=== PATIENT | male | born 1985 | race Caucasian/White ===

== ENCOUNTER → 2018-01-01 16:18 | Outpatient (CLI) | payer MEDICAID, SELFPAY ==
--- NOTE | 2018-01-01 16:24 | MRI_ITS ---
MR Spine Lumbar W/O Contrast INDICATION: LBPpain low back and rt hip x 19 years, no prev lumbar surgery COMPARISON: None TECHNIQUE: Multiplanar multisequence MRI examination of the lumbar spine without contrast FINDINGS: Image quality is suboptimal due to patient's body habitus. There are 5 lumbar-type azr-pou-dusupiw vertebral bodies. The lumbar spine is mildly straightened. Height of the vertebral bodies is preserved. There is mild edema in the anterior aspect of the superior endplate of L5, likely degenerative. Bridging osteophytes are noted at the L4-5 level. Bone marrow signal is otherwise unremarkable. The conus is located at the T12-L1 level and is morphologically unremarkable. There is normal distribution of the nerve roots of the cauda equina. At the T11-12 level, the disc space is decreased with anterior osteophyte formation, no significant posterior disc bulging, spinal canal or neuroforaminal stenosis. Hypertrophy of the ligamentum flavum is noted bilaterally. At the T12-L1 level, there is degenerative disc disease with broad-based posterior and right paracentral to foraminal disc protrusion and disc osteophyte formation resulting in narrowing of the right lateral aspect of the spinal canal and mild right neuroforaminal narrowing. Mass effect onto the conus is minimal. Residual AP diameter of the spinal canal at this level measures 1.3 cm. L1-2 level and L2-3 level unremarkable. L3-4 level demonstrates loss of T2 signal and intervertebral disc compatible with degeneration. There is no significant disc bulging, spinal canal or neuroforaminal stenosis. L4-5 level demonstrates mild diffuse disc bulging and bilateral foraminal disc osteophyte formation with mild left and moderate right neuroforaminal stenosis. Spinal canal is mildly narrowed with residual AP diameter of the dural sac of 9 mm. L5-S1 level is unremarkable. MRI/Spine Lumbar (Routine) IMPRESSION: Degenerative disc disease at the lower thoracic spine and L4-5 with mild narrowing of the right lateral aspect of the spinal canal and the right neuroforamen at T12-L1, level of the conus. Mass effect onto the conus is minimal. At L4-5, there is mild left and moderate right neuroforaminal stenosis. at [id number] Reported and signed by: Emily Felix MD Electronically Signed: Emily Felix MD at 21:41 EST Tel , Service support ,
== END ==
PROVIDERS: Visit Provider Anesthesiology Pain Medicine
DX: M51.35 Other intervertebral disc degeneration, thoracolumbar region (principal); M48.05 Spinal stenosis, thoracolumbar region; M51.37 Other intervertebral disc degeneration, lumbosacral region; M54.17 Radiculopathy, lumbosacral region
CPT/HCPCS: 72148

== ENCOUNTER 2019-04-15 21:13 | Emergency (ER) | payer MEDICAID, SELFPAY ==
[2019-04-15 21:14] VITALS: BP 155/82; PULSE 96; RESP 15; TEMP 36.7; O2SAT 98; BMI 45.6
--- NOTE | 2019-04-15 22:22 | ED.VISSUMM ---
- ER Visit Summary Date of Service: 04/15/19 Chief Complaint: Abscess History of Present Illness: The patient is a 34 M who presents with an abscess. Is been on his chest wall for about a week. He states it is red. He has tried to drain it himself by poking it with needles. He did get some mild drainage at home. Denies fevers. He has never had any of these before. No other symptoms. Physical Examination: Vital signs reviewed. HEENT exam unremarkable. Heart is regular rate and rhythm without murmurs. Lungs are clear to auscultation. Abdomen is soft and nontender. Extremities reveal no edema. Skin exam shows a 3 x 3 cm abscess on the anterior right chest wall with surrounding erythema. Mild fluctuance.. Neurologic exam normal. Test Results: None performed Emergency Department Course and Treatment: The patient had incision and drainage by myself. 3 cc lidocaine was used to anesthetize the area. A cruciate incision was made over the dome of the abscess. There is very mild drainage that returned. Due to the amount of cellulitis I will place him on Bactrim and Keflex. He will follow-up with his PCP in a week for a wound check Treatment Plan: [] Disposition: Discharge Impression: Right chest wall abscess This note was generated with [employer] dictation software. It may contain incorrect words, spelling, and punctuation that were not noted in review of the chart prior to signing ED Disposition - Plan for ED Patient: Referrals: Debi Amaya [Primary Care Provider] -
--- NOTE | 2019-04-15 22:26 | DCINST.ED_ITS ---
ED Disposition - Plan for ED Patient: Disposition: Home or Assisted Living Instructions: ED Abscess IandD Prescriptions: Cephalexin [Keflex] 500 mg PO Q6 #40 cap Smz/Tmp Ds [Bactrim Ds] 1 tab PO BID #20 tab Referrals: [facility] He,Debi Kelley [Primary Care Provider] -
[2019-04-15] MEDS: Cephalexin 250 MG Capsule 500 MG PO (22:33)
[2019-04-15] MEDS: Smz/Tmp Ds Tablet 1 TABLET PO (22:33)
[2019-04-15 22:36] VITALS: PULSE 98; RESP 20; O2SAT 98
== END 2019-04-15 22:44 | disposition home or self-care (01) ==
LOC: ED 22:45
PROVIDERS: Emergency Provider Emergency Medicine; Family Provider Nurse Practitioner Family; PCP Nurse Practitioner Family
DX: L02.213 Cutaneous abscess of chest wall (principal); K21.9 Gastro-esophageal reflux disease without esophagitis; Z72.0 Tobacco use
CPT/HCPCS: 10060; 99285

== ENCOUNTER 2019-06-04 18:20 | Emergency (ER) | payer MEDICAID, SELFPAY ==
[2019-06-04 18:20] VITALS: BP 155/89; PULSE 81; RESP 16; TEMP 37.2; O2SAT 99; BMI 48.0
[2019-06-04 20:17] VITALS: BP 148/80; PULSE 80; RESP 14; O2SAT 98
--- NOTE | 2019-06-04 20:30 | CT_ITS ---
STUDY: CT ABDOMEN AND PELVIS WITHOUT CONTRAST REASON FOR EXAM: Male, 34 years old. Left flank pain RADIATION DOSAGE (If Supplied By Facility): CTDIvol = ( 24.11 ) mGy, DLP = ( 1307.12 ) mGycm TECHNIQUE: Transaxial images were obtained from the dome of the diaphragm to the symphysis pubis without oral contrast, and without intravenous contrast. Sagittal and coronal images were reconstructed. Individualized dose optimization techniques were used for this CT. COMPARISON: None. FINDINGS: Evaluation of the abdominal viscera is limited in the absence of intravenous contrast. The visualized lung bases are clear. The visualized portions of the heart and pericardium are within normal limits. There are no calcified gallstones present. The liver is low in density, consistent with fatty infiltration. The spleen is normal in size. The pancreas demonstrates an unremarkable unenhanced appearance. The adrenal glands are within normal limits. There are no renal or ureteral stones. There is no hydronephrosis. Normal visualized stomach. There is no bowel obstruction or inflammation. The appendix is visualized and appears normal. The aorta is normal in caliber. There is no abdominal or pelvic free air, free fluid, fluid collection or lymphadenopathy. There are no destructive osseous lesions. CT/Abdomen/Pelvis without Cont IMPRESSION: No acute abdominal or pelvic pathology demonstrated on this noncontrast CT. Fatty liver. Electronically Signed: Juni Duncan, at 21:13 EDT Tel , Service support ,
--- NOTE | 2019-06-04 20:32 | ED.VISSUMM ---
- ER Visit Summary Date of Service: 06/04/19 Chief Complaint: [Left flank pain History of Present Illness: The patient is a 34 M [patient has had left flank pain for 3 days. Pain is been continuous. He rates it a 7 out of 10. He denies any injury to his back. Patient denies any fevers. He has no nausea or vomiting. Patient was seen in urgent care and had a urine dip that showed blood and referred to the emergency department. No history of kidney stones. Patient denies similar symptoms. He has history of some chronic back pain issues but feels like this is different. He denies dysuria, urgency, or frequency.] Physical Examination: [HEENT-PERRLA, EOMI. Cranial nerves II through XII grossly intact. TMs clear. Mucous membranes moist. No adenopathy. Cardiovascular-regular rate and rhythm without murmur or ectopy Lungs-clear to auscultation, chest wall stable without crepitus or subcu emphysema Abdomen-normoactive bowel sounds, soft. Patient has tenderness palpation over left lower quadrant and some mild CVA tenderness on the left. Extremities-intact ?4, normal range of motion, normal pulses, atraumatic] Test Results: [CBC with differential was normal. Urinalysis was normal. CT flank was negative.] Emergency Department Course and Treatment: [Patient denied anything for pain] Treatment Plan: [Patient is no anything for pain for home and states that he will take an extra muscle relaxer at home and ibuprofen.] Disposition: [Discharged home stable condition.] Impression: [Left flank pain-etiology uncertain] This note was generated with [employer] dictation software. It may contain incorrect words, spelling, and punctuation that were not noted in review of the chart prior to signing ED Disposition - Plan for ED Patient: Referrals: Neha Lagunas NP-C [Primary Care Provider] -
[2019-06-04] MEDS: 0.9% Normal Saline 1,000 ML 125 ML IV (20:51)
[2019-06-04 21:24] LABS: Bacteria 0 SEEN /hpf (None Seen); Mucous, Urine 0 SEEN /hpf (<or=2+); Red Blood Cells-Urine 0 SEEN /hpf (0-5); Squamous Epithelial Cells - UA 0 SEEN /hpf (0-5); White Blood Cells 0 SEEN /hpf (0-5)
[2019-06-04 21:30] LABS: Color, Urine Yellow (Yellow); Glucose, Dipstick Normal (Normal); Ketone-Dipstick Negative (Negative); Leukocyte Esterase-Dipstick Negative /ul (Negative); Nitrite-Dipstick Negative (Negative); Occult Blood-Urine Negative /ul (Negative); Protein-Dipstick Negative (Negative); Specific Gravity, Urine 1.015 (1.002-1.030); Urine Bilirubin Dipstick Negative (Negative); Urine Clarity Clear (Clear); Urine Urobilinogen Normal (Normal)
[2019-06-04 21:37] LABS: Absolute Lymphocyte Count 3.57 X10^3/uL (0.83-4.51); Absolute Neutrophil Count 7.4 X10^3/uL (2.0-7.7); Basophil# 0.18 X10^3/uL; Basophil% 1.4 % (0-1); Eosinophil# 0.58 X10^3/uL; Eosinophils% 4.5 % (0-5); Hematocrit 47.6 % (40-54); Hemoglobin 15.2 g/dL (13.0-16.5); Lymphocyte # 3.57 X10^3/ul (4.0); Lymphocyte % 27.8 % (19-41); Mean Corp Hgb Conc 31.9 g/dL (32-36); Mean Corpuscular Hgb 28.5 pg (27.0-32.0); Mean Corpuscular Volume 89.1 fL (80-94); Mean Platelet Vol. 11.3 fl (6.2-12.0); Monocyte# 1.09 X10^3/uL; Monocyte% 8.5 % (0-10); NRBC Flagged by Analyzer 0 % (0-5); Neutrophil # 7.35 X10^3/uL (2.7-7.7); Neutrophil % 57.3 % (47-70); Platelet Count 239 K/mm3 (150-450); RBC Distribution Width CV 13.8 % (11.6-14.6); RBC Distribution Width SD 44.7 fl (35.1-43.9); Red Blood Count 5.34 M/mm3 (4.6-6.2); White Blood Count 12.8 K/mm3 (4.4-11.0)
--- NOTE | 2019-06-04 21:58 | DCINST.ED_ITS ---
ED Disposition - Plan for ED Patient: Instructions: FLANK PAIN, Uncertain Cause Referrals: Neha Lagunas, SENIOR TELLER-C [Primary Care Provider] - 3-5 Days
--- NOTE | 2019-06-04 21:58 | ED.DEP ---
ED Disposition - Plan for ED Patient: Instructions: FLANK PAIN, Uncertain Cause Referrals: Neha Lagunas, STRANNER-C [Primary Care Provider] - 3-5 Days
[2019-06-04 22:09] VITALS: BP 139/97; PULSE 70; RESP 17; O2SAT 99
== END 2019-06-04 22:09 | disposition home or self-care (01) ==
LOC: ED 20:45
PROVIDERS: Emergency Provider Emergency Medicine; Family Provider Nurse Practitioner Family; PCP Nurse Practitioner Family
DX: R10.32 Left lower quadrant pain (principal); Z72.0 Tobacco use
CPT/HCPCS: 74176; 81001; 85025; 96360; 99284; J7030; A4216

== ENCOUNTER → 2020-12-31 10:24 | Outpatient (CLI) | payer MEDICAID, SELFPAY ==
[2020-12-31 11:30] LABS: Absolute Lymphocyte Count 3.67 X10^3/uL (0.83-4.51); Basophil% 1.6 % (0-1); Eosinophil# 0.54 X10^3/uL; Eosinophils% 4.3 % (0-5); Hematocrit 52.8 % (40-54); Hemoglobin 16.3 g/dL (13.0-16.5); Lymphocyte # 3.67 X10^3/ul (4.0); Lymphocyte % 29.2 % (19-41); Mean Corp Hgb Conc 30.9 g/dL (32-36); Mean Corpuscular Hgb 27.6 pg (27.0-32.0); Mean Corpuscular Volume 89.3 fL (80-94); Mean Platelet Vol. 11.8 fl (6.2-12.0); Monocyte# 1.11 X10^3/uL; Monocyte% 8.8 % (0-10); NRBC Flagged by Analyzer 0 % (0-5); Neutrophil % 55.6 % (47-70); Platelet Count 237 K/mm3 (150-450); RBC Distribution Width CV 13.8 % (11.6-14.6); RBC Distribution Width SD 45.4 fl (35.1-43.9); Red Blood Count 5.91 M/mm3 (4.6-6.2); White Blood Count 12.6 K/mm3 (4.4-11.0)
[2020-12-31 11:53] LABS: Hemoglobin A1c 5.6 % (3.8-5.6)
[2020-12-31 11:57] LABS: ALB/GLOB Ratio 0.9 RATIO (0.9-2.4); AST(SGOT) 56 U/L (15-37); Alanine Aminotransfer ALT/SGPT 94 U/L (16-61); Albumin, Serum 3.7 g/dL (3.2-5.0); Alkaline Phosphatase 75 U/L (45-117); Anion Gap 4 (5-15); BUN 13 mg/dL (7-18); BUN/Creat Ratio 13.3 RATIO (10-20); Chloride 107 mmol/L (98-107); Cholesterol 172 mg/dL (200); Creatinine, Serum 0.97 mg/dL (0.70-1.30); EST Glomerular Filtration Rate 93 mL/min (>60); Est Glom Filt Rate - Afr Amer 112 mL/min (>60); Globulin 4.3 g/dL (2.2-4.2); Glucose 93 mg/dL (74-106); High Density Lipoprotein 42 mg/dL; Potassium 3.9 mmol/L (3.5-5.1); Sodium Level 139 mmol/L (136-145); Triglycerides 79 mg/dL; Very Low Density Lipoprotein 16 mg/dL (5-40)
== END ==
PROVIDERS: Referring Provider Nurse Practitioner Adult Health; Visit Provider Nurse Practitioner Adult Health
DX: K21.9 Gastro-esophageal reflux disease without esophagitis (principal)
CPT/HCPCS: 36415; 80053; 80061; 83036; 84443; 85025

== ENCOUNTER → 2021-01-14 10:22 | Outpatient (CLI) | payer MEDICAID, SELFPAY ==
[2021-01-15 13:09] LABS: Thyroid Peroxidase AB < 9 IU/mL (0-34)
== END ==
PROVIDERS: Referring Provider Nurse Practitioner Adult Health; Visit Provider Nurse Practitioner Adult Health
DX: E07.89 Other specified disorders of thyroid (principal)
CPT/HCPCS: 36415; 84439; 86376

== ENCOUNTER 2021-05-04 19:16 | Emergency (ER) | payer OTHER, MEDICAID, SELFPAY ==
[2021-05-04 19:17] VITALS: BP 163/83; PULSE 73; RESP 16; TEMP 36.8; O2SAT 97; BMI 44.8
--- NOTE | 2021-05-04 19:31 | EDS_ITS ---
HPI History of Present Illness Chief Complaint: Rash Detail of Chief Complaint: Rash that started this morning Informant: patient Narrative Narrative: Patient is here with a rash on his left wrist and behind his right ear this morning. Patient states the rash has now spread across his face. He denies lip or tongue swelling. He denies difficulty breathing. He denies any new soaps or detergents. Patient states that he was exposed to poison oak over a week ago and 4 days ago he got into a wood pile underneath the deck but other than that did not have any other exposures that he is aware of. He denies any new medications. Prior similar symptoms: No PFSH [facility] Medical History (Updated 05/04/21 @ 19:[address] Isidoro Toney, DO) Dysphagia Elevated blood pressure reading in office without diagnosis of hypertension GERD (gastroesophageal reflux disease) History of back problems Morbid obesity Numbness and tingling Sleep apnea Home Medications omeprazole 40 mg PO DAILY 04/15/19 [History Last Taken Unknown] chlorhexidine gluconate [Hibiclens] 1 applic TOPICAL DAILY 05/04/21 [History Last Taken Unknown] lisinopril 5 mg PO DAILY 05/04/21 [History Last Taken Unknown] prednisone 20 mg PO BID #14 tab 05/04/21 [Rx Last Taken Unknown] Allergy/AdvReac Type Severity Reaction Status Date / Time No Known Allergies Allergy Verified 05/04/21 19:18 Family History (Updated 02/22/21 @ 09:16 by Lien Barahona) Father Alcohol abuse Surgical History History of placement of ear tubes History of selective injection of anesthetic agent around lumbar nerve root Social History (Updated 02/22/21 @ 09:[address] Juan Fuller MD) Smoking Status: Light Smoker (<10/day) quit status: has quit before alcohol intake: current alcohol intake frequency: holidays/special occasions only substance use type: does not use caffeine: Yes what type of physical activity do you participate in: none frequency: does not exercise ROS ROS ED Constitutional Constitutional ED: Reports systems reviewed and no addt'l complaints, except as documented; Denies body ache(s), change in weight or chills Eyes Eyes: Denies acute decrease in peripheral vision, change in vision, double vision or loss of vision ENT ENT ED: Reports none; Denies ear pain, lip swelling, loss taste/smell, neck pain, otalgia or sore throat Cardiovascular Cardiovascular: Reports none; Denies abdominal pain, chest pain with activity, leg edema, lightheadedness, palpitations, rapid heart rate or syncope Respiratory/Chest Respiratory/Chest: Reports none; Denies change in mental status, dry cough, dyspnea, hemoptysis, shortness of breath at rest or shortness of breath with exertion Gastrointestinal Gastrointestinal: Reports none; Denies abdominal pain, change in stool character, diarrhea, hematemesis, hematochezia, melena, rectal bleeding or vomiting Genitourinary Genitourinary ED: Reports none; Denies abdominal discomfort, anuria, dysuria, genital pain or polyuria Musculoskeletal Musculoskeletal: Reports none; Denies arthralgias, back pain, difficulty walking, extremity pain, muscle weakness or myalgias Integumentary Reports none and rash; Denies abscess Neurologic Neurologic: Reports none; Denies abnormal gait, confusion, focal weakness, frequent falls, headache(s), loss of vision, numbness, paresthesias, radicular pain, vertigo or weakness Psychiatric Psychiatric: Reports systems reviewed and no addt'l complaints, except as documented and none; Denies behavioral changes, confusion, difficulty concentrating, hallucinations, suicidal ideation, tactile hallucinations or visual hallucinations Endocrine Endocrinology: Denies none, cold intolerance, excessive sweating, fatigue or heat intolerance Hematologic/Lymphatic Hematologic/Lymphatic: Reports none; Denies anemia, easy bleeding or easy bruising Allergic/Immunologic Allergic/Immunologic ED: Denies as per HPI, none, lip swelling, mouth swelling, throat swelling, tongue swelling or hives EXAM Physical Exam Const Vital Signs: 05/04/21 19:17 Temperature 98.2 F Temperature Source Temporal Pulse Rate 73 Respiratory Rate 16 Blood Pressure 163/83 H Blood Pressure Mean 109 Pulse Ox 97 Oxygen Delivery Method Room Air Positive well nourished and well developed General Appearance ED: well developed and NAD HEENT Reports TM's clear and moist mucous membranes normocephalic and atraumatic; Negative for trauma or tenderness Tympanic Membrane ED: Yes TM's clear Eyes PERRL and EOMs intact bilaterally General Eye ED: Negative for pale conjunctiva or scleral icterus Neck no lymphadenopathy, supple and no JVD General: Negative for tenderness Chest Wall inspection of chest normal and palpation of chest normal Chest: Negative for tenderness Resp normal respiratory effort and clear to auscultation bilaterally Effort and Inspection: Negative for respiratory distress or pain with movement Auscultation: Negative for rhonchi, wheezes or diminished lung sounds Cardio regular rate, regular rhythm, S1 normal heart sound, S2 normal heart sound and no murmurs Peripheral Pulses: pulses 2+ throughout GI normal to inspection, nondistended, normoactive bowel sounds, soft to palpation, non-tender, non-distended and no masses Back/Spine no CVA tenderness and no thoracic nor lumbar tenderness Extremity normal to inspection General Extremety ED: Negative for edema General Extremity: Negative for edema Neuro oriented x3, CN's II-XII intact bilaterally, no sensory deficits noted and gait normal Sensorium / Orientation: awake, alert, oriented to person, oriented to place and oriented to time Motor Exam: strength 5/5 throughout and strength abnormal Psych mental status grossly normal Skin no wounds Skin Narrative: Patient has a fine erythematous rash involving the volar aspect of the left wrist. Patient also has similar type rash involving the neck and face slightly raised. Rash is pruritic. MDM MDM MDM Narrative Medical decision making narrative: I suspect patient has a contact dermatitis. Patient was started on prednisone. He is advised to follow-up with primary care physician in 4 to 5 days. Discharge Plan Triage Chief Complaint: Rash ED Provider: Isidoro Toney Dx/Rx/DC Orders Clinical Impression: Contact dermatitis Instructions: ED Contact Dermatitis Prescriptions: New prednisone 20 mg tablet 20 mg PO BID Qty: 14 RF: 0 No Action omeprazole 40 MG capsule,delayed release(DR/EC) 40 mg PO DAILY RF: 0 lisinopril 5 mg Tablet 5 mg PO DAILY RF: 0 chlorhexidine gluconate [Hibiclens] 4 % Liquid 1 applic TOPICAL DAILY RF: 0 Primary Care Provider: [facility] Debi Styles [facility] - [facility]-5 Days Disposition Disposition: Home, Self Care
[2021-05-04] MEDS: predniSONE 20 MG Tablet 40 MG PO (19:50)
== END 2021-05-04 19:52 | disposition home or self-care (01) ==
LOC: ED 19:50
PROVIDERS: Emergency Provider Emergency Medicine
DX: L25.9 Unspecified contact dermatitis, unspecified cause (principal); F17.200 Nicotine dependence, unspecified, uncomplicated; K21.9 Gastro-esophageal reflux disease without esophagitis; Z79.899 Other long term (current) drug therapy; Z87.19 Personal history of other diseases of the digestive system
CPT/HCPCS: 99283

== ENCOUNTER → 2021-06-30 10:37 | Outpatient (CLI) | payer OTHER, MEDICAID, SELFPAY ==
[2021-06-30 11:24] LABS: Absolute Lymphocyte Count 2.96 X10^3/uL (0.83-4.51); Basophil# 0.16 X10^3/uL; Basophil% 1.4 % (0-1); Eosinophil# 0.44 X10^3/uL; Eosinophils% 3.8 % (0-5); Hematocrit 44.7 % (40-54); Hemoglobin 14.6 g/dL (13.0-16.5); Lymphocyte # 2.96 X10^3/ul (0.83-4.51); Lymphocyte % 25.7 % (19-41); Mean Corp Hgb Conc 32.7 g/dL (32-36); Mean Corpuscular Hgb 28.7 pg (27.0-32.0); Mean Corpuscular Volume 87.8 fL (80-94); Mean Platelet Vol. 11.2 fl (6.2-12.0); Monocyte# 0.95 X10^3/uL; Monocyte% 8.2 % (0-10); NRBC Flagged by Analyzer 0 % (0-5); Neutrophil # 6.95 X10^3/uL (2.7-7.7); Neutrophil % 60.4 % (47-70); Platelet Count 217 K/mm3 (150-450); RBC Distribution Width CV 13.8 % (11.6-14.6); RBC Distribution Width SD 44.4 fl (35.1-43.9); Red Blood Count 5.09 M/mm3 (4.6-6.2); White Blood Count 11.5 K/mm3 (4.4-11.0)
[2021-06-30 11:54] LABS: ALB/GLOB Ratio 0.9 RATIO (0.9-2.4); AST(SGOT) 37 U/L (15-37); Alanine Aminotransfer ALT/SGPT 57 U/L (16-61); Albumin, Serum 3.3 g/dL (3.2-5.0); Alkaline Phosphatase 62 U/L (45-117); Anion Gap 3 (5-15); BUN 9 mg/dL (7-18); BUN/Creat Ratio 10.8 RATIO (10-20); Calcium,Total 8.7 mg/dL (8.5-10.1); Chloride 105 mmol/L (98-107); Cholesterol 157 mg/dL (200); Creatinine, Serum 0.83 mg/dL (0.70-1.30); EST Glomerular Filtration Rate 111 mL/min (>60); Est Glom Filt Rate - Afr Amer 135 mL/min (>60); Globulin 3.8 g/dL (2.2-4.2); Glucose 102 mg/dL (74-106); High Density Lipoprotein 39 mg/dL; Potassium 3.7 mmol/L (3.5-5.1); Protein, Total 7.1 g/dL (6.4-8.2); Sodium Level 137 mmol/L (136-145); Triglycerides 62 mg/dL; Very Low Density Lipoprotein 12 mg/dL (5-40)
== END ==
PROVIDERS: PCP Nurse Practitioner Adult Health; Referring Provider Nurse Practitioner Adult Health
DX: E78.5 Hyperlipidemia, unspecified (principal)
CPT/HCPCS: 36415; 80053; 80061; 85025

== ENCOUNTER → 2021-07-01 09:01 | Outpatient (CLI) | payer OTHER, MEDICAID, SELFPAY ==
--- NOTE | 2021-07-01 09:03 | EKG12_ITS ---
Test Reason : CP Blood Pressure : / mmHG Vent. Rate : 058 BPM Atrial Rate : 058 BPM P-R Int : 160 ms QRS Dur : 106 ms QT Int : 390 ms P-R-T Axes : 024 003 031 degrees QTc Int : 382 ms Sinus bradycardia with sinus arrhythmia Otherwise normal ECG Confirmed by TERE ZIMMERMAN, HERMINIO ([id number]), development editor ARGENIS COLEMAN ([id number]) on 07/06/2021 8:10:31 AM Referred By: Wen Stanley Confirmed By:KEYON CARRANZA MD
== END ==
PROVIDERS: PCP Nurse Practitioner Adult Health; Referring Provider Nurse Practitioner Adult Health; Visit Provider Nurse Practitioner Adult Health
DX: I10 Essential (primary) hypertension (principal)
CPT/HCPCS: 93005

== ENCOUNTER → 2021-08-06 10:34 | Outpatient (CLI) | payer OTHER, MEDICAID, SELFPAY ==
--- NOTE | 2021-08-06 10:36 | RAD_ITS ---
STUDY: X-RAY - CERVICAL SPINE REASON FOR EXAM: Male, 36 years old. Neck pain and headache TECHNIQUE: 5 view(s) of the cervical spine were obtained. COMPARISON: None FINDINGS: Normal anterior atlantoaxial articulation. Normal odontoid process. Normal cervical lordosis. Normal vertebral bodies and endplates. There is multi-level degenerative disc disease with multilevel disc space narrowing from C5-6 through C7-T1. The soft tissue structures are unremarkable. There is no demonstrated fracture of the cervical spine. RAD/Cerv Spine 2 or 3 Views IMPRESSION: Degenerative changes in the lower C-spine, no demonstrated fracture or suspicious osseous lesion Electronically Signed: Eric Boudreaux MD at 12:04 EDT , Service support ,
--- NOTE | 2021-08-06 10:36 | RAD_ITS ---
STUDY: X-RAY CHEST REASON FOR EXAM: Male, 36 years old. Chest pain/pressure TECHNIQUE: PA and lateral views of the chest. COMPARISON: 2012 FINDINGS: The lungs are clear and expanded. There is no demonstrated pleural abnormality. Normal size heart. Normal mediastinum and wili. Normal visualized pulmonary arteries. Normal visualized aortic arch and descending thoracic aorta. Normal visualized thoracic spine. Normal visualized ribs, clavicles, and shoulders. There is no demonstrated abnormality of the visualized soft tissue structures of the upper abdomen. RAD/Chest PA and Lateral IMPRESSION: Normal x-ray examination of the chest. Electronically Signed: Eric Boudreaux MD at 12:51 EDT , Service support ,
== END ==
PROVIDERS: PCP Nurse Practitioner Adult Health; Referring Provider Nurse Practitioner Adult Health; Visit Provider Nurse Practitioner Adult Health
DX: R06.02 Shortness of breath (principal); M54.2 Cervicalgia
CPT/HCPCS: 71046; 72040

== ENCOUNTER → 2021-08-20 08:11 | Outpatient (CLI) | payer OTHER, MEDICAID, SELFPAY ==
--- NOTE | 2021-08-20 12:08 | PFT ---
INTRODUCTION: The patient is a 36-year-old male that presents for pulmonary function studies secondary to a diagnosis of dyspnea. Respiratory therapy reported good patient effort. Bronchodilators were used during testing. INTERPRETATION: Forced expiration spirometry demonstrates the presence of a moderate large airways obstructive ventilatory defect. There was a significant response to aerosolized bronchodilators noted. Spirograms are of good quality and plateau gradually indicating slow emptying of the lungs. Body plethysmography was performed and revealed an elevated RV to 168% of predicted, indicative of underlying air trapping. Diffusing capacity by single breath CO is preserved. IMPRESSION: Partially reversible moderate large airways obstructive ventilatory defect with associated air trapping.
== END ==
PROVIDERS: PCP Nurse Practitioner Adult Health; Referring Provider Nurse Practitioner Adult Health; Visit Provider Nurse Practitioner Adult Health
DX: R06.02 Shortness of breath (principal)
CPT/HCPCS: 94060; 94726; 94729

== ENCOUNTER → 2021-10-06 12:53 | Outpatient (CLI) | payer OTHER, MEDICAID, SELFPAY ==
--- NOTE | 2021-10-06 12:58 | STEWCON_ITS ---
Reason For Study: CHEST PAIN Stress Results Protocol: [facility] Protocol WITH DEFINITY Maximum Predicted HR: 184 bpm Target HR: 156 bpm % Maximum Predicted HR: 85 % DurationHeart Rate Stage (mm:ss) (bpm) BP Comment BASELINE 66 150/92 STAGE 1 3:00 126 154/92 STAGE 2 3:00 148 190/92 STAGE 3 0:30 157 / NO CHEST PAIN, SOB NOTED RECOVERY 88 148/944 CC TOTAL FOR DEFINITY Stress Duration: 6:30 mm:ss Maximum Stress HR: 157 bpm Baseline Echocardiogram Findings Stress Echo Wall motion Data Resting WM Intermediate WM Stress WM ECHO/Stress Test Echo W/Contrast Interpretation Summary Stress echocardiogram. 36-year-old man with a history of chest pain. Stress protocol: Resting EKG demonstrates normal sinus rhythm with rate of 63 bpm resting blood pressure 150/92 mmHg. The patient exercised according to the regular [place]aco protocol for total duratio n of 6 minutes and 40 seconds. The maximum heart rate attained was 184 bpm which was 100% of max impa ct at heart rate the maximum workload was 9 metabolic equivalents. At rest there were no ST or T wav e changes noted to suggest ischemia and at peak exercise nonspecific ST changes were noted with di d not meet the criteria for ischemia. The peak blood pressure was 190/92 mmHg which was a norm al blood pressure response to exercise. The test was terminated due to shortness of breath. Stress echocardiogram. Next line resting and stress echocardiographic images we re obtained with Definity enhancement. The resting ejection fraction was estimated to be 55% no obvious wall motion abnormalities were noted. The stress echocardiogram demonstrated thickening of all mcgraw with reduction in left ventricular cavity size estimated to be 60%. No wall motion a bnormalities were noted with his Definity enhanced image. Image quality may preclude subtle abnor malities noted. Conclusion: Normal exercise stress echo with no obvious EKG or echocardiographic evidence o f ischemia. Ordering Physician: Naren Jovel Referring Physician: Naren Jovel Performed By: Cameron Wright RCS
== END ==
PROVIDERS: PCP Nurse Practitioner Adult Health; Referring Provider Internal Medicine Cardiovascular Disease; Visit Provider Internal Medicine Cardiovascular Disease
DX: R07.89 Other chest pain (principal)
CPT/HCPCS: 93017; 93350; Q9957; A4216; C8928

== ENCOUNTER 2022-01-18 16:26 | Outpatient (CLI) | payer OTHER, MEDICAID, SELFPAY ==
[2022-01-18 17:13] LABS: Thyroid Stim Hormone (TSH) 4.78 uIU/mL (0.358-3.74)
== END 2022-01-18 23:59 | disposition home or self-care (01) ==
LOC: LAB 16:27
PROVIDERS: PCP Nurse Practitioner Adult Health; Referring Provider Nurse Practitioner Adult Health; Visit Provider Nurse Practitioner Adult Health
DX: R63.4 Abnormal weight loss (principal)
CPT/HCPCS: 36415; 84443

== ENCOUNTER → 2023-07-04 | Outpatient (CLI) | payer SELFPAY ==
[2023-07-04 16:57] LABS: Absolute Lymphocyte Count 3.34 X10^3/uL (0.83-4.51); Absolute Neutrophil Count 8.6 X10^3/uL (2.0-7.7); Basophil# 0.17 X10^3/uL; Basophil% 1.3 % (0-1); Eosinophil# 0.42 X10^3/uL; Eosinophils% 3.1 % (0-5); Hematocrit 47.1 % (40-54); Hemoglobin 15.1 g/dL (13.0-16.5); Lymphocyte # 3.34 X10^3/ul (0.83-4.51); Lymphocyte % 24.7 % (19-41); Mean Corp Hgb Conc 32.1 g/dL (32-36); Mean Corpuscular Hgb 28.2 pg (27.0-32.0); Mean Platelet Vol. 10.8 fl (6.2-12.0); Monocyte# 0.88 X10^3/uL; Monocyte% 6.5 % (0-10); NRBC Flagged by Analyzer 0 % (0-5); Neutrophil # 8.63 X10^3/uL (2.7-7.7); Platelet Count 283 K/mm3 (150-450); RBC Distribution Width CV 13.4 % (11.6-14.6); RBC Distribution Width SD 43.5 fl (35.1-43.9); Red Blood Count 5.35 M/mm3 (4.6-6.2); White Blood Count 13.5 K/mm3 (4.4-11.0)
[2023-07-04 17:26] LABS: AST(SGOT) 27 U/L (15-37); Alanine Aminotransfer ALT/SGPT 40 U/L (16-61); Alkaline Phosphatase 56 U/L (45-117); Anion Gap 5 (5-15); BUN 14 mg/dL (7-18); Calcium,Total 9.2 mg/dL (8.5-10.1); Chloride 109 mmol/L (98-107); EST Glomerular Filtration Rate 89 mL/min (>60); Est Glom Filt Rate - Afr Amer 107 mL/min (>60); Globulin 4.2 g/dL (2.2-4.2); Glucose 75 mg/dL (74-106); Protein, Total 8.2 g/dL (6.4-8.2); Sodium Level 141 mmol/L (136-145); Thyroid Stim Hormone (TSH) 8.29 uIU/mL (0.358-3.74)
== END | disposition home or self-care (01) ==
LOC: BIMLAB 15:45
PROVIDERS: PCP Nurse Practitioner Adult Health; Visit Provider Internal Medicine
DX: I10 Essential (primary) hypertension (principal)
CPT/HCPCS: 36415; 80053; 84443; 85025

== ENCOUNTER → 2023-11-20 | Outpatient (CLI) | payer OTHER, SELFPAY ==
--- OUTSIDE RECORDS SUMMARY | 2023-11-20 16:39 | XMS RPT_ITS | CCD ---
Author Name Unknown Address [address] [place] [address] Organization [facility] Care Team Providers Care Pilot Teacher Name Role Phone Marcin Belcher MD Unavailable [phone] Problems Active Problems Problem Classification Problem Date Documented Date Episodic/Chronic Esophageal disorders (1 source) Gastroesophageal reflux disease; Translations: [Gastro-esophageal reflux disease without esophagitis] Onset: 08-21-2017 08-21-2017 Chronic Osteoarthritis (1 source) Arthritis; Translations: [Unspecified osteoarthritis, unspecified site] Onset: 08-21-2017 08-21-2017 Chronic Residual codes; unclassified (1 source) Sleep apnea; Translations: [Sleep apnea, unspecified] Onset: 08-21-2017 08-21-2017 Chronic Past or Other Problems Problem Classification Problem Date Documented Da te Episodic/Chronic Other bone disease and musculoskeletal deformities (1 source) Costal chondritis; Translations: [Chondrocostal junction syndrome [Tietze]] Onset: 08-21-2017 08-22-2017 Episodic Other lower respiratory disease (1 source) Dyspnea; Translations: [Shortness of breath] Onset: 08-21-2017 08-21-2017 Episodic Results Test Name Value Interpretation Reference Range Facil ity Vital Signs Date Time Vital Sign Value Performing Clinician Facility 08-21-2017 14:42-0400 BMI (Body Mass Index) 40.59 kg/m2 Marcin Belcher MD [facility] Work Phone: 08-21-2017 14:42-0400 Body Temperature 98.2 [degF] Marcin Belcher MD [facility] Work Phone: 08-21-2017 14:42-0400 BP Diastolic 81 mm[Hg] Marcin Belcher MD [facility] Work Phone: 08-21-2017 14:42-0400 BP Systolic 123 mm[Hg] Marcin Belcher MD [facility] Work Phone: 08-21-2017 14:42-0400 Height 172.72 cm Marcin Belcher MD [facility] Work Phone: 08-21-2017 14:42-0400 Pulse (Heart Rate) 73 /min Marcin Belcher MD [facility] Work Phone: 08-21-2017 14:42-0400 Respiratory Rate 18 /min Marcin Belcher MD [facility] Work Phone: 08-21-2017 14:42-0400 Weight 121.11 kg Marcin Belcher MD [facility] Work Phone: Plan of Treatment Date Care Activity Detail Author [facility] Work Phone: Summary Purpose Family History No Family History Records FoundNo Family History Records FoundNo Family History Records FoundNo Family History Records Found Advance Directives No Advanced Directives Records FoundNo Advanced Directives Records FoundNo Advanced Directives Records FoundNo Advanced Directives Records Found Additional Source Comments (unrecognized sect ion and content) No Status Records FoundNo Status Records FoundNo Status Records FoundNo Status Records Found INFORMATION SOURCE (unrecogn ized section and content) DATE CREATED AUTHOR AUTHOR'S ORGANIZ ATION 01/03/2021 [facility] ([place]) DATE CREATED AUTHOR AUTHOR'S ORGANIZ ATION 03/07/2021 [facility] DATE CREATED AUTHOR AUTHOR'S ORGANIZ ATION 12/15/2021 [facility] FOR RECORDS PERTAINING TO PATIENTS WHO ARE OR HAVE BEEN ENROLLED IN A CHEMICAL DEPENDENCY/SUBSTANCEABUSE PROGRAM, SOME INFORMATION MAY BE OMITTED. This clinical summary was aggregated from multiple sources. Caution should be exercised in using it in the provision of clinical care. This summary normalizes information from multiple sources, and as a consequence, information in this document may materially change the coding, format and clinical context of patient data. In addition, data may be omitted in some cases. CLINICAL DECISIONS SHOULD BE BASED ON THE PRIMARY CLINICAL RECORDS. [facility]. provides no warranty or guarantee of the accuracy or completeness of information in this document.
[2023-11-20 17:56] LABS: Thyroid Stim Hormone (TSH) 0.01 uIU/mL (0.358-3.74)
== END | disposition home or self-care (01) ==
LOC: BIMLAB 16:17
PROVIDERS: PCP Internal Medicine; Visit Provider Internal Medicine
DX: E03.9 Hypothyroidism, unspecified (principal)
CPT/HCPCS: 36415; 84443

== ENCOUNTER → 2024-01-15 | Outpatient (CLI) | payer OTHER, SELFPAY ==
[2024-01-15 12:04] LABS: Absolute Lymphocyte Count 2.84 X10^3/uL (0.83-4.51); Absolute Neutrophil Count 12.1 X10^3/uL (2.0-7.7); Basophil# 0.14 X10^3/uL; Basophil% 0.8 % (0-1); Eosinophil# 0.35 X10^3/uL; Eosinophils% 2.1 % (0-5); Hemoglobin 15.8 g/dL (13.0-16.5); Lymphocyte # 2.84 X10^3/ul (0.83-4.51); Mean Corp Hgb Conc 32.2 g/dL (32-36); Mean Corpuscular Hgb 28.4 pg (27.0-32.0); Mean Platelet Vol. 10.8 fl (6.2-12.0); Monocyte# 1.17 X10^3/uL; NRBC Flagged by Analyzer 0 % (0-5); Neutrophil % 72.6 % (47-70); Platelet Count 233 K/mm3 (150-450); RBC Distribution Width CV 13.1 % (11.6-14.6); RBC Distribution Width SD 42.3 fl (35.1-43.9); Red Blood Count 5.57 M/mm3 (4.6-6.2); White Blood Count 16.7 K/mm3 (4.4-11.0)
[2024-01-15 13:26] LABS: ALB/GLOB Ratio 0.9 RATIO (0.9-2.4); AST(SGOT) 21 U/L (15-37); Alanine Aminotransfer ALT/SGPT 34 U/L (16-61); Albumin, Serum 3.8 g/dL (3.2-5.0); Alkaline Phosphatase 71 U/L (45-117); Anion Gap 5 (5-15); BUN 10 mg/dL (7-18); BUN/Creat Ratio 10.9 RATIO (10-20); Calcium,Total 9.1 mg/dL (8.5-10.1); Chloride 106 mmol/L (98-107); Creatinine, Serum 0.92 mg/dL (0.70-1.30); EST Glomerular Filtration Rate 98 mL/min (>60); Est Glom Filt Rate - Afr Amer 118 mL/min (>60); Globulin 4.1 g/dL (2.2-4.2); Glucose 106 mg/dL (74-106); Potassium 4.1 mmol/L (3.5-5.1); Protein, Total 7.9 g/dL (6.4-8.2); Sodium Level 138 mmol/L (136-145); Thyroid Stim Hormone (TSH) 0.02 uIU/mL (0.358-3.74)
== END | disposition home or self-care (01) ==
LOC: BIMLAB 10:09
PROVIDERS: PCP Internal Medicine; Referring Provider Internal Medicine; Visit Provider Internal Medicine
DX: R10.32 Left lower quadrant pain (principal)
CPT/HCPCS: 36415; 80053; 84443; 85025

== ENCOUNTER 2024-01-16 11:21 | Emergency (ER) | payer OTHER, SELFPAY ==
[2024-01-16 11:22] VITALS: BP 179/93; PULSE 103; PULSE 89; RESP 16; TEMP 36.2; O2SAT 97; O2SAT 98; BMI 42.5
--- NOTE | 2024-01-16 11:36 | CT_ITS ---
STUDY: CT ABDOMEN AND PELVIS WITH CONTRAST REASON FOR EXAM: Male, 38 years old. Lower abdominal pain RADIATION DOSAGE (If Supplied By Facility): CTDIvol = ( 15.11 ) mGy, DLP = ( 1246.02 ) mGycm TECHNIQUE: Transaxial images were obtained from the dome of the diaphragm to the symphysis pubis without oral contrast. IV 100mL Isovue-300 was administered. Sagittal and coronal images were reconstructed. Individualized dose optimization techniques were used for this CT. COMPARISON: Comparison is made with prior study dated June 04, 2019. FINDINGS: The visualized lung bases are unremarkable. The visualized portions of the heart are within normal limits. There is decreased attenuation of the liver consistent with steatosis. Normal gallbladder and extrahepatic biliary system. Normal spleen. Normal pancreas. Normal bilateral adrenal glands. Normal right kidney. Normal left kidney. Normal visualized stomach. Normal small intestine. There is diverticulosis, with thickening of the colon wall, and pericolonic inflammation changes consistent with acute diverticulitis. The appendix is visualized and appears normal. Normal abdominal aorta. Normal inferior vena cava. Normal retroperitoneum. Normal urinary bladder. Normal abdominal wall. Normal osseous structures. CT/Abdomen/Pelvis W IV Cont ONLY IMPRESSION: Sigmoid diverticulosis with evidence of a mild degree of sigmoid diverticulitis with increased markings in the surrounding sigmoid peritoneal fat. No focal abscess is seen. Fatty infiltration of the liver. Electronically Signed: Tadeo Sim MD at 14:31 EDT ,
[2024-01-16 11:37] VITALS: BP 179/83; PULSE 87; RESP 16; TEMP 36.2; O2SAT 97
--- NOTE | 2024-01-16 11:38 | EDS_ITS ---
HPI HPI - GI History of Present Illness Chief Complaint: Abd Pain Detail of Chief Complaint: Abdominal pain Informant: patient Narrative Narrative: Patient presents with abdominal pain that started 2 weeks ago. Patient states worse pain since yesterday. She saw her primary care physician and was told to be evaluated in the emergency department. Patient denies recent nausea and vomiting although she he had an episode about a week ago x 1 that resolved. He denies fevers or chills or sweats. He had some intermittent diarrhea. Denies blood in stool or black tarry stool. He is never had pain like this before. He denies any lumps or masses in the lower abdomen. Pain worse with movement. No history of kidney stones or diverticulitis. [facility] Medical History Acute maxillary sinusitis, unspecified Allergies Back problem Contact dermatitis COPD (chronic obstructive pulmonary disease) Dysphagia Essential hypertension GERD (gastroesophageal reflux disease) History of back problems Impacted cerumen, left ear Morbid obesity Numbness and tingling Sleep apnea Tobacco dependence Home Medications levothyroxine 75 mcg tablet 75 mcg PO DAILY #30 tabs 01/15/24 [Rx Last Taken Unknown] omeprazole 40 mg capsule,delayed release 40 mg PO DAILY #30 caps 01/15/24 [Rx Last Taken Unknown] ciprofloxacin HCl 500 mg tablet 500 mg PO BID #14 TABLETS 01/16/24 [Rx Last Taken Unknown] hydrocodone-acetaminophen 5-325mg 5mg-325mg 1 tab PO Q4H PRN PRN Pain 2 days #10 TABLETS 01/16/24 [Rx Last Taken Unknown] metronidazole 500 mg tablet 500 mg PO Q8H 7 days #21 tabs 01/16/24 [Rx Last Taken Unknown] Allergy/AdvReac Type Severity Reaction Status Date / Time No Known Allergies Allergy Verified 01/16/24 11:25 Family History Father Alcohol abuse Heart disease Grandmother Diabetes Grandmother Heart disease Diabetes Bowel disease doesn't know what kind Hypertension Other Arthritis Cervical cancer Gastrointestinal problem Surgical History History of placement of ear tubes History of selective injection of anesthetic agent around lumbar nerve root Social History household members: spouse and children current occupational status: employed 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 Smoking Status: Former smoker quit date: 05/30/22 pack-years: 56 Electronic Cigarette Use: with nicotine quit status: has quit before alcohol intake: current alcohol intake frequency: holidays/special occasions only substance use type: does not use caffeine: Yes what type of physical activity do you participate in: walking frequency: does not exercise do you feel safe at home: Yes ROS ROS ED Review of Systems ROS Unobtainable: other Constitutional Constitutional ED: Reports lethargy; Denies chills, fever(s), sweats or weight loss Eyes Eyes: Denies blurry vision, change in vision or diplopia ENT ENT ED: Denies rhinorrhea or sore throat Cardiovascular Cardiovascular: Denies chest pain, orthopnea or racing heartbeat Respiratory/Chest Respiratory/Chest: Denies cough, dyspnea, dyspnea on exertion, orthopnea or sputum Gastrointestinal Gastrointestinal: Reports abdominal pain; Denies diarrhea, nausea or vomiting Genitourinary Genitourinary ED: Denies dysuria, hematuria or urinary frequency Musculoskeletal Musculoskeletal: Denies arthralgias, back pain, myalgias or neck pain Integumentary Denies abscess, Abrasions or rash Neurologic Neurologic: Denies headache(s) or weakness Psychiatric Psychiatric: Denies anxiety, depression or suicidal thoughts Endocrine Endocrinology: Denies polydipsia, polyphagia or polyuria Hematologic/Lymphatic Hematologic/Lymphatic: Denies easy bleeding, easy bruising or lymphadenopathy Allergic/Immunologic Allergic/Immunologic ED: Denies mouth swelling, tongue swelling or urticaria EXAM Physical Exam Const Vital Signs: 01/16/24 11:22 01/16/24 11:22 01/16/24 11:37 Temperature 97.2 F L 97.2 F L 97.2 F L Temperature Source Temporal Temporal Temporal Pulse Rate 103 H 89 87 Respiratory Rate 16 16 16 Blood Pressure 179/93 H 179/93 H 179/83 H Blood Pressure Mean 121 121 115 Pulse Ox 98 97 97 Oxygen Delivery Method Room Air Room Air Room Air Positive well nourished and well developed General Appearance ED: well developed and NAD HEENT Reports TM's clear and moist mucous membranes normocephalic and atraumatic; Negative for trauma or tenderness Tympanic Membrane ED: Yes TM's clear Eyes PERRL and EOMs intact bilaterally General Eye ED: Negative for pale conjunctiva or scleral icterus Neck no lymphadenopathy, supple and no JVD General: Negative for tenderness Chest Wall inspection of chest normal and palpation of chest normal Chest: Negative for tenderness Resp normal respiratory effort and clear to auscultation bilaterally Effort and Inspection: Negative for respiratory distress or pain with movement Auscultation: Negative for rhonchi, wheezes or diminished lung sounds Cardio regular rate, regular rhythm, S1 normal heart sound, S2 normal heart sound and no murmurs Peripheral Pulses: pulses 2+ throughout GI normal to inspection, nondistended, normoactive bowel sounds, soft to palpation, non-distended and no masses GI Narrative: Tenderness palpation over left lower quadrant as well as the suprapubic region with guarding. There is no rebound, rigidity, or peritoneal signs. No masses palpated. Back/Spine no CVA tenderness and no thoracic nor lumbar tenderness Extremity normal to inspection General Extremety ED: Negative for edema General Extremity: Negative for edema Neuro oriented x3, CN's II-XII intact bilaterally, no sensory deficits noted and gait normal Sensorium / Orientation: awake, alert, oriented to person, oriented to place and oriented to time Motor Exam: strength 5/5 throughout and strength abnormal Psych mental status grossly normal Skin no rashes or lesions noted and no wounds MDM MDM MDM Narrative Medical decision making narrative: Patient presents with lower abdominal pain off and on for 2 weeks but worse since yesterday. Now pain with movement. IV line established. CBC with differential obtained for white count of 18.3 with hemoglobin 15 and platelet count of 222. Chemistries unremarkable. BUN [address] scan of the abdomen pelvis with IV contrast showed acute uncomplicated diverticulitis of the sigmoid colon. Lactate was normal at 1.8. This point discussed results with patient. Will start on Cipro and Flagyl p.o. Will write a prescription for a few [place] for pain. Advised to follow-up with his primary care physician within next 3 to 5 days. Vies to return if worsening pain, fever, bloody stools, or condition should worsen anyway. Patient advised that he will likely require colonoscopy after his symptoms have resolved. Lab Data Attestation: I reviewed the patient's lab results. Labs: Laboratory Results - last 24 hr 01/16/24 11:40 WBC 18.3 H RBC 5.49 Hgb 15.2 Hct 47.3 MCV 86.2 MCH 27.7 MCHC 32.1 RDW Std Deviation 40.2 RDW Coeff of Addy 12.9 Plt Count 222 MPV 11.1 Immature Gran % (Auto) 2.100 H Neut % (Auto) 72.8 H Lymph % (Auto) 15.3 L [place] % (Auto) 7.6 Eos % (Auto) 1.3 Baso % (Auto) 0.9 Absolute Neuts (auto) 13.3 H Absolute Lymphs (auto) 2.79 Nucleated RBC % 0 Sodium 138 Potassium 3.6 Chloride 103 Carbon Dioxide 27.0 Anion Gap 8 BUN 13 Creatinine 1.05 Estim Creat Clear Calc 123.74 Est GFR (MDRD) Af Amer 101 Est GFR (MDRD) Non-Af 84 BUN/Creatinine Ratio 12.4 Glucose 130 H Lactic Acid 1.8 Calcium 9.2 Discharge Plan Triage Chief Complaint: Abd Pain ED Provider: Isidoro Toney Dx/Rx/DC Orders Clinical Impression: Acute diverticulitis Instructions: ED Diverticulitis Prescriptions: New hydrocodone-acetaminophen [hydrocodone-acetaminophen] 5-325 mg tablet 1 tab PO Q4H PRN PRN (Reason: Pain) 2 Days Qty: 10 0RF ciprofloxacin HCl [ciprofloxacin HCl] 500 mg tablet 500 mg PO BID Qty: 14 0RF metronidazole 500 mg tablet 500 mg PO Q8H 7 Days Qty: 21 0RF No Action omeprazole 40 mg capsule,delayed release(DR/EC) 40 mg PO DAILY Qty: 30 0RF levothyroxine 75 mcg tablet 75 mcg PO DAILY Qty: 30 5RF Primary Care Provider: Kati Arshad Referrals: Kati Arshad MD [Primary Care Provider] - 3-5 Days Disposition Disposition: Home, Self Care
[2024-01-16] MEDS: 0.9% Normal Saline (1000mL) 1,000 ML 125 ML IV (11:41)
[2024-01-16 12:07] LABS: Absolute Lymphocyte Count 2.79 X10^3/uL (0.83-4.51); Absolute Neutrophil Count 13.3 X10^3/uL (2.0-7.7); Basophil# 0.17 X10^3/uL; Basophil% 0.9 % (0-1); Eosinophil# 0.24 X10^3/uL; Eosinophils% 1.3 % (0-5); Hematocrit 47.3 % (40-54); Hemoglobin 15.2 g/dL (13.0-16.5); Lymphocyte # 2.79 X10^3/ul (0.83-4.51); Lymphocyte % 15.3 % (19-41); Mean Corp Hgb Conc 32.1 g/dL (32-36); Mean Corpuscular Hgb 27.7 pg (27.0-32.0); Mean Corpuscular Volume 86.2 fL (80-94); Mean Platelet Vol. 11.1 fl (6.2-12.0); Monocyte# 1.38 X10^3/uL; Monocyte% 7.6 % (0-10); NRBC Flagged by Analyzer 0 % (0-5); Neutrophil # 13.28 X10^3/uL (2.7-7.7); Neutrophil % 72.8 % (47-70); Platelet Count 222 K/mm3 (150-450); RBC Distribution Width CV 12.9 % (11.6-14.6); RBC Distribution Width SD 40.2 fl (35.1-43.9); Red Blood Count 5.49 M/mm3 (4.6-6.2); White Blood Count 18.3 K/mm3 (4.4-11.0)
[2024-01-16 12:14] LABS: Anion Gap 8 (5-15); BUN 13 mg/dL (7-18); BUN/Creat Ratio 12.4 RATIO (10-20); Calcium,Total 9.2 mg/dL (8.5-10.1); Chloride 103 mmol/L (98-107); Creatinine, Serum 1.05 mg/dL (0.70-1.30); EST Glomerular Filtration Rate 84 mL/min (>60); Est Glom Filt Rate - Afr Amer 101 mL/min (>60); Estimated Creatinine Clearance 123.74 ml/min; Glucose 130 mg/dL (74-106); Potassium 3.6 mmol/L (3.5-5.1); Sodium Level 138 mmol/L (136-145)
[2024-01-16 12:29] LABS: Lactic Acid 1.8 mmol/L (0.4-1.9)
[2024-01-16] MEDS: Ciprofloxacin 500 MG Tablet PO (13:09)
[2024-01-16] MEDS: metroNIDAZOLE 500 MG Tablet PO (13:09)
[2024-01-16 13:14] VITALS: BP 130/72; PULSE 60; RESP 18; TEMP 36.4; O2SAT 98
== END 2024-01-16 13:15 | disposition home or self-care (01) ==
PROVIDERS: Emergency Provider Emergency Medicine; PCP Internal Medicine; Visit Provider Emergency Medicine
DX: K57.32 Diverticulitis of large intestine without perforation or abscess without bleeding (principal); J44.9 Chronic obstructive pulmonary disease, unspecified; G47.30 Sleep apnea, unspecified; Z87.891 Personal history of nicotine dependence; Z79.899 Other long term (current) drug therapy
CPT/HCPCS: 74177; 80048; 83605; 85025; 99282; J7030; Q9967; A4216

== ENCOUNTER → 2024-02-24 | Outpatient (CLI) | payer OTHER, SELFPAY ==
--- NOTE | 2024-02-24 07:44 | MRI_ITS ---
STUDY: MRI LUMBAR SPINE WITHOUT CONTRAST REASON FOR EXAM: Male, 39 years old. pain TECHNIQUE: Standardized fat and water weighted pulse sequences were obtained in the sagittal and axial planes. COMPARISON: X-ray 02/15/2024 FINDINGS: T12-L1: Mild bilobed disc protrusion produces mild spinal stenosis and mild right neural foraminal stenosis. Normal lumbar lordosis. There is no substantial scoliosis. Normal conus medullaris that terminates at the T12/L1. L1-2: Normal endplates. Normal disc height, hydration and morphology. Normal bilateral facet joints. Normal central canal and bilateral lateral recesses. Normal bilateral intervertebral neural foramina. L2-3: Disc desiccation but no disc protrusion, spinal stenosis, or neural foraminal stenosis. L3-4: Disc desiccation but no disc protrusion, spinal stenosis, or neural foraminal stenosis. L4-5: Mild bilobed disc protrusion produces mild spinal stenosis, mild left neural foraminal stenosis and moderate right neural foraminal stenosis with abutment of the right L4 nerve roots bilaterally. L5-S1: Normal endplates. Normal disc height, hydration and morphology. Normal bilateral facet joints. Normal central canal and bilateral lateral recesses. Normal bilateral intervertebral neural foramina. Normal visualized sacral ala. Normal visualized paraspinous soft tissue structures. MRI/Spine Lumbar (Routine) IMPRESSION: Multilevel degenerative changes, as described above. Electronically Signed: Tobi Virgen MD at 0:05 EDT ,
== END | disposition home or self-care (01) ==
LOC: MRI 07:42
PROVIDERS: PCP Internal Medicine; Referring Provider Orthopaedic Surgery; Visit Provider Orthopaedic Surgery
DX: M51.26 Other intervertebral disc displacement, lumbar region (principal)
CPT/HCPCS: 72148

== ENCOUNTER 2024-03-29 06:18 | Day surgery (SDC) | payer OTHER, SELFPAY ==
--- NOTE | 2024-03-29 | COLBX_PTH ---
PATIENT: RONY RIDDLE LOC: EN U#:[id number] AGE/SX: 39/M ROOM: RE03/29/[address]: Dr. Juan Fuller MD : 1985 BED: DIS: 03/29/2024 SPEC #: [id number] RECD: 03/29/24 13:26 STATUS: BETSEY WANTwan #: [id number] HELEN: 03/29/24 00:[address]: Juan Fuller DEPT: SURGICAL PATHOLOGY RECD BY: Charlie Garza ENTERED: 03/29/24 13:26 SP TYPE: COLON BX OTHR DR: Dr. Kati Arshad MD Tissues: COLON BIOPSY Procedures: Surgery Specimen Level IV HEADER OPERATION: Colonoscopy with polypectomy PRE-OP DIAGNOSIS: Diverticulitis, rectal bleeding TISSUE SUBMITTED: Sigmoid colon polyp MICROSCOPIC DIAGNOSIS Sigmoid colon polyp, polypectomy: Tubular adenoma with cautery artifacts. KEATON/mr 04/01/24 MICROSCOPIC DESCRIPTION Slides are reviewed. GROSS DESCRIPTION Received in fixative is one container labeled with the patient's name and designated Sigmoid colon polyp. The specimen consists of one irregular fragment of light clarke soft tissue that measures 0.3 x 0.2 x 0.1 cm. The specimen is totally submitted in one cassette. AM/mr 03/29/2024 TC:1 CPT:62759
--- NOTE | 2024-03-29 06:36 | PCM.HP.BLA ---
History and Physical Date of Admission: 03/29/24 Intake Vital Signs 02/12/2414:51 02/28/2415:08 Height 5 ft 8 in 5 ft 8 in Weight: 278 lb 6 oz 274 lb BMI 42.3 41.6 BP 140/78 H 128/84 H Blood Pressure Location Lt brachial Rt brachial Position Sitting Sitting Respiration 16 18 Pulse 86 73 Pulse Source Monitor Monitor Temp 97.4 F L 97.3 F L Temp Source Temporal Temporal Pulse Oximetry (%) 98 99 Oxygen Delivery Method room air room air Intake Visit Reasons: BLEDDING FROM RECTAL AREA Chief Complaint: bleeding from rectal area Is patient in pain?: No Allergies No Known Allergies Allergy (Verified 02/29/24 15:10) Medications levothyroxine 75 mcg tablet 75 mcg PO DAILY #30 tabs 01/15/24 [Rx Confirmed 02/29/24] psyllium husk 3.4 gram/5.4 gram oral powder (Metamucil) 1 tbsp PO DAILY #660 grams 02/13/24 [Rx Confirmed 02/29/24] omeprazole 40 mg capsule,delayed release 40 mg PO DAILY PRN 02/15/24 [History Confirmed 02/29/24] [facility] Medical History (Updated 02/29/24 @ 15:[address] Juan Fuller MD) Acute maxillary sinusitis, unspecified Allergies Back problem Contact dermatitis COPD (chronic obstructive pulmonary disease) Diverticulitis Dysphagia Essential hypertension GERD (gastroesophageal reflux disease) History of back problems Impacted cerumen, left ear Morbid obesity Numbness and tingling Sleep apnea Tobacco dependence Surgical History History of placement of ear tubes History of selective injection of anesthetic agent around lumbar nerve root Family History Father Alcohol abuse Heart diseaseGrandmother DiabetesGrandmother Heart disease Diabetes Bowel disease doesn't know what kind HypertensionOther Arthritis Cervical cancer Gastrointestinal problem Social History household members: spouse and children current occupational status: employed current occupation: [employer] at [employer]ant facility Smoking Status: Former smoker quit date: 05/30/22 pack-years: 56 Electronic Cigarette Use: with nicotine quit status: has quit before alcohol intake: current alcohol intake frequency: holidays/special occasions only substance use type: does not use caffeine: Yes what type of physical activity do you participate in: walking frequency: does not exercise do you feel safe at home: Yes HPI HPI HPI: Patient is a 39-year-old male here following up after diverticulitis and for rectal bleeding. The patient had rectal bleeding 2 weeks ago. He has intermittent rectal bleeding for the last few years but is bright red. He reports no pain with defecation. He has not been having any abdominal pain at this time. ROS General General: No weight change, appetite, fatigue, colon cancer, breast cancer or weakness HEENT HEENT: No difficulty swallowing, eye injury, eye surgery, swollen glands or hoarseness Endo Endocrine: Yes thyroid disease; No diabetes mellitus, thyroid cancer, Hair loss, heat intolerance or cold intolerance Skin Skin: No rash or changing moles Musc Musculoskeletal: Yes back problems; No arthritis, rheumatoid arthritis, gout or joint pain Cardio Cardiovascular: No murmur, pacemaker, heart disease, atrial fibrillation, high blood pressure, heart attack, heart stent, palpitations, shortness of breat with exertion or chest pain Psych Psychiatric: No depression, anxiety or hearing voices Resp Respiratory: No shortness of breath, Yes sleep apnea, No cough, Yes COPD, No asthma, No emphysema and No wheezing Gastro Gastrointestinal: No abdominal pain, Yes nausea or vomiting, No diarrhea, No constipation, No blood in stool, Yes acid reflux, Yes hemorrhoids, No ulcers, No gallbladder problem and No black,tarry stools [place] Hematologic: No blood thinners, No blood disorders, No bleeding, No anemia and No blood clots Neuro Neurologic: No numbness, No tingling and No weakness Exam Const General: cooperative Orientation: alert and oriented x3 HENMT Head: normal to inspection Neck Neck: normal visual inspection and full ROM Chest Chest palpation & inspection: normal inspection of the chest Resp Effort & Inspection: normal respiratory effort Auscultation: clear to auscultation bilaterally Cardio Rate: regular rate Rhythm: regular rhythm GI Inspection: non-distended Palpation: soft and nontender Skin General: no rashes or lesions noted Neuro General: patient alert and patient oriented x3 Extrem General: full ROM Psych Appearance: grossly normal Mental Status: mental status grossly normal Assessment and Plan Assessment and Plan (1) Diverticulitis: Status: Acute (2) Rectal bleeding: Status: Acute Orders: Orders Colonoscopy Today Plan The patient had diverticulitis about a month ago and 2 weeks ago he had some rectal bleeding. He has never had a colonoscopy and sent here for evaluation. I discussed colonoscopy with him and he was agreeable. I explained endoscopy in detail to the patient. I explained the risks including but not limited to stroke or heart attack with anesthesia, perforation of the GI tract, bleeding, infection. I explained that any of these could necessitate further emergency surgery. The patient understands and all questions were answered sufficiently. The patient wishes to proceed with procedure. Juan Fuller MD Pager: [facility] [address] [place] [address], [address] [place] [address] Office: I have examined the patient and the H&P has been reviewed. There are no clinical changes since date of exam.
[2024-03-29 06:39] VITALS: BP 120/74; PULSE 63; RESP 16; TEMP 36.4; O2SAT 97; BMI 41.2
[2024-03-29] MEDS: Lactated Ringers 1,000 ML 15 ML IV (06:48)
[2024-03-29 07:55] VITALS: BP 120/74; BP 97/43; PULSE 63; RESP 16; TEMP 36.2; O2SAT 97
--- NOTE | 2024-03-29 07:58 | OP.CCLET_ITS ---
03/29/2024 Kati Arshad Md Re : Colonoscopy procedure for Ronny He Dear Jeancarlos This procedure was performed on Friday, March 29, 2024. My impressions and recommendations are as follows: Impressions : - One small polyp in the sigmoid colon, removed with a hot snare. Resected and retrieved. - Anal fissure. Recommendations : - Discharge patient to home. - Resume previous diet. - Continue present medications. - Await pathology results. - Repeat colonoscopy in 5 years for surveillance based on pathology results. My findings are described in the full procedure note, which is enclosed. If I can be of further assistance, please feel free to contact me at Doctor phone number(s): , Work: . Sincerely, Juan Fuller MD 03/29/2024 7:57:38 AM This report has been signed electronically.
--- NOTE | 2024-03-29 07:58 | OP.COLON_ITS ---
Patient Name: Ronny He Procedure Date: 03/29/2024 7:23 AM Date of : 1985 Age: 39 Procedure: Colonoscopy Indications: Rectal bleeding, Follow-up of diverticulitis Providers: Juan Fuller MD Referring MD: Kati Arshad Md Medicines: Propofol per Anesthesia Patient Profile: This is a 39 year old male. Refer to note in patient chart for documentation of history and physical. Last Colonoscopy: none. The patient's first colonoscopy is today. Complications: No immediate complications. Estimated blood loss: Minimal. Procedure: Pre-Anesthesia Assessment: - Prior to the procedure, a History and Physical was performed, and patient medications and allergies were reviewed. The patient's tolerance of previous anesthesia was also reviewed. The risks and benefits of the procedure and the sedation options and risks were discussed with the patient. All questions were answered, and informed consent was obtained. Prior Anticoagulants: The patient has taken no anticoagulant or antiplatelet agents. After reviewing the risks and benefits, the patient was deemed in satisfactory condition to undergo the procedure. After I obtained informed consent, the scope was passed under direct vision. Throughout the procedure, the patient's blood pressure, pulse, and oxygen saturations were monitored continuously. The Colonoscope was introduced through the anus and advanced to the cecum, identified by appendiceal orifice and ileocecal valve. The colonoscopy was performed without difficulty. The patient tolerated the procedure well. The quality of the bowel preparation was good. The ileocecal valve, appendiceal orifice, and rectum were photographed. Scope In: 7:34:56 AM Scope Withdrawal Time 0 hours 9 minutes 22 seconds Scope Out: 7:48:10 AM Total Procedure Duration Time 0 hours 13 minutes 14 seconds Findings: A small polyp was found in the sigmoid colon. The polyp was removed with a hot snare. Resection and retrieval were complete. A small anal fissure was found in the anal canal. Impression: - One small polyp in the sigmoid colon, removed with a hot snare. Resected and retrieved. - Anal fissure. Recommendation: - Discharge patient to home. - Resume previous diet. - Continue present medications. - Await pathology results. - Repeat colonoscopy in 5 years for surveillance based on pathology results. Procedure Code(s): --- Professional --- 69092, Colonoscopy, flexible; with removal of tumor(s), polyp(s), or other lesion(s) by snare technique Diagnosis Code(s): --- Professional --- D12.5, Benign neoplasm of sigmoid colon K60.2, Anal fissure, unspecified K62.5, Hemorrhage of anus and rectum K57.32, Diverticulitis of large intestine without perforation or abscess without bleeding CPT copyright 2021 [employer]. All rights reserved. The codes documented in this report are preliminary and upon surgical coder review may be revised to meet current compliance requirements. Juan Fuller MD 03/29/2024 7:57:38 AM This report has been signed electronically. Number of Addenda: 0 Note Initiated On: 03/29/2024 7:23 AM
[2024-03-29 08:00] VITALS: BP 120/74; BP 92/53; PULSE 55; RESP 16; O2SAT 97
[2024-03-29 08:05] VITALS: BP 104/83; BP 120/74; PULSE 62; RESP 16; TEMP 36.1; O2SAT 97
[2024-03-29 08:19] VITALS: BP 120/74
== END 2024-03-29 08:55 | disposition home or self-care (01) ==
LOC: EN 06:19 → AC 06:20
PROVIDERS: PCP Internal Medicine; Referring Provider Internal Medicine; Visit Provider Surgery
PROC: 0DJD8ZZ Inspection of Lower Intestinal Tract, Via Natural or Artificial Opening Endoscopic (ICD-10-PCS; CPT 45378; principal; 2024-03-29 07:25)
DX: K62.5 Hemorrhage of anus and rectum (principal); J44.9 Chronic obstructive pulmonary disease, unspecified; Z87.891 Personal history of nicotine dependence; K57.92 Diverticulitis of intestine, part unspecified, without perforation or abscess without bleeding; K60.2 Anal fissure, unspecified; K63.5 Polyp of colon; I10 Essential (primary) hypertension; K21.9 Gastro-esophageal reflux disease without esophagitis; Z79.899 Other long term (current) drug therapy
CPT/HCPCS: 45385; 88305; J7120; J2405

== ENCOUNTER → 2024-05-20 | Outpatient (CLI) | payer OTHER, SELFPAY ==
[2024-05-20 16:45] LABS: Absolute Lymphocyte Count 3.28 X10^3/uL (0.83-4.51); Absolute Neutrophil Count 8.9 X10^3/uL (2.0-7.7); Basophil# 0.15 X10^3/uL; Basophil% 1.1 % (0-1); Eosinophil# 0.41 X10^3/uL; Hematocrit 45.2 % (40-54); Hemoglobin 14.3 g/dL (13.0-16.5); Lymphocyte # 3.28 X10^3/ul (0.83-4.51); Lymphocyte % 23.9 % (19-41); Mean Corp Hgb Conc 31.6 g/dL (32-36); Mean Corpuscular Hgb 27.7 pg (27.0-32.0); Mean Corpuscular Volume 87.6 fL (80-94); Mean Platelet Vol. 10.6 fl (6.2-12.0); Monocyte# 0.88 X10^3/uL; Monocyte% 6.4 % (0-10); NRBC Flagged by Analyzer 0 % (0-5); Neutrophil # 8.92 X10^3/uL (2.7-7.7); Neutrophil % 65.2 % (47-70); Platelet Count 241 K/mm3 (150-450); RBC Distribution Width CV 13.8 % (11.6-14.6); RBC Distribution Width SD 44.3 fl (35.1-43.9); Red Blood Count 5.16 M/mm3 (4.6-6.2); White Blood Count 13.7 K/mm3 (4.4-11.0)
[2024-05-20 17:12] LABS: ALB/GLOB Ratio 0.9 RATIO (0.9-2.4); AST(SGOT) 19 U/L (15-37); Alanine Aminotransfer ALT/SGPT 31 U/L (16-61); Albumin, Serum 3.6 g/dL (3.2-5.0); Alkaline Phosphatase 58 U/L (45-117); Anion Gap 5 (5-15); BUN 15 mg/dL (7-18); Calcium,Total 8.9 mg/dL (8.5-10.1); Chloride 107 mmol/L (98-107); Cholesterol 160 mg/dL (200); EST Glomerular Filtration Rate 88 mL/min (>60); Est Glom Filt Rate - Afr Amer 107 mL/min (>60); Globulin 3.9 g/dL (2.2-4.2); Glucose 96 mg/dL (74-106); High Density Lipoprotein 55 mg/dL; Protein, Total 7.5 g/dL (6.4-8.2); Sodium Level 139 mmol/L (136-145); T4 Free Direct 0.92 ng/dL (0.76-1.46); Thyroid Stim Hormone (TSH) 2.05 uIU/mL (0.358-3.74); Triglycerides 116 mg/dL; Very Low Density Lipoprotein 23 mg/dL (5-40)
== END | disposition home or self-care (01) ==
LOC: BIMLAB 16:02
PROVIDERS: PCP Internal Medicine; Referring Provider Nurse Practitioner; Visit Provider Nurse Practitioner
DX: I10 Essential (primary) hypertension (principal); E66.9 Obesity, unspecified; D72.829 Elevated white blood cell count, unspecified; E07.9 Disorder of thyroid, unspecified
CPT/HCPCS: 36415; 80053; 80061; 84439; 84443; 85025

== ENCOUNTER → 2024-06-06 | Outpatient (CLI) | payer OTHER, SELFPAY ==
--- NOTE | 2024-06-06 16:56 | US_ITS ---
INDICATION: nodule vs lymph node EXAMINATION: Ultrasound US Thyroid (eg thyroid, parathyroid, parotid) TECHNIQUE: Weaver scale and color doppler imaging was performed of the thyroid gland. COMPARISON: No relevant prior comparison study available FINDINGS: RIGHT THYROID LOBE: 3.9 x 1.2 x 1.7 cm, volume 4.1 mL. Parenchyma: The gland echotexture is homogenous. Thyroid vascularity is normal. LEFT THYROID LOBE: 3.7 x 1 x 1.5 cm, volume 2.9 mL. Parenchyma: The gland echotexture is homogenous. Thyroid vascularity is normal. ISTHMUS: 0.3 cm in maximum AP dimension. Estimated total number of nodules greater than equal to 1 cm: 0. Accelerator Technician nodules are described as follows: LYMPH NODES: Dominant lymph node in the left neck lateral to the thyroid measuring 1.9 x 1.1 x 0.5 cm. Normal morphology. US/Thyroid IMPRESSION: Normal thyroid ultrasound. Mildly prominent left cervical lymph node. Normal morphology. Electronically Signed: Demond Betancourt MD at 13:43 EDT ,
== END | disposition home or self-care (01) ==
PROVIDERS: PCP Internal Medicine; Referring Provider Nurse Practitioner; Visit Provider Nurse Practitioner
DX: E07.9 Disorder of thyroid, unspecified (principal)
CPT/HCPCS: 76536

== ENCOUNTER 2024-09-04 20:50 | Inpatient (IN) | payer OTHER, SELFPAY ==
[2024-09-04 20:51] VITALS: BP 124/78; PULSE 74; RESP 16; TEMP 36.8; O2SAT 98; BMI 42.4
--- NOTE | 2024-09-04 22:06 | CT_ITS ---
We are attempting to reach an attending provider to discuss findings. An addendum with communication details will be sent when the communication is complete. EXAM: CT ABDOMEN AND PELVIS WITH INTRAVENOUS CONTRAST CLINICAL INDICATION: RLQ pain TECHNIQUE: Helically acquired images were obtained of the abdomen and pelvis with intravenous contrast. This CT exam was performed using one or more of the following dose reduction techniques: automated exposure control, adjustment of the mA and/or kV according to patient size, and/or use of iterative reconstruction technique. CONTRAST: IV 100mL Isovue-370 COMPARISON: CT abdomen and pelvis, 01/16/2024 FINDINGS: LOWER THORAX: No significant abnormality. Lung bases are clear. No cardiomegaly. No significant pericardial effusion. ABDOMEN: LIVER: No significant abnormality. Homogeneous. No focal mass. GALLBLADDER AND BILE DUCTS: No significant abnormality. No calcified gallstones. No gallbladder distention or wall edema. No intra- or extrahepatic biliary ductal dilation. PANCREAS: No significant abnormality. No focal cystic or solid mass. SPLEEN: No significant abnormality. Normal size without focal cystic or solid mass. ADRENALS: No significant abnormality. No nodules. KIDNEYS AND URETERS: No significant abnormality. Normal renal size and position. No hydronephrosis. STOMACH AND BOWEL: There is marked wall thickening of the sigmoid colon with adjacent inflammatory changes and a small pericolonic abscess measuring approximately 2 cm. Minimal colonic diverticulosis. No stomach or bowel distention. PELVIS: APPENDIX: No evidence of acute appendicitis. BLADDER: No significant abnormality. REPRODUCTIVE: Normal as visualized. No mass. ABDOMEN and PELVIS: INTRAPERITONEAL SPACE: There is small volume pneumoperitoneum. Strandy opacities in the right lower quadrant mesentery. No ascites or other fluid collection. BONES/JOINTS: No significant abnormality. No suspicious lytic or blastic abnormality. SOFT TISSUES: No significant abnormality. No discrete abdominal or pelvic wall hernia. VASCULATURE: No significant abnormality. Abdominal aorta is non-dilated. LYMPH NODES: No significant abnormality. No enlarged lymph nodes. CT/Abdomen/Pelvis W IV Cont ONLY IMPRESSION: There is small volume pneumoperitoneum. This is secondary to perforated likely acute diverticulitis (rather than malignancy) further complicated by a small pericolonic abscess measuring approximately 2 cm. If definitive management is not performed, recommend direct visualization after resolution of acute symptoms. Electronically Signed: Lawrence Constantino DO at 23:52 EST ,
--- NOTE | 2024-09-04 22:08 | EDS_ITS ---
HPI History of Present Illness Chief Complaint: Abd Pain Informant: patient and spouse/S.O. Narrative Narrative: Patient is a 39-year-old male with past medical history of hypertension GERD and diverticulosis. He states around 4 PM today he noticed some pain left lower abdomen. He states that it felt more intense than his previous bouts of diverticulitis. As the day progressed he noticed the pain then traveled across the lower abdomen and localized more to the right lower quadrant. He states that he had nausea without vomiting. He reports that the pain seems to have persisted and worsened and as it feels different than his past bouts of diverticulitis he presents for evaluation. [facility] Medical History Loss of hearing Wears glasses Marijuana use Alcohol use Thyroid disease Restless legs DDD (degenerative disc disease), lumbar Former smoker CPAP (continuous positive airway pressure) dependence Shortness of breath on exertion History of pain when walking Cardiology follow-up encounter History of stress test Pain Diverticulitis Back problem Allergies Impacted cerumen, left ear Acute maxillary sinusitis, unspecified COPD (chronic obstructive pulmonary disease) Tobacco dependence Essential hypertension Contact dermatitis Morbid obesity Sleep apnea GERD (gastroesophageal reflux disease) Dysphagia Numbness and tingling History of back problems Home Medications ?Medication ?Instructions ?Recorded ?Last Taken ?Type Diltiazem 2% / Lidocaine 5% #1 ea 03/29/24 Unknown Rx ointment (compound) levothyroxine 75 mcg tablet 75 mcg PO DAILY #30 tabs 05/20/24 Unknown Rx omeprazole 40 mg capsule,delayed 40 mg PO DAILY PRN PRN GERD #90 05/20/24 Unknown Rx release caps Allergy/AdvReac Type Severity Reaction Status Date / Time No Known Allergies Allergy Verified 09/04/24 20:51 Family History Father Alcohol abuse Heart disease Grandmother Diabetes Grandmother Heart disease Diabetes Bowel disease doesn't know what kind Hypertension Other Arthritis Cervical cancer Gastrointestinal problem Surgical History History of selective injection of anesthetic agent around lumbar nerve root History of placement of ear tubes Social History household members: spouse and children current occupational status: employed 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 Smoking Status: Former smoker quit date: 05/30/22 pack-years: 56 Electronic Cigarette Use: with nicotine quit status: has quit before alcohol intake: current alcohol intake frequency: holidays/special occasions only substance use type: does not use caffeine: Yes what type of physical activity do you participate in: walking frequency: does not exercise do you feel safe at home: Yes ROS ROS ED Constitutional Constitutional ED: Denies chills or fever(s) Eyes Eyes: Denies change in vision ENT ENT ED: Denies sore throat Cardiovascular Cardiovascular: Denies chest pain Respiratory/Chest Respiratory/Chest: Denies cough or dyspnea Gastrointestinal Gastrointestinal: Reports abdominal pain and nausea; Denies diarrhea or vomiting Genitourinary Genitourinary ED: Denies dysuria Musculoskeletal Musculoskeletal: Denies back pain or myalgias Integumentary Denies rash Neurologic Neurologic: Denies headache(s) Hematologic/Lymphatic Hematologic/Lymphatic: Denies easy bleeding or easy bruising EXAM Physical Exam Const Vital Signs: 09/04/24 20:51 09/04/24 20:51 09/04/24 23:15 Temperature 98.3 F 98.3 F 98.7 F Temperature Source Oral Oral Oral Pulse Rate 74 74 78 Respiratory Rate 16 16 18 Blood Pressure 124/78 H 124/78 H Blood Pressure Mean 93 93 Pulse Ox 98 98 96 Oxygen Delivery Method Room Air Room Air Room Air 09/05/24 00:59 Temperature 99.3 F H Temperature Source Pulse Rate 77 Respiratory Rate 20 H Blood Pressure 130/72 H Blood Pressure Mean 91 Pulse Ox 100 Oxygen Delivery Method Positive well nourished, well developed and obese General Appearance ED: well developed; Negative for pallor Nutritional Appearance: obese HEENT HEENT Narrative: Normocephalic atraumatic Eyes PERRL and EOMs intact bilaterally General Eye ED: Negative for scleral icterus Neck supple Resp normal respiratory effort and clear to auscultation bilaterally Cardio regular rate and regular rhythm Rate: other Other Details: Heart is regular rate and rhythm without murmurs rubs or gallops Radial and carotid pulses are equal and symmetric GI non-distended and no masses GI Narrative: Abdomen is soft and nondistended with normal active bowel sounds. Patient has pain with palpation across the lower abdomen diffusely however it is greatest in the right lower quadrant. There is mild voluntary guarding. No rebound or rigidity. No pulsatile mass or fluid wave. Negative heel strike and psoas sign but positive obturator sign. Auscultation: normoactive bowel sounds Palpation: soft Back/Spine no CVA tenderness Extremity normal to inspection Neuro oriented x3, CN's II-XII intact bilaterally and no sensory deficits noted Sensorium / Orientation: alert Motor Exam: strength 5/5 throughout Psych mental status grossly normal Skin no rashes or lesions noted and no wounds General Skin Exam: Negative for jaundice or pallor MDM MDM MDM Narrative Medical decision making narrative: Patient presented to the ER with stable vitals. He reported initial left lower quadrant abdominal pain that then moved towards the right. He states that this was similar to his past bouts of diverticulitis just more intense. Differential diagnosis is for diverticulitis versus perforation versus abscess versus appendicitis. Secondary to his basic labs were obtained as well as a CT scan. Patient's white count is elevated at 21.4 and there is left shift with neutrophil count increasing to 19.3 most consistent with infection. Secondary to this he was started on Zosyn. The CT scan revealed diverticulitis with perforation and abscess which does correlate with his symptoms and exam. Secondary to this general surgery was contacted. They evaluated the patient in ER and feel that he will most likely require surgical fixation for this I recommend that the procedure be held off until the infection can cooldown and the surgical team is present. Therefore the patient will be admitted to the surgical service for continued IV antibiotics. This plan of care was discussed with the patient and his and they are agreeable to it History & Record Review Discussion w/independent historian: Patient and Significant other Lab Data Attestation: I reviewed the patient's lab results. Labs: Laboratory Results - last 24 hr 09/04/24 09/04/24 22:17 23:18 WBC 21.4 H RBC 5.35 Hgb 14.8 Hct 47.1 MCV 88.0 MCH 27.7 MCHC 31.4 L RDW Std Deviation 42.0 RDW Coeff of Addy 13.1 Plt Count 225 MPV 10.4 Immature Gran % (Auto) 0.500 Neut % (Auto) 90.0 H Lymph % (Auto) 5.1 L [place] % (Auto) 3.6 Eos % (Auto) 0.3 Baso % (Auto) 0.5 Absolute Neuts (auto) 19.3 H Absolute Lymphs (auto) 1.09 Nucleated RBC % 0 Sodium 137 Potassium 4.1 Chloride 108 H Carbon Dioxide 24.0 Anion Gap 5 BUN 19 H Creatinine 0.93 Estim Creat Clear Calc 138.23 Est GFR (MDRD) Af Amer 116 Est GFR (MDRD) Non-Af 96 BUN/Creatinine Ratio 20.4 H Glucose 125 H Lactic Acid 1.1 Calcium 8.8 Total Bilirubin 1.60 H AST 17 ALT 28 Alkaline Phosphatase 59 Total Protein 7.3 Albumin 3.8 Globulin 3.5 Albumin/Globulin Ratio 1.1 Lipase 39 Urine Color Yellow Urine Clarity Clear Urine pH 6.0 Ur Specific [place] 1.020 Urine Protein Negative Urine Glucose (UA) Normal Urine Ketones Negative Urine Occult Blood Negative Urine Nitrite Negative Urine Bilirubin Negative Urine Urobilinogen Normal Ur Leukocyte Esterase Negative Urine RBC 0-5 SEEN Urine WBC 0-5 SEEN Ur Squamous Epith Cells 0-5 SEEN Urine Bacteria RARE Urine Mucus 0 SEEN Radiography Diagnostic Testing: Clinical Impression(s) from Imaging Studies Abdomen/Pelvis CT 09/04/24 22:06 IMPRESSION: There is small volume pneumoperitoneum. This is secondary to perforated likely acute diverticulitis (rather than malignancy) further complicated by a small pericolonic abscess measuring approximately 2 cm. If definitive management is not performed, recommend direct visualization after resolution of acute symptoms. Electronically Signed: Lawrence Constantino DO at 23:52 EST , ADDENDUM: 09/05/24 0004 IMPRESSION: There is small volume pneumoperitoneum. This is secondary to perforated likely acute diverticulitis (rather than malignancy) further complicated by a small pericolonic abscess measuring approximately 2 cm. If definitive management is not performed, recommend direct visualization after resolution of acute symptoms. N.B. : The above Results were Read Back by Lawrence Constantino DO to Brian Vaughan DO, and understanding confirmed on 09/04/2024 23:57:34 (ET). 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
[2024-09-04] MEDS: Ondansetron 4 MG/2 ML Vial IV (22:16)
[2024-09-04] MEDS: Morphine 4 MG/ML Syringe IV (22:16)
[2024-09-04] MEDS: 0.9% Normal Saline (1000mL) 1,000 ML 999 ML IV (22:17)
[2024-09-04 22:33] LABS: Absolute Lymphocyte Count 1.09 X10^3/uL (0.83-4.51); Absolute Neutrophil Count 19.3 X10^3/uL (2.0-7.7); Basophil% 0.5 % (0-1); Eosinophil# 0.07 X10^3/uL; Eosinophils% 0.3 % (0-5); Hematocrit 47.1 % (40-54); Hemoglobin 14.8 g/dL (13.0-16.5); Lymphocyte # 1.09 X10^3/ul (0.83-4.51); Lymphocyte % 5.1 % (19-41); Mean Corp Hgb Conc 31.4 g/dL (32-36); Mean Corpuscular Hgb 27.7 pg (27.0-32.0); Mean Platelet Vol. 10.4 fl (6.2-12.0); Monocyte# 0.77 X10^3/uL; Monocyte% 3.6 % (0-10); NRBC Flagged by Analyzer 0 % (0-5); Neutrophil # 19.28 X10^3/uL (2.7-7.7); Platelet Count 225 K/mm3 (150-450); RBC Distribution Width CV 13.1 % (11.6-14.6); Red Blood Count 5.35 M/mm3 (4.6-6.2); White Blood Count 21.4 K/mm3 (4.4-11.0)
[2024-09-04 22:53] LABS: ALB/GLOB Ratio 1.1 RATIO (0.9-2.4); AST(SGOT) 17 U/L (15-37); Alanine Aminotransfer ALT/SGPT 28 U/L (16-61); Albumin, Serum 3.8 g/dL (3.2-5.0); Alkaline Phosphatase 59 U/L (45-117); Anion Gap 5 (5-15); BUN 19 mg/dL (7-18); BUN/Creat Ratio 20.4 RATIO (10-20); Calcium,Total 8.8 mg/dL (8.5-10.1); Chloride 108 mmol/L (98-107); Creatinine, Serum 0.93 mg/dL (0.70-1.30); EST Glomerular Filtration Rate 96 mL/min (>60); Est Glom Filt Rate - Afr Amer 116 mL/min (>60); Estimated Creatinine Clearance 138.23 ml/min; Globulin 3.5 g/dL (2.2-4.2); Glucose 125 mg/dL (74-106); Lipase 39 U/L (13-75); Potassium 4.1 mmol/L (3.5-5.1); Protein, Total 7.3 g/dL (6.4-8.2); Sodium Level 137 mmol/L (136-145)
[2024-09-04 22:56] LABS: Lactic Acid 1.1 mmol/L (0.4-1.9)
[2024-09-04 23:15] VITALS: PULSE 78; RESP 18; TEMP 37.1; O2SAT 96
[2024-09-04 23:22] LABS: Mucous, Urine 0 SEEN /hpf (<or=2+)
[2024-09-04 23:23] LABS: Color, Urine Yellow (Yellow); Glucose, Dipstick Normal (Normal); Ketone-Dipstick Negative (Negative); Leukocyte Esterase-Dipstick Negative /ul (Negative); Nitrite-Dipstick Negative (Negative); Occult Blood-Urine Negative /ul (Negative); Protein-Dipstick Negative (Negative); Urine Bilirubin Dipstick Negative (Negative); Urine Clarity Clear (Clear); Urine Urobilinogen Normal (Normal)
[2024-09-04] MEDS: Piperacil/Tazobactam 3.375 GM in 0.9% Normal Saline (50mL MB+) 50 ML IV (23:26)
[2024-09-04 23:54] LABS: Bacteria RARE /hpf (None Seen); Red Blood Cells-Urine 0-5 SEEN /hpf (0-5); Squamous Epithelial Cells - UA 0-5 SEEN /hpf (0-5); White Blood Cells 0-5 SEEN /hpf (0-5)
[2024-09-05] MEDS: Morphine 4 MG/ML Syringe IV (00:30)
--- NOTE | 2024-09-05 00:58 | PCM.HP.STD ---
HPI - General HPI Narrative RONY RIDDLE, is a 39 M who presents with abdominal pain. Patient reports he has had several bouts of diverticulitis over the last year. He had a colonoscopy by myself in February of this year which was normal besides a polyp in the sigmoid colon and anal fissure. Patient reports since that colonoscopy he has had 3 episodes of diverticulitis. None of them required hospitalization. He says this pain has been going on for several days. He denies nausea or vomiting. [facility] Medical History Loss of hearing Wears glasses Marijuana use Alcohol use Thyroid disease Restless legs DDD (degenerative disc disease), lumbar Former smoker CPAP (continuous positive airway pressure) dependence Shortness of breath on exertion History of pain when walking Cardiology follow-up encounter History of stress test Pain Diverticulitis Back problem Allergies Impacted cerumen, left ear Acute maxillary sinusitis, unspecified COPD (chronic obstructive pulmonary disease) Tobacco dependence Essential hypertension Contact dermatitis Morbid obesity Sleep apnea GERD (gastroesophageal reflux disease) Dysphagia Numbness and tingling History of back problems Home Medications ?Medication ?Instructions ?Recorded ?Last Taken ?Type Diltiazem 2% / Lidocaine 5% #1 ea 03/29/24 Unknown Rx ointment (compound) levothyroxine 75 mcg tablet 75 mcg PO DAILY #30 tabs 05/20/24 Unknown Rx omeprazole 40 mg capsule,delayed 40 mg PO DAILY PRN PRN GERD #90 05/20/24 Unknown Rx release caps Allergy/AdvReac Type Severity Reaction Status Date / Time No Known Allergies Allergy Verified 09/04/24 20:51 Family History Father Alcohol abuse Heart disease Grandmother Diabetes Grandmother Heart disease Diabetes Bowel disease doesn't know what kind Hypertension Other Arthritis Cervical cancer Gastrointestinal problem Surgical History History of selective injection of anesthetic agent around lumbar nerve root History of placement of ear tubes Social History household members: spouse and children current occupational status: employed current occupation: [employer] at [employer] Smoking Status: Former smoker quit date: 05/30/22 pack-years: 56 Electronic Cigarette Use: with nicotine quit status: has quit before alcohol intake: current alcohol intake frequency: holidays/special occasions only substance use type: does not use caffeine: Yes what type of physical activity do you participate in: walking frequency: does not exercise do you feel safe at home: Yes ROS Constitutional Constitutional: Denies anorexia, chills, fatigue or fever(s) Eyes Eyes: Denies blurry vision ENT HEENT: Denies abnormal hearing Cardiovascular Cardiovascular: Denies chest pain Respiratory/Chest Respiratory/Chest: Denies cough or dyspnea Gastrointestinal Gastrointestinal: Reports abdominal pain and rectal bleeding; Denies melena, nausea or vomiting Genitourinary Genitourinary: Denies change in urinary stream Musculoskeletal Musculoskeletal: Denies abnormal gait Integumentary Integumentary: Denies jaundice or new lesions Neurologic Neurologic: Denies abnormal gait Psychiatric Psychiatric: Denies anxiety Endocrine Endocrinology: Denies flushing Hematologic/Lymphatic Hematologic/Lymphatic: Denies easy bleeding or easy bruising Vital Signs Vital Signs Vital Signs: 09/04/24 20:51 09/04/24 20:51 09/04/24 23:15 Temperature 98.3 F 98.3 F 98.7 F Temperature Source Oral Oral Oral Pulse Rate 74 74 78 Respiratory Rate 16 16 18 Blood Pressure 124/78 H 124/78 H Blood Pressure Mean 93 93 Pulse Ox 98 98 96 Oxygen Delivery Method Room Air Room Air Room Air Weight Weight: 278 lb 14.4 oz Body Mass Index (BMI) 42.4 Physical Exam Const oriented x3 and no apparent distress Resp normal respiratory effort Cardio regular rate and regular rhythm GI soft to palpation Palpation: tender LLQ and RLQ Extremity normal to inspection Results Lab / Micro Data 09/04/24 22:17 09/04/24 22:17 Labs: Laboratory Results - last 24 hr 09/04/24 22:17: WBC 21.4 H, RBC 5.35, Hgb 14.8, Hct 47.1, MCV 88.0, MCH 27.7, MCHC 31.4 L, RDW Std Deviation 42.0, RDW Coeff of Addy 13.1, Plt Count 225, MPV 10.4, Immature Gran % (Auto) 0.500, Neut % (Auto) 90.0 H, Lymph % (Auto) 5.1 L, [place] % (Auto) 3.6, Eos % (Auto) 0.3, Baso % (Auto) 0.5, Absolute Neuts (auto) 19.3 H, Absolute Lymphs (auto) 1.09, Nucleated RBC % 0, Sodium 137, Potassium 4.1, Chloride 108 H, Carbon Dioxide 24.0, Anion Gap 5, BUN 19 H, Creatinine 0.93, Estim Creat Clear Calc 138.23, Est GFR (MDRD) Af Amer 116, Est GFR (MDRD) Non-Af 96, BUN/Creatinine Ratio 20.4 H, Glucose 125 H, Lactic Acid 1.1, Calcium 8.8, Total Bilirubin 1.60 H, AST 17, ALT 28, Alkaline Phosphatase 59, Total Protein 7.3, Albumin 3.8, Globulin 3.5, Albumin/Globulin Ratio 1.1, Lipase 39 09/04/24 23:18: Urine Color Yellow, Urine Clarity Clear, Urine pH 6.0, Ur Specific [place] 1.020, Urine Protein Negative, Urine Glucose (UA) Normal, Urine Ketones Negative, Urine Occult Blood Negative, Urine Nitrite Negative, Urine Bilirubin Negative, Urine Urobilinogen Normal, Ur Leukocyte Esterase Negative, Urine RBC 0-5 SEEN, Urine WBC 0-5 SEEN, Ur Squamous Epith Cells 0-5 SEEN, Urine Bacteria RARE, Urine Mucus 0 SEEN Imaging Radiology Impression Abdomen/Pelvis CT 09/04/24 22:06 IMPRESSION: There is small volume pneumoperitoneum. This is secondary to perforated likely acute diverticulitis (rather than malignancy) further complicated by a small pericolonic abscess measuring approximately 2 cm. If definitive management is not performed, recommend direct visualization after resolution of acute symptoms. Electronically Signed: Lawrence Constantino DO at 23:52 EST , ADDENDUM: 09/05/24 0004 IMPRESSION: There is small volume pneumoperitoneum. This is secondary to perforated likely acute diverticulitis (rather than malignancy) further complicated by a small pericolonic abscess measuring approximately 2 cm. If definitive management is not performed, recommend direct visualization after resolution of acute symptoms. N.B. : The above Results were Read Back by Lawrence Constantino DO to Brian StewartDO can, and understanding confirmed on 09/04/2024 23:57:34 (ET). Electronically Signed: Lawrence FongsajanDO at 23:52 EST , Assessment & Plan Assessment/Plan (1) Diverticulitis: PLAN: The patient has diverticulitis of the sigmoid colon. I reviewed his CT scan which did show small amount of pneumoperitoneum. There appeared to be a few bubbles of air in the anterior abdomen. There was also a small abscess or fluid collection in the sigmoid colon. I discussed this with him and reviewed his CT scan findings. I informed him that I recommend sigmoid colectomy at some point. I told him there is a good chance this may need to be done while he is hospitalized this admission. I discussed performing surgery today if his symptoms worsen or if he develops guarding or fever. I will currently admit him to the floor and antibiotics and keep him n.p.o. and bowel rest. If any of his vital signs or physical exam worsen I will take him to surgery during daytime today as there is a lot of inflammation in the pelvis. If he is able to seal this I would highly recommend elective colon resection in the near future, although I do believe colon resection may be necessary today. Juan Fuller MD Pager: [facility] [address] [place] [address], [address] [place] [address] Office:
[2024-09-05 00:59] VITALS: BP 130/72; PULSE 77; RESP 20; TEMP 37.4; O2SAT 100
[2024-09-05] MEDS: HYDROmorphone 1 MG/ML Syringe IV ×8 (01:14→21:54)
[2024-09-05 02:19] VITALS: BMI 42.4
[2024-09-05 02:24] VITALS: BP 132/78; PULSE 87; RESP 16; TEMP 36.2; O2SAT 97
[2024-09-05] MEDS: 0.9% Normal Saline (1000mL) 1,000 ML 125 ML IV ×2 (02:28→10:30)
[2024-09-05] MEDS: Ketorolac 15 MG/ML Vial IV ×2 (02:30→17:23)
--- NOTE | 2024-09-05 03:52 | EKG12_ITS ---
Test Reason : PRE OP Blood Pressure : */* mmHG Vent. Rate : 71 BPM Atrial Rate : 71 BPM P-R Int : 164 ms QRS Dur : 108 ms QT Int : 370 ms P-R-T Axes : 43 -9 26 degrees QTcB Int : 402 ms Normal sinus rhythm Incomplete right bundle branch block Borderline ECG When compared with ECG of 01-Jul-2021 09:08, No significant change was found Confirmed by Jarad Mendez ([id number]), publication editor ARGENIS COLEMAN ([id number]) on 09/05/2024 10:03:11 AM Referred By: Confirmed By: Jarad Mendez
[2024-09-05 05:56] VITALS: BP 123/78; PULSE 77; RESP 18; TEMP 36.8; O2SAT 98
[2024-09-05] MEDS: Piperacil/Tazobactam 3.375 GM in 0.9% Normal Saline (50mL MB+) 50 ML IV ×3 (06:05→21:49)
[2024-09-05 06:33] LABS: Absolute Lymphocyte Count 2.08 X10^3/uL (0.83-4.51); Absolute Neutrophil Count 19.2 X10^3/uL (2.0-7.7); Basophil# 0.12 X10^3/uL; Basophil% 0.5 % (0-1); Eosinophil# 0.06 X10^3/uL; Eosinophils% 0.3 % (0-5); Hematocrit 42.8 % (40-54); Hemoglobin 13.8 g/dL (13.0-16.5); Lymphocyte # 2.08 X10^3/ul (0.83-4.51); Lymphocyte % 9.1 % (19-41); Mean Corp Hgb Conc 32.2 g/dL (32-36); Mean Corpuscular Hgb 28.5 pg (27.0-32.0); Mean Corpuscular Volume 88.4 fL (80-94); Monocyte# 1.06 X10^3/uL; Monocyte% 4.7 % (0-10); NRBC Flagged by Analyzer 0 % (0-5); Neutrophil # 19.18 X10^3/uL (2.7-7.7); Neutrophil % 84.3 % (47-70); Platelet Count 218 K/mm3 (150-450); RBC Distribution Width CV 13.3 % (11.6-14.6); RBC Distribution Width SD 42.9 fl (35.1-43.9); Red Blood Count 4.84 M/mm3 (4.6-6.2); White Blood Count 22.7 K/mm3 (4.4-11.0)
[2024-09-05 06:53] LABS: Anion Gap 3 (5-15); BUN 15 mg/dL (7-18); BUN/Creat Ratio 16.9 RATIO (10-20); Calcium,Total 8.1 mg/dL (8.5-10.1); Chloride 108 mmol/L (98-107); Creatinine, Serum 0.89 mg/dL (0.70-1.30); EST Glomerular Filtration Rate 101 mL/min (>60); Est Glom Filt Rate - Afr Amer 122 mL/min (>60); Glucose 110 mg/dL (74-106); Sodium Level 138 mmol/L (136-145)
[2024-09-05 07:41] VITALS: BP 122/69; PULSE 76; RESP 16; TEMP 36.5; O2SAT 100; BMI 42.4
--- NOTE | 2024-09-05 07:52 | PN.SURG_ITS ---
Subjective Subjective Patient reports on Dilaudid he is much more comfortable and his pain is a 2 out of 10. Objective Data Objective Data Vital Signs: Vital Signs Temp Pulse Resp BP Pulse Ox O2 Del Method 98.2 F 77 18 123/78 H 98 Room Air 09/05/24 05:56 09/05/24 05:56 09/05/24 05:56 09/05/24 05:56 09/05/24 05:56 09/05/24 05:56 Oxygen Delivery Method Room Air Weight: 279 lb 1.683 oz Body Mass Index (BMI) 42.4 Intake & Output: Intake and Output for Last 24 Hours 09/03/24 09/04/24 09/05/24 23:59 23:59 23:59 Intake Total 1000 / 1000 50 / 50 Balance 1000 / 1000 50 / 50 Lab / Micro Data 09/05/24 05:36 09/05/24 05:36 Labs: Laboratory Results - last 24 hr 09/04/24 22:17: WBC 21.4 H, RBC 5.35, Hgb 14.8, Hct 47.1, MCV 88.0, MCH 27.7, M CHC 31.4 L, RDW Std Deviation 42.0, RDW Coeff of Addy 13.1, Plt Count 225, MPV 10.4, Immature Gran % (Auto) 0.500, Neut % (Auto) 90.0 H, Lymph % (Auto) 5.1 L, [place] % (Auto) 3.6, Eos % (Auto) 0.3, Baso % (Auto) 0.5, Absolute Neuts (auto) 19.3 H, Absolute Lymphs (auto) 1.09, Nucleated RBC % 0, Sodium 137, Potassium 4.1, Chloride 108 H, Carbon Dioxide 24.0, Anion Gap 5, BUN 19 H, Creatinine 0.93, Estim Creat Clear Calc 138.23, Est GFR (MDRD) Af Amer 116, Est GFR (MDRD) Non-Af 96, BUN/Creatinine Ratio 20.4 H, Glucose 125 H, Lactic Acid 1.1, Calcium 8.8, Total Bilirubin 1.60 H, AST 17, ALT 28, Alkaline Phosphatase 59, Total Protein 7.3, Albumin 3.8, Globulin 3.5, Albumin/Globulin Ratio 1.1, Lipase 39 09/04/24 23:18: Urine Color Yellow, Urine Clarity Clear, Urine pH 6.0, Ur Specific [place] 1.020, Urine Protein Negative, Urine Glucose (UA) Normal, Urine Ketones Negative, Urine Occult Blood Negative, Urine Nitrite Negative, Urine Bilirubin Negative, Urine Urobilinogen Normal, Ur Leukocyte Esterase Negative, Urine RBC 0-5 SEEN, Urine WBC 0-5 SEEN, Ur Squamous Epith Cells 0-5 SEEN, Urine Bacteria RARE, Urine Mucus 0 SEEN 09/05/24 05:36: WBC 22.7 H, RBC 4.84, Hgb 13.8, Hct 42.8, MCV 88.4, MCH 28.5, MCHC 32.2, RDW Std Deviation 42.9, RDW Coeff of Addy 13.3, Plt Count 218, MPV 11.0, Immature Gran % (Auto) 1.100 H, Neut % (Auto) 84.3 H, Lymph % (Auto) 9.1 L , [place] % (Auto) 4.7, Eos % (Auto) 0.3, Baso % (Auto) 0.5, Absolute Neuts (auto) 19.2 H, Absolute Lymphs (auto) 2.08, Nucleated RBC % 0, Sodium 138, Potassium 4.0, Chloride 108 H, Carbon Dioxide 27.0, Anion Gap 3 L, BUN 15, Creatinine 0.89, Estim Creat Clear Calc 144.50, Est GFR (MDRD) Af Amer 122, Est GFR (MDRD) Non-Af 101, BUN/Creatinine Ratio 16.9, Glucose 110 H, Calcium 8.1 L Radiography Diagnostic Testing: Radiology Impression Abdomen/Pelvis CT 09/04/24 22:06 IMPRESSION: There is small volume pneumoperitoneum. This is secondary to perforated likely acute diverticulitis (rather than malignancy) further complicated by a small pericolonic abscess measuring approximately 2 cm. If definitive management is not performed, recommend direct visualization after resolution of acute symptoms. Electronically Signed: Lawrence Constantino DO at 23:52 EST , ADDENDUM: 09/05/24 0004 IMPRESSION: There is small volume pneumoperitoneum. This is secondary to perforated likely acute diverticulitis (rather than malignancy) further complicated by a small pericolonic abscess measuring approximately 2 cm. If definitive management is not performed, recommend direct visualization after resolution of acute symptoms. N.B. : The above Results were Read Back by Lawrence Constantino DO to Brian Vaughan DO, and understanding confirmed on 09/04/2024 23:57:34 (ET). Electronically Signed: Lawrence Constantino DO at 23:52 EST , Physical Exam Const oriented x3 Resp normal respiratory effort GI soft to palpation Palpation: tender LLQ and RLQ Extremity normal to inspection Assessment & Plan Assessment/Plan (1) Diverticulitis of colon with perforation: PLAN: The patient has diverticulitis with pneumoperitoneum. There are only a few small bubbles of air in the abdomen so I believe his perforation did sealed off. His white count is still 22 but he only received 1 dose of antibiotics so far. His pain is well-controlled on the Dilaudid. His vitals are all stable. At this time I would continue observation today and see how he does. If he can get this to seal I will do an elective colectomy for his recurrent diverticulitis. If there is any worsening his vital signs or physical exam I will take him more urgently for sigmoid colectomy. Continue antibiotics and IV fluids at this time. Juan Fuller MD Pager: [facility] [address] [place] [address], [address] [place] [address] Office:
[2024-09-05] MEDS: 0.9% Saline Lock 10 ML Syringe IV ×6 (08:05→21:55)
--- NOTE | 2024-09-05 11:01 | CASEMGMT ---
CHRIS TOVAR Assessment Face to Face with patient for initial transition planning/care coordination assessment. CHRIS TOVAR introduced self and role at [facility], pt voices understanding. Pt is A&Ox4 and is resting comfortably in bed and is calm. Care providers, pharmacy, and demographics verified. Admitting dx: Diverticulitis with perforation LACE Strata: 1 PCP: Kati Arshad Specialists: Denies Preferred Pharmacy: [facility] Insurance: [employer] Prescription Benefit: yes LNOK: Marya He (W) Living Arrangements: Pt lives with his in a single story home with 2 steps to enter ADLs/IADLs: Ind Transportation: Self, DME: BP Monitor. Denies further needs HHC/SNF: Denies history or needs Pt?s goal: home Plan: Home no needs. 6-click is 24. Pt states that he feels safe discharging home with his once he is medically ready and denies further home going needs at this time. Report given to [facility] CM. Yola Guerra RN, CM
[2024-09-05] MEDS: Ondansetron 4 MG/2 ML Vial IV ×2 (12:24→21:54)
[2024-09-05 13:27] VITALS: BP 125/64; PULSE 70; RESP 16; TEMP 37; O2SAT 97
[2024-09-05 21:50] VITALS: BP 178/96; PULSE 93; RESP 18; TEMP 35.9; O2SAT 98
[2024-09-06] VITALS (7 sets, daily range): BP systolic 134–169; BP diastolic 73–109; PULSE 81–97; RESP 18; TEMP 36.4–37.8; O2SAT 97–99
[2024-09-06] MEDS: Ketorolac 15 MG/ML Vial IV ×2 (02:48→14:13)
[2024-09-06] MEDS: HYDROmorphone 1 MG/ML Syringe IV ×4 (04:15→22:03)
[2024-09-06] MEDS: Ondansetron 4 MG/2 ML Vial IV ×2 (04:15→21:49)
[2024-09-06] MEDS: 0.9% Saline Lock 10 ML Syringe IV ×3 (04:16→21:49)
[2024-09-06] MEDS: Piperacil/Tazobactam 3.375 GM in 0.9% Normal Saline (50mL MB+) 50 ML IV ×3 (04:55→21:57)
[2024-09-06] MEDS: Levothyroxine 75 MCG Tablet PO (04:58)
[2024-09-06 06:42] LABS: Absolute Lymphocyte Count 1.07 X10^3/uL (0.83-4.51); Absolute Neutrophil Count 15.4 X10^3/uL (2.0-7.7); Basophil# 0.09 X10^3/uL; Basophil% 0.5 % (0-1); Eosinophil# 0.04 X10^3/uL; Eosinophils% 0.2 % (0-5); Hematocrit 43.7 % (40-54); Hemoglobin 13.7 g/dL (13.0-16.5); Lymphocyte # 1.07 X10^3/ul (0.83-4.51); Mean Corp Hgb Conc 31.4 g/dL (32-36); Mean Corpuscular Hgb 27.6 pg (27.0-32.0); Mean Corpuscular Volume 88.1 fL (80-94); Mean Platelet Vol. 10.5 fl (6.2-12.0); Monocyte# 1.01 X10^3/uL; Monocyte% 5.7 % (0-10); NRBC Flagged by Analyzer 0 % (0-5); Neutrophil # 15.37 X10^3/uL (2.7-7.7); Neutrophil % 86.9 % (47-70); Platelet Count 191 K/mm3 (150-450); RBC Distribution Width SD 41.7 fl (35.1-43.9); Red Blood Count 4.96 M/mm3 (4.6-6.2); White Blood Count 17.7 K/mm3 (4.4-11.0)
--- NOTE | 2024-09-06 07:28 | PCM.PN.SRG ---
Subjective Subjective Patient says he is feeling better than yesterday and much better and then he fell 2 days ago. He denies any nausea or vomiting overnight. He does say that he passed some flatus. He also had a bowel movement this morning which she said was actually alleviating his pain and not contributing to it. Objective Data Objective Data Vital Signs: Vital Signs Temp Pulse Resp BP Pulse Ox O2 Del Method 97.5 F L 97 18 153/89 H 97 Room Air 09/06/24 03:03 09/06/24 03:03 09/06/24 03:03 09/06/24 05:14 09/06/24 03:03 09/06/24 03:03 Oxygen Delivery Method Room Air Weight: 279 lb 1.683 oz Body Mass Index (BMI) 42.4 Intake & Output: Intake and Output for Last 24 Hours 09/04/24 09/05/24 09/06/24 23:59 23:59 23:59 Intake Total 1000 / 1000 2620 / 2720 700 / 700 Balance 1000 / 1000 2620 / 2720 700 / 700 Lab / Micro Data 09/06/24 06:20 09/05/24 05:36 Labs: Laboratory Results - last 24 hr 09/06/24 06:20: WBC 17.7 H, RBC 4.96, Hgb 13.7, Hct 43.7, MCV 88.1, MCH 27.6, MCHC 31.4 L, RDW Std Deviation 41.7, RDW Coeff of Addy 13.0, Plt Count 191, MPV 10.5, Immature Gran % (Auto) 0.700, Neut % (Auto) 86.9 H, Lymph % (Auto) 6.0 L, [place] % (Auto) 5.7, Eos % (Auto) 0.2, Baso % (Auto) 0.5, Absolute Neuts (auto) 15.4 H, Absolute Lymphs (auto) 1.07, Nucleated RBC % 0 Physical Exam Const oriented x3 and no apparent distress Resp normal respiratory effort GI soft to palpation Palpation: tender LLQ and RLQ Assessment & Plan Assessment/Plan (1) Diverticulitis of colon with perforation: PLAN: The patient reports that his pain is much improved. His white count has come down slightly. He denies fevers or chills or nausea or vomiting and his vitals were all stable overnight. He says that he is not having any right upper quadrant pain anymore and it is all in his lower abdomen where the diverticulitis is located. Patient reports that he is passing gas and had a bowel movement. I will start him on some clears to try to hydrate him but I will not start a regular diet until his pain is gone. Juan Fuller MD Pager: [facility] [address] [place] [address], [address] [place] [address] Office:
[2024-09-06 09:07] LABS: Anion Gap 8 (5-15); BUN 11 mg/dL (7-18); BUN/Creat Ratio 14.5 RATIO (10-20); Calcium,Total 8.4 mg/dL (8.5-10.1); Chloride 107 mmol/L (98-107); Creatinine, Serum 0.76 mg/dL (0.70-1.30); EST Glomerular Filtration Rate 121 mL/min (>60); Est Glom Filt Rate - Afr Amer 146 mL/min (>60); Estimated Creatinine Clearance 169.22 ml/min; Glucose 97 mg/dL (74-106); Potassium 3.7 mmol/L (3.5-5.1); Sodium Level 135 mmol/L (136-145)
[2024-09-07] MEDS: 0.9% Saline Lock 10 ML Syringe IV ×2 (02:36→04:06)
[2024-09-07] MEDS: Ketorolac 15 MG/ML Vial IV ×2 (02:36→10:19)
[2024-09-07] MEDS: HYDROmorphone 1 MG/ML Syringe IV ×2 (04:05→18:17)
[2024-09-07] MEDS: Ondansetron 4 MG/2 ML Vial IV ×2 (04:05→18:17)
[2024-09-07 04:45] VITALS: BP 156/79; PULSE 76; RESP 18; TEMP 36.8; O2SAT 97
[2024-09-07] MEDS: Piperacil/Tazobactam 3.375 GM in 0.9% Normal Saline (50mL MB+) 50 ML IV ×3 (05:55→21:16)
[2024-09-07] MEDS: Levothyroxine 75 MCG Tablet PO (06:25)
[2024-09-07 07:00] LABS: Basophil# 0.09 X10^3/uL; Basophil% 0.6 % (0-1); Eosinophil# 0.13 X10^3/uL; Eosinophils% 0.9 % (0-5); Hemoglobin 13.5 g/dL (13.0-16.5); Lymphocyte % 8.2 % (19-41); Mean Corp Hgb Conc 31.4 g/dL (32-36); Mean Corpuscular Hgb 27.8 pg (27.0-32.0); Mean Corpuscular Volume 88.5 fL (80-94); Mean Platelet Vol. 11.3 fl (6.2-12.0); Monocyte# 1.12 X10^3/uL; Monocyte% 7.7 % (0-10); NRBC Flagged by Analyzer 0 % (0-5); Neutrophil # 11.98 X10^3/uL (2.7-7.7); Neutrophil % 82.1 % (47-70); Platelet Count 192 K/mm3 (150-450); RBC Distribution Width CV 12.9 % (11.6-14.6); Red Blood Count 4.86 M/mm3 (4.6-6.2); White Blood Count 14.6 K/mm3 (4.4-11.0)
[2024-09-07 07:28] LABS: Anion Gap 4 (5-15); BUN 9 mg/dL (7-18); BUN/Creat Ratio 10.6 RATIO (10-20); Calcium,Total 8.6 mg/dL (8.5-10.1); Chloride 105 mmol/L (98-107); Creatinine, Serum 0.85 mg/dL (0.70-1.30); EST Glomerular Filtration Rate 106 mL/min (>60); Est Glom Filt Rate - Afr Amer 128 mL/min (>60); Glucose 98 mg/dL (74-106); Potassium 4.1 mmol/L (3.5-5.1); Sodium Level 136 mmol/L (136-145)
[2024-09-07 10:12] VITALS: BP 148/97; PULSE 72; RESP 18; TEMP 36.2; O2SAT 99
--- NOTE | 2024-09-07 11:48 | PCM.PN.SRG ---
Subjective Subjective Patient states he is doing much better today. He states that his pain is significantly decreased. He has tolerated clear liquid diet thus far without worsening pain. White count has decreased to 14.6 today. No fevers or chills. Objective Data Objective Data Vital Signs: Vital Signs Temp Pulse Resp BP Pulse Ox O2 Del Method 97.1 F L 72 18 148/97 H 99 Room Air 09/07/24 10:12 09/07/24 10:12 09/07/24 10:12 09/07/24 10:12 09/07/24 10:12 09/07/24 10:12 Oxygen Delivery Method Room Air Weight: 279 lb 1.683 oz Body Mass Index (BMI) 42.4 Intake & Output: Intake and Output for Last 24 Hours 09/05/24 09/06/24 09/07/24 23:59 23:59 23:59 Intake Total 2620 / 2720 800 / 1150 850 / 850 Balance 2620 / 2720 800 / 1150 850 / 850 Lab / Micro Data 09/07/24 05:34 09/07/24 05:34 Labs: Laboratory Results - last 24 hr 09/07/24 05:34: WBC 14.6 H, RBC 4.86, Hgb 13.5, Hct 43.0, MCV 88.5, MCH 27.8, MCHC 31.4 L, RDW Std Deviation 42.0, RDW Coeff of Addy 12.9, Plt Count 192, MPV 11.3, Immature Gran % (Auto) 0.500, Neut % (Auto) 82.1 H, Lymph % (Auto) 8.2 L, [place] % (Auto) 7.7, Eos % (Auto) 0.9, Baso % (Auto) 0.6, Absolute Neuts (auto) 12.0 H, Absolute Lymphs (auto) 1.20, Nucleated RBC % 0, Sodium 136, Potassium 4.1, Chloride 105, Carbon Dioxide 26.0, Anion Gap 4 L, BUN 9, Creatinine 0.85, Estim Creat Clear Calc 151.30, Est GFR (MDRD) Af Amer 128, Est GFR (MDRD) Non-Af 106, BUN/Creatinine Ratio 10.6, Glucose 98, Calcium 8.6 Assessment & Plan Assessment/Plan (1) Abscess of intestine: (2) Diverticulitis of colon with perforation: PLAN: The patient is a 39-year-old male with acute sigmoid diverticulitis with microperforation. He clinically is improving with antibiotics. White count has decreased to 14.6 today. Patient tolerated clear liquid diet. He is not interested in diet advancement but we could certainly reconsider diet advancement tomorrow Charges/Coding Visit Charges Inpatient E&M: 60829 Subs Hosp L2
[2024-09-07] MEDS: Acetaminophen 325 MG Tablet 650 MG PO (13:01)
[2024-09-07 15:35] VITALS: BP 123/80; PULSE 50; RESP 16; TEMP 35.8; O2SAT 100
[2024-09-07 21:21] VITALS: BP 136/83; PULSE 59; RESP 18; TEMP 36.9; O2SAT 99
[2024-09-08] MEDS: 0.9% Saline Lock 10 ML Syringe IV ×3 (00:06→08:02)
[2024-09-08] MEDS: Ketorolac 15 MG/ML Vial IV (00:06)
[2024-09-08] MEDS: HYDROmorphone 1 MG/ML Syringe IV ×2 (02:37→08:02)
[2024-09-08 02:57] VITALS: BP 163/94; PULSE 64; RESP 18; TEMP 36.8; O2SAT 99
[2024-09-08] MEDS: Levothyroxine 75 MCG Tablet PO (06:30)
[2024-09-08] MEDS: Piperacil/Tazobactam 3.375 GM in 0.9% Normal Saline (50mL MB+) 50 ML IV (06:30)
[2024-09-08 08:01] VITALS: BP 135/85; PULSE 73; RESP 16; O2SAT 98
[2024-09-08] MEDS: Ondansetron 4 MG/2 ML Vial IV (08:02)
[2024-09-08 08:31] VITALS: BP 141/77; PULSE 62; RESP 16; TEMP 36.8; O2SAT 99
[2024-09-08 10:00] VITALS: RESP 17
[2024-09-08 10:12] LABS: Absolute Lymphocyte Count 1.62 X10^3/uL (0.83-4.51); Absolute Neutrophil Count 7.8 X10^3/uL (2.0-7.7); Basophil# 0.08 X10^3/uL; Basophil% 0.8 % (0-1); Eosinophil# 0.19 X10^3/uL; Eosinophils% 1.8 % (0-5); Hematocrit 45.2 % (40-54); Hemoglobin 14.6 g/dL (13.0-16.5); Lymphocyte # 1.62 X10^3/ul (0.83-4.51); Lymphocyte % 15.6 % (19-41); Mean Corp Hgb Conc 32.3 g/dL (32-36); Mean Corpuscular Hgb 28.2 pg (27.0-32.0); Mean Corpuscular Volume 87.4 fL (80-94); Mean Platelet Vol. 10.9 fl (6.2-12.0); Monocyte# 0.57 X10^3/uL; Monocyte% 5.5 % (0-10); NRBC Flagged by Analyzer 0 % (0-5); Neutrophil # 7.84 X10^3/uL (2.7-7.7); Neutrophil % 75.7 % (47-70); Platelet Count 222 K/mm3 (150-450); RBC Distribution Width CV 12.8 % (11.6-14.6); RBC Distribution Width SD 40.9 fl (35.1-43.9); Red Blood Count 5.17 M/mm3 (4.6-6.2); White Blood Count 10.4 K/mm3 (4.4-11.0)
--- NOTE | 2024-09-08 10:58 | DS.PCM_ITS ---
Providers Date of Admission: 09/05/24 Date of Discharge: 09/08/24 Primary Care Physician: Dr. Kati Arshad MD Reason For Visit: DIVERTICULITIS WITH PERFORATION Diagnosis Discharge Diagnosis (1) Abscess of intestine: Status: Acute Code(s): K63.0 - Abscess of intestine (2) Diverticulitis of colon with perforation: Status: Acute Code(s): K57.20 - Diverticulitis of large intestine with perforation and abscess without bleeding Plan: The patient is a 39-year-old male with acute sigmoid diverticulitis with microperforation. He clinically is improving with antibiotics. White count has decreased to 14.6 today. Patient tolerated clear liquid diet. He is not interested in diet advancement but we could certainly reconsider diet advancement tomorrow Medications at Discharge Home Medications Diltiazem 2% / Lidocaine 5% ointment (compound) #1 ea 03/29/24 levothyroxine 75 mcg tablet 75 mcg PO DAILY #30 tabs 05/20/24 omeprazole 40 mg capsule,delayed release 40 mg PO DAILY PRN PRN GERD #90 caps 05/20/24 ciprofloxacin HCl 500 mg tablet (Cipro) 500 mg PO Q12H 7 days #14 tabs 09/08/24 metronidazole 375 mg capsule (Flagyl) 375 mg PO Q12H 7 days #14 caps 09/08/24 oxycodone-acetaminophen 5 mg-325 mg tablet (Percocet) 1 tab PO Q8H PRN pain 3 days #5 tabs 09/08/24 Hospital Course Operations None Summary of Care Provided Minutes Spent on Discharge: 15 Hospital Course: The patient is a 39-year-old male with a history of recurring episodes of sigmoid diverticulitis. He was admitted for he had another episode of diverticulitis. He initially was placed n.p.o. and was administered IV antibiotics. His white count has steadily decreased and clinically he is improved as well. Today states that he really has no significant pain. He has tolerated diet advancement. He is hopeful that he can be discharged later today. Plan is for him to follow-up with Dr Fuller in the office in the near future to discuss sigmoid colectomy Physical Exam Narrative He is alert and oriented x 3. He is in no acute distress. Abdomen is obese, soft nontender nondistended. Weight / BMI Weight Weight: 279 lb 1.683 oz Body Mass Index (BMI) 42.4 ABG / Lab / Microbiology Data 09/08/24 09:43 09/07/24 05:34 Laboratory: Laboratory Results - last 24 hr 09/08/24 09:43: WBC 10.4, RBC 5.17, Hgb 14.6, Hct 45.2, MCV 87.4, MCH 28.2, MCHC 32.3, RDW Std Deviation 40.9, RDW Coeff of Addy 12.8, Plt Count 222, MPV 10.9, Immature Gran % (Auto) 0.600, Neut % (Auto) 75.7 H, Lymph % (Auto) 15.6 L, [place] % (Auto) 5.5, Eos % (Auto) 1.8, Baso % (Auto) 0.8, Absolute Neuts (auto) 7.8 H, Absolute Lymphs (auto) 1.62, Nucleated RBC % 0 D/C Instructions Discharge Diet: Light diet - advance as tolerated and - (Low fiber diet) Discharge Activity: Return to Normal Activity Call your doctor if you observe: Fever of 101 or Higher and - (Any significant increase in abdominal pain) Additional Instructions: Follow-up with Dr. Fuller in 1 to 2 weeks. Continue oral antibiotics that are prescribed Please Follow Up With: Juan Fuller MD When: 1 to 2 weeks Meaningful Use Info Meaningful Use Meaningful Use Diagnoses (Choose all that apply): None applicable Ischemic Stroke Statin Dosing Therapy Reference: STATIN DOSE THERAPY REFERENCE: * Patients > 75 years receive moderate or high dose statin therapy. * Patients 75 years or YOUNGER should receive HIGH intensity statin dose unless contraindicated. You will be required to document reason for non-treatment if statin daily dose does not meet guidelines. HIGH DOSE STATIN THERAPY DAILY Atorvastatin > than or = to 40 mg Rosuvastatin > than or = to 20 mg Amlodipine + Atorvastatin > than or = to 2.5/40 mg Ezetimibe + Simvastatin 10/80 mg Simvastatin 80mg Discharge Plan Admission Admit Date/Time: 09/05/24 01:04 Primary Reason for Your Visit: Diverticulitis Attending Provider: Juan Fuller Primary Care Provider: Kati Arshad Discharge Orders/Prescriptions Prescriptions: New metronidazole [Flagyl] 375 mg capsule 375 mg PO Q12H 7 Days Qty: 14 0RF ciprofloxacin HCl [Cipro] 500 mg tablet 500 mg PO Q12H 7 Days Qty: 14 0RF oxycodone-acetaminophen [Percocet] 5-325 mg tablet 1 tab PO Q8H PRN (Reason: pain) 3 Days Qty: 5 0RF Continued omeprazole 40 mg capsule,delayed release(DR/EC) 40 mg PO DAILY PRN PRN (Reason: GERD) Qty: 90 0RF levothyroxine 75 mcg tablet 75 mcg PO DAILY Qty: 30 5RF (DME) Diltiazem 2% / Lidocaine 5% ointment (compound) Ointment See Rx Instructions .Route Qty: 1 0RF Rx Instructions: Apply to rectum twice daily Referrals / Follow Up: Kati Arshad MD [Primary Care Provider] - Disposition Disposition (needs filled in before D/C Order can be placed): Home, Self Care
[2024-09-08 11:10] VITALS: BP 130/88; PULSE 68; RESP 16; TEMP 36.6; O2SAT 99
== END 2024-09-08 12:22 | disposition home or self-care (01) | DRG 392 ==
LOC: ED 22:11 → PCU 09-05 01:17
PROVIDERS: Surgery; Admitting Provider Surgery; Emergency Provider Emergency Medicine; PCP Internal Medicine; Visit Provider Surgery
DX: K57.20 Diverticulitis of large intestine with perforation and abscess without bleeding (principal); Z68.41 Body mass index [BMI] 40.0-44.9, adult; K66.8 Other specified disorders of peritoneum; J44.9 Chronic obstructive pulmonary disease, unspecified; I10 Essential (primary) hypertension; E66.01 Morbid (severe) obesity due to excess calories; F10.90 Alcohol use, unspecified, uncomplicated; G47.30 Sleep apnea, unspecified; J01.00 Acute maxillary sinusitis, unspecified; L25.9 Unspecified contact dermatitis, unspecified cause; R13.10 Dysphagia, unspecified; Z86.0100 Personal history of colon polyps, unspecified; Z87.891 Personal history of nicotine dependence; H91.90 Unspecified hearing loss, unspecified ear; M51.360 Other intervertebral disc degeneration, lumbar region with discogenic back pain only; Z99.89 Dependence on other enabling machines and devices; R20.0 Anesthesia of skin; Z79.890 Hormone replacement therapy; Z79.899 Other long term (current) drug therapy
CPT/HCPCS: 36415; 74177; 80048; 80053; 81001; 83605; 83690; 85025; 93005; 99283; Q9967; A4216; J2405

== ENCOUNTER 2024-10-17 09:52 | Inpatient (IN) | payer OTHER, SELFPAY ==
[2024-10-04 17:36] LABS: Magnesium 2.1 mg/dL (1.6-2.6)
[2024-10-17] VITALS (17 sets, daily range): BP systolic 105–145; BP diastolic 57–82; PULSE 56–93; RESP 15–18; TEMP 36.1–36.9; O2SAT 95–100; BMI 41.4
[2024-10-17] MEDS: 0.9% Normal Saline (1000mL) 1,000 ML 40 ML IV ×2 (06:00→10:55)
[2024-10-17] MEDS: Magnesium 1 GM over 15 mins IV (06:05)
--- NOTE | 2024-10-17 06:20 | PCM.PRE.AN2 ---
ASA Classification* ASA Classification ASA Classification: 3 Assessment & Plan Anesthesia* Anesthesia Assessment Anesthesia Assessment: Discussed sedation and/or anesthesia options, risks, benefits, and alternatives with patient/parents/legal guardian/POA. Questions invited. The patient/parents/legal guardian/POA seems to understand and agrees to proceed with anesthesia plan. Reviewed the physical assessment, medical history, allergy history and patient home medications list prior to surgery/procedure/anesthetic and documented any changes. Performed airway and anesthesia risk assessments. Anesthesia Type Anesthesia Type: General History Source History Obtained from:: Patient and Chart Anesthesia Focused Assessment* Temperature: 98.4 F Pulse Rate: 56 Blood Pressure: 126/73 Respiratory Rate: 18 Pulse Ox: 99 Oxygen Delivery Method: Room Air Airway Assessment Mouth opens: >3 cm Mallampati Score: I Teeth Condition: Intact Neck Range of motion (ROM): Full ROM Focused Labs Anesthesia Preop lab: CBC WBC 10.4 K/mm3 (4.4-11.0) 09/08/24 09:43 RBC 5.17 M/mm3 (4.6-6.2) 09/08/24 09:43 Hgb 14.6 g/dL (13.0-16.5) 09/08/24 09:43 Hct 45.2 % (40-54) 09/08/24 09:43 Plt Count 222 K/mm3 (150-450) 09/08/24 09:43 CHEMISTRY Potassium 4.1 mmol/L (3.5-5.1) 09/07/24 05:34 Sodium 136 mmol/L (136-145) 09/07/24 05:34 Magnesium 2.1 mg/dL (1.6-2.6) 10/04/24 16:29 BUN 9 mg/dL (7-18) 09/07/24 05:34 Creatinine 0.85 mg/dL (0.70-1.30) 09/07/24 05:34 Glucose 98 mg/dL (74-106) 09/07/24 05:34 TSH 1.410 uIU/mL (0.358-3.740) 10/04/24 16:29 COAG Pre-Assessment Diagnosis/Proposed Procedure Planned Operative Procedure(s): ERAS, Laparoscopic, Sigmoid Colectomy Anesthesia History 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 When Was Last Pacemaker Check QUESTION #4 FULL TEXT: You/Your Family Experience fever (hyperthermia) with Anesthesia Last Oral Intake Last Oral intake: Last Oral Intake NPO since Meds taken in AM with sips of water? Meds patient instructed to take am of surgery Any additional information?: Yes NPO since: 03:30 (Patient took Ensure at 3:30 AM.) PONV PONV - student recruiter: PONV - student recruiter Female No 10/04/24 11:12 HX of Motion Sickness No 10/04/24 11:12 HX of N/V After Surgery No 10/04/24 11:12 Non-Smoker Yes 10/04/24 11:12 Duration of Surgery greater Yes 10/04/24 11:12 than 60 minutes Number of Risk Factors 2 10/04/24 11:12 PONV Score Moderate Risk 10/04/24 11:12 Height & Weight Height & Weight: Anesthesia: Height & Weight Height 5 ft 8 in 09/11/24 14:57 Respiratory Assessment Respiratory Assessment - student recruiter: Respiratory Tract Infection Hx - student recruiter Hx Respiratory Tract Infection No 10/04/24 11:12 STOP Sleep Apnea STOP Sleep Apnea - student recruiter: STOP Sleep Apnea - student recruiter Hx Hypertension Yes 10/04/24 11:12 Hx Sleep Apnea Yes 10/04/24 11:12 CPAP Yes: NON COMPLIANT 10/04/24 11:12 BIPAP No 10/04/24 11:12 Do you snore loudly (louder than talking or can be heard Do you often feel tired/ fatigued/ sleepy during daytime? Has anyone observed you stop breathing during sleep? STOP Results Positive 10/04/24 11:12 QUESTION #5 FULL TEXT : Do you snore loudly (louder than talking or can be heard through closed doors)? Tobacco Use History Tobacco Use History - student recruiter: Tobacco Use History - student recruiter Tobacco Use Smoking Status Former smoker 10/04/24 11:12 Hx Tobacco Use Yes 10/04/24 11:12 Years Smoking Packs Smoked per Day Smoking Cessation Date was Yes - quit smoking within 15 10/04/24 11:12 within the last 15 years years Hx Smoking Cessation Date 10/30/23 10/04/24 11:12 Hx Smoking Cessation Counseling Hematologic Medial History Hematologic Hx - student recruiter: Hematologic Medical Hx - key attendant Hx of Blood Transfusion No 10/04/24 11:12 Hx of Transfusion in last 3 No 10/04/24 11:12 Months Date of Last Transfusion (if within last 3 months) Ever experience any problems No 10/04/24 11:12 with transfusion(s)? Specify any problems Hx of Preganancy in last 3 N/A 10/04/24 11:12 Months Nurse Filling Out Transfusion NBUCHER 10/04/24 11:12 & Questions: Date: 10/04/24 10/04/24 11:12 Time: 11:15 10/04/24 11:12 Patient unable to answer at this time (ie. confused, unrespo /Reproduction History /Reproductive History - student recruiter: /Reproductive Hx- student recruiter Hx Now Gestational Age (in weeks): EDC: Hx Hx Para Hx Section SAB No 10/04/24 11:12 Active Medications Active Medications: Current Medications Generic Name Dose Route Start Last Admin Trade Name Freq PRN Reason Stop Dose Admin Acetaminophen 1,000 mg 10/17/24 07:30 Acetaminophen 500 Mg Tablet PO 10/17/24 07:31 PREOP ONE Gabapentin 600 mg 10/17/24 07:30 Gabapentin 600 Mg Tablet PO 10/17/24 07:31 PREOP ONE Cefotetan Disodium 2 gm/ 100 mls @ 200 mls/hr 10/17/24 07:30 Sodium Chloride IV 10/17/24 07:59 PREOP ONE Magnesium Sulfate 1 gm/ 102 mls @ 408 mls/hr 10/17/24 07:30 Dextrose IV 10/17/24 07:44 X1 ONE Sodium Chloride 1,000 mls @ 40 mls/hr 10/17/24 05:50 IV 10/19/24 07:49 .Q25H CARIE Protocol Insulin Human Lispro 0 unit 10/17/24 07:30 Insulin Lispro 100 Unit/Ml Insuln.Pen SC 10/17/24 18:00 Q4H PRN PRN BG >/= 180, SEE PROTOCOL Protocol PFSH Medical History Pre-op testing History of diverticulitis Diverticulitis of colon with perforation Loss of hearing Wears glasses Marijuana use Alcohol use Thyroid disease Restless legs DDD (degenerative disc disease), lumbar Former smoker CPAP (continuous positive airway pressure) dependence Shortness of breath on exertion History of pain when walking Cardiology follow-up encounter History of stress test Pain Diverticulitis Back problem Allergies Impacted cerumen, left ear Acute maxillary sinusitis, unspecified COPD (chronic obstructive pulmonary disease) Tobacco dependence Essential hypertension Contact dermatitis Morbid obesity Sleep apnea GERD (gastroesophageal reflux disease) Dysphagia Numbness and tingling History of back problems Home Medications ?Medication ?Instructions ?Recorded ?Last Taken ?Type Diltiazem 2% / Lidocaine 5% #1 ea 03/29/24 Unknown Rx ointment (compound) levothyroxine 75 mcg tablet 75 mcg PO DAILY THYROID #30 tabs 05/20/24 Unknown Rx omeprazole 40 mg capsule,delayed 40 mg PO DAILY PRN PRN GERD #90 05/20/24 Unknown Rx release caps neomycin 500 mg tablet 500 mg PO .COMPLEX pre-op 09/12/24 Unknown Rx antibiotics #6 tabs Allergy/AdvReac Type Severity Reaction Status Date / Time No Known Allergies Allergy Verified 10/17/24 06:24 Family History Father Alcohol abuse Heart disease Grandmother Diabetes Grandmother Heart disease Diabetes Bowel disease doesn't know what kind Hypertension Mother Arthritis Diabetes Other Cervical cancer Gastrointestinal problem Surgical History History of selective injection of anesthetic agent around lumbar nerve root History of placement of ear tubes Social History household members: spouse and children current occupational status: employed 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
[2024-10-17] MEDS: Acetaminophen 500 MG Tablet 1000 MG PO (06:31)
[2024-10-17] MEDS: Gabapentin 600 MG Tablet PO (06:31)
--- NOTE | 2024-10-17 06:42 | HP.PCM_ITS ---
History and Physical Date of Admission: 10/17/24 Intake Vital Signs 09/07/2415:25 09/11/2414:57 Height 5 ft 8 in 5 ft 8 in Weight: 278 lb BMI 42.3 BP 128/84 H Blood Pressure Location Rt brachial Position Sitting Respiration 17 Pulse 77 Pulse Source Monitor Pulse Oximetry (%) 98 Oxygen Delivery Method room air Intake Visit Reasons: DIVERTICULITIS, H FU Chief Complaint: diverticulitis Is patient in pain?: No Allergies No Known Allergies Allergy (Verified 09/11/24 14:58) Medications ?Medication ?Instructions ?Recorded ?Confirmed ?Type Diltiazem 2% / Lidocaine 5% #1 ea 03/29/24 09/11/24 Rx ointment (compound) levothyroxine 75 mcg tablet 75 mcg PO DAILY #30 tabs 05/20/24 09/11/24 Rx omeprazole 40 mg capsule,delayed 40 mg PO DAILY PRN PRN GERD #90 05/20/24 09/11/24 Rx release caps ciprofloxacin HCl 500 mg tablet 500 mg PO Q12H 7 days #14 tabs 09/08/24 09/11/24 Rx (Cipro) metronidazole 375 mg capsule 375 mg PO Q12H 7 days #14 caps 09/08/24 09/11/24 Rx (Flagyl) oxycodone-acetaminophen 5 mg-325 1 tab PO Q8H PRN pain 3 days #5 09/08/24 09/11/24 Rx mg tablet (Percocet) tabs metronidazole 500 mg tablet 500 mg PO .COMPLEX #6 tabs 09/12/24 09/12/24 Rx neomycin 500 mg tablet 500 mg PO .COMPLEX pre-op 09/12/24 09/12/24 Rx antibiotics #6 tabs PFSH Medical History Loss of hearing Wears glasses Marijuana use Alcohol use Thyroid disease Restless legs DDD (degenerative disc disease), lumbar Former smoker CPAP (continuous positive airway pressure) dependence Shortness of breath on exertion History of pain when walking Cardiology follow-up encounter History of stress test Pain Diverticulitis Back problem Allergies Impacted cerumen, left ear Acute maxillary sinusitis, unspecified COPD (chronic obstructive pulmonary disease) Tobacco dependence Essential hypertension Contact dermatitis Morbid obesity Sleep apnea GERD (gastroesophageal reflux disease) Dysphagia Numbness and tingling History of back problems Surgical History History of selective injection of anesthetic agent around lumbar nerve root History of placement of ear tubes Family History (Updated 09/11/24 @ 14:55 by Kori Goldsmith) Father Alcohol abuse Heart diseaseGrandmother DiabetesGrandmother Heart disease Diabetes Bowel disease doesn't know what kind HypertensionMother Arthritis DiabetesOther Cervical cancer Gastrointestinal problem Social History household members: spouse and children current occupational status: employed current occupation: [employer] at [employer] Smoking Status: Former smoker quit date: 05/30/22 pack-years: 56 Electronic Cigarette Use: with nicotine quit status: has quit before alcohol intake: current alcohol intake frequency: holidays/special occasions only substance use type: does not use caffeine: Yes what type of physical activity do you participate in: walking frequency: does not exercise do you feel safe at home: Yes HPI HPI HPI: Patient is a 39-year-old male here to follow-up for diverticulitis. The patient recently had a colonoscopy a few months ago. The patient has sigmoid diverticulitis that keeps recurring. He was recently hospitalized with microperforation. He currently is feeling better. ROS General General: No weight change, appetite, fatigue, colon cancer, breast cancer or weakness HEENT HEENT: No difficulty swallowing, eye injury, eye surgery, swollen glands or hoarseness Endo Endocrine: Yes thyroid disease; No diabetes mellitus, thyroid cancer, Hair loss, heat intolerance or cold intolerance Skin Skin: No rash or changing moles Musc Musculoskeletal: Yes back problems; No arthritis, rheumatoid arthritis, gout or joint pain Cardio Cardiovascular: No murmur, pacemaker, heart disease, atrial fibrillation, high blood pressure, heart attack, heart stent, palpitations, shortness of breat with exertion or chest pain Psych Psychiatric: No depression, anxiety or hearing voices Resp Respiratory: No shortness of breath, Yes sleep apnea, No cough, Yes COPD, No asthma, No emphysema and No wheezing Gastro Gastrointestinal: No abdominal pain, Yes nausea or vomiting, No diarrhea, No constipation, No blood in stool, Yes acid reflux, Yes hemorrhoids, No ulcers, No gallbladder problem and No black,tarry stools [place] Hematologic: No blood thinners, No blood disorders, No bleeding, No anemia and No blood clots Neuro Neurologic: No numbness, No tingling and No weakness Exam Const General: cooperative Orientation: alert and oriented x3 HENMT Head: normal to inspection Neck Neck: normal visual inspection and full ROM Chest Chest palpation & inspection: normal inspection of the chest Resp Effort & Inspection: normal respiratory effort Auscultation: clear to auscultation bilaterally Cardio Rate: regular rate Rhythm: regular rhythm GI Inspection: non-distended Palpation: soft and nontender Skin General: no rashes or lesions noted Neuro General: patient alert and patient oriented x3 Extrem General: full ROM Psych Appearance: grossly normal Mental Status: mental status grossly normal Assessment and Plan Assessment and Plan (1) Acute diverticulitis: Status: Inactive Plan: Patient had diverticulitis with microperforation. I discussed performing a laparoscopic sigmoid colectomy to remove the affected segment. The patient has had multiple episodes of recurrence this year. I did perform a colonoscopy earlier this year. I discussed the procedure as well as the risks including but not limited to bleeding, infection, injury other organs like the ureter, bladder, bowel. Patient understands the risks and is willing to proceed. He was given bowel prep instructions. He will have a ERAS protocol. Juan Fuller MD Pager: [facility] [address] [place] [address], [address] [place] [address] Office: I have examined the patient and the H&P has been reviewed. There are no clinical changes since date of exam.
--- NOTE | 2024-10-17 07:30 | COL_PTH ---
PATIENT: RONY RIDDLE LOC: MS3 U#:[id number] AGE/SX: 39/M ROOM: VT313 RE10/17/[address]: Dr. Juan Fuller MD : 1985 BED: 1 DIS: 10/21/2024 SPEC #: [id number] RECD: 10/17/24 09:18 STATUS: BETSEY GRUBBS #: [id number] HELEN: 10/17/24 07:[address]: Juan Fuller DEPT: SURGICAL PATHOLOGY RECD BY: Myke Stephens ENTERED: 10/17/24 10:48 SP TYPE: COLON OTHR DR: Dr. Kati Arshad MD Tissues: A - Colon, NOS B - Colon Donuts C - Colon Donuts Procedures: Surgery Specimen Level III Surgery Specimen Level V HEADER OPERATION: Laparoscopic converted to open sigmoid colectomy PRE-OP DIAGNOSIS: Acute diverticulitis TISSUE SUBMITTED: A- Sigmoid segment, B- Proximal sigmoid donuts, C- Distal sigmoid donuts MICROSCOPIC DIAGNOSIS A- Sigmoid segment, colectomy: Diverticulosis and diverticulitis. Two benign pericolonic lymph nodes. B- Proximal sigmoid donut: Colonic donut, no pathologic diagnosis. C- Distal sigmoid donut: Colonic donut, no pathologic diagnosis. 10/21/2024 MICROSCOPIC DESCRIPTION Slides are reviewed. GROSS DESCRIPTION A. Received in fixative is one container labeled with the patient's name and designated Sigmoid segment. The specimen consists of a segment of colon with attached pericolonic adipose tissue measuring 12.0cm in length. Both resection margins are stapled. Mucosal lesion is identified. Sections reveal multiple diverticula. More dictation will follow after additional fixation. . 10/17/2024 A few ruptured diverticula are identified. Section of pericolonic adipose tissue reveal no obviously enlarged lymph nodes. Diamond Mounter sections are submitted in six cassettes as follows: 1- resection margins, 2-5- diverticula (cassettes 4&5 contain the possible ruptured diverticula), 6- pericolonic adipose tissue. . 10/18/2024 B. Received in fixative is one container labeled with the patient's name and designated Proximal sigmoid donuts. The specimen consists of a donut shaped piece of colonic tissue measuring 2.0 x 1.5 x 1.5cm. Multiple sutures area noted. Diamond Mounter sections are submitted in one cassette. . 10/18/2024 C. Received in fixative is one container labeled with the patient's name and designated Distal sigmoid donuts. The specimen consists of a piece of donut shaped of colonic tissue measuring 2.5 x 2.0 x 1.0cm. Multiple susu are noted. Diamond Mounter sections are submitted in one cassette. 10/18/2024 TC:5 CPT:[id number]
[2024-10-17] MEDS: Cefotetan 2 GM in 0.9% Normal Saline (100mL MB+) 100 ML IV (07:45)
[2024-10-17] MEDS: Bupivacaine 0.25% 30 ML Vial (08:45)
[2024-10-17] MEDS: BUPIVACAINE LIPOSOME/PF 20 ML VIAL OPERA.SITE (08:45)
--- NOTE | 2024-10-17 10:19 | OP.PCM_ITS ---
Operative Report (Standard) Operative Information Date of Procedure: 10/17/24 Pre-Operative Diagnosis: Recurrent sigmoid diverticulitis Post-Operative Diagnosis: Same Surgery/Procedure Performed: Laparoscopic converted to open sigmoid colectomy with anastomosis after school counselor: Yes Scrap Kettle Tender: Mari Tabor Tasks completed by licensed loan officer assistant: Opening, Closing and Retracting Type of Anesthesia: General/Regional RN Documented Start/Stop Times: Operation Date: 10/17/24 07:30 Case Time Into Pre-Op 10/17/24 05:37 Out of Pre-Op 10/17/24 07:27 Anesthesia Start 10/17/24 07:30 Into Room 10/17/24 07:30 Procedure Start 10/17/24 08:13 Procedure End 10/17/24 10:00 Anesthesia End 10/17/24 10:11 Out of Room 10/17/24 10:11 Procedure Start Time: 08:13 Procedure Stop Time: 10:00 Select all DRAINS/GRAFTS/IMPLANTS that apply: None Estimated Blood Loss: 20 Specimen collected: Yes Description of specimen(s) removed: Sigmoid colon Description of surgery: The patient was brought back to the operating room and general anesthesia was induced. Reid catheter was placed. The rectum was lavaged with a saline and Betadine mixture. Next the abdomen was prepped and draped in usual sterile fashion. A midline incision was made superior to the umbilicus and using Visiport technique the abdomen was entered. The abdomen was insufflated to 15 mmHg. Camera was placed into the abdomen it was very difficult to see the colon with the patient's body habitus. Patient was placed in Trendelenburg position. Under direct visualization two 5 mm ports were placed in the right lower quadrant. I attempted to mobilize the sigmoid colon but it was densely adherent to the inferior portion of the pelvis. I tried to convert and make a midline incision inferior to the umbilicus next. This scalpel was used to make a long midline incision inferior to the umbilicus. The fascia was encountered and incised using electrocautery. A wound protector was then placed into the wound. Next the GelPort was placed on top of this and I attempted hand assist but even hand assist I was able to mobilize the dense adhesions but I still was unable to see the due to the patient's body habitus. The decision was made to convert to an open procedure. The midline incision was lengthened superiorly to meet with the port site. Wound protector was placed. The abdomen was packed and the sigmoid was freed from its adhesions bluntly. After the adhesions were finger fractured and the colon was mobile the distal colon was dissected at the rectum. A curved stapler was used to staple across the sigmoid rectum junction. This divided the sigmoid colon from the rectum. Next proximately an area of colon was identified that appeared normal and it was divided using a TRACY stapler. Next Enseal was used to take down the mesentery of the sigmoid colon hugging the colon itself. The ureter was identified and spared. Next the distal colon was opened at the staple line and sizers were used to select the 33 EEA stapler. Next the anvil was placed into the distal colon and a pursestring suture was performed using 0 Prolene. Next my retail administrative assistant went down and the well-lubricated sizers were placed into the rectum and to the staple line. Next the EEA stapler was placed into the rectum and advanced to the staple line. The point was brought through the staple line and then the anvil was attached to the point and it was closed and fired. The donuts appeared intact. Next a well-lubricated rigid proctoscope was placed into the rectum and insufflated of air. The colon was pinched proximal to the anastomosis and there was no air leak. The abdomen was suctioned dry. Packs were removed. The omentum was draped over the bowel. Next all staff changed gown and gloves. The fascia was then closed in a running fashion with 0 PDS suture from the top and bottom meeting in the middle. The subcutaneous tissue was irrigated and suctioned dry and hemostasis was obtained using electrocautery. The skin was stapled closed. The port sites were closed with interrupted 4-0 Monocryl sutures. Steri-Strips and bandages were applied. Patient was awoken and taken to PACU in stable condition. Surgical Findings: Very inflamed sigmoid Complications Complications: No Admit VTE Documentation VTE Mechan Device Prophylaxis: SCD's
--- NOTE | 2024-10-17 10:43 | PCM.POST.ANE ---
Anesthesia: Postop Eval I Current Vital Signs Temperature: 97 F Pulse Rate: 93 Blood Pressure: 110/75 Respiratory Rate: 16 Pulse Ox: 98 Oxygen Delivery Method: Room Air Assessment Airway patent: Yes Spontaneous unlabored respirations: Yes Mental status: Awake and Calm nausea: No Vomiting: No Anesthesia Complication: No Fluid Hydration Crystalloid volume administer (ml): 2,000 Total IV fluid infused: 2,000 Progress Note Anesthesia document: Postop Eval 1 completed: Yes
[2024-10-17] MEDS: Ketorolac 15 MG/ML Vial IV ×2 (12:00→20:09)
[2024-10-17 13:04] LABS: Bedside Glucose 133 mg/dL (74-106)
[2024-10-17] MEDS: Lactated Ringers 1,000 ML 80 ML IV (13:52)
[2024-10-17] MEDS: Morphine 2 MG/ML Syringe IV ×2 (15:59→20:07)
[2024-10-17] MEDS: Docusate Sodium 100 MG Capsule PO (20:09)
[2024-10-18] MEDS: Morphine 2 MG/ML Syringe IV ×5 (00:16→20:23)
[2024-10-18] MEDS: Acetaminophen 500 MG Tablet 1000 MG PO ×4 (00:16→17:30)
[2024-10-18 00:36] VITALS: BP 146/91; PULSE 85; RESP 16; TEMP 37; O2SAT 98
[2024-10-18] MEDS: Lactated Ringers 1,000 ML 80 ML IV (02:28)
[2024-10-18 04:36] VITALS: BP 137/76; PULSE 63; RESP 16; TEMP 36.6; O2SAT 98
[2024-10-18] MEDS: Levothyroxine 75 MCG Tablet PO (05:20)
[2024-10-18 05:56] LABS: Hematocrit 42.5 % (40-54); Hemoglobin 13.7 g/dL (13.0-16.5); Mean Corp Hgb Conc 32.2 g/dL (32-36); Mean Corpuscular Hgb 28.1 pg (27.0-32.0); Mean Corpuscular Volume 87.3 fL (80-94); Mean Platelet Vol. 10.4 fl (6.2-12.0); Platelet Count 228 K/mm3 (150-450); RBC Distribution Width CV 13.8 % (11.6-14.6); RBC Distribution Width SD 43.9 fl (35.1-43.9); Red Blood Count 4.87 M/mm3 (4.6-6.2); White Blood Count 20.9 K/mm3 (4.4-11.0)
[2024-10-18 07:09] LABS: Anion Gap 5 (5-15); BUN 10 mg/dL (7-18); BUN/Creat Ratio 11.5 RATIO (10-20); Calcium,Total 8.6 mg/dL (8.5-10.1); Chloride 109 mmol/L (98-107); Creatinine, Serum 0.87 mg/dL (0.70-1.30); EST Glomerular Filtration Rate 103 mL/min (>60); Est Glom Filt Rate - Afr Amer 125 mL/min (>60); Estimated Creatinine Clearance 145.95 ml/min; Glucose 111 mg/dL (74-106); Potassium 4.1 mmol/L (3.5-5.1); Sodium Level 137 mmol/L (136-145)
--- NOTE | 2024-10-18 07:33 | POSTOPAN2_ITS ---
Anesthesia Postop Eval I Sum Postop Eval Completion status Anesthesia document: Postop Eval 1 completed: Yes Anesthesia Postop Eval I Summary Anesthesia Postop Eval I Summary: Anesthesia Postop Eval I: Assessment Summary Airway patent Yes 10/17/24 10:43 [email or web address] Spontaneous unlabored Yes 10/17/24 10:43 [email or web address] respirations Mental status Awake,Calm 10/17/24 10:43 [email or web address] nausea No 10/17/24 10:43 [email or web address] Vomiting No 10/17/24 10:43 [email or web address] Anesthesia Postop Eval I: Fluid Summary Crystalloid volume administer 2,000 10/17/24 10:43 [email or web address] (ml) Colloids volume administered ( ml) Blood Product volume administered (ml) Total IV fluid infused 2,000 10/17/24 10:43 [email or web address] Anesthesia Postop Eval I: Summary Notes Anesthesia Complication No 10/17/24 10:43 [email or web address] Anesthesia Complication Comment: Post-operative progress note Anesthesia: Postop Eval II Evaluation Mental status: Awake Pain Level: 3 nausea: No Vomiting: No
--- NOTE | 2024-10-18 07:33 | PCM.POSTANE2 ---
Anesthesia Postop Eval I Sum Postop Eval Completion status Anesthesia document: Postop Eval 1 completed: Yes Anesthesia Postop Eval I Summary Anesthesia Postop Eval I Summary: Anesthesia Postop Eval I: Assessment Summary Airway patent Yes 10/17/24 10:43 [email or web address] [email or web address] Spontaneous unlabored Yes 10/17/24 10:43 RAILROAD MAINTENANCE [email or web address] respirations Mental status Awake,Calm 10/17/24 10:43 RAILROAD [email or web address] nausea No 10/17/24 10:43 RAILROAD [email or web address] Vomiting No 10/17/24 10:43 RAILROAD [email or web address] Anesthesia Postop Eval I: Fluid Summary Crystalloid volume administer 2,000 10/17/24 10:43 [email or web address] [email or web address] (ml) Colloids volume administered ( ml) Blood Product volume administered (ml) Total IV fluid infused 2,000 10/17/24 10:43 RAILROAD MAINTENANCE [email or web address] Anesthesia Postop Eval I: Summary Notes Anesthesia Complication No 10/17/24 10:43 RAILROAD MAINTENANCE [email or web address] Anesthesia Complication Comment: Post-operative progress note Anesthesia: Postop Eval II Evaluation Mental status: Awake Pain Level: 3 nausea: No Vomiting: No
[2024-10-18 07:50] VITALS: O2SAT 96
[2024-10-18 09:33] VITALS: BP 145/78; PULSE 64; RESP 18; TEMP 36.8; O2SAT 100
[2024-10-18] MEDS: Docusate Sodium 100 MG Capsule PO ×2 (09:37→20:23)
--- NOTE | 2024-10-18 09:42 | PCM.PN.SRG ---
Subjective Subjective Patient is up walking the halls and reports his pain is well-controlled. Objective Data Objective Data Vital Signs: Vital Signs Temp Pulse Resp BP Pulse Ox O2 Del Method O2 Flow Rate 98.2 F 64 18 145/78 H 100 Room Air 4 10/18/24 09:33 10/18/24 09:33 10/18/24 09:33 10/18/24 09:33 10/18/24 09:33 10/18/24 09:33 10/17/24 12:00 Oxygen Flow Rate (L/min) 4 Oxygen Delivery Method Room Air Weight: 272 lb 11.389 oz Body Mass Index (BMI) 41.4 Intake & Output: Intake and Output for Last 24 Hours 10/16/24 10/17/24 10/18/24 23:59 23:59 23:59 Intake Total 2328 / 2328 1000 / 1000 Output Total 1295 / 1745 775 / 775 Balance 1033 / 583 225 / 225 Lab / Micro Data 10/18/24 05:37 10/18/24 05:37 Labs: Laboratory Results - last 24 hr 10/17/24 12:44: POC Glucose 133 H 10/18/24 05:37: WBC 20.9 H, RBC 4.87, Hgb 13.7, Hct 42.5, MCV 87.3, MCH 28.1, MCHC 32.2, RDW Std Deviation 43.9, RDW Coeff of Addy 13.8, Plt Count 228, MPV 10.4, Sodium 137, Potassium 4.1, Chloride 109 H, Carbon Dioxide 23.0, Anion Gap 5, BUN 10, Creatinine 0.87, Estim Creat Clear Calc 145.95, Est GFR (MDRD) Af Amer 125, Est GFR (MDRD) Non-Af 103, BUN/Creatinine Ratio 11.5, Glucose 111 H, Calcium 8.6 Physical Exam Const oriented x3 and no apparent distress Resp normal respiratory effort GI soft to palpation Palpation: tender Assessment & Plan Assessment/Plan (1) Acute diverticulitis: PLAN: Patient had laparotomy and sigmoid colectomy yesterday. He tolerated the procedure well. His white count is markedly elevated but this is likely reactive. Continue IV fluids and bowel rest until he starts passing flatus. Juan Fuller MD Pager: [facility] [address] [place] [address], [address] [place] [address] Office:
--- NOTE | 2024-10-18 10:25 | CASEMGMT ---
CHRIS TOVAR Assessment: Face to Face with pt for initial transition planning/care coordination assessment. CHRIS TOVAR introduced self and role at [facility] [place], pt voices understanding and consents to assessment. Pt is A&O x4 and answers all questions appropriately at this time. Pt lying in bed in no distress. Care providers, pharmacy, and demographics verified/updated. Admitting Dx:lap sigmoid colectomy Strata:1 PCP:Jeancarlos Specialists:Jonny, CASSANDRA Preferred Pharmacy:[facility] Insurance:[employer]ign[employer] Prescription Benefit: yes LNOK:Marya He, Living Arrangements: Pt lives in a single story home with 2 steps to enter. Pt reports he is I in ADLs and denies concerns at home. Transportation: Pt drives self and denies concerns with transportation. DME:Denies HHC/SNF:Denies hx of Pt states no concerns with going home at time of dc. Pt states no further concerns/needs. CM to follow. Advised pt to ask CM if any further question/concerns/needs arise, voices understanding. Pt Goal:Home Plan:Home Handoff given to MS3 CHRIS TOVAR.
[2024-10-18] MEDS: Ketorolac 15 MG/ML Vial IV (13:06)
[2024-10-18 15:09] VITALS: BP 131/74; PULSE 72; RESP 16; TEMP 36.8; O2SAT 97
[2024-10-18] MEDS: 0.9% Saline Lock 10 ML Syringe IV ×2 (17:30→20:23)
[2024-10-18 20:15] VITALS: BP 145/76; PULSE 60; RESP 16; TEMP 36.6; O2SAT 98
[2024-10-18] MEDS: Ondansetron ODT 4 MG Tablet PO (22:58)
[2024-10-18] MEDS: Pantoprazole Sodium 40 MG Tablet PO (23:00)
[2024-10-19] MEDS: 0.9% Saline Lock 10 ML Syringe IV ×5 (02:29→21:27)
[2024-10-19] MEDS: Morphine 2 MG/ML Syringe IV ×4 (02:29→21:28)
[2024-10-19 03:00] VITALS: BP 132/82; PULSE 85; RESP 16; TEMP 37; O2SAT 98
[2024-10-19] MEDS: Acetaminophen 500 MG Tablet 1000 MG PO ×3 (05:37→17:27)
[2024-10-19] MEDS: Levothyroxine 75 MCG Tablet PO (05:37)
[2024-10-19 08:28] VITALS: BP 159/90; PULSE 64; RESP 15; TEMP 37; O2SAT 100
[2024-10-19] MEDS: Ketorolac 15 MG/ML Vial IV (08:36)
[2024-10-19] MEDS: Docusate Sodium 100 MG Capsule PO ×2 (08:36→21:27)
--- NOTE | 2024-10-19 10:24 | PN.SURG_ITS ---
Subjective Subjective Patient is doing well from his open sigmoid colectomy yesterday. He states that he is actually passing flatus and some stool already. He has been up and ambulating several times. Pain is well-controlled. No fevers or chills. Objective Data Objective Data Vital Signs: Vital Signs Temp Pulse Resp BP Pulse Ox O2 Del Method O2 Flow Rate 98.6 F 64 15 159/90 H 100 Room Air 4 10/19/24 08:28 10/19/24 08:28 10/19/24 08:28 10/19/24 08:28 10/19/24 08:28 10/19/24 08:28 10/17/24 12:00 Oxygen Flow Rate (L/min) 4 Oxygen Delivery Method Room Air Weight: 272 lb 11.389 oz Body Mass Index (BMI) 41.4 Intake & Output: Intake and Output for Last 24 Hours 10/17/24 10/18/24 10/19/24 23:59 23:59 23:59 Intake Total 2328 / 2328 1999 / 1999 Output Total 1295 / 1745 775 / 775 Balance 1033 / 583 1225 / 1225 Lab / Micro Data 10/18/24 05:37 10/18/24 05:37 Physical Exam Narrative He is alert and oriented x 3. He is in no acute distress. Abdomen is soft and minimally distended. Incision dressing is clean dry and intact. Appropriate tenderness to palpation given surgery yesterday Assessment & Plan Assessment/Plan (1) Leukocytosis: QUALIFIERS: Leukocytosis type: unspecified Qualified Code(s): D 72.829 - Elevated white blood cell count, unspecified PLAN: Plan The patient is postoperative day #1 from a open sigmoid colectomy. He is doing well postoperatively. He is exhibiting return of bowel function. I have recommended a clear liquid diet but suggested he go slowly with this diet. I encouraged him to continue to ambulate and use his incentive spirometer. I would anticipate advancing his diet tomorrow if he continues to tolerate well
[2024-10-19 15:00] VITALS: BP 149/86; PULSE 61; RESP 14; TEMP 36.8; O2SAT 98
[2024-10-19] MEDS: Ondansetron ODT 4 MG Tablet PO (17:35)
[2024-10-19 21:24] VITALS: BP 139/60; PULSE 70; RESP 16; TEMP 37.2; O2SAT 99
[2024-10-19] MEDS: Ensure Clear 120 ML Liquid PO (21:27)
[2024-10-20] MEDS: Acetaminophen 500 MG Tablet 1000 MG PO ×4 (01:15→17:56)
[2024-10-20 04:34] VITALS: BP 145/80; PULSE 61; RESP 16; TEMP 36.5; O2SAT 98
[2024-10-20] MEDS: 0.9% Saline Lock 10 ML Syringe IV ×4 (04:46→16:17)
[2024-10-20] MEDS: Morphine 2 MG/ML Syringe IV ×5 (04:46→19:47)
[2024-10-20] MEDS: Levothyroxine 75 MCG Tablet PO (04:47)
[2024-10-20] MEDS: Ensure Clear 120 ML Liquid PO ×2 (07:51→19:48)
[2024-10-20] MEDS: Docusate Sodium 100 MG Capsule PO ×2 (07:51→19:47)
[2024-10-20 07:56] VITALS: BP 139/78; PULSE 61; RESP 15; TEMP 36.7; O2SAT 100
--- NOTE | 2024-10-20 11:57 | PN.SURG_ITS ---
Subjective Subjective Patient continues to do well. Patient states that he tolerated clear liquid diet yesterday and seems to tolerated even better this morning. He states that he is still passing quite a bit of flatus as well as some small smears of bowel movement. No increase in abdominal pain or distention. He continues to be very vigilant about ambulating the halls. He has no new issues or complaints Objective Data Objective Data Vital Signs: Vital Signs Temp Pulse Resp BP Pulse Ox O2 Del Method O2 Flow Rate 98.0 F 61 15 139/78 H 100 Room Air 4 10/20/24 07:56 10/20/24 07:56 10/20/24 07:56 10/20/24 07:56 10/20/24 07:56 10/20/24 09:00 10/17/24 12:00 Oxygen Flow Rate (L/min) 4 Oxygen Delivery Method Room Air Weight: 272 lb 11.389 oz Body Mass Index (BMI) 41.4 Intake & Output: Intake and Output for Last 24 Hours 10/18/24 10/19/24 10/20/24 23:59 23:59 23:59 Intake Total 1999 / 1999 Output Total 775 / 775 Balance 1225 / 1225 Lab / Micro Data 10/18/24 05:37 10/18/24 05:37 Physical Exam Narrative He is alert and oriented x 3. He is in no acute distress. Abdomen is soft and appropriately tender. Dressing is clean dry and intact. Assessment & Plan Assessment/Plan (1) Leukocytosis: QUALIFIERS: Leukocytosis type: unspecified Qualified Code(s): D 72.829 - Elevated white blood cell count, unspecified PLAN: Plan The patient is a 39-year-old male status post a recent open sigmoid resection. He is postoperative day #3. He continues to do well. Will advance diet. Would anticipate discharge to home in the next day or 2
[2024-10-20 14:00] VITALS: BP 124/77; PULSE 55; RESP 14; TEMP 36.8; O2SAT 100
[2024-10-20 15:37] VITALS: O2SAT 98
[2024-10-20 20:00] VITALS: BP 150/84; PULSE 78; RESP 17; TEMP 36.7; O2SAT 99
[2024-10-21] MEDS: Acetaminophen 500 MG Tablet 1000 MG PO ×3 (01:18→12:12)
[2024-10-21] MEDS: Morphine 2 MG/ML Syringe IV (01:24)
[2024-10-21 02:12] VITALS: BP 120/78; PULSE 76; RESP 16; TEMP 37.1; O2SAT 97
[2024-10-21] MEDS: Levothyroxine 75 MCG Tablet PO (06:04)
[2024-10-21 07:32] VITALS: BP 140/85; PULSE 98; RESP 18; TEMP 36.5; O2SAT 93
[2024-10-21 07:49] LABS: Absolute Lymphocyte Count 2.36 X10^3/uL (0.83-4.51); Absolute Neutrophil Count 8.3 X10^3/uL (2.0-7.7); Basophil# 0.16 X10^3/uL; Basophil% 1.3 % (0-1); Eosinophil# 0.36 X10^3/uL; Hematocrit 45.1 % (40-54); Hemoglobin 14.6 g/dL (13.0-16.5); Lymphocyte # 2.36 X10^3/ul (0.83-4.51); Lymphocyte % 19.5 % (19-41); Mean Corp Hgb Conc 32.4 g/dL (32-36); Mean Corpuscular Hgb 27.9 pg (27.0-32.0); Mean Corpuscular Volume 86.1 fL (80-94); Mean Platelet Vol. 10.8 fl (6.2-12.0); Monocyte# 0.79 X10^3/uL; Monocyte% 6.5 % (0-10); NRBC Flagged by Analyzer 0 % (0-5); Neutrophil # 8.34 X10^3/uL (2.7-7.7); Neutrophil % 69.1 % (47-70); Platelet Count 247 K/mm3 (150-450); RBC Distribution Width CV 13.3 % (11.6-14.6); Red Blood Count 5.24 M/mm3 (4.6-6.2); White Blood Count 12.1 K/mm3 (4.4-11.0)
[2024-10-21 07:53] VITALS: O2SAT 98
[2024-10-21 08:14] LABS: Anion Gap 6 (5-15); BUN 10 mg/dL (7-18); BUN/Creat Ratio 12.2 RATIO (10-20); Calcium,Total 9.1 mg/dL (8.5-10.1); Chloride 106 mmol/L (98-107); Creatinine, Serum 0.82 mg/dL (0.70-1.30); EST Glomerular Filtration Rate 111 mL/min (>60); Est Glom Filt Rate - Afr Amer 135 mL/min (>60); Estimated Creatinine Clearance 154.85 ml/min; Glucose 101 mg/dL (74-106); Potassium 3.6 mmol/L (3.5-5.1); Sodium Level 137 mmol/L (136-145)
[2024-10-21 08:18] VITALS: BP 140/82; PULSE 56; PULSE 80; RESP 20; TEMP 37; O2SAT 99
--- NOTE | 2024-10-21 08:25 | DS.PCM_ITS ---
Providers Date of Admission: 10/17/24 Primary Care Physician: Dr. Kati Arshad MD Reason For Visit: ERAS, Laparoscopic, Sigmoid Colectomy Diagnosis Discharge Diagnosis (1) Leukocytosis: Status: Acute Code(s): D72.829 - Elevated white blood cell count, unspecified Qualifiers: Leukocytosis type: unspecified Qualified Code(s): D72.829 - Elevated white blood cell count, unspecified (2) Acute diverticulitis: Status: Inactive Code(s): K57.92 - Diverticulitis of intestine, part unspecified, without perforation or abscess without bleeding Medications at Discharge Home Medications Diltiazem 2% / Lidocaine 5% ointment (compound) #1 ea 03/29/24 levothyroxine 75 mcg tablet 75 mcg PO DAILY THYROID #30 tabs 05/20/24 omeprazole 40 mg capsule,delayed release 40 mg PO DAILY PRN PRN GERD #90 caps 05/20/24 acetaminophen 500 mg tablet 1,000 mg (2 x 500 mg) PO Q6 #0 tabs 10/21/24 oxycodone 5 mg tablet 5 mg PO Q6H PRN pain 3 days #10 tabs 10/21/24 Hospital Course Operations - (Laparoscopic converted to open sigmoid colectomy with anastomosis) Summary of Care Provided Minutes Spent on Discharge: 30 Hospital Course: Patient presented for an elective colectomy for diverticulitis. Dr. Fuller performed a Laparoscopic converted to open sigmoid colectomy with anastomosis on 10/17/[address] Fuller. Patient had an uneventful hospitalization. Upon discharge, patient denies nausea, vomiting, fever. He is passing flatus and having small bowel movements. His pain is well controlled. Weight / BMI Weight Weight: 272 lb 11.389 oz Body Mass Index (BMI) 41.4 ABG / Lab / Microbiology Data 10/21/24 07:29 10/21/24 07:29 Laboratory: Laboratory Results - last 24 hr 10/21/24 07:29: WBC 12.1 H, RBC 5.24, Hgb 14.6, Hct 45.1, MCV 86.1, MCH 27.9, MCHC 32.4, RDW Std Deviation 42.0, RDW Coeff of Addy 13.3, Plt Count 247, MPV 10.8, Immature Gran % (Auto) 0.600, Neut % (Auto) 69.1, Lymph % (Auto) 19.5, [place] % (Auto) 6.5, Eos % (Auto) 3.0, Baso % (Auto) 1.3 H, Absolute Neuts (auto) 8.3 H, Absolute Lymphs (auto) 2.36, Nucleated RBC % 0, Sodium 137, Potassium 3.6, Chloride 106, Carbon Dioxide 26.0, Anion Gap 6, BUN 10, Creatinine 0.82, Estim Creat Clear Calc 154.85, Est GFR (MDRD) Af Amer 135, Est GFR (MDRD) Non-Af 111, BUN/Creatinine Ratio 12.2, Glucose 101, Calcium 9.1 D/C Instructions Discharge Diet: - (Transitional diet) Discharge Activity: May Not Drive (3-5 days or while taking narcotic pain medication) and May Shower Lifting Restrictions: No lifting greater than 15 pounds for 6 weeks Call your doctor if your incision/area has: Continuous Slow Oozing, Sudden Increased Bleeding, Increased Pain/ Swelling, Increased Redness, Foul Smelling Discharge and Swelling at the incision site Call your doctor if you observe: Fever of 101 or Higher Suture Line Care: Avoid Pulling/Pushing and Avoid Pinching/Bending Cleanse incision/area with: Soap & Water DC O2, CPAP, BIPAP Needs Home O2 Discharge instructions: No DC home with Oxygen: No Please Follow Up With: Juan Fuller MD When: Follow-up with Dr. Fuller on 10/24 0900 or contact our office at [phone] to reschedule Meaningful Use Info Meaningful Use Meaningful Use Diagnoses (Choose all that apply): None applicable Ischemic Stroke Statin Dosing Therapy Reference: STATIN DOSE THERAPY REFERENCE: * Patients > 75 years receive moderate or high dose statin therapy. * Patients 75 years or YOUNGER should receive HIGH intensity statin dose unless contraindicated. You will be required to document reason for non-treatment if statin daily dose does not meet guidelines. HIGH DOSE STATIN THERAPY DAILY Atorvastatin > than or = to 40 mg Rosuvastatin > than or = to 20 mg Amlodipine + Atorvastatin > than or = to 2.5/40 mg Ezetimibe + Simvastatin 10/80 mg Simvastatin 80mg Discharge Plan Admission Admit Date/Time: 10/17/24 05:20 Primary Reason for Your Visit: s/p sigmoid colectomy Attending Provider: Juan Fuller Primary Care Provider: Kati Arshad Instructions Additional Instructions / Restrictions: Colectomy Diet ? Start light with soups and soft bland foods. Refer to your transitional diet instruction sheet Activity ? You may drive in 5-7 days but not while taking narcotic pain medication. ? I encourage walking. You may go up steps, one at a time. ? Do not swim or use hot tubs for 2 weeks. Lifting ? You may lift up to 10 pounds for the first 2 weeks. You may advance to 20 pounds for the next 3 weeks. Dressings/Incision ? You may shower OVER your plastic dressings ? Do NOT tub bathe for 1 week ? Leave plastic dressings on for 3 days. ? When plastic dressings are removed, you will find steri strips. It is okay to continue showering with them in place, pat them dry. ? You may remove steri-strips after 1 week. We recommend getting them soaking wet for easier removal. Medications ? Anesthesia used during surgery and pain medications may cause constipation. I recommend initiating on the day of surgery a fiber supplement like, Metamucil, Citrucel, FiberCon, Benefiber, or a generic form of these medications. 1 heaping tablespoon in water daily. You may continue to utilize any bowel regimen or oral laxatives that you routinely take. ? As long as you are not intolerant to Tylenol, acetaminophen, ibuprofen, Motrin, Advil, Aleve, or similar medications, I would recommend transitioning to these [id number] medicines as soon as possible instead of continued use of narcotic pain medication. Follow up ? You should call [facility] soon after surgery, at [phone] option 1 to make a follow up appointment for 7-10 days after your surgery. Transitional Diet Beverages: ? Soda (cola, diet cola, lemon-[place], diet lemon-[place], jennifer corrie, diet jennifer corrie) ? Tea (hot or iced) ? Milk (low-fat, 2%, lactose free) ? Coffee ? Juice (without pulp) ? Oral Nutrition supplement Breakfast: ? Hot cereal (oatmeal or cream of wheat) ? Scrambled eggs ? Blueberry muffin ? Cold cereal (no whole grain cereals) ? [place] (white) Lunch or Dinner: Deli Items: Hot Items: [place] sandwich Roast [place] Tuna salad (sandwich or alone) Macaroni & Cheese Egg salad (sandwich or alone) Mashed potatoes & gravy Chicken salad (sandwich or alone) Carrots Green beans Cold Sides: Soups: Cottage cheese Vegetable soup Yogurt Chicken noodle Hardboiled egg Dessert: ? Gelatin, pudding Discharge Orders/Prescriptions Prescriptions: New acetaminophen 500 mg Tablet 1,000 mg PO Q6 Qty: 0 0RF oxycodone 5 mg tablet 5 mg PO Q6H PRN (Reason: pain) 3 Days Qty: 10 0RF Continued omeprazole 40 mg capsule,delayed release(DR/EC) 40 mg PO DAILY PRN PRN (Reason: GERD) Qty: 90 0RF levothyroxine 75 mcg tablet 75 mcg PO DAILY Qty: 30 5RF (DME) Diltiazem 2% / Lidocaine 5% ointment (compound) Ointment See Rx Instructions .Route Qty: 1 0RF Rx Instructions: Apply to rectum twice daily Discontinued neomycin 500 mg tablet 500 mg PO .COMPLEX Qty: 6 0RF Rx Instructions: Take two (2) 500 mg tablets PO at 1300, 1500, 2300 Referrals / Follow Up: Juan Fuller MD [Med Staff - Active Staff] - 10/24/24 9:00 am Kati Arshad MD [Primary Care Provider] - Disposition Disposition (needs filled in before D/C Order can be placed): Home, Self Care Charges/Coding Visit Charges Inpatient E&M: 79795 Disch Hosp (No charge; post-op)
--- NOTE | 2024-10-21 08:25 | PN.SURG_ITS ---
Subjective Subjective Patient evaluated resting comfortably in the chair. He notes very little incisional discomfort. He denies nausea, vomiting, fever. He is tolerating his current diet. He notes positive flatus, small bowel movements. He is urinating well. Objective Data Objective Data Vital Signs: Vital Signs Temp Pulse Resp BP Pulse Ox O2 Del Method O2 Flow Rate 97.7 F L 98 18 140/85 H 98 Room Air 4 10/21/24 07:32 10/21/24 07:32 10/21/24 07:32 10/21/24 07:32 10/21/24 07:53 10/21/24 07:53 10/17/24 12:00 Oxygen Flow Rate (L/min) 4 Oxygen Delivery Method Room Air Weight: 272 lb 11.389 oz Body Mass Index (BMI) 41.4 Intake & Output: Intake and Output for Last 24 Hours 10/19/24 10/20/24 10/21/24 23:59 23:59 23:59 Intake Total 400 / 400 300 / 300 Balance 400 / 400 300 / 300 Lab / Micro Data 10/21/24 07:29 10/21/24 07:29 Labs: Laboratory Results - last 24 hr 10/21/24 07:29: WBC 12.1 H, RBC 5.24, Hgb 14.6, Hct 45.1, MCV 86.1, MCH 27.9, MCHC 32.4, RDW Std Deviation 42.0, RDW Coeff of Addy 13.3, Plt Count 247, MPV 10.8, Immature Gran % (Auto) 0.600, Neut % (Auto) 69.1, Lymph % (Auto) 19.5, [place] % (Auto) 6.5, Eos % (Auto) 3.0, Baso % (Auto) 1.3 H, Absolute Neuts (auto) 8.3 H, Absolute Lymphs (auto) 2.36, Nucleated RBC % 0, Sodium 137, Potassium 3.6, Chloride 106, Carbon Dioxide 26.0, Anion Gap 6, BUN 10, Creatinine 0.82, Estim Creat Clear Calc 154.85, Est GFR (MDRD) Af Amer 135, Est GFR (MDRD) Non-Af 111, BUN/Creatinine Ratio 12.2, Glucose 101, Calcium 9.1 Physical Exam GI GI Narrative: Abdomen- soft, obese. Incisions c/d/i. Midline incision covered with gauze dressing and secured with tape. Hypoactive bowel sounds. Assessment & Plan Assessment/Plan (1) Acute diverticulitis: PLAN: I am following this patient in conjunction with Dr. Fuller. He has independently evaluated this patient. Labs reviewed. WBC trending down Patient improving very well Discharge later today Charges/Coding Visit Charges Inpatient E&M: 00698 Subs Hosp L1 (post-op; no charge)
[2024-10-21] MEDS: Docusate Sodium 100 MG Capsule PO (08:27)
[2024-10-21] MEDS: Ensure Clear 120 ML Liquid PO (08:28)
[2024-10-21 13:28] VITALS: BP 133/75; PULSE 68; RESP 20; TEMP 37.2; O2SAT 98
[2024-10-21 13:31] VITALS: PULSE 70
== END 2024-10-21 16:19 | disposition home or self-care (01) | DRG 330 ==
PROVIDERS: Anesthesiology; Physician Assistant; Admitting Provider Surgery; PCP Internal Medicine; Referring Provider Surgery; Visit Provider Surgery
PROC: 0DTN0ZZ Resection of Sigmoid Colon, Open Approach (ICD-10-PCS; CPT 44204; principal; 2024-10-17 07:05)
DX: K57.32 Diverticulitis of large intestine without perforation or abscess without bleeding (principal); Z68.41 Body mass index [BMI] 40.0-44.9, adult; E07.9 Disorder of thyroid, unspecified; E66.01 Morbid (severe) obesity due to excess calories; Z53.31 Laparoscopic surgical procedure converted to open procedure; Z79.890 Hormone replacement therapy; Z87.891 Personal history of nicotine dependence
CPT/HCPCS: 36415; 80048; 82962; 83735; 84443; 85025; 85027; 88304; 88307; 94668; J7030; J7120; A4216; J2405; J3475

== ENCOUNTER → 2025-06-21 | Outpatient (CLI) | payer OTHER, SELFPAY ==
--- OUTSIDE RECORDS SUMMARY | 2025-06-21 08:08 | XMS RPT_ITS | CCD ---
Author Organization [facility] Care Team Providers Care Safety Tech Name Role Phone Marcin Belcher MD Unavailable Stanley, METHODS STUDY ANALYST-C Wen Primary Care Provider Dr. Naren Jovel Attending Provider Stanley, METHODS STUDY ANALYST-C Wen Referring Provider DIANA Davis Attending Provider Dr. Eugenio Schmidt Attending Provider [phone] Dr. Eugenio Schmidt Referring Provider Stanley VSC, METHODS STUDY ANALYST-C Wen Primary Care Provider Stanley VSC, METHODS STUDY ANALYST-C Wen Referring Provider Dr. Kati Arshad Attending Provider Stanley VSC, METHODS STUDY ANALYST-C Wen Primary Care Provider Stanley VSC, METHODS STUDY ANALYST-C Wen Referring Provider Dr. Kati Arshad Attending Provider [phone] Stanley VSC, METHODS STUDY ANALYST-C Wen Primary Care Provider [phone] Stanley VSC, METHODS STUDY ANALYST-C Wen Referring Provider Dr. Kati Arshad Attending Provider [phone] Dr. Kati Arshad Primary Care Provider Dr. Kati Arshad Referring Provider Dr. Eugenio Schmidt Attending Provider [phone] Naren Jovel Attending Provider Belden, Kati Primary Care Unavailable Jeancarlos, Kati Referring Unavailable Calabretta, Juan Attending Unavailable Calabretta, Juan Consulting Unavailable Jeancarlos, Kati Primary Care Unavailable Calabretta, Juan Attending Unavailable Juni Carey Attending Unavailable Belden, Kati Primary Care Unavailable Calabretta, Juan Admitting Unavailable Calabretta, Juan Consulting Unavailable Jeancarlos, Kati Primary Care Unavailable Calabretta, Juan Admitting Unavailable Calabretta, Juan Attending Unavailable Calabretta, Juan Consulting Unavailable Calabretta, Juan Referring Unavailable Belden, Kati Primary Care Unavailable Calabretta, Juan Referring Unavailable Calabretta, Juan Admitting Unavailable Calabretta, Juan Attending Unavailable Jeancarlos, Kati Referring Unavailable Belden, Kati Primary Care Unavailable Calabretta, Juan Attending Unavailable Belden, Kati Referring Unavailable Jeancarlos, Kati Primary Care Unavailable Calabretta, Juan Attending Unavailable Eugenio Schmidt Attending Unavailable Belden, Kati Primary Care Unavailable Jeancarlos, Kati Referring Unavailable Jeancarlos, Kati Primary Care Unavailable Belden, Kati Referring Unavailable Eugenio Schmidt Attending Unavailable Belden, Kati Primary Care Unavailable Belden, Kati Referring Unavailable Calabretta, Juan Attending Unavailable Calabretta, Juan Attending Unavailable Audra Victoria Attending Unavailable Juni Carey Attending Unavailable Belden, Kati Primary Care Unavailable Belden, Kati Attending Unavailable Belden, Kati Referring Unavailable Jeancarlos, Kati Referring Unavailable Jeancarlos, Kati Primary Care Unavailable Calabretta, Juan Attending Unavailable Belden, Kati Primary Care Unavailable Jeancarlos, Kati Attending Unavailable Belden, Kati Referring Unavailable Eugenio Schmidt Referring Unavailable Eugenio Schmidt Attending Unavailable Belden, Kati Primary Care Unavailable Courtney Gleason Attending Unavailable Ferullo, Courtney Referring Unavailable Jeancarlos, Kati Primary Care Unavailable Ferullo, Courtney Referring Unavailable Belden, Kati Primary Care Unavailable Courtney Gleason Attending Unavailable Jeancarlos, Kati Primary Care Unavailable Naren Jovel Attending Unavailable Belden, Kati Primary Care Unavailable Jeancarlos, Kati Attending Unavailable Jeancarlos, Kati Referring Unavailable Jeancarlos, Kati Primary Care Unavailable JeancarlosHarrisonKati Attending Unavailable Jeancarlos, Kati Referring Unavailable Courtney Gleason Attending Unavailable Belden, Kati Primary Care Unavailable Belden, Kati Referring Unavailable Jarad Mendez Referring Unavailable Jeancarlos, Kati Primary Care Unavailable Jarad Mendez Attending Unavailable Belden, Kati Primary Care Unavailable Isidoro Toney Attending Unavailable Belden, Kati Primary Care Unavailable Juan Fuller Admitting Unavailable Juan Fuller Attending Unavailable Jeancarlos, Kati Primary Care Unavailable Jeancarlos, Kati Referring Unavailable Juan Fuller Attending Unavailable Medications Current Medications Medication Drug Class(es) Dates Sig (Normalized) Sig (Original) acetaminophen 325 mg / HYDROcodone bitartrate 5 mg oral tablet (3 sources) Opioid Agonist Start: 01-16-2024 take 1 tablet by mouth every four hours as needed Hydrocodone-Aceta minophen Active 1 TABLET PO EVERY 4 HOURS NEEDED 10 2 January 16, 2024 Albuterol Sulfate (6 sources) beta2-Adrenergic Agonist Start: 09-22-2021 Albuterol Sulfate Active 2 INH INHALATION EVERY 6 HOURS September 22, 2021 2:09pm Start: 09-22-2021 End: 07-04-2023 Albuterol Sulfate Discontinu ed 2 INH INHALATION EVERY 6 HOURS September 22, 2021 1:00am July 04, 2023 3:00pm Hydrocortisone Acetate (Anusol-Hc) 25 mg suppository (1 source) Start: 02-13-2024 Hydrocortisone Acetate (Anusol-Hc) 25 mg suppository Active 25 MG RC DAILY February 13, 2024 12:00am levothyroxine sodium 0.075 mg oral tablet (16 sources) l-Thyroxi ne Start: 01-15-2024 take 75 ug by mouth once daily Levothyroxine Active 75 MCG PO DAILY January 15, 2024 1:33pm Start: 11-20-2023 End: 01-15-2024 take 88 ug by mouth once daily Levothyroxine Discontin ued 88 MCG PO DAILY November 20, 2023 8:03pm January 15, 2024 1:33pm Start: 07-06-2023 End: 11-20-2023 take 1 tablet by mouth once daily Levothyroxine (Synthroid) 100 mcg tablet Discontinued 100 MCG PO DAILY August 24, 2023 9:46am November 20, 2023 8:03pm omeprazole 40 mg delayed release oral capsule (10 sources) Proton Pump Inhibitor Start: 01-15-2024 End: 02-15-2024 take 40 mg by mouth once daily Omeprazole Active 40 MG PO DAILY February 15, 2024 3:16pm Start: 04-15-2019 End: 07-04-2023 take 40 mg by mouth once daily Omeprazole Discontinued 40 MG PO DAILY April 15, 2019 12:00am July 04, 2023 3:00pm psyllium 3400 mg powder for oral suspension (1 source) Start: 02-13-2024 Psyllium Husk (Metamucil) 3.4 gram/5.4 gram powder Active 1 tbsp PO DAILY February 13, 2024 12:00am mix into at least 8 oz of water or juice before administering Completed/Discontinued Medications Medication Drug Class(es) Dates Sig (Normalized) Sig (Original) amoxicillin 500 mg oral capsule (5 sources) Penicillin-class Antibacterial Start: 12-12-2022 End: 12-22-2022 take 500 mg by mouth three times daily Amoxicillin Discontinued 500 MG PO THREE TIMES A DAY 28 08December 12, 2022 1:00am December 22, 2022 1:04am 120 actuat budesonide 0.16 mg/actuat / formoterol fumarate 0.0045 mg/actuat metered dose inhaler (6 sources) Corticosteroid, beta2-Adrenergic Agonist Start: 09-22-2021 End: 07-04-2023 take 1 puff(s) by inhalation twice daily Budesonide-Formotero l Discontinued 2 PUFF INHALATION TWICE A DAY September 22, 2021 1:00am July 04, 2023 3:00pm chlorhexidine gluconate 40 mg/ml medicated liquid soap (6 sources) Start: 05-04-2021 End: 12-22-2021 Chlorhexidine Gluconate (Hibiclens) 4 % Liquid Discontinued 1 APPLIC TOPICAL DAILY May 04, 2021 12:00am December 22, 2021 3:49pm ciprofloxacin 500 mg oral tablet (3 sources) Quinolone Antimicrobial Start: 01-16-2024 End: 02-13-2024 take 500 mg by mouth twice daily Ciprofloxacin Hcl Discontinued 500 MG PO TWICE A DAY January 16, 2024 12:00am February 13, 2024 2:50pm cyclobenzaprine hydrochloride 10 mg oral tablet (17 sources) Muscle Relaxant Start: 05-23-2022 End: 05-28-2022 take 10 mg by mouth three times daily Cyclobenzaprine Discontinued 10 MG PO THREE TIMES A DAY 18 03May 23, 2022 12:00am May 28, 2022 12:05am Start: 01-05-2022 End: 07-04-2023 take 5 mg by mouth three times daily Cyclobenzaprine Discontinued 5 MG PO THREE TIMES A DAY 42 January 05, 2022 1:00am July 04, 2023 3:01pm Start: 04-15-2019 End: 02-22-2021 take 10 mg by mouth twice daily Cyclobenzaprine Discontinued 10 MG PO TWICE A DAY April 15, 2019 12:00am February 22, 2021 10:14am gabapentin 600 mg oral tablet (6 sources) Anti-epileptic Agent Start: 04-15-2019 End: 02-22-2021 take 600 mg by mouth twice daily Gabapentin Discontinued 600 MG PO TWICE A DAY April 15, 2019 12:00am February 22, 2021 10:14am lisinopril 20 mg oral tablet (12 sources) Angiotensin Converting Enzyme Inhibitor Start: 09-22-2021 End: 07-04-2023 take 20 mg by mouth once daily Lisinopril Discontinued 20 MG PO DAILY September 22, 2021 1:00am July 04, 2023 3:00pm Start: 05-04-2021 End: 09-22-2021 take 5 mg by mouth once daily Lisinopril Discontinued 5 MG PO DAILY May 04, 2021 12:00am September 22, 2021 2:08pm methylPREDNISolone 4 mg oral tablet (10 sources) Corticosteroid Start: 12-05-2022 End: 07-04-2023 take 1 tablet by mouth once Methylprednisolone (Medrol (Kenneth)) 4 mg tablets,dose pack Discontinued 0 PO per package directions December 05, 2022 1:00am July 04, 2023 3:00pm PO PER PKG DIR Start: 05-23-2022 End: 05-29-2022 take 1 tablet by mouth once Methylprednisolone (Medrol (Kenneth)) 4 mg tablets,dose pack Discontinued 4 MG PO per package directions 19 04May 23, 2022 12:00am May 29, 2022 12:04am metroNIDAZOLE 500 mg oral tablet (3 sources) Nitroimidazole Antimicrobial Start: 01-16-2024 End: 02-13-2024 take 500 mg by mouth every eight hours Metronidazole Discontinued 500 MG PO Q8H 19 05January 16, 2024 12:00am February 13, 2024 2:51pm predniSONE 20 mg oral tablet (6 sources) Start: 05-04-2021 End: 09-22-2021 take 20 mg by mouth twice daily Prednisone Discontinued 20 MG PO TWICE A DAY May 04, 2021 12:00am September 22, 2021 2:09pm Varenicline (6 sources) Partial Cholinergic Nicotinic Agonist Start: 04-15-2019 End: 02-22-2021 take 40 mg by mouth once daily Varenicline Discontinued 40 MG PO DAILY April 15, 2019 9:45pm February 22, 2021 10:15am Start: 04-15-2019 End: 02-22-2021 take 40 mg by mouth once daily Varenicline Discontinue d 40 MG PO DAILY April 14, 2019 11:00pm February 22, 2021 9:15am Start: 04-15-2019 End: 02-22-2021 take 40 mg by mouth once daily Varenicline Discontinue d 40 MG PO DAILY April 15, 2019 12:00am February 22, 2021 10:15am Varenicline (Chantix Starting Box) 0.5 mg (11)- 1 mg (42) tablets,dose pack (4 sources) Start: 11-20-2023 End: 01-15-2024 take 1 tablet by mouth once Varenicline (Chantix Starting Box) 0.5 mg (11)- 1 mg (42) tablets,dose pack Discontinued 0 PO per package directions November 20, 2023 1:00am January 15, 2024 9:31am PO PER PKG DIR Start: 11-20-2023 take 1 tablet by mouth once Va renicline (Chantix Starting Month Box) 0.5 mg (11)- 1 mg (42) tablets,dose pack Active 0 PO per package directions 53 November 20, 2023 12:00am PO PER PKG DIR Problems Active Problems Problem Classification Problem Date Documented Da te Episodic/Chronic Abdominal pain (10 sources) Generalized abdominal pain; Translations: [Abdominal pain, generalized] Onset: 4 11-20-2023 Episodic Administrative/social admission (1 source) Persons encountering health services in other specified circumstances; Translations: [Other reasons for seeking consultation] 07-04-2023 Episodic Allergic reactions (11 sources) Contact dermatitis; Translations: [Unspecified contact dermatitis, unspecified cause] 07-04-2023 Episodic Cardiac dysrhythmias (6 sources) Intermittent palpitations; Translations: [Palpitations] 07-04-2023 Episodic Diseases of white blood cells (2 sources) Elevated white blood cell count, unspecified; Translations: [Elevated white blood cell count, unspecified] Onset: 4 Chronic Diverticulosis and diverticulitis (7 sources) Diverticulitis of intestine; Translations: [Diverticulitis of intestine, part unspecified, without perforation or abscess without bleeding] Onset: 4 01-16-2024 Chronic Esophageal disorders (8 sources) Gastroesophageal reflux disease; Translations: [Gastro-esophageal reflux disease without esophagitis] Onset: 7 08-21-2017 Chronic Essential hypertension (12 sources) Essential hypertension; Translations: [Essential (primary) hypertension] Onset: 4 09-09-2021 Chronic Nonspecific chest pain (6 sources) Atypical chest pain; Translations: [Other chest pain] 07-04-2023 Episodic Osteoarthritis (1 source) Arthritis; Translations: [Unspecified osteoarthritis, unspecified site] Onset: 7 08-21-2017 Chronic Other ear and sense organ disorders (6 sources) Past history of procedure; Translations: [Myringotomy tube(s) status] 09-09-2021 Chronic Other ear and sense organ disorders (5 sources) Impacted cerumen; Translations: [Impacted cerumen, left ear] 06-29-2023 Episodic Other gastrointestinal disorders (6 sources) Dysphagia; Translations: [Dysphagia, unspecified] 09-09-2021 Episodic Other nervous system disorders (6 sources) Meralgia paresthetica; Translations: [Meralgia paresthetica, right lower limb] 12-22-2021 Chronic Other nervous system disorders (1 source) Meralgia paresthetica, right lower limb; Translations: [Meralgia paresthetica] Chronic Other nervous system disorders (4 sources) Attention and concentration deficit; Translations: [Attention or concentration deficit] 11-20-2023 Chronic Other nervous system disorders (6 sources) Numbness and tingling sensation of skin; Translations: [Anesthesia of skin] 09-09-2021 Episodic Other nervous system disorders (5 sources) Anesthesia of skin; Translations: [Disturbance of skin sensation] Episodic Other nutritional; endocrine; and metabolic disorders (6 sources) Morbid obesity; Translations: [Morbid (severe) obesity due to excess calories] 02-24-2021 Chronic Other nutritional; endocrine; and metabolic disorders (1 source) Obesity, unspecified; Translations: [Obesity, unspecified] Onset: Chronic Other upper respiratory infections (10 sources) Acute maxillary sinusitis; Translations: [Acute maxillary sinusitis, unspecified] 06-29-2023 Episodic Peritonitis and intestinal abscess (1 source) Abscess of intestine; Translations: [Abscess of intestine] Onset: Episodic Residual codes; unclassified (7 sources) Sleep apnea; Translations: [Sleep apnea, unspecified] Onset: 7 08-21-2017 Chronic Residual codes; unclassified (5 sources) Sleep apnea, unspecified; Translations: [Unspecified sleep apnea] 07-04-2023 Chronic Residual codes; unclassified (6 sources) History of selective lumbar nerve block; Translations: [Other specified postprocedural states] 09-09-2021 Episodic Residual codes; unclassified (1 source) Immunization not carried out because of patient refusal; Translations: [Vaccination not carried out because of patient refusal] 07-04-2023 Episodic Residual codes; unclassified (4 sources) Other specified health status; Translations: [Tobacco use disorder] 11-20-2023 Episodic Skin and subcutaneous tissue infections (3 sources) Furuncle of groin; Translations: [Carbuncle and furuncle of trunk] 01-15-2024 Episodic Spondylosis; intervertebral disc disorders; other back problems (4 sources) Other intervertebral disc displacement, lumbar region; Translations: [Herniation of intervertebral disc of lumbar spine] Onset: 02-15-2024 Chronic Sprains and strains (11 sources) Low back strain; Translations: [Strain of muscle, fascia and tendon of lower back, sequela] 06-29-2023 Episodic Substance-related disorders (6 sources) Tobacco dependence syndrome; Translations: [Nicotine dependence, unspecified, uncomplicated] 09-09-2021 Chronic Thyroid disorders (4 sources) Hypothyroidism, unspecified; Translations: [Unspecified acquired hypothyroidism] 11-20-2023 Chronic Past or Other Problems Problem Classification Problem Date Documented Da te Episodic/Chronic Gastrointestinal hemorrhage (2 sources) Hemorrhage of anus and rectum; Translations: [Hemorrhage of rectum and anus] Onset: 04-04-2024 02-13-2024 Episodic Other bone disease and musculoskeletal deformities (1 source) Costal chondritis; Translations: [Chondrocostal junction syndrome [Tietze]] Onset: 08-21-2017 08-22-2017 Episodic Other gastrointestinal disorders (2 sources) Personal history of other diseases of the digestive system; Translations: [Personal history of unspecified digestive disease] Onset: 02-13-2024 02-13-2024 Episodic Other lower respiratory disease (1 source) Dyspnea; Translations: [Shortness of breath] Onset: 08-21-2017 08-21-2017 Episodic Spondylosis; intervertebral disc disorders; other back problems (20 sources) Low back pain; Translations: [Low back pain] Onset: 02-15-2024 Episodic Thyroid disorders (1 source) Disorder of thyroid, unspecified; Translations: [Disorder of thyroid, unspecified] Onset: 07-04-2024 Episodic Unclassified (6 sources) H/O: back problem; Translations: [History of back problems] 09-09-2021 Results Test Name Value Interpretation Reference Range Facility Internal Medicine Office Vis tori 12-03-2024 Internal Medicine Office Visit [facility] [address] [place] [address] [place], [place] [address] OFFICE VISIT Date of Service: 12/04/24 MR#: [id number] Acct: [id number] Name: JANESSARONY YEPEZ Rep #: [id number] : 1985 Provider: Dr. Kati lauren MD Age/Sex: 39/M Location: [facility] Status: Signed Intake Vital Signs 05/20/24 15:31 10/18/24 12:12 12/04/24 13:20 Height 5 ft 8 in 5 ft 8 in 5 ft 8 in Weight: 283 lb 2 oz BMI 43.0 BP 128/74 H Blood Pressure Location Rt brachial Position Sitting Respiration 20 H Pulse 95 Pulse Source Monitor Temp 96.8 F L Temp Source Temporal Pulse Oximetry (%) 99 Oxygen Delivery Method room air Intake Visit Reasons: 6 m fu Chief Complaint: fu Advanced Practice Professional Required: No Accompanied by: Self Is patient in pain?: No Allergies No Known Allergies Allergy (Verified 12/04/24 13:15) Medications ???Medication ???Instructions ???Recorded ???Confirmed ???Type Diltiazem 2% / Lidocaine 5% #1 ea 03/29/24 12/04/24 Rx ointment (compound) levothyroxine 75 mcg tablet 75 mcg PO DAILY THYROID #30 tabs 0 05/20/24 12/04/24 Rx omeprazole 40 mg capsule,delayed 40 mg PO DAILY PRN PRN GERD #90 12/04/24 Rx release caps acetaminophen 500 mg tablet 1,000 mg (2 x 500 mg) PO Q6 #0 tab s 10/21/24 12/04/24 Rx Have you fallen in the past year?: No PFSH Medical History Pre-op testing History of diverticulitis Diverticulitis of colon with perforation Loss of hearing Wears glasses Marijuana use Alcohol use Thyroid disease Restless legs DDD (degenerative disc disease), lumbar Former smoker CPAP (continuous positive airway pressure) dependence Shortness of breath on exertion History of pain when walking Cardiology follow-up encounter History of stress test Pain Diverticulitis Back problem Allergies Impacted cerumen, left ear Acute maxillary sinusitis, unspecified COPD (chronic obstructive pulmonary disease) Tobacco dependence Essential hypertension Contact dermatitis Morbid obesity Sleep apnea GERD (gastroesophageal reflux disease) Dysphagia Numbness and tingling History of back problems Surgical History S/P colectomy History of selective injection of anesthetic agent around lumbar nerve root History of placement of ear tubes Family History Father Alcohol abuse Heart disease Grandmother Diabetes Grandmother Heart disease Diabetes Bowel disease doesn't know what kind Hypertension Mother Arthritis Diabetes Other Cervical cancer Gastrointestinal problem Social History (Updated 12/04/24 @ 13:[address] 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 He is up to date on his blood work. He is not due for any screening. He doesn't want a flu shot. He does vape occasionally. He states he is trying to stop altogether, but doesn't want any assistance. He doesn't need any refills. He reports he is trying to eat healthy. He hasn't been very active due to his recent surgery. The patient has been taking his synthroid first thing in the morning before anything else. He stopped using his inhalers for his COPD over a year ago and states he hasn't needed them. He denies any recent flare ups and reports his breathing has been fine. The patient has a history of FILIBERTO. He states when he had the machine, he wasn't wearing it enough so he gave it back. He states he is still doing well with just using his adjustable bed. He tried different masks and didn't tolerate them. The patient has chronic back pain. He previously saw pain management for it, but states the injections weren't helping, so he stopped going. He states it has been bothering him a little more with his decreased activity, but is hoping it will get better when he returns to work. He rates his pain 2.5/10 currently. He reports the numbness/tingling in his hands waxes and wanes. When it does flare up, he will use wrist splints which does seem to help. Since he was last seen, he underwent a colectomy for his recurrent diverticulitis. He reports that he still has a (more content not included)... Normal [facility] Surgery Visit Reporton 11-06 Surgery Visit Report [facility] [address] [place] [address] OFFICE VISIT Date of Service: 11/06/24 MR#: [id number] Acct: [id number] Name: RONY HE Rep #: [id number] : 1985 Provider: Dr. Juan henson MD Age/Sex: 39/M Location: [facility] [place] Status: Signed Intake Vital Signs 10/18/24 12:12 Height 5 ft 8 in Intake Visit Reasons: COLECTOMY 10-17 Chief Complaint: colectomy Advanced Practice Professional Required: No Is patient in pain?: No Allergies No Known Allergies Allergy (Verified 11/06/24 09:23) Medications ???Medication ???Instructions ???Recorded ???Confirmed ???Type Diltiazem 2% / Lidocaine 5% #1 ea 03/29/24 11/06/24 Rx ointment (compound) levothyroxine 75 mcg tablet 75 mcg PO DAILY THYROID #30 tabs 05/20/24 11/06/24 Rx omeprazole 40 mg capsule,delayed 40 mg PO DAILY PRN PRN GERD #90 05/20/24 11/06/24 Rx release caps acetaminophen 500 mg tablet 1,000 mg (2 x 500 mg) PO Q6 #0 tabs 10/21/24 11/06/24 Rx Have you fallen in the past year?: No Subjective Details: Patient is doing well with no complaints Objective Details: Patient's incision is healing well Coding Level of Care Code Global Post Op Diagnoses Acute diverticulitis K57.92 [facility] Medical History Pre-op testing History of diverticulitis Diverticulitis of colon with perforation Loss of hearing Wears glasses Marijuana use Alcohol use Thyroid disease Restless legs DDD (degenerative disc disease), lumbar Former smoker CPAP (continuous positive airway pressure) dependence Shortness of breath on exertion History of pain when walking Cardiology follow-up encounter History of stress test Pain Diverticulitis Back problem Allergies Impacted cerumen, left ear Acute maxillary sinusitis, unspecified COPD (chronic obstructive pulmonary disease) Tobacco dependence Essential hypertension Contact dermatitis Morbid obesity Sleep apnea GERD (gastroesophageal reflux disease) Dysphagia Numbness and tingling History of back problems Surgical History S/P colectomy History of selective injection of anesthetic agent around lumbar nerve root History of placement of ear tubes Family History Father Alcohol abuse Heart disease Grandmother Diabetes Grandmother Heart disease Diabetes Bowel disease doesn't know what kind Hypertension Mother Arthritis Diabetes Other Cervical cancer Gastrointestinal problem Social History household members: spouse and children current occupational status: employed 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 His incision is healing well. Follow-up as needed. Patient may return to normal work activity on 12/06 Juan Fuller MD Pager: [facility] [address] [place] [address], [address] [place] [address] Office: 11/06/24 6245 Date Juan Fuller MD [facility] Signature: Date (if applicable) CC: Normal [facility] Surgery Visit Reporton 10-24 Surgery Visit Report [facility] [address] [place] [address] OFFICE VISIT Date of Service: 10/24/24 MR#: [id number] Acct: [id number] Name: RONY HE Rep #: [id number] : 1985 Provider: Dr. Juan henson MD Age/Sex: 39/M Location: [facility] [place] Status: Signed Intake Vital Signs 09/11/24 14:57 10/18/24 12:12 Height 5 ft 8 in 5 ft 8 in Intake Visit Reasons: COLECTOMY 10-17 Chief Complaint: colectomy Advanced Practice Professional Required: No Is patient in pain?: Yes (midline incision ) Pain scale (1-10): 2 Allergies No Known Allergies Allergy (Verified 10/24/24 08:47) Medications ???Medication ???Instructions ???Recorded ???Confirmed ???Type Diltiazem 2% / Lidocaine 5% #1 ea 03/29/24 10/24/24 Rx ointment (compound) levothyroxine 75 mcg tablet 75 mcg PO DAILY THYROID #30 tabs 05/20/24 10/24/24 Rx omeprazole 40 mg capsule,delayed 40 mg PO DAILY PRN PRN GERD #90 05/20/24 10/24/24 Rx release caps acetaminophen 500 mg tablet 1,000 mg (2 x 500 mg) PO Q6 #0 tabs 10/21/24 10/24/24 Rx oxycodone 5 mg tablet 5 mg PO Q6H PRN pain 3 days #10 10/21/24 10/24/24 Rx tabs Have you fallen in the past year?: No Subjective Details: Patient doing well with no complaints Objective Details: Incisions healing well. Susu removed. Coding Level of Care Code Global Post Op Diagnoses Acute diverticulitis K57.92 [facility] Medical History (Updated 10/29/24 @ 00:02 by Background Daemon) Pre-op testing History of diverticulitis Diverticulitis of colon with perforation Loss of hearing Wears glasses Marijuana use Alcohol use Thyroid disease Restless legs DDD (degenerative disc disease), lumbar Former smoker CPAP (continuous positive airway pressure) dependence Shortness of breath on exertion History of pain when walking Cardiology follow-up encounter History of stress test Pain Diverticulitis Back problem Allergies Impacted cerumen, left ear Acute maxillary sinusitis, unspecified COPD (chronic obstructive pulmonary disease) Tobacco dependence Essential hypertension Contact dermatitis Morbid obesity Sleep apnea GERD (gastroesophageal reflux disease) Dysphagia Numbness and tingling History of back problems Surgical History (Updated 10/24/24 @ 08:48 by Sonya Vaughn) S/P colectomy History of selective injection of anesthetic agent around lumbar nerve root History of placement of ear tubes Family History Father Alcohol abuse Heart disease Grandmother Diabetes Grandmother Heart disease Diabetes Bowel disease doesn't know what kind Hypertension Mother Arthritis Diabetes Other Cervical cancer Gastrointestinal problem Social History household members: spouse and children current occupational status: employed 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 Follow-up in 2 weeks. Juan Fuller MD Pager: [facility] [address] [place] [address], [place] [address] Office: 11/06/24 0745 Date Juan Real Signature: Date (if applicable) CC: Normal [facility] Basic Metabolic Profile (BMP )on 10-21-2024 BUN/CRE 12.2 RATIO Normal 10-20 [facility] Comment on above: Performed By: #### L 100.0100, L500.2500 #### [facility] [address] [place], [address] CA,Total 9.1 mg/dL Normal 8.5-10.1 [facility] Comment on above: Performed By: #### L 100.0100, L500.2500 #### [facility] [address] [place], [address] Chloride [Moles/Vol] 106 mmol/L Normal 98-107 [facility] Comment on above: Performed By: #### L 100.0100, L500.2500 #### [facility] [address] [place], [address] CO2 [Moles/Vol] 26.0 mmol/L Normal 21.0-32.0 [facility] Comment on above: Performed By: #### L 100.0100, L500.2500 #### [facility] [address] [place], [address] Creatinine [Mass/Vol] 0.82 mg/dL Normal 0.70-1.30 [facility] Comment on above: Result Comment: The validity of the calculated GFR GFRAA in patients over 70 years has not been determined. Clinical correlation is essential. Performed By: #### L 100.0100, L500.2500 #### [facility] [address] [place], [address] ECRCL 154.85 ml/min Normal [facility] Comment on above: Performed By: #### L 100.0100, L500.2500 #### [facility] [address] [place], [address] EST GFR - AA 135 mL/min Normal >60 [facility] Comment on above: Result Comment: Afri can Filipino GFR Calc Performed By: #### L 100.0100, L500.2500 #### [facility] [address] [place], [address] GAP 6 Normal 5-15 [facility] Comment on above: Performed By: #### L 100.0100, L500.2500 #### [facility] [address] [place], [address] GFR/1.73 sq M.predicted among non-blacks MDRD (S/P/Bld) [Vol rate/Area] 111 mL/min/{1.73_m2} Normal >60 [facility] Comment on above: Result Comment: Non- GFR Calc Performed By: #### L 100.0100, L500.2500 #### [facility] [address] [place], [address] Glucose [Mass/Vol] 101 mg/dL Normal 74-106 [facility] Comment on above: Result Comment: Fast ing Glucose result from 100 to 125 mg/dL suggests IMPAIRED HOMEOSTASIS per A.D.A. criteria. Performed By: #### L 100.0100, L500.2500 #### [facility] [address] [place], [address] Potassium [Moles/Vol] 3.6 mmol/L Normal 3.5-5.1 [facility] Comment on above: Performed By: #### L 100.0100, L500.2500 #### [facility] [address] [place], [address] Sodium [Moles/Vol] 137 mmol/L Normal 136-145 [facility] Comment on above: Performed By: #### L 100.0100, L500.2500 #### [facility] [address] [place], [address] Urea nitrogen [Mass/Vol] 10 mg/dL Normal 7-18 [facility] Comment on above: Performed By: #### L 100.0100, L500.2500 #### [facility] [address] [place], [address] CBC W/Diff, Automatedon 12-2 -2023 Absolute Lymph 2.36 X10 3/uL Normal 0.83-4.51 [facility] Comment on above: Performed By: #### L 100.0100, L500.2500 #### [facility] [address] [place], [address] Absolute Neut 8.3 X10 3/uL High 2.0-7.7 [facility] Comment on above: Performed By: #### L 100.0100, L500.2500 #### [facility] [address] [place], [address] Basophils/100 WBC (Bld) 1.3 % High 0-1 [facility] Comment on above: Performed By: #### L 100.0100, L500.2500 #### [facility] [address] [place], [address] Eosinophils/100 WBC (Bld) 3.0 % Normal 0-5 [facility] Comment on above: Performed By: #### L 100.0100, L500.2500 #### [facility] [address] [place], [address] Erythrocyte distribution width (RBC) [Ratio] 13.3 % Normal 11.6-14.6 [facility] Comment on above: Performed By: #### L 100.0100, L500.2500 #### [facility] [address] [place], [address] Hematocrit (Bld) [Volume fraction] 45.1 % Normal 40-54 [facility] Comment on above: Performed By: #### L 100.0100, L500.2500 #### [facility] [address] [place], [address] Hemoglobin (Bld) [Mass/Vol] 14.6 g/dL Normal 13.0-16.5 [facility] Comment on above: Performed By: #### L 100.0100, L500.2500 #### [facility] [address] [place], [address] IG% 0.600 Normal 0.0-0.9 [facility] Comment on above: Result Comment: IG% - Immature Granulocytes (promyelocytes, myelocytes and metamyelocytes) > 1% indicates that a LEFT SHIFT is Present. Performed By: #### L 100.0100, L500.2500 #### [facility] [address] [facility] [place], [address] Lymphocytes/100 WBC (Bld) 19.5 % Normal 19-41 [facility] Comment on above: Performed By: #### L 100.0100, L500.2500 #### [facility] [address] [place], [address] MCH (RBC) [Entitic mass] 27.9 pg Normal 27.0-32.0 [facility] Comment on above: Performed By: #### L 100.0100, L500.2500 #### [facility] [address] [place] [place], [address] MCHC (RBC) [Mass/Vol] 32.4 g/dL Normal 32-36 [facility] Comment on above: Performed By: #### L 100.0100, L500.2500 #### [facility] [address] [place], [address] MCV (RBC) [Entitic vol] 86.1 fL Normal 80-94 [facility] Comment on above: Performed By: #### L 100.0100, L500.2500 #### [facility] [address] [place], [address] Monocytes/100 WBC (Bld) 6.5 % Normal 0-10 [facility] Comment on above: Performed By: #### L 100.0100, L500.2500 #### [facility] [address] [place], [address] Neutrophils/100 WBC (Bld) 69.1 % Normal 47-70 [facility] Comment on above: Performed By: #### L 100.0100, L500.2500 #### [facility] [address] [place], [address] Nucleated RBC (Bld) [#/Vol] 0 10*3/uL Normal 0-5 [facility] Comment on above: Performed By: #### L 100.0100, L500.2500 #### [facility] [address] [place], [address] Platelet mean volume (Bld) [Entitic vol] 10.8 fL Normal 6.2-12.0 [facility] Comment on above: Performed By: #### L 100.0100, L500.2500 #### [facility] [address] [place], [address] Platelets (Bld) [#/Vol] 247 10*3/uL Normal 150-450 [facility] Comment on above: Performed By: #### L 100.0100, L500.2500 #### [facility] [address] [place], [address] RBC (Bld) [#/Vol] 5.24 10*6/uL Normal 4.6-6.2 [facility] Comment on above: Performed By: #### L 100.0100, L500.2500 #### [facility] [address] [place], [address] RDW SD 42.0 fl Normal 35.1-43.9 [facility] Comment on above: Performed By: #### L 100.0100, L500.2500 #### [facility] [address] [place], [address] WBC (Bld) [#/Vol] 12.1 10*3/uL High 4.4-11.0 [facility] Comment on above: Performed By: #### L 100.0100, L500.2500 #### [facility] [address] [place], [address] Basic Metabolic Profile (BMP )on 10-18-2024 BUN/CRE 11.5 RATIO Normal 08-18 [facility] Comment on above: Performed By: #### L 100.0500, L500.2500 #### [facility] [address] [place], [address] CA,Total 8.6 mg/dL Normal 8.5-10.1 [facility] Comment on above: Performed By: #### L 100.0500, L500.2500 #### [facility] [address] [place], [address] Chloride [Moles/Vol] 109 mmol/L High 98-107 [facility] Comment on above: Performed By: #### L 100.0500, L500.2500 #### [facility] [address] [place], [address] CO2 [Moles/Vol] 23.0 mmol/L Normal 21.0-32.0 [facility] Comment on above: Performed By: #### L 100.0500, L500.2500 #### [facility] [address] [place], [address] Creatinine [Mass/Vol] 0.87 mg/dL Normal 0.70-1.30 [facility] Comment on above: Result Comment: The validity of the calculated GFR GFRAA in patients over 70 years has not been determined. Clinical correlation is essential. Performed By: #### L 100.0500, L500.2500 #### [facility] [address] [place], [address] ECRCL 145.95 ml/min Normal [facility] Comment on above: Performed By: #### L 100.0500, L500.2500 #### [facility] [address] [place], [address] EST GFR - AA 125 mL/min Normal >60 [facility] Comment on above: Result Comment: Afri can Filipino GFR Calc Performed By: #### L 100.0500, L500.2500 #### [facility] [address] [place], [address] GAP 5 Normal 5-15 [facility] Comment on above: Performed By: #### L 100.0500, L500.2500 #### [facility] [address] [place], [address] GFR/1.73 sq M.predicted among non-blacks MDRD (S/P/Bld) [Vol rate/Area] 103 mL/min/{1.73_m2} Normal >60 [facility] Comment on above: Result Comment: Non- GFR Calc Performed By: #### L 100.0500, L500.2500 #### [facility] [address] [place], [address] Glucose [Mass/Vol] 111 mg/dL High 74-106 [facility] Comment on above: Result Comment: Fast ing Glucose result from 100 to 125 mg/dL suggests IMPAIRED HOMEOSTASIS per A.D.A. criteria. Performed By: #### L 100.0500, L500.2500 #### [facility] [address] [place], [address] Potassium [Moles/Vol] 4.1 mmol/L Normal 3.5-5.1 [facility] Comment on above: Performed By: #### L 100.0500, L500.2500 #### [facility] [address] [place], [address] Sodium [Moles/Vol] 137 mmol/L Normal 136-145 [facility] Comment on above: Performed By: #### L 100.0500, L500.2500 #### [facility] [address] [place], [address] Urea nitrogen [Mass/Vol] 10 mg/dL Normal 7-18 [facility] Comment on above: Performed By: #### L 100.0500, L500.2500 #### [facility] [address] [place], [address] CBC-Complete Blood Cnt No Di ffon 10-18-2024 Erythrocyte distribution width (RBC) [Ratio] 13.8 % Normal 11.6-14.6 [facility] Comment on above: Performed By: #### L 100.0500, L500.2500 #### [facility] [address] [place], [address] Hematocrit (Bld) [Volume fraction] 42.5 % Normal 40-54 [facility] Comment on above: Performed By: #### L 100.0500, L500.2500 #### [facility] [address] [place], [address] Hemoglobin (Bld) [Mass/Vol] 13.7 g/dL Normal 13.0-16.5 [facility] Comment on above: Performed By: #### L 100.0500, L500.2500 #### [facility] [address] [place], [address] MCH (RBC) [Entitic mass] 28.1 pg Normal 27.0-32.0 [facility] Comment on above: Performed By: #### L 100.0500, L500.2500 #### [facility] [address] [place], [address] MCHC (RBC) [Mass/Vol] 32.2 g/dL Normal 32-36 [facility] Comment on above: Performed By: #### L 100.0500, L500.2500 #### [facility] [address] [place], [address] MCV (RBC) [Entitic vol] 87.3 fL Normal 80-94 [facility] Comment on above: Performed By: #### L 100.0500, L500.2500 #### [facility] [address] [place], [address] Platelet mean volume (Bld) [Entitic vol] 10.4 fL Normal 6.2-12.0 [facility] Comment on above: Performed By: #### L 100.0500, L500.2500 #### [facility] [address] [place], [address] Platelets (Bld) [#/Vol] 228 10*3/uL Normal 150-450 [facility] Comment on above: Performed By: #### L 100.0500, L500.2500 #### [facility] [address] [place], [address] RBC (Bld) [#/Vol] 4.87 10*6/uL Normal 4.6-6.2 [facility] Comment on above: Performed By: #### L 100.0500, L500.2500 #### [facility] [address] [place], [address] RDW SD 43.9 fl Normal 35.1-43.9 [facility] Comment on above: Performed By: #### L 100.0500, L500.2500 #### [facility] [address] [place], [address] WBC (Bld) [#/Vol] 20.9 10*3/uL High 4.4-11.0 [facility] Comment on above: Performed By: #### L 100.0500, L500.2500 #### [facility] [address] [place], [address] MR/[id number] 10-18-2024 MR/POSTOPAN2 [facility] Medical Records Department [address] [place] [address] Anesthesia Postop Eval II 10/18/24 0733 MR#: [id number] Acct: [id number] Name: RONY HE Rep #: [id number] : 1985 39 From: Awais Lawson MD PCP: Dr. Kati Arshad MD Status:ADM IN Y Race: C [facility] Postop Eval I Sum Postop Eval Completion status Anesthesia document: Postop Eval 1 completed: Yes Anesthesia Postop Eval I Summary Anesthesia Postop Eval I Summary: Anesthesia Postop Eval I: Assessment Summary Airway patent Yes 10/17/24 10:43 APPLIED BEHAVIOR SPECIALIST.JBLOU Spontaneous unlabored Yes 10/17/24 10:43 APPLIED BEHAVIOR SPECIALIST.JBLOU respirations Mental status Awake,Calm 10/17/24 10:43 APPLIED BEHAVIOR SPECIALIST.JBLOU nausea No 10/17/24 10:43 APPLIED BEHAVIOR SPECIALIST.JBLOU Vomiting No 10/17/24 10:43 APPLIED BEHAVIOR SPECIALIST.JBLOU Anesthesia Postop Eval I: Fluid Summary Crystalloid volume administer 2,000 10/17/24 10:43 APPLIED BEHAVIOR SPECIALIST.JBLOU (ml) Colloids volume administered ( ml) Blood Product volume administered (ml) Total IV fluid infused 2,000 10/17/24 10:43 APPLIED BEHAVIOR SPECIALIST.JBLOU Anesthesia Postop Eval I: Summary Notes Anesthesia Complication No 10/17/24 10:43 APPLIED BEHAVIOR SPECIALIST.JBLOU Anesthesia Complication Comment: Post-operative progress note Anesthesia: Postop Eval II Evaluation Mental status: Awake Pain Level: 3 nausea: No Vomiting: No 10/18/24 0733 Date Awais Lawson MD Cosigner Signature: Date CC: Signed Normal [facility] Bedside Glucoseon 10-17-2024 FINGERSTICK GLU 133 mg/dL High 74-106 [facility] Comment on above: Result Comment: FAUZIA CORREA OF PATIENT CARE PER NURSING PROTOCOL Performed By: #### L 100.0100, L500.2500 #### [facility] [address] [place], [address] MR/POSTOP.ANEon 10-17-2024 [facility] Medical Records Department [address] [place] [address] Anesthesia Postop Eval I 10/17/24 1043 MR#: [id number] Acct: [id number] Name: RONY HE Rep #: [id number] : 1985 39 From: Singh Evans CRNA PCP: Dr. Kati Arshad MD Status:ADM IN Y Race: C Location: [place] [address] Anesthesia: Postop Eval I Current Vital Signs Temperature: 97 F Pulse Rate: 93 Blood Pressure: 110/75 Respiratory Rate: 16 Pulse Ox: 98 Oxygen Delivery Method: Room Air Assessment Airway patent: Yes Spontaneous unlabored respirations: Yes Mental status: Awake and Calm nausea: No Vomiting: No Anesthesia Complication: No Fluid Hydration Crystalloid volume administer (ml): 2,000 Total IV fluid infused: 2,000 Progress Note Anesthesia document: Postop Eval 1 completed: Yes 10/17/24 1043 Date Singh Evans APPLIED BEHAVIOR SPECIALIST Cosigner Signature: Date CC: Signed Normal [facility] Operative Reporton Operative Report [facility] Medical Records Department [address] [place] [address] Operative Report 10/17/24 1019 MR#: [id number] Acct: [id number] Name: RONY HE Rep #: [id number] : 1985 39 From: Juan Fuller MD PCP: Dr. Kati Arshad MD Status:ADM IN Location: [place] [address] Operative Report (Standard) Operative Information Date of Procedure: 10/17/24 Pre-Operative Diagnosis: Recurrent sigmoid diverticulitis Post-Operative Diagnosis: Same Surgery/Procedure Performed: Laparoscopic converted to open sigmoid colectomy with anastomosis quartz miner blasting: Yes Comber Tender: Mari Tabor Tasks completed by therapy administrative assistant: Opening, Closing and Retracting Type of Anesthesia: General/Regional RN Documented Start/Stop Times: Operation Date: 10/17/24 07:30 Case Time Into Pre-Op 10/17/24 05:37 Out of Pre-Op 10/17/24 07:27 Anesthesia Start 10/17/24 07:30 Into Room 10/17/24 07:30 Procedure Start 10/17/24 08:13 Procedure End 10/17/24 10:00 Anesthesia End 10/17/24 10:11 Out of Room 10/17/24 10:11 Procedure Start Time: 08:13 Procedure Stop Time: 10:00 Select all DRAINS/GRAFTS/IMPLA NTS that apply: None Estimated Blood Loss: 20 Specimen collected: Yes Description of specimen(s) removed: Sigmoid colon Description of surgery: The patient was brought back to the operating room and general anesthesia was induced. Reid catheter was placed. The rectum was lavaged with a saline and Betadine mixture. Next the abdomen was prepped and draped in usual sterile fashion. A midline incision was made superior to the umbilicus and using Visiport technique the abdomen was entered. The abdomen was insufflated to 15 mmHg. Camera was placed into the abdomen it was very difficult to see the colon with the patient's body habitus. Patient was placed in Trendelenburg position. Under direct visualization two 5 mm ports were placed in the right lower quadrant. I attempted to mobilize the sigmoid colon but it was densely adherent to the inferior portion of the pelvis. I tried to convert and make a midline incision inferior to the umbilicus next. This scalpel was used to make a long midline incision inferior to the umbilicus. The fascia was encountered and incised using electrocautery. A wound protector was then placed into the wound. Next the GelPort was placed on top of this and I attempted hand assist but even hand assist I was able to mobilize the dense adhesions but I still was unable to see the due to the patient's body habitus. The decision was made to convert to an open procedure. The midline incision was lengthened superiorly to meet with the port site. Wound protector was placed. The abdomen was packed and the sigmoid was freed from its adhesions bluntly. After the adhesions were finger fractured and the colon was mobile the distal colon was dissected at the rectum. A curved stapler was used to staple across the sigmoid rectum junction. This divided the sigmoid colon from the rectum. Next proximately an area of colon was identified that appeared normal and it was divided using a TRACY stapler. Next Enseal was used to take down the mesentery of the sigmoid colon hugging the colon itself. The ureter was identified and spared. Next the distal colon was opened at the staple line and sizers were used to select the 33 EEA stapler. Next the anvil was placed into the distal colon and a pursestring suture was performed using 0 Prolene. Next my administrative personal assistant went down and the well-lubricated sizers were placed into the rectum and to the staple line. Next the EEA stapler was placed into the rectum and advanced to the staple line. The point was brought through the staple line and then the anvil was attached to the point and it was closed and fired. The donuts appeared intact. Next a well-lubricated rigid proctoscope was placed into the rectum and insufflated of air. The colon was pinched proximal to the anastomosis and there was no air leak. The abdomen was suctioned dry. Packs were removed. The omentum was draped over the bowel. Next all staff changed gown and gloves. The fascia was then closed in a running fashion with 0 PDS suture from the top and bottom meeting in the middle. The subcutaneous tissue was irrigated and suctioned dry and hemostasis was obtained using electrocautery. The skin was stapled closed. The port sites were closed with interrupted 4-0 Monocryl sutures. Steri-Strips and bandages were applied. Patient was awoken and taken to PACU in stable condition. Surgical Findings: Very inflamed sigmoid Complications Complications: No Admit VTE Documentation VTE Mechan Device Prophylaxis: SCD's 10/17/24 1026 Cosigner Signature (if applicable): CC: Dr. Kati Arshad MD; Dr. Juan Fuller MD Signed Normal [facility] Surgery Specimen Level IIIon 10-17-2024 Surgery Specimen Level III Patient Age/Sex Location Account Attending Physician JANESSARONY YEPEZ 39/M MS3 [id number] Dr. Juan Fuller MD Specimen: [id number] Received: 10/17/24 Status: BETSEY Arshadradha Num: [id number] Spec Type: COLON Subm Dr: Dr. Juan Fuller MD HEADER OPERATION: Laparoscopic converted to open sigmoid colectomy PRE-OP DIAGNOSIS: Acute diverticulitis TISSUE SUBMITTED: A- Sigmoid segment, B- Proximal sigmoid donuts, C- Distal sigmoid donuts MICROSCOPIC DIAGNOSIS A- Sigmoid segment, colectomy: Diverticulosis and diverticulitis. Two benign pericolonic lymph nodes. B- Proximal sigmoid donut: Colonic donut, no pathologic diagnosis. C- Distal sigmoid donut: Colonic donut, no pathologic diagnosis. 10/21/2024 MICROSCOPIC DESCRIPTION Slides are reviewed. GROSS DESCRIPTION A. Received in fixative is one container labeled with the patient's name and designated Sigmoid segment. The specimen consists of a segment of colon with attached pericolonic adipose tissue measuring 12.0cm in length. Both resection margins are stapled. Mucosal lesion is identified. Sections reveal multiple diverticula. More dictation will follow after additional fixation. [facility] 10/17/2024 A few ruptured diverticula are identified. Section of pericolonic adipose tissue reveal no obviously enlarged lymph nodes. [employer] sections are submitted in six cassettes as follows: 1- resection margins, 2-5- diverticula (cassettes 4 5 contain the possible ruptured diverticula), 6- pericolonic adipose tissue. [facility] 10/18/2024 B. Received in fixative is one container labeled with the patient's name and designated Proximal sigmoid donuts. The specimen consists of a donut shaped piece of colonic tissue measuring 2.0 x 1.5 x 1.5cm. Multiple sutures area noted. [employer] sections are submitted in one cassette. [facility] 10/18/2024 C. Received in fixative is one container labeled with the patient's name and designated Distal sigmoid donuts. The specimen consists of a piece of donut shaped of colonic tissue measuring 2.5 x 2.0 x 1.0cm. Multiple susu are noted. [employer] sections are submitted in one cassette. [facility] 10/18/2024 TC:5 CPT:[id number] Patient Age/Sex Location Account Attending Physician RONY HE 39/M MS3 [id number] Dr. Juan Fuller MD Signed (signatur e on file) Dr. Titi Sanchez MD 10/21/24 1313 Normal [facility] Comment on above: Performed By: #### L 100.0100 #### [facility] Laboratory [facility] [place], [address] Magnesiumon 10-04-2024 Magnesium [Mass/Vol] 2.1 mg/dL Normal 1.6-2.6 [facility] Comment on above: Performed By: #### L 501.5200, L501.9520 ####[facility] [address] [place], [address] Thyroid Stim Hormone (TSH)on 10-04-2024 TSH 1.410 uIU/mL Normal 0.358-3.740 [facility] Comment on above: Performed By: #### L 501.5200, L501.9520 ####[facility] [address] [place], [address] Surgery Visit Reporton 09-11 Surgery Visit Report [facility] [address] [place] [address] OFFICE VISIT Date of Service: 09/11/24 MR#: [id number] Acct: [id number] Name: RONY HE Rep #: [id number] : 1985 Provider: Dr. Juan henson MD Age/Sex: 39/M Location: [facility] [place] Status: Signed Intake Vital Signs 09/07/24 15:25 09/11/24 14:57 Height 5 ft 8 in 5 ft 8 in Weight: 278 lb BMI 42.3 BP 128/84 H Blood Pressure Location Rt brachial Position Sitting Respiration 17 Pulse 77 Pulse Source Monitor Pulse Oximetry (%) 98 Oxygen Delivery Method room air Intake Visit Reasons: DIVERTICULITIS, [facility] F[facility] Chief Complaint: diverticulitis Is patient in pain?: No Allergies No Known Allergies Allergy (Verified 09/11/24 14:58) Medications ???Medication ???Instructions ???Recorded ???Confirmed ???Type Diltiazem 2% / Lidocaine 5% #1 ea 03/29/24 09/11/24 Rx ointment (compound) levothyroxine 75 mcg tablet 75 mcg PO DAILY #30 tabs 05/20/24 09/11/24 Rx omeprazole 40 mg capsule,delayed 40 mg PO DAILY PRN PRN GERD #90 05/20/24 09/11/24 Rx release caps ciprofloxacin HCl 500 mg tablet 500 mg PO Q12H 7 days #14 tabs 09/08/24 09/11/24 Rx (Cipro) metronidazole 375 mg capsule 375 mg PO Q12H 7 days #14 caps 09/08/24 09/11/24 Rx (Flagyl) oxycodone-acetamino phen 5 mg-325 1 tab PO Q8H PRN pain 3 days #5 09/08/24 09/11/24 Rx mg tablet (Percocet) tabs metronidazole 500 mg tablet 500 mg PO .COMPLEX #6 tabs 09/12/24 09/12/24 Rx neomycin 500 mg tablet 500 mg PO .COMPLEX pre-op 09/12/24 09/12/24 Rx antibiotics #6 tabs PFSH Medical History Loss of hearing Wears glasses Marijuana use Alcohol use Thyroid disease Restless legs DDD (degenerative disc disease), lumbar Former smoker CPAP (continuous positive airway pressure) dependence Shortness of breath on exertion History of pain when walking Cardiology follow-up encounter History of stress test Pain Diverticulitis Back problem Allergies Impacted cerumen, left ear Acute maxillary sinusitis, unspecified COPD (chronic obstructive pulmonary disease) Tobacco dependence Essential hypertension Contact dermatitis Morbid obesity Sleep apnea GERD (gastroesophageal reflux disease) Dysphagia Numbness and tingling History of back problems Surgical History History of selective injection of anesthetic agent around lumbar nerve root History of placement of ear tubes Family History (Updated 09/11/24 @ 14:55 by Kori Goldsmith) Father Alcohol abuse Heart disease Grandmother Diabetes Grandmother Heart disease Diabetes Bowel disease doesn't know what kind Hypertension Mother Arthritis Diabetes Other Cervical cancer Gastrointestinal problem Social History household members: spouse and children current occupational status: employed 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 The patient recently had a colonoscopy a few months ago. The patient has sigmoid diverticulitis that keeps recurring. He was recently hospitalized with microperforation. He currently is feeling better. ROS General General: No weight change, appetite, fatigue, colon cancer, breast cancer or weakness HEENT HEENT: No difficulty swallowing, eye injury, eye surgery, swollen glands or hoarseness Endo Endocrine: Yes thyroid disease; No diabetes mellitus, thyroid cancer, Hair loss, heat intolerance or cold intolerance Skin Skin: No rash or changing moles Musc Musculoskeletal: Yes back problems; No arthritis, rheumatoid arthritis, gout or joint pain Cardio Cardiovascular: No murmur, pacemaker, heart disease, atrial fibrillation, high blood pressure, heart attack, heart stent, palpitations, shortness of breat with exertion or chest pain Psych Psychiatric: No depression, anxiety or hearing voices Resp Respiratory: No shortness of breath, Yes sleep apnea, No cough, Yes COPD, No asthma, No emphysema and No wheezing Gastro Gastrointestinal: No abdominal pain, Yes nausea or vomiting, No diarrhea, No constipation, No blood in stool, Yes acid reflux, Yes hemorrhoids, No ulcers, No gallbladder prob (more content not included)... Normal [facility] CBC W/Diff, Automatedon 11- 0-2023 Absolute Lymph 1.62 X10 3/uL Normal 0.83-4.51 [facility] Comment on above: Performed By: #### L 100.0100 #### [facility] [address] [place], [address] Absolute Neut 7.8 X10 3/uL High 2.0-7.7 [facility] Comment on above: Performed By: #### L 100.0100 #### [facility] [address] [place], [address] Basophils/100 WBC (Bld) 0.8 % Normal 0-1 [facility] Comment on above: Performed By: #### L 100.0100 #### [facility] [address] [place], [address] Eosinophils/100 WBC (Bld) 1.8 % Normal 0-5 [facility] Comment on above: Performed By: #### L 100.0100 #### [facility] [address] [place], [address] Erythrocyte distribution width (RBC) [Ratio] 12.8 % Normal 11.6-14.6 [facility] Comment on above: Performed By: #### L 100.0100 #### [facility] [address] [place], [address] Hematocrit (Bld) [Volume fraction] 45.2 % Normal 40-54 [facility] Comment on above: Performed By: #### L 100.0100 #### [facility] [address] [place], [address] Hemoglobin (Bld) [Mass/Vol] 14.6 g/dL Normal 13.0-16.5 [facility] Comment on above: Performed By: #### L 100.0100 #### [facility] [address] [place], [address] IG% 0.600 Normal 0.0-0.9 [facility] Comment on above: Result Comment: IG% - Immature Granulocytes (promyelocytes, myelocytes and metamyelocytes) > 1% indicates that a LEFT SHIFT is Present. Performed By: #### L 100.0100 #### [facility] [address] [place], [address] Lymphocytes/100 WBC (Bld) 15.6 % Low 19-41 [facility] Comment on above: Performed By: #### L 100.0100 #### [facility] [address] [place], [address] MCH (RBC) [Entitic mass] 28.2 pg Normal 27.0-32.0 [facility] Comment on above: Performed By: #### L 100.0100 #### [facility] [address] [place], [address] MCHC (RBC) [Mass/Vol] 32.3 g/dL Normal 32-36 [facility] Comment on above: Performed By: #### L 100.0100 #### [facility] [address] [place], [address] MCV (RBC) [Entitic vol] 87.4 fL Normal 80-94 [facility] Comment on above: Performed By: #### L 100.0100 #### [facility] [address] [place], [address] Monocytes/100 WBC (Bld) 5.5 % Normal 0-10 [facility] Comment on above: Performed By: #### L 100.0100 #### [facility] [address] [place], [address] Neutrophils/100 WBC (Bld) 75.7 % High 47-70 [facility] Comment on above: Performed By: #### L 100.0100 #### [facility] [address] [place], [address] Nucleated RBC (Bld) [#/Vol] 0 10*3/uL Normal 0-5 [facility] Comment on above: Performed By: #### L 100.0100 #### [facility] [address] [place], [address] Platelet mean volume (Bld) [Entitic vol] 10.9 fL Normal 6.2-12.0 [facility] Comment on above: Performed By: #### L 100.0100 #### [facility] [address] [place], [address] Platelets (Bld) [#/Vol] 222 10*3/uL Normal 150-450 [facility] Comment on above: Performed By: #### L 100.0100 #### [facility] [address] [place], [address] RBC (Bld) [#/Vol] 5.17 10*6/uL Normal 4.6-6.2 [facility] Comment on above: Performed By: #### L 100.0100 #### [facility] [address] [place], [address] RDW SD 40.9 fl Normal 35.1-43.9 [facility] Comment on above: Performed By: #### L 100.0100 #### [facility] [address] [place], [address] WBC (Bld) [#/Vol] 10.4 10*3/uL Normal 4.4-11.0 [facility] Comment on above: Performed By: #### L 100.0100 #### [facility] [address] [place], [address] Basic Metabolic Profile (BMP )on 09-07-2024 BUN/CRE 10.6 RATIO Normal 10-20 [facility] Comment on above: Performed By: #### L 100.0100, L500.2500 #### [facility] [address] [place], [address] CA,Total 8.6 mg/dL Normal 8.5-10.1 [facility] Comment on above: Performed By: #### L 100.0100, L500.2500 #### [facility] [address] [place], [address] Chloride [Moles/Vol] 105 mmol/L Normal 98-107 [facility] Comment on above: Performed By: #### L 100.0100, L500.2500 #### [facility] [address] [place], [address] CO2 [Moles/Vol] 26.0 mmol/L Normal 21.0-32.0 [facility] Comment on above: Performed By: #### L 100.0100, L500.2500 #### [facility] [address] [place], [address] Creatinine [Mass/Vol] 0.85 mg/dL Normal 0.70-1.30 [facility] Comment on above: Result Comment: The validity of the calculated GFR GFRAA in patients over 70 years has not been determined. Clinical correlation is essential. Performed By: #### L 100.0100, L500.2500 #### [facility] [address] [place], [address] ECRCL 151.30 ml/min Normal [facility] Comment on above: Performed By: #### L 100.0100, L500.2500 #### [facility] [address] [place], [address] EST GFR - AA 128 mL/min Normal >60 [facility] Comment on above: Result Comment: Afri can Filipino GFR Calc Performed By: #### L 100.0100, L500.2500 #### [facility] [address] [place], [address] GAP 4 Low 5-15 [facility] Comment on above: Performed By: #### L 100.0100, L500.2500 #### [facility] [address] [place], [address] GFR/1.73 sq M.predicted among non-blacks MDRD (S/P/Bld) [Vol rate/Area] 106 mL/min/{1.73_m2} Normal >60 [facility] Comment on above: Result Comment: Non- GFR Calc Performed By: #### L 100.0100, L500.2500 #### [facility] [address] [place], [address] Glucose [Mass/Vol] 98 mg/dL Normal 74-106 [facility] Comment on above: Performed By: #### L 100.0100, L500.2500 #### [facility] [address] [place], [address] Potassium [Moles/Vol] 4.1 mmol/L Normal 3.5-5.1 [facility] Comment on above: Result Comment: Slig ht Hemolysis, Result may be falsely increased. Performed By: #### L 100.0100, L500.2500 #### [facility] [address] [place], [address] Sodium [Moles/Vol] 136 mmol/L Normal 136-145 [facility] Comment on above: Performed By: #### L 100.0100, L500.2500 #### [facility] [address] [place], [address] Urea nitrogen [Mass/Vol] 9 mg/dL Normal 7-18 [facility] Comment on above: Performed By: #### L 100.0100, L500.2500 #### [facility] [address] [place], [address] CBC W/Diff, Automatedon 11-0 9-2023 Absolute Lymph 1.20 X10 3/uL Normal 0.83-4.51 [facility] Comment on above: Performed By: #### L 100.0100, L500.2500 #### [facility] [address] [place], [address] Absolute Neut 12.0 X10 3/uL High 2.0-7.7 [facility] Comment on above: Performed By: #### L 100.0100, L500.2500 #### [facility] [address] [place], [address] Basophils/100 WBC (Bld) 0.6 % Normal 0-1 [facility] Comment on above: Performed By: #### L 100.0100, L500.2500 #### [facility] [address] [place], [address] Eosinophils/100 WBC (Bld) 0.9 % Normal 0-5 [facility] Comment on above: Performed By: #### L 100.0100, L500.2500 #### [facility] [address] [place], [address] Erythrocyte distribution width (RBC) [Ratio] 12.9 % Normal 11.6-14.6 [facility] Comment on above: Performed By: #### L 100.0100, L500.2500 #### [facility] [address] [place], [address] Hematocrit (Bld) [Volume fraction] 43.0 % Normal 40-54 [facility] Comment on above: Performed By: #### L 100.0100, L500.2500 #### [facility] [address] [place], [address] Hemoglobin (Bld) [Mass/Vol] 13.5 g/dL Normal 13.0-16.5 [facility] Comment on above: Performed By: #### L 100.0100, L500.2500 #### [facility] [address] [place], [address] IG% 0.500 Normal 0.0-0.9 [facility] Comment on above: Result Comment: IG% - Immature Granulocytes (promyelocytes, myelocytes and metamyelocytes) > 1% indicates that a LEFT SHIFT is Present. Performed By: #### L 100.0100, L500.2500 #### [facility] [address] [place], [address] Lymphocytes/100 WBC (Bld) 8.2 % Low 19-41 [facility] Comment on above: Performed By: #### L 100.0100, L500.2500 #### [facility] [address] [place], [address] MCH (RBC) [Entitic mass] 27.8 pg Normal 27.0-32.0 [facility] Comment on above: Performed By: #### L 100.0100, L500.2500 #### [facility] [address] [place], [address] MCHC (RBC) [Mass/Vol] 31.4 g/dL Low 32-36 [facility] Comment on above: Performed By: #### L 100.0100, L500.2500 #### [facility] [address] [place], [address] MCV (RBC) [Entitic vol] 88.5 fL Normal 80-94 [facility] Comment on above: Performed By: #### L 100.0100, L500.2500 #### [facility] [address] [place], [address] Monocytes/100 WBC (Bld) 7.7 % Normal 0-10 [facility] Comment on above: Performed By: #### L 100.0100, L500.2500 #### [facility] [address] [place], [address] Neutrophils/100 WBC (Bld) 82.1 % High 47-70 [facility] Comment on above: Performed By: #### L 100.0100, L500.2500 #### [facility] [address] [place], [address] Nucleated RBC (Bld) [#/Vol] 0 10*3/uL Normal 0-5 [facility] Comment on above: Performed By: #### L 100.0100, L500.2500 #### [facility] [address] [place], [address] Platelet mean volume (Bld) [Entitic vol] 11.3 fL Normal 6.2-12.0 [facility] Comment on above: Performed By: #### L 100.0100, L500.2500 #### [facility] [address] [place], [address] Platelets (Bld) [#/Vol] 192 10*3/uL Normal 150-450 [facility] Comment on above: Performed By: #### L 100.0100, L500.2500 #### [facility] [address] [place], [address] RBC (Bld) [#/Vol] 4.86 10*6/uL Normal 4.6-6.2 [facility] Comment on above: Performed By: #### L 100.0100, L500.2500 #### [facility] [address] [place], [address] RDW SD 42.0 fl Normal 35.1-43.9 [facility] Comment on above: Performed By: #### L 100.0100, L500.2500 #### [facility] [address] [place], [address] WBC (Bld) [#/Vol] 14.6 10*3/uL High 4.4-11.0 [facility] Comment on above: Performed By: #### L 100.0100, L500.2500 #### [facility] [address] [place], [address] Basic Metabolic Profile (BMP )on 09-06-2024 BUN/CRE 14.5 RATIO Normal 10-20 [facility] Comment on above: Performed By: #### L 100.0100, L500.2500 ####[facility] [address] [place], [address] CA,Total 8.4 mg/dL Low 8.5-10.1 [facility] Comment on above: Performed By: #### L 100.0100, L500.2500 ####[facility] [address] [place], [address] Chloride [Moles/Vol] 107 mmol/L Normal 98-107 [facility] Comment on above: Performed By: #### L 100.0100, L500.2500 ####[facility] [address] [place], [address] CO2 [Moles/Vol] 20.0 mmol/L Low 21.0-32.0 [facility] Comment on above: Performed By: #### L 100.0100, L500.2500 ####[facility] [address] [place], [address] Creatinine [Mass/Vol] 0.76 mg/dL Normal 0.70-1.30 [facility] Comment on above: Result Comment: The validity of the calculated GFR GFRAA in patients over 70 years has not been determined. Clinical correlation is essential. Performed By: #### L 100.0100, L500.2500 ####[facility] [address] [place], [address] ECRCL 169.22 ml/min Normal [facility] Comment on above: Performed By: #### L 100.0100, L500.2500 ####[facility] [address] [place], [address] EST GFR - AA 146 mL/min Normal >60 [facility] Comment on above: Result Comment: Afri can Filipino GFR Calc Performed By: #### L 100.0100, L500.2500 ####[facility] [address] [place], [address] GAP 8 Normal 5-15 [facility] Comment on above: Performed By: #### L 100.0100, L500.2500 ####[facility] [address] [place], [address] GFR/1.73 sq M.predicted among non-blacks MDRD (S/P/Bld) [Vol rate/Area] 121 mL/min/{1.73_m2} Normal >60 [facility] Comment on above: Result Comment: Non- GFR Calc Performed By: #### L 100.0100, L500.2500 ####[facility] [address] [place], [address] Glucose [Mass/Vol] 97 mg/dL Normal 74-106 [facility] Comment on above: Performed By: #### L 100.0100, L500.2500 ####[facility] [address] [place], [address] Potassium [Moles/Vol] 3.7 mmol/L Normal 3.5-5.1 [facility] Comment on above: Performed By: #### L 100.0100, L500.2500 ####[facility] [address] [place], [address] Sodium [Moles/Vol] 135 mmol/L Low 136-145 [facility] Comment on above: Performed By: #### L 100.0100, L500.2500 ####[facility] [address] [place], [address] Urea nitrogen [Mass/Vol] 11 mg/dL Normal 7-18 [facility] Comment on above: Performed By: #### L 100.0100, L500.2500 ####[facility] [address] [place], [address] CBC W/Diff, Automatedon 11-0 8-4 Absolute Lymph 1.07 X10 3/uL Normal 0.83-4.51 [facility] Comment on above: Performed By: #### L 100.0100, L500.2500 ####[facility] [address] [place], [address] Absolute Neut 15.4 X10 3/uL High 2.0-7.7 [facility] Comment on above: Performed By: #### L 100.0100, L500.2500 ####[facility] [address] [place], [address] Basophils/100 WBC (Bld) 0.5 % Normal 0-1 [facility] Comment on above: Performed By: #### L 100.0100, L500.2500 ####[facility] [address] [place], [address] Eosinophils/100 WBC (Bld) 0.2 % Normal 0-5 [facility] Comment on above: Performed By: #### L 100.0100, L500.2500 ####[facility] [address] [place], [address] Erythrocyte distribution width (RBC) [Ratio] 13.0 % Normal 11.6-14.6 [facility] Comment on above: Performed By: #### L 100.0100, L500.2500 ####[facility] [address] [place], [address] Hematocrit (Bld) [Volume fraction] 43.7 % Normal 40-54 [facility] Comment on above: Performed By: #### L 100.0100, L500.2500 ####[facility] [address] [place], [address] Hemoglobin (Bld) [Mass/Vol] 13.7 g/dL Normal 13.0-16.5 [facility] Comment on above: Performed By: #### L 100.0100, L500.2500 ####[facility] [address] [place], [address] IG% 0.700 Normal 0.0-0.9 [facility] Comment on above: Result Comment: IG% - Immature Granulocytes (promyelocytes, myelocytes and metamyelocytes) > 1% indicates that a LEFT SHIFT is Present. Performed By: #### L 100.0100, L500.2500 ####[facility] [address] [place], [address] Lymphocytes/100 WBC (Bld) 6.0 % Low 19-41 [facility] Comment on above: Performed By: #### L 100.0100, L500.2500 ####[facility] [address] [place], [address] MCH (RBC) [Entitic mass] 27.6 pg Normal 27.0-32.0 [facility] Comment on above: Performed By: #### L 100.0100, L500.2500 ####[facility] [address] [place], [address] MCHC (RBC) [Mass/Vol] 31.4 g/dL Low 32-36 [facility] Comment on above: Performed By: #### L 100.0100, L500.2500 ####[facility] [address] [place], [address] MCV (RBC) [Entitic vol] 88.1 fL Normal 80-94 [facility] Comment on above: Performed By: #### L 100.0100, L500.2500 ####[facility] [address] [place], [address] Monocytes/100 WBC (Bld) 5.7 % Normal 0-10 [facility] Comment on above: Performed By: #### L 100.0100, L500.2500 ####[facility] [address] [place], [address] Neutrophils/100 WBC (Bld) 86.9 % High 47-70 [facility] Comment on above: Performed By: #### L 100.0100, L500.2500 ####[facility] [address] [place], [address] Nucleated RBC (Bld) [#/Vol] 0 10*3/uL Normal 0-5 [facility] Comment on above: Performed By: #### L 100.0100, L500.2500 ####[facility] [address] [place], [address] Platelet mean volume (Bld) [Entitic vol] 10.5 fL Normal 6.2-12.0 [facility] Comment on above: Performed By: #### L 100.0100, L500.2500 ####[facility] [address] [place], [address] Platelets (Bld) [#/Vol] 191 10*3/uL Normal 150-450 [facility] Comment on above: Performed By: #### L 100.0100, L500.2500 ####[facility] [address] [place], [address] RBC (Bld) [#/Vol] 4.96 10*6/uL Normal 4.6-6.2 [facility] Comment on above: Performed By: #### L 100.0100, L500.2500 ####[facility] [address] [place], [address] RDW SD 41.7 fl Normal 35.1-43.9 [facility] Comment on above: Performed By: #### L 100.0100, L500.2500 ####[facility] [address] [place], [address] WBC (Bld) [#/Vol] 17.7 10*3/uL High 4.4-11.0 [facility] Comment on above: Performed By: #### L 100.0100, L500.2500 ####[facility] [address] [place], [address] 12 Lead EKGon 09-05-2024 12 Lead EKG [facility] Cardiovascular Services [address] [place] [address] 12 Lead EKG 09/05/24 0544 MR#: [id number] Acct: [id number] Name: RONY HE Rep #: [id number] : 1985 39 From: Jarad Mendez MD Attending Dr: Dr. Juan Fuller MD Status: ADM IN Ordering Dr: Awais Lawson MD Date: 09/05/24 Location: U Sex: M C Admitted: 09/05/24 Test Reason : PRE OP Blood Pressure : */* mmHG Vent. Rate : 71 BPM Atrial Rate : 71 BPM P-R Int : 164 ms QRS Dur : 108 ms QT Int : 370 ms P-R-T Axes : 43 -9 26 degrees QTcB Int : 402 ms Normal sinus rhythm Incomplete right bundle branch block Borderline ECG When compared with ECG of 01-Jul-2021 09:08, No significant change was found Confirmed by Jarad Mendez ([id number]), deputy editor in chief AUDRA COLEMAN ([id number]) on 09/05/2024 10:03:11 AM Referred By: Confirmed By: Jarad Mendez 09/05/24 1003 Date Jarad Mendez MD CC: Dr. Kati Arshad MD; Dr. Juan Fuller MD; Dr. Awais Lawson MD Signed Normal [facility] Basic Metabolic Profile (BMP )on 09-05-2024 BUN/CRE 16.9 RATIO Normal 10-20 [facility] Comment on above: Performed By: #### L 100.0100, L500.2500 ####[facility] [address] [place], [address] CA,Total 8.1 mg/dL Low 8.5-10.1 [facility] Comment on above: Performed By: #### L 100.0100, L500.2500 ####[facility] [address] [place], [address] Chloride [Moles/Vol] 108 mmol/L High 98-107 [facility] Comment on above: Performed By: #### L 100.0100, L500.2500 ####[facility] [address] [place], [address] CO2 [Moles/Vol] 27.0 mmol/L Normal 21.0-32.0 [facility] Comment on above: Performed By: #### L 100.0100, L500.2500 ####[facility] [address] [place], [address] Creatinine [Mass/Vol] 0.89 mg/dL Normal 0.70-1.30 [facility] Comment on above: Result Comment: The validity of the calculated GFR GFRAA in patients over 70 years has not been determined. Clinical correlation is essential. Performed By: #### L 100.0100, L500.2500 ####[facility] [address] [place], [address] ECRCL 144.50 ml/min Normal [facility] Comment on above: Performed By: #### L 100.0100, L500.2500 ####[facility] [address] [place], [address] EST GFR - AA 122 mL/min Normal >60 [facility] Comment on above: Result Comment: Afri can Filipino GFR Calc Performed By: #### L 100.0100, L500.2500 ####[facility] [address] [place], [address] GAP 3 Low 5-15 [facility] Comment on above: Performed By: #### L 100.0100, L500.2500 ####[facility] [address] [place], [address] GFR/1.73 sq M.predicted among non-blacks MDRD (S/P/Bld) [Vol rate/Area] 101 mL/min/{1.73_m2} Normal >60 [facility] Comment on above: Result Comment: Non- GFR Calc Performed By: #### L 100.0100, L500.2500 ####[facility] [address] [place], [address] Glucose [Mass/Vol] 110 mg/dL High 74-106 [facility] Comment on above: Result Comment: Fast ing Glucose result from 100 to 125 mg/dL suggests IMPAIRED HOMEOSTASIS per A.D.A. criteria. Performed By: #### L 100.0100, L500.2500 ####[facility] [address] [place], [address] Potassium [Moles/Vol] 4.0 mmol/L Normal 3.5-5.1 [facility] Comment on above: Performed By: #### L 100.0100, L500.2500 ####[facility] [address] [place], [address] Sodium [Moles/Vol] 138 mmol/L Normal 136-145 [facility] Comment on above: Performed By: #### L 100.0100, L500.2500 ####[facility] [address] [place], [address] Urea nitrogen [Mass/Vol] 15 mg/dL Normal 7-18 [facility] Comment on above: Performed By: #### L 100.0100, L500.2500 ####[facility] [address] [place], [address] CBC W/Diff, Automatedon 11-0 7-4 Absolute Lymph 2.08 X10 3/uL Normal 0.83-4.51 [facility] Comment on above: Performed By: #### L 100.0100, L500.2500 ####[facility] [address] [place], [address] Absolute Neut 19.2 X10 3/uL High 2.0-7.7 [facility] Comment on above: Performed By: #### L 100.0100, L500.2500 ####[facility] [address] [place], [address] Basophils/100 WBC (Bld) 0.5 % Normal 0-1 [facility] Comment on above: Performed By: #### L 100.0100, L500.2500 ####[facility] [address] [place], [address] Eosinophils/100 WBC (Bld) 0.3 % Normal 0-5 [facility] Comment on above: Performed By: #### L 100.0100, L500.2500 ####[facility] [address] [place], [address] Erythrocyte distribution width (RBC) [Ratio] 13.3 % Normal 11.6-14.6 [facility] Comment on above: Performed By: #### L 100.0100, L500.2500 ####[facility] [address] [place], [address] Hematocrit (Bld) [Volume fraction] 42.8 % Normal 40-54 [facility] Comment on above: Performed By: #### L 100.0100, L500.2500 ####[facility] [address] [place], [address] Hemoglobin (Bld) [Mass/Vol] 13.8 g/dL Normal 13.0-16.5 [facility] Comment on above: Performed By: #### L 100.0100, L500.2500 ####[facility] [address] [place], [address] IG% 1.100 High 0.0-0.9 [facility] Comment on above: Result Comment: IG% - Immature Granulocytes (promyelocytes, myelocytes and metamyelocytes) > 1% indicates that a LEFT SHIFT is Present. Performed By: #### L 100.0100, L500.2500 ####[facility] [address] [place], [address] Lymphocytes/100 WBC (Bld) 9.1 % Low 19-41 [facility] Comment on above: Performed By: #### L 100.0100, L500.2500 ####[facility] [address] [place], [address] MCH (RBC) [Entitic mass] 28.5 pg Normal 27.0-32.0 [facility] Comment on above: Performed By: #### L 100.0100, L500.2500 ####[facility] [address] [place], [address] MCHC (RBC) [Mass/Vol] 32.2 g/dL Normal 32-36 [facility] Comment on above: Performed By: #### L 100.0100, L500.2500 ####[facility] [address], [address] MCV (RBC) [Entitic vol] 88.4 fL Normal 80-94 [facility] Comment on above: Performed By: #### L 100.0100, L500.2500 ####[facility] [address] [place], [address] Monocytes/100 WBC (Bld) 4.7 % Normal 0-10 [facility] Comment on above: Performed By: #### L 100.0100, L500.2500 ####[facility] [address] [place], [address] Neutrophils/100 WBC (Bld) 84.3 % High 47-70 [facility] Comment on above: Performed By: #### L 100.0100, L500.2500 ####[facility] [address] [place], [address] Nucleated RBC (Bld) [#/Vol] 0 10*3/uL Normal 0-5 [facility] Comment on above: Performed By: #### L 100.0100, L500.2500 ####[facility] [address] [place], [address] Platelet mean volume (Bld) [Entitic vol] 11.0 fL Normal 6.2-12.0 [facility] Comment on above: Performed By: #### L 100.0100, L500.2500 ####[facility] [address], [address] Platelets (Bld) [#/Vol] 218 10*3/uL Normal 150-450 [facility] Comment on above: Performed By: #### L 100.0100, L500.2500 ####[facility] [address] [place], [address] RBC (Bld) [#/Vol] 4.84 10*6/uL Normal 4.6-6.2 [facility] Comment on above: Performed By: #### L 100.0100, L500.2500 ####[facility] [address] [place], [address] RDW SD 42.9 fl Normal 35.1-43.9 [facility] Comment on above: Performed By: #### L 100.0100, L500.2500 ####[facility] [address] [place], [address] WBC (Bld) [#/Vol] 22.7 10*3/uL High 4.4-11.0 [facility] Comment on above: Performed By: #### L 100.0100, L500.2500 ####[facility] [address] [place], [address] H AND P Exam - Surgicalon H&P Exam - Surgical [facility] Medical Records Department [address] [place] [address] H P Exam - Surgical 09/05/24 0058 MR#: [id number] Acct: [id number] Name: RONY HE Rep #: [id number] : 1985 39 From: Juan Fuller MD PCP: Dr. Kati Arshad MD Status:[facility] ER Location: ED HPI - General HPI Narrative RONY HE, is a 39 M who presents with abdominal pain. Patient reports he has had several bouts of diverticulitis over the last year. He had a colonoscopy by myself in February of this year which was normal besides a polyp in the sigmoid colon and anal fissure. Patient reports since that colonoscopy he has had 3 episodes of diverticulitis. None of them required hospitalization. He says this pain has been going on for several days. He denies nausea or vomiting. [facility] Medical History Loss of hearing Wears glasses Marijuana use Alcohol use Thyroid disease Restless legs DDD (degenerative disc disease), lumbar Former smoker CPAP (continuous positive airway pressure) dependence Shortness of breath on exertion History of pain when walking Cardiology follow-up encounter History of stress test Pain Diverticulitis Back problem Allergies Impacted cerumen, left ear Acute maxillary sinusitis, unspecified COPD (chronic obstructive pulmonary disease) Tobacco dependence Essential hypertension Contact dermatitis Morbid obesity Sleep apnea GERD (gastroesophageal reflux disease) Dysphagia Numbness and tingling History of back problems Home Medications ???Medication ???Instructions ???Recorded ???Last Taken ???Type Diltiazem 2% / Lidocaine 5% #1 ea 03/29/24 Unknown Rx ointment (compound) levothyroxine 75 mcg tablet 75 mcg PO DAILY #30 tabs 05/20/24 Unknown Rx omeprazole 40 mg capsule,delayed 40 mg PO DAILY PRN PRN GERD #90 05/20/24 Unknown Rx release caps Allergy/AdvReac Type Severity Reaction Status Date / Time No Known Allergies Allergy Verified 09/04/24 20:51 Family History Father Alcohol abuse Heart disease Grandmother Diabetes Grandmother Heart disease Diabetes Bowel disease doesn't know what kind Hypertension Other Arthritis Cervical cancer Gastrointestinal problem Surgical History History of selective injection of anesthetic agent around lumbar nerve root History of placement of ear tubes Social History household members: spouse and children current occupational status: employed current occupation: [employer] at [employer] facility Smoking Status: Former smoker quit date: 05/30/22 pack-years: 56 Electronic Cigarette Use: with nicotine quit status: has quit before alcohol intake: current alcohol intake frequency: holidays/special occasions only substance use type: does not use caffeine: Yes what type of physical activity do you participate in: walking frequency: does not exercise do you feel safe at home: Yes ROS Constitutional Constitutional: Denies anorexia, chills, fatigue or fever(s) Eyes Eyes: Denies blurry vision ENT HEENT: Denies abnormal hearing Cardiovascular Cardiovascular: Denies chest pain Respiratory/Chest Respiratory/Chest: Denies cough or dyspnea Gastrointestinal Gastrointestinal: Reports abdominal pain and rectal bleeding; Denies melena, nausea or vomiting Genitourinary Genitourinary: Denies change in urinary stream Musculoskeletal Musculoskeletal: Denies abnormal gait Integumentary Integumentary: Denies jaundice or new lesions Neurologic Neurologic: Denies abnormal gait Psychiatric Psychiatric: Denies anxiety Endocrine Endocrinology: Denies flushing Hematologic/Lymphat ic Hematologic/Lymphat ic: Denies easy bleeding or easy bruising Vital Signs Vital Signs Vital Signs: 09/04/24 20:51 09/04/24 20:51 09/04/24 23:15 Temperature 98.3 F 98.3 F 98.7 F Temperature Source Oral Oral Oral Pulse Rate 74 74 78 Respiratory Rate 16 16 18 Blood Pressure 124/78 H 124/78 H Blood Pressure Mean 93 93 Pulse Ox 98 98 96 Oxygen Delivery Method Room Air Room Air Room Air Weight Weight: 278 lb 14.4 oz Body Mass Index (BMI) 42.4 Physical Exam Const oriented x3 and no apparent distress Resp normal respiratory effort Cardio regular rate and regular rhythm GI soft to palpation Palpation: tender LLQ and RLQ Extremity normal to inspection Results Lab / Micro Data 09/04/24 22:17 09/04/24 22:17 Labs: Laboratory Results - last 24 hr 09/04/24 22:17: WBC 21.4 H, RBC 5.35, Hgb 14.8, Hct 47.1, MCV 88.0, MCH 27.7, MCHC 31.4 L, RDW Std Deviation 42.0, (more content not included)... Normal [facility] Abdomen/Pelvis W IV Cont ONL Yon 09-04-2024 Abdomen/Pelvis W IV Cont ONLY [facility] Imaging Services [address] [place] [address] Abdomen/Pelvis W IV Cont ONLY MR#: [id number] Acct: [id number] Name: RONY HE Rep #: [id number] : 1985 M 39 From: Lawrence moeller DO PCP: Dr. Kati Arshad MD Status: REG ER Study: Abdomen/Pelvis W IV Cont ONLY Date of Exam: Exam# [id number] Ordering Dr: Brian Vaughan DO ADDENDUM by Dr. Lawrence Constantino DO on 09/04/24 at 2352 [id number] EXAM: CT ABDOMEN AND PELVIS WITH INTRAVENOUS CONTRAST CLINICAL INDICATION: RLQ pain TECHNIQUE: Helically acquired images were obtained of the abdomen and pelvis with intravenous contrast. This CT exam was performed using one or more of the following dose reduction techniques: automated exposure control, adjustment of the mA and/or kV according to patient size, and/or use of iterative reconstruction technique. CONTRAST: IV 100mL Isovue-370 COMPARISON: CT abdomen and pelvis, 01/16/2024 FINDINGS: LOWER THORAX: No significant abnormality. Lung bases are clear. No cardiomegaly. No significant pericardial effusion. ABDOMEN: LIVER: No significant abnormality. Homogeneous. No focal mass. GALLBLADDER AND BILE DUCTS: No significant abnormality. No calcified gallstones. No gallbladder distention or wall edema. No intra- or extrahepatic biliary ductal dilation. PANCREAS: No significant abnormality. No focal cystic or solid mass. SPLEEN: No significant abnormality. Normal size without focal cystic or solid mass. ADRENALS: No significant abnormality. No nodules. KIDNEYS AND URETERS: No significant abnormality. Normal renal size and position. No hydronephrosis. STOMACH AND BOWEL: There is marked wall thickening of the sigmoid colon with adjacent inflammatory changes and a small pericolonic abscess measuring approximately 2 cm. Minimal colonic diverticulosis. No stomach or bowel distention. PELVIS: APPENDIX: No evidence of acute appendicitis. BLADDER: No significant abnormality. REPRODUCTIVE: Normal as visualized. No mass. ABDOMEN and PELVIS: INTRAPERITONEAL SPACE: There is small volume pneumoperitoneum. Strandy opacities in the right lower quadrant mesentery. No ascites or other fluid collection. BONES/JOINTS: No significant abnormality. No suspicious lytic or blastic abnormality. SOFT TISSUES: No significant abnormality. No discrete abdominal or pelvic wall hernia. VASCULATURE: No significant abnormality. Abdominal aorta is non-dilated. LYMPH NODES: No significant abnormality. No enlarged lymph nodes. 09/04/24 2352 Date cc: Dr. Kati Arshad MD; Brian Vaughan DO * Signed ADDENDUM by Dr. Lawrence Constantino DO on 09/04/[address]/Abdomen/Pelvis W IV Cont ONLY IMPRESSION: There is small volume pneumoperitoneum. This is secondary to perforated likely acute diverticulitis (rather than malignancy) further complicated by a small pericolonic abscess measuring approximately 2 cm. If definitive management is not performed, recommend direct visualization after resolution of acute symptoms. N.B. : The above Results were Read Back by Lawrence Constantino DO to Brian Vaughan DO, and understanding confirmed on 09/04/2024 23:57:34 (ET). Electronically Signed: Lawrence Constantino DO at 23:52 EST Reading Location ID and State: [facility] / [place] Tel , Service support , 09/05/24 0004 Date cc: Dr. Kati Arshad MD; Brian Vaughan DO * Signed We are attempting to reach an attending provider to discuss findings. An addendum with communication details will be sent when the communication is complete. [id number] EXAM: CT ABDOMEN AND PELVIS WITH INTRAVENOUS CONTRAST CLINICAL INDICATION: RLQ pain TECHNIQUE: Helically acquired images were obtained of the abdomen and pelvis with intravenous contrast. This CT exam was performed using one or more of the following dose reduction techniques: automated exposure control, adjustment of the mA and/or kV according to patient size, and/or use of iterative reconstruction technique. CONTRAST: IV 100mL Isovue-370 COMPARISON: CT abdomen and pelvis, 01/16/2024 FINDINGS: LOWER THORAX: No significant abnormality. Lung bases are clear. No cardiomegaly. No significant pericardial effusion. ABDOMEN: LIVER: No significant abnormality. Homogeneous. No focal mass. GALLBLADDER AND BILE DUCTS: No significant abnormality. No calcified gallstones. No gallbladder distention or wall edema. No intra- or extrahepatic biliary ductal dilation. PANCREAS: No significant abnormality. No focal cystic or solid mass. SPLEEN: No significant abnormality. Normal size without focal cystic or solid mass. (more content not included)... Normal [facility] CBC W/Diff, Automatedon 11-0 6-2023 Absolute Lymph 1.09 X10 3/uL Normal 0.83-4.51 [facility] Comment on above: Performed By: #### L 100.0100 #### [facility] [address] [place], [address] Absolute Neut 19.3 X10 3/uL High 2.0-7.7 [facility] Comment on above: Performed By: #### L 100.0100 #### [facility] [address] [place], [address] Basophils/100 WBC (Bld) 0.5 % Normal 0-1 [facility] Comment on above: Performed By: #### L 100.0100 #### [facility] [address] [place], [address] Eosinophils/100 WBC (Bld) 0.3 % Normal 0-5 [facility] Comment on above: Performed By: #### L 100.0100 #### [facility] [address] [place], [address] Erythrocyte distribution width (RBC) [Ratio] 13.1 % Normal 11.6-14.6 [facility] Comment on above: Performed By: #### L 100.0100 #### [facility] [address] [place], [address] Hematocrit (Bld) [Volume fraction] 47.1 % Normal 40-54 [facility] Comment on above: Performed By: #### L 100.0100 #### [facility] [address] [place], [address] Hemoglobin (Bld) [Mass/Vol] 14.8 g/dL Normal 13.0-16.5 [facility] Comment on above: Performed By: #### L 100.0100 #### [facility] [address] [place], [address] IG% 0.500 Normal 0.0-0.9 [facility] Comment on above: Result Comment: IG% - Immature Granulocytes (promyelocytes, myelocytes and metamyelocytes) > 1% indicates that a LEFT SHIFT is Present. Performed By: #### L 100.0100 #### [facility] [address] [place], [address] Lymphocytes/100 WBC (Bld) 5.1 % Low 19-41 [facility] Comment on above: Performed By: #### L 100.0100 #### [facility] [address] [place], [address] MCH (RBC) [Entitic mass] 27.7 pg Normal 27.0-32.0 [facility] Comment on above: Performed By: #### L 100.0100 #### [facility] [address] [place], [address] MCHC (RBC) [Mass/Vol] 31.4 g/dL Low 32-36 [facility] Comment on above: Performed By: #### L 100.0100 #### [facility] [address] [place], [address] MCV (RBC) [Entitic vol] 88.0 fL Normal 80-94 [facility] Comment on above: Performed By: #### L 100.0100 #### [facility] [address] [place], [address] Monocytes/100 WBC (Bld) 3.6 % Normal 0-10 [facility] Comment on above: Performed By: #### L 100.0100 #### [facility] [address] [place], [address] Neutrophils/100 WBC (Bld) 90.0 % High 47-70 [facility] Comment on above: Performed By: #### L 100.0100 #### [facility] [address] [place], [address] Nucleated RBC (Bld) [#/Vol] 0 10*3/uL Normal 0-5 [facility] Comment on above: Performed By: #### L 100.0100 #### [facility] [address] [place], [address] Platelet mean volume (Bld) [Entitic vol] 10.4 fL Normal 6.2-12.0 [facility] Comment on above: Performed By: #### L 100.0100 #### [facility] [address] [place], [address] Platelets (Bld) [#/Vol] 225 10*3/uL Normal 150-450 [facility] Comment on above: Performed By: #### L 100.0100 #### [facility] [address] [place], [address] RBC (Bld) [#/Vol] 5.35 10*6/uL Normal 4.6-6.2 [facility] Comment on above: Performed By: #### L 100.0100 #### [facility] [address] [place], [address] RDW SD 42.0 fl Normal 35.1-43.9 [facility] Comment on above: Performed By: #### L 100.0100 #### [facility] [address] [place], [address] WBC (Bld) [#/Vol] 21.4 10*3/uL High 4.4-11.0 [facility] Comment on above: Performed By: #### L 100.0100 #### [facility] [address] [place], [address] Comprehensive Metabolic Prof ilon 11-06-2024 Albumin [Mass/Vol] 3.8 g/dL Normal 3.2-5.0 [facility] Comment on above: Performed By: #### L 100.0100 #### [facility] [address] [place], [address] Albumin/Globulin [Mass ratio] 1.1 {ratio} Normal 0.9-2.4 [facility] Comment on above: Performed By: #### L 100.0100 #### [facility] [address] [place], [address] ALK P 59 U/L Normal 45-117 [facility] Comment on above: Performed By: #### L 100.0100 #### [facility] [address] [place], [address] ALT [Catalytic activity/Vol] 28 U/L Normal 16-61 [facility] Comment on above: Performed By: #### L 100.0100 #### [facility] [address] [place], [address] AST [Catalytic activity/Vol] 17 U/L Normal 15-37 [facility] Comment on above: Performed By: #### L 100.0100 #### [facility] [address] [place], [address] Bilirubin [Mass/Vol] 1.60 mg/dL High 0.20-1.00 [facility] Comment on above: Result Comment: For patients on eltrombopag therapy, use of Dimension [place] TBIL is not recommended. Performed By: #### L 100.0100 #### [facility] [address] [place], [address] BUN/CRE 20.4 RATIO High 10-20 [facility] Comment on above: Performed By: #### L 100.0100 #### [facility] [address] [place], [address] CA,Total 8.8 mg/dL Normal 8.5-10.1 [facility] Comment on above: Performed By: #### L 100.0100 #### [facility] [address] [place], [address] Chloride [Moles/Vol] 108 mmol/L High 98-107 [facility] Comment on above: Performed By: #### L 100.0100 #### [facility] [address] [place], [address] CO2 [Moles/Vol] 24.0 mmol/L Normal 21.0-32.0 [facility] Comment on above: Performed By: #### L 100.0100 #### [facility] [address] [place], [address] Creatinine [Mass/Vol] 0.93 mg/dL Normal 0.70-1.30 [facility] Comment on above: Result Comment: The validity of the calculated GFR GFRAA in patients over 70 years has not been determined. Clinical correlation is essential. Performed By: #### L 100.0100 #### [facility] [address] [place], [address] ECRCL 138.23 ml/min Normal [facility] Comment on above: Performed By: #### L 100.0100 #### [facility] [address] [place], [address] EST GFR - AA 116 mL/min Normal >60 [facility] Comment on above: Result Comment: Afri can Filipino GFR Calc Performed By: #### L 100.0100 #### [facility] [address] [place], [address] GAP 5 Normal 5-15 [facility] Comment on above: Performed By: #### L 100.0100 #### [facility] [address] [place], [address] GFR/1.73 sq M.predicted among non-blacks MDRD (S/P/Bld) [Vol rate/Area] 96 mL/min/{1.73_m2} Normal >60 [facility] Comment on above: Result Comment: Non- GFR Calc Performed By: #### L 100.0100 #### [facility] [address] [place], [address] Globulin (S) [Mass/Vol] 3.5 g/dL Normal 2.2-4.2 [facility] Comment on above: Performed By: #### L 100.0100 #### [facility] [address] [place], [address] Glucose [Mass/Vol] 125 mg/dL High 74-106 [facility] Comment on above: Result Comment: Fast ing Glucose result from 100 to 125 mg/dL suggests IMPAIRED HOMEOSTASIS per A.D.A. criteria. Performed By: #### L 100.0100 #### [facility] [address] [place], [address] Potassium [Moles/Vol] 4.1 mmol/L Normal 3.5-5.1 [facility] Comment on above: Performed By: #### L 100.0100 #### [facility] [address] [place], [address] Sodium [Moles/Vol] 137 mmol/L Normal 136-145 [facility] Comment on above: Performed By: #### L 100.0100 #### [facility] [address] [place], [address] T PROT 7.3 g/dL Normal 6.4-8.2 [facility] Comment on above: Performed By: #### L 100.0100 #### [facility] [address] [place], [address] Urea nitrogen [Mass/Vol] 19 mg/dL High 7-18 [facility] Comment on above: Performed By: #### L 100.0100 #### [facility] [address] [place], [address] Emergency Department Summary on 09-04-2024 Emergency Department Summary [facility] Medical Records Department [address] [place] [address] Emergency Department Summary 09/04/24 MR#: [id number] Acct: [id number] Name: RONY HE Rep #: [id number] : 1985 39 From: Brian Vaughan DO PCP: Dr. Kati Arshad MD Status:ADM IN Location: [place] [address] HPI History of Present Illness Chief Complaint: Abd Pain Informant: patient and spouse/S.O. Narrative Narrative: Patient is a 39-year-old male with past medical history of hypertension GERD and diverticulosis. He states around 4 PM today he noticed some pain left lower abdomen. He states that it felt more intense than his previous bouts of diverticulitis. As the day progressed he noticed the pain then traveled across the lower abdomen and localized more to the right lower quadrant. He states that he had nausea without vomiting. He reports that the pain seems to have persisted and worsened and as it feels different than his past bouts of diverticulitis he presents for evaluation. [facility] Medical History Loss of hearing Wears glasses Marijuana use Alcohol use Thyroid disease Restless legs DDD (degenerative disc disease), lumbar Former smoker CPAP (continuous positive airway pressure) dependence Shortness of breath on exertion History of pain when walking Cardiology follow-up encounter History of stress test Pain Diverticulitis Back problem Allergies Impacted cerumen, left ear Acute maxillary sinusitis, unspecified COPD (chronic obstructive pulmonary disease) Tobacco dependence Essential hypertension Contact dermatitis Morbid obesity Sleep apnea GERD (gastroesophageal reflux disease) Dysphagia Numbness and tingling History of back problems Home Medications ???Medication ???Instructions ???Recorded ???Last Taken ???Type Diltiazem 2% / Lidocaine 5% #1 ea 03/29/24 Unknown Rx ointment (compound) levothyroxine 75 mcg tablet 75 mcg PO DAILY #30 tabs 05/20/24 Unknown Rx omeprazole 40 mg capsule,delayed 40 mg PO DAILY PRN PRN GERD #90 07/22/24 Unknown Rx release caps Allergy/AdvReac Type Severity Reaction Status Date / Time No Known Allergies Allergy Verified 09/04/24 20:51 Family History Father Alcohol abuse Heart disease Grandmother Diabetes Grandmother Heart disease Diabetes Bowel disease doesn't know what kind Hypertension Other Arthritis Cervical cancer Gastrointestinal problem Surgical History History of selective injection of anesthetic agent around lumbar nerve root History of placement of ear tubes Social History household members: spouse and children current occupational status: employed 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 Smoking Status: Former smoker quit date: 05/30/22 pack-years: 56 Electronic Cigarette Use: with nicotine quit status: has quit before alcohol intake: current alcohol intake frequency: holidays/special occasions only substance use type: does not use caffeine: Yes what type of physical activity do you participate in: walking frequency: does not exercise do you feel safe at home: Yes ROS ROS ED Constitutional Constitutional ED: Denies chills or fever(s) Eyes Eyes: Denies change in vision ENT ENT ED: Denies sore throat Cardiovascular Cardiovascular: Denies chest pain Respiratory/Chest Respiratory/Chest: Denies cough or dyspnea Gastrointestinal Gastrointestinal: Reports abdominal pain and nausea; Denies diarrhea or vomiting Genitourinary Genitourinary ED: Denies dysuria Musculoskeletal Musculoskeletal: Denies back pain or myalgias Integumentary Denies rash Neurologic Neurologic: Denies headache(s) Hematologic/Lymphat ic Hematologic/Lymphat ic: Denies easy bleeding or easy bruising EXAM Physical Exam Const Vital Signs: 09/04/24 20:51 09/04/24 20:51 09/04/24 23:15 Temperature 98.3 F 98.3 F 98.7 F Temperature Source Oral Oral Oral Pulse Rate 74 74 78 Respiratory Rate 16 16 18 Blood Pressure 124/78 H 124/78 H Blood Pressure Mean 93 93 Pulse Ox 98 98 96 Oxygen Delivery Method Room Air Room Air Room Air 09/05/24 00:59 Temperature 99.3 F H Temperature Source Pulse Rate 77 Respiratory Rate 20 H Blood Pressure 130/72 H Blood Pressure Mean 91 Pulse Ox 100 Oxygen Delivery Method Positive well nourished, well developed and obese General Appearance ED: well developed; Negative for pallor Nutritional Appearance: obese HEENT HEENT Narrative: Normocephalic atraumatic Eyes PERRL and EOMs intact bilaterally General Eye (more content not included)... Normal [facility] Lactic Acidon 09-04-2024 Lactate [Moles/Vol] 1.1 mmol/L Normal 0.4-1.9 [facility] Comment on above: Order Comment: Y Performed By: #### L 503.6005 #### [facility] [address] [place], [place], [address] Lipaseon 09-04-2024 Lipase [Catalytic activity/Vol] 39 U/L Normal 13-75 [facility] Comment on above: Result Comment: Raj reid note: LIPASE revised reference range effective 23. New Lipase methodology. Expected to produce lower values than the previous assay method. NEW Reference Range: 13 - 75 U/L Performed By: #### L 100.0100 #### [facility] [address] [place], [place], [address] Urinalysis, Completeon 09-04 BACTERIA RARE Normal None Seen [facility] Comment on above: Order Comment: EVELYN CTOR TO SPECIFY Performed By: #### L 400.0001 #### [facility] [address] [place], [address] EPI,SQUAMOUS 0-5 SEEN Normal 0-5 [facility] Comment on above: Order Comment: EVELYN CTOR TO SPECIFY Performed By: #### L 400.0001 #### [facility] [address] [place], [address] RBC 0-5 SEEN Normal 0-5 [facility] Comment on above: Order Comment: EVELYN CTOR TO SPECIFY Performed By: #### L 400.0001 #### [facility] [address] [place], [address] WBC 0-5 SEEN Normal 0-5 [facility] Comment on above: Order Comment: COLLE CTOR TO SPECIFY Performed By: #### L 400.0001 #### [facility] [address] [place], [address] Mucus Ql (Urine sed) 0 SEEN Normal [facility] Comment on above: Order Comment: COLLE CTOR TO SPECIFY Performed By: #### L 400.0001 #### [facility] [address] [place], [address] Thyroidon 06-06-2024 Thyroid [facility] Imaging Services [address] [place] [place], [place] [address] Thyroid MR#: [id number] Acct: [id number] Name: RONY HE Rep #: [id number] : 1985 M 39 From: Demond travis MD PCP: Dr. Kati Arshad MD Status: REG CLI Study: Thyroid Date of Exam: 06/06/24 Exam# [id number] Ordering Dr: Courtney Gleason METHODS STUDY ANALYST-C [id number] INDICATION: nodule vs lymph node EXAMINATION: Ultrasound US Thyroid (eg thyroid, parathyroid, parotid) TECHNIQUE: Weaver scale and color doppler imaging was performed of the thyroid gland. COMPARISON: No relevant prior comparison study available FINDINGS: RIGHT THYROID LOBE: 3.9 x 1.2 x 1.7 cm, volume 4.1 mL. Parenchyma: The gland echotexture is homogenous. Thyroid vascularity is normal. LEFT THYROID LOBE: 3.7 x 1 x 1.5 cm, volume 2.9 mL. Parenchyma: The gland echotexture is homogenous. Thyroid vascularity is normal. ISTHMUS: 0.3 cm in maximum AP dimension. Estimated total number of nodules greater than equal to 1 cm: 0. Atomic Welder nodules are described as follows: LYMPH NODES: Dominant lymph node in the left neck lateral to the thyroid measuring 1.9 x 1.1 x 0.5 cm. Normal morphology. US/Thyroid IMPRESSION: Normal thyroid ultrasound. Mildly prominent left cervical lymph node. Normal morphology. Electronically Signed: Demond Betancourt MD at 13:43 EDT Reading Location ID and State: [facility] / [place] Tel , Service support , CC: PRASHANT Gleason; Dr. Kati Arshad MD Contact Lens Manufacturer: Signed Normal [facility] CBC W/Diff, Automatedon 04-30 Absolute Lymph 3.28 X10 3/uL Normal 0.83-4.51 [facility] Comment on above: Performed By: #### L 100.0100, L500.2500 #### [facility] [address] [place], [address] Absolute Neut 8.9 X10 3/uL High 2.0-7.7 [facility] Comment on above: Performed By: #### L 100.0100, L500.2500 #### [facility] [address] [place], [address] Basophils/100 WBC (Bld) 1.1 % High 0-1 [facility] Comment on above: Performed By: #### L 100.0100, L500.2500 #### [facility] [address] [place], [address] Eosinophils/100 WBC (Bld) 3.0 % Normal 0-5 [facility] Comment on above: Performed By: #### L 100.0100, L500.2500 #### [facility] [address] [place], [address] Erythrocyte distribution width (RBC) [Ratio] 13.8 % Normal 11.6-14.6 [facility] Comment on above: Performed By: #### L 100.0100, L500.2500 #### [facility] [address] [place], [address] Hematocrit (Bld) [Volume fraction] 45.2 % Normal 40-54 [facility] Comment on above: Performed By: #### L 100.0100, L500.2500 #### [facility] [address] [place], [address] Hemoglobin (Bld) [Mass/Vol] 14.3 g/dL Normal 13.0-16.5 [facility] Comment on above: Performed By: #### L 100.0100, L500.2500 #### [facility] [address] [place], [address] IG% 0.400 Normal 0.0-0.9 [facility] Comment on above: Result Comment: IG% - Immature Granulocytes (promyelocytes, myelocytes and metamyelocytes) > 1% indicates that a LEFT SHIFT is Present. Performed By: #### L 100.0100, L500.2500 #### [facility] [address] [place], [address] Lymphocytes/100 WBC (Bld) 23.9 % Normal 19-41 [facility] Comment on above: Performed By: #### L 100.0100, L500.2500 #### [facility] [address] [place], [address] MCH (RBC) [Entitic mass] 27.7 pg Normal 27.0-32.0 [facility] Comment on above: Performed By: #### L 100.0100, L500.2500 #### [facility] [address] [place], [address] MCHC (RBC) [Mass/Vol] 31.6 g/dL Low 32-36 [facility] Comment on above: Performed By: #### L 100.0100, L500.2500 #### [facility] [address] [place], [address] MCV (RBC) [Entitic vol] 87.6 fL Normal 80-94 [facility] Comment on above: Performed By: #### L 100.0100, L500.2500 #### [facility] [address] [place], [address] Monocytes/100 WBC (Bld) 6.4 % Normal 0-10 [facility] Comment on above: Performed By: #### L 100.0100, L500.2500 #### [facility] [address] [place], [address] Neutrophils/100 WBC (Bld) 65.2 % Normal 47-70 [facility] Comment on above: Performed By: #### L 100.0100, L500.2500 #### [facility] [address] [place], [address] Nucleated RBC (Bld) [#/Vol] 0 10*3/uL Normal 0-5 [facility] Comment on above: Performed By: #### L 100.0100, L500.2500 #### [facility] [address] [place], [address] Platelet mean volume (Bld) [Entitic vol] 10.6 fL Normal 6.2-12.0 [facility] Comment on above: Performed By: #### L 100.0100, L500.2500 #### [facility] [address] [place], [address] Platelets (Bld) [#/Vol] 241 10*3/uL Normal 150-450 [facility] Comment on above: Performed By: #### L 100.0100, L500.2500 #### [facility] [address] [place], [address] RBC (Bld) [#/Vol] 5.16 10*6/uL Normal 4.6-6.2 [facility] Comment on above: Performed By: #### L 100.0100, L500.2500 #### [facility] [address] [place], [address] RDW SD 44.3 fl High 35.1-43.9 [facility] Comment on above: Performed By: #### L 100.0100, L500.2500 #### [facility] [address] [place], [address] WBC (Bld) [#/Vol] 13.7 10*3/uL High 4.4-11.0 [facility] Comment on above: Performed By: #### L 100.0100, L500.2500 #### [facility] [address] [place], [address] Comprehensive Metabolic Prof ilon 05-20-2024 Albumin [Mass/Vol] 3.6 g/dL Normal 3.2-5.0 [facility] Comment on above: Performed By: #### L 100.0100, L500.2500 #### [facility] [address] [place], [address] Albumin/Globulin [Mass ratio] 0.9 {ratio} Normal 0.9-2.4 [facility] Comment on above: Performed By: #### L 100.0100, L500.2500 #### [facility] [address] [place], [address] ALK P 58 U/L Normal 45-117 [facility] Comment on above: Performed By: #### L 100.0100, L500.2500 #### [facility] [facility] [address] [place], [address] ALT [Catalytic activity/Vol] 31 U/L Normal 16-61 [facility] Comment on above: Performed By: #### L 100.0100, L500.2500 #### [facility] [address] [place], [address] AST [Catalytic activity/Vol] 19 U/L Normal 15-37 [facility] Comment on above: Performed By: #### L 100.0100, L500.2500 #### [facility] [address] [place], [address] Bilirubin [Mass/Vol] 0.50 mg/dL Normal 0.20-1.00 [facility] Comment on above: Result Comment: For patients on eltrombopag therapy, use of Dimension [place] TBIL is not recommended. Performed By: #### L 100.0100, L500.2500 #### [facility] [address] [place], [address] BUN/CRE 15.0 RATIO Normal 10-20 [facility] Comment on above: Performed By: #### L 100.0100, L500.2500 #### [facility] [address] [place], [address] CA,Total 8.9 mg/dL Normal 8.5-10.1 [facility] Comment on above: Performed By: #### L 100.0100, L500.2500 #### [facility] [address] [place], [address] Chloride [Moles/Vol] 107 mmol/L Normal 98-107 [facility] Comment on above: Performed By: #### L 100.0100, L500.2500 #### [facility] [address] [place], [address] CO2 [Moles/Vol] 27.0 mmol/L Normal 21.0-32.0 [facility] Comment on above: Performed By: #### L 100.0100, L500.2500 #### [facility] [address] [place], [address] Creatinine [Mass/Vol] 1.00 mg/dL Normal 0.70-1.30 [facility] Comment on above: Result Comment: The validity of the calculated GFR GFRAA in patients over 70 years has not been determined. Clinical correlation is essential. Performed By: #### L 100.0100, L500.2500 #### [facility] [address] [place], [address] EST GFR - AA 107 mL/min Normal >60 [facility] Comment on above: Result Comment: Afri can Filipino GFR Calc Performed By: #### L 100.0100, L500.2500 #### [facility] [address] [place], [address] GAP 5 Normal 5-15 [facility] Comment on above: Performed By: #### L 100.0100, L500.2500 #### [facility] [address] [place], [address] GFR/1.73 sq M.predicted among non-blacks MDRD (S/P/Bld) [Vol rate/Area] 88 mL/min/{1.73_m2} Normal >60 [facility] Comment on above: Result Comment: Non- GFR Calc Performed By: #### L 100.0100, L500.2500 #### [facility] [address] [place], [address] Globulin (S) [Mass/Vol] 3.9 g/dL Normal 2.2-4.2 [facility] Comment on above: Performed By: #### L 100.0100, L500.2500 #### [facility] [address] [place], [address] Glucose [Mass/Vol] 96 mg/dL Normal 74-106 [facility] Comment on above: Performed By: #### L 100.0100, L500.2500 #### [facility] [address] [place], [address] Potassium [Moles/Vol] 4.0 mmol/L Normal 3.5-5.1 [facility] Comment on above: Performed By: #### L 100.0100, L500.2500 #### [facility] [address] [place], [address] Sodium [Moles/Vol] 139 mmol/L Normal 136-145 [facility] Comment on above: Performed By: #### L 100.0100, L500.2500 #### [facility] [address] [place], [address] T PROT 7.5 g/dL Normal 6.4-8.2 [facility] Comment on above: Performed By: #### L 100.0100, L500.2500 #### [facility] [address] [place], [address] Urea nitrogen [Mass/Vol] 15 mg/dL Normal 7-18 [facility] Comment on above: Performed By: #### L 100.0100, L500.2500 #### [facility] [address] [place], [address] Internal Medicine Office Vis iton 05-20-2024 Internal Medicine Office Visit [facility] [address] [place] [address] [place] [address] OFFICE VISIT Date of Service: 05/20/24 MR#: [id number] Acct: [id number] Name: RONY HE Rep #: [id number] : 1985 Provider: PRASHANT bateman Age/Sex: 39/M Location: [facility] Status: Signed Intake Vital Signs 11/20/23 15:28 03/29/24 06:39 05/20/24 15:31 Height 5 ft 8 in 5 ft 8 in 5 ft 8 in Weight: 282 lb BMI 42.8 BP 134/82 H Blood Pressure Location Lt brachial Position Sitting Respiration 16 Pulse 80 Pulse Source Monitor Temp 98.3 F Temp Source Temporal Pulse Oximetry (%) 98 Oxygen Delivery Method room air Intake Visit Reasons: 6 M FU Advanced Practice Professional Required: No Is patient in pain?: No Allergies No Known Allergies Allergy (Verified 05/20/24 15:23) Medications ???Medication ???Instructions ???Recorded ???Confirmed ???Type psyllium husk 3.4 gram/5.4 gram 1 tbsp PO DAILY PRN PRN 03/28/24 05/20/24 History oral powder (Metamucil) constipation Diltiazem 2% / Lidocaine 5% #1 ea 03/29/24 05/20/24 Rx ointment (compound) levothyroxine 75 mcg tablet 75 mcg PO DAILY #30 tabs 05/20/24 05/20/24 Rx omeprazole 40 mg capsule,delayed 40 mg PO DAILY PRN PRN GERD #90 05/20/24 05/20/24 Rx release caps Nurse's Note: Is wanting a script for omeprazole qd as he has needed it a lot more frequently. [facility] Medical History (Updated 05/20/24 @ 17:22 by Courtney Gleason NP-C) Loss of hearing Wears glasses Marijuana use Alcohol use Thyroid disease Restless legs DDD (degenerative disc disease), lumbar Former smoker CPAP (continuous positive airway pressure) dependence Shortness of breath on exertion History of pain when walking Cardiology follow-up encounter History of stress test Pain Diverticulitis Back problem Allergies Impacted cerumen, left ear Acute maxillary sinusitis, unspecified COPD (chronic obstructive pulmonary disease) Tobacco dependence Essential hypertension Contact dermatitis Morbid obesity Sleep apnea GERD (gastroesophageal reflux disease) Dysphagia Numbness and tingling History of back problems Surgical History History of selective injection of anesthetic agent around lumbar nerve root History of placement of ear tubes Family History Father Alcohol abuse Heart disease Grandmother Diabetes Grandmother Heart disease Diabetes Bowel disease doesn't know what kind Hypertension Other Arthritis Cervical cancer Gastrointestinal problem Social History household members: spouse and children current occupational status: employed 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 He has a past medical history of hypothyroidism. He reports he takes levothyroxine in the morning but has been taking it with omeprazole in the past. He denies any symptoms of hyper/hypothyroidis m. He did quit smoking around November 2023. He states he still has cravings but has not used a cigarette since. His past medical history of COPD, currently not on any medications. He denies any recent flareups, dyspnea, wheezing, or chronic cough. He has past medical history of obstructive sleep apnea. He does not utilize a machine as he did not tolerate it. He does well with adjusting the head of his bed. He has past medical history of hypertension, not currently on medications. He does monitor his blood pressure at home and reports it averages around 120s over 70s???80s. Additionally has a past medical history of GERD. He recently ran out of of his omeprazole prescription. He reports over the past few weeks he has noticed increased GERD symptoms which include an acidic taste to his mouth, frequent belching, occasional esophageal burning after eating and when lying down. He does not monitor his diet for GERD provoking foods. He denies dysphagia, weight loss, abdominal pain, change in bowel habits. He has a past medical history of rectal bleeding, he did have a colonoscopy which demonstrated 1 polyp that was removed and benign, as well as an anal fissure and diverticulosis. He received topical treatment for anal fissure and this res (more content not included)... Normal [facility] Lipid Profileon 05-20-2024 Cholesterol [Mass/Vol] 160 mg/dL Normal 200 [facility] Comment on above: Result Comment: <200 mg/dL Desirable 200-240 mg/dL Borderline >240 mg/dL High Risk Performed By: #### L 100.0100, L500.2500 #### [facility] [address] [place], [address] Cholesterol in HDL [Mass/Vol] 55 mg/dL Normal [facility] Comment on above: Result Comment: The drugs N-Acetylcysteine and Metamizole may falsely depress this assay. Reference Range HDL <40 mg/dL Low HDL Cholesterol HDL >or= 60 mg/dL High HDL Cholesterol Performed By: #### L 100.0100, L500.2500 #### [facility] [address] [place], [address] Cholesterol in LDL [Mass/Vol] 82 mg/dL Normal 0-130 [facility] Comment on above: Performed By: #### L 100.0100, L500.2500 #### [facility] [address] [place], [address] Cholesterol in VLDL [Mass/Vol] 23 mg/dL Normal 5-40 [facility] Comment on above: Performed By: #### L 100.0100, L500.2500 #### [facility] [address] [place], [address] Triglyceride [Mass/Vol] 116 mg/dL Normal [facility] Comment on above: Result Comment: The drugs N-Acetylcysteine and Metamizole may falsely depress this assay. Serum Triglycerides Reference Interval Normal <150 mg/dL Borderline high 150 - 199 mg/dL High 200 - 499 mg/dL Very High > or = 500 mg/dL Performed By: #### L 100.0100, L500.2500 #### [facility] [address] [place], [address] T4 Free Directon 05-20-2024 T4 FREE DIRECT 0.92 ng/dL Normal 0.76-1.46 [facility] Comment on above: Performed By: #### L 100.0100, L500.2500 #### [facility] [address] [place], [address] Thyroid Stim Hormone (TSH)on 05-20-2024 TSH 2.05 uIU/mL Normal 0.358-3.74 [facility] Comment on above: Performed By: #### L 100.0100, L500.2500 #### [facility] [address] [place] [place], [address] Colonoscopy Reporton 024 Colonoscopy Report [facility] Medical Records Department [address] [place] [address] Colonoscopy Report MR#: [id number] Acct: [id number] Name: RONY HE Rep #: [id number] : 1985 39 From: Juan Fuller MD PCP: Dr. Kati Arshad MD Status:[facility] Patient Name: Rony He Procedure Date: 03/29/2024 7:23 AM Date of : 1985 Age: 39 Procedure: Colonoscopy Indications: Rectal bleeding, Follow-up of diverticulitis Providers: Juan Fuller MD Referring MD: Kati Arshad Md Medicines: Propofol per Anesthesia Patient Profile: This is a 39 year old male. Refer to note in patient chart for documentation of history and physical. Last Colonoscopy: none. The patient's first colonoscopy is today. Complications: No immediate complications. Estimated blood loss: Minimal. Procedure: Pre-Anesthesia Assessment: - Prior to the procedure, a History and Physical was performed, and patient medications and allergies were reviewed. The patient's tolerance of previous anesthesia was also reviewed. The risks and benefits of the procedure and the sedation options and risks were discussed with the patient. All questions were answered, and informed consent was obtained. Prior Anticoagulants: The patient has taken no anticoagulant or antiplatelet agents. After reviewing the risks and benefits, the patient was deemed in satisfactory condition to undergo the procedure. After I obtained informed consent, the scope was passed under direct vision. Throughout the procedure, the patient's blood pressure, pulse, and oxygen saturations were monitored continuously. The Colonoscope was introduced through the anus and advanced to the cecum, identified by appendiceal orifice and ileocecal valve. The colonoscopy was performed without difficulty. The patient tolerated the procedure well. The quality of the bowel preparation was good. The ileocecal valve, appendiceal orifice, and rectum were photographed. Scope In: 7:34:56 AM Scope Withdrawal Time 0 hours 9 minutes 22 seconds Scope Out: 7:48:10 AM Total Procedure Duration Time 0 hours 13 minutes 14 seconds Findings: A small polyp was found in the sigmoid colon. The polyp was removed with a hot snare. Resection and retrieval were complete. A small anal fissure was found in the anal canal. Impression: - One small polyp in the sigmoid colon, removed with a hot snare. Resected and retrieved. - Anal fissure. Recommendation: - Discharge patient to home. - Resume previous diet. - Continue present medications. - Await pathology results. - Repeat colonoscopy in 5 years for surveillance based on pathology results. Procedure Code(s): --- Professional --- 40623, Colonoscopy, flexible; with removal of tumor(s), polyp(s), or other lesion(s) by snare technique Diagnosis Code(s): --- Professional --- D12.5, Benign neoplasm of sigmoid colon K60.2, Anal fissure, unspecified K62.5, Hemorrhage of anus and rectum K57.32, Diverticulitis of large intestine without perforation or abscess without bleeding CPT copyright 2021 [employer]. All rights reserved. The codes documented in this report are preliminary and upon classics professor review may be revised to meet current compliance requirements. Juan Fuller MD 03/29/2024 7:57:38 AM This report has been signed electronically. Number of Addenda: 0 Note Initiated On: 03/29/2024 7:23 AM 03/29/24 0758 Date Juan Fuller MD Cosigner Signature: Date (if indicated) CC: Dr. Kati Arshad MD; Dr. Juan Fuller MD Date Dictated: 03/29/24 07 Date Transcribed: Contact Lens Manufacturer: DANAE Signed [facility] Surgery Specimen Level [place] 03-29-2024 Surgery Specimen Level IV Patient Age/Sex Location Account Attending Physician RONY HE 39/M EN [id number] Dr. Juan Fuller MD Specimen: [id number] Received: 03/29/24-1326 Status: BETSEY Dugan Num: [id number] Spec Type: COLON BX Subm Dr: Dr. Juan Fuller MD HEADER OPERATION: Colonoscopy with polypectomy PRE-OP DIAGNOSIS: Diverticulitis, rectal bleeding TISSUE SUBMITTED: Sigmoid colon polyp MICROSCOPIC DIAGNOSIS Sigmoid colon polyp, polypectomy: Tubular adenoma with cautery artifacts. KEATON/ 04/01/24 MICROSCOPIC DESCRIPTION Slides are reviewed. GROSS DESCRIPTION Received in fixative is one container labeled with the patient's name and designated Sigmoid colon polyp. The specimen consists of one irregular fragment of light clarke soft tissue that measures 0.3 x 0.2 x 0.1 cm. The specimen is totally submitted in one cassette. AM/mr 03/29/2024 TC:1 CPT:21736 Patient Age/Sex Location Account Attending Physician RONY HE 39/M EN [id number] Dr. Juan Fuller MD Signed (signatur e on file) Dr. Titi Sanchez MD 04/01/24 1224 Normal [facility] Comment on above: Performed By: #### P NORMA ####[facility] [id number] [place], [address] Surgery Visit Reporton 02-28 Surgery Visit Report [facility] [address] [place] [address] OFFICE VISIT Date of Service: 02/29/24 MR#: [id number] Acct: [id number] Name: RONY HE Rep #: [id number] : 1985 Provider: Dr. Juan henson MD Age/Sex: 39/M Location: [facility] Status: Signed Intake Vital Signs 02/13/24 14:51 02/29/24 15:08 Height 5 ft 8 in 5 ft 8 in Weight: 278 lb 6 oz 274 lb BMI 42.3 41.6 BP 140/78 H 128/84 H Blood Pressure Location Lt brachial Rt brachial Position Sitting Sitting Respiration 16 18 Pulse 86 73 Pulse Source Monitor Monitor Temp 97.4 F L 97.3 F L Temp Source Temporal Temporal Pulse Oximetry (%) 98 99 Oxygen Delivery Method room air room air Intake Visit Reasons: BLEDDING FROM RECTAL AREA Chief Complaint: bleeding from rectal area Is patient in pain?: No Allergies No Known Allergies Allergy (Verified 02/29/24 15:10) Medications levothyroxine 75 mcg tablet 75 mcg PO DAILY #30 tabs 01/15/24 [Rx Confirmed 02/29/24] psyllium husk 3.4 gram/5.4 gram oral powder (Metamucil) 1 tbsp PO DAILY #660 grams 02/13/24 [Rx Confirmed 02/29/24] omeprazole 40 mg capsule,delayed release 40 mg PO DAILY PRN 02/15/24 [History Confirmed 02/29/24] [facility] Medical History (Updated 02/29/24 @ 15:[address] Juan Fuller MD) Acute maxillary sinusitis, unspecified Allergies Back problem Contact dermatitis COPD (chronic obstructive pulmonary disease) Diverticulitis Dysphagia Essential hypertension GERD (gastroesophageal reflux disease) History of back problems Impacted cerumen, left ear Morbid obesity Numbness and tingling Sleep apnea Tobacco dependence Surgical History History of placement of ear tubes History of selective injection of anesthetic agent around lumbar nerve root Family History Father Alcohol abuse Heart disease Grandmother Diabetes Grandmother Heart disease Diabetes Bowel disease doesn't know what kind Hypertension Other Arthritis Cervical cancer Gastrointestinal problem Social History household members: spouse and children current occupational status: employed 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 The patient had rectal bleeding 2 weeks ago. He has intermittent rectal bleeding for the last few years but is bright red. He reports no pain with defecation. He has not been having any abdominal pain at this time. ROS General General: No weight change, appetite, fatigue, colon cancer, breast cancer or weakness HEENT HEENT: No difficulty swallowing, eye injury, eye surgery, swollen glands or hoarseness Endo Endocrine: Yes thyroid disease; No diabetes mellitus, thyroid cancer, Hair loss, heat intolerance or cold intolerance Skin Skin: No rash or changing moles Musc Musculoskeletal: Yes back problems; No arthritis, rheumatoid arthritis, gout or joint pain Cardio Cardiovascular: No murmur, pacemaker, heart disease, atrial fibrillation, high blood pressure, heart attack, heart stent, palpitations, shortness of breat with exertion or chest pain Psych Psychiatric: No depression, anxiety or hearing voices Resp Respiratory: No shortness of breath, Yes sleep apnea, No cough, Yes COPD, No asthma, No emphysema and No wheezing Gastro Gastrointestinal: No abdominal pain, Yes nausea or vomiting, No diarrhea, No constipation, No blood in stool, Yes acid reflux, Yes hemorrhoids, No ulcers, No gallbladder problem and No black,tarry sto ols [place] Hematologic: No blood thinners, No blood disorders, No bleeding, No anemia and No blood clots Neuro Neurologic: No numbness, No tingling and No weakness Exam Const General: cooperative Orientation: alert and oriented x3 HENMT Head: normal to inspection Neck Neck: normal visual inspection and full ROM Chest Chest palpation inspection: normal inspection of the chest Resp Effort Inspection: normal respiratory effort Auscultation: clear to auscultation bilaterally Cardio Rate: regular rate Rhythm: regular rhythm GI Inspection: non-distended Palpation: soft and nontender Skin General: no rashes or (more content not included)... Normal [facility] Orthopedic Visit Reporton Orthopedic Visit Report [facility] [address] [place] [address] [address] [place] [address] OFFICE VISIT Date of Service: 02/28/24 MR#: [id number] Acct: [id number] Name: RONY HE Rep #: [id number] : 1985 Provider: Dr. Eugenio birmingham DO Age/Sex: 39/M Location: [facility] Status: Signed Intake Vital Signs 02/13/24 14:51 Height 5 ft 8 in Weight: 278 lb 6 oz BMI 42.3 BP 140/78 H Blood Pressure Location Lt brachial Position Sitting Respiration 16 Pulse 86 Pulse Source Monitor Temp 97.4 F L Temp Source Temporal Pulse Oximetry (%) 98 Oxygen Delivery Method room air Intake Visit Reasons: LUMBR SPINE Chief Complaint: lumbar spine Is patient in pain?: Yes (low back ) Pain scale (1-10): 5 Allergies No Known Allergies Allergy (Verified 02/28/24 15:13) Medications levothyroxine 75 mcg tablet 75 mcg PO DAILY #30 tabs 01/15/24 [Rx Confirmed 02/28/24] hydrocodone-acetami nophen 5-325mg 5mg-325mg 1 tab PO Q4H PRN PRN Pain 2 days #10 TABLETS 01/16/24 [Rx Confirmed 02/28/24] hydrocortisone acetate 25 mg rectal suppository (Anusol-HC) 25 mg NM DAILY #12 ea 02/13/24 [Rx Confirmed 02/28/24] psyllium husk 3.4 gram/5.4 gram oral powder (Metamucil) 1 tbsp PO DAILY #660 grams 02/13/24 [Rx Confirmed 02/28/24] omeprazole 40 mg capsule,delayed release 40 mg PO DAILY PRN 02/15/24 [History Confirmed 02/28/24] [facility] Medical History Acute maxillary sinusitis, unspecified Allergies Back problem Contact dermatitis COPD (chronic obstructive pulmonary disease) Diverticulitis Dysphagia Essential hypertension GERD (gastroesophageal reflux disease) History of back problems Impacted cerumen, left ear Morbid obesity Numbness and tingling Sleep apnea Tobacco dependence Surgical History History of placement of ear tubes History of selective injection of anesthetic agent around lumbar nerve root Family History Father Alcohol abuse Heart disease Grandmother Diabetes Grandmother Heart disease Diabetes Bowel disease doesn't know what kind Hypertension Other Arthritis Cervical cancer Gastrointestinal problem Social History household members: spouse and children current occupational status: employed current occupation: [employer] at [employer] facility Smoking Status: Former smoker quit date: 05/30/22 pack-years: 56 Electronic Cigarette Use: with nicotine quit status: has quit before alcohol intake: current alcohol intake frequency: holidays/special occasions only substance use type: does not use caffeine: Yes what type of physical activity do you participate in: walking frequency: does not exercise do you feel safe at home: Yes HPI LUMBR SPINE Chief Complaint: lumbar spine Details: This documentation accurately reflects the service provided and the decisions made by me, Dr. Eugenio Schmidt, DO 02/28/24 1510. Part of today???s visit was documented by [ ], acting as scribe. RONY HE is a 39 year old M here today for lumbar spine MRI review. Rony is here for review of his MRI scan of his lumbar spine. The disc spaces are well-maintained. There is some desiccation of the discs. Overall however it does not look bad at all. There was the usual over read by neuroradiology but other than that it did not look bad at all. I explained to Rony that he certainly does not need any surgical intervention. He also does not need any injections as he had a bad experience a couple or 3 years ago when he had maybe 4 to 6 injections and he gained a lot of weight. However I think that he is an excellent candidate for physical therapy. Were sending him a next-door to [facility] for therapy. I will see him after therapy is finished. Coding Level of Care Code Off vis,est,level 3 Diagnoses DDD (degenerative disc disease), lumbar M51.36 Time Spent (min) 20 Assessment and Plan Assessment and Plan (1) DDD (degenerative disc disease), lumbar: Status: Acute Orders: Referrals Physical Therapy Referral M51.26 - Other intervertebral disc displacement, lumbar region 02/28/24 1624 Date Eugenio Alonzo Signature: Date (if applicable) CC: Dr. Kati Arshad MD Normal [facility] Spine Lumbar (Routine)on Spine Lumbar (Routine) [facility] Imaging Services [address] [place] [id number] Spine Lumbar (Routine) MR#: [id number] Acct: [id number] Name: RONY HE Rep #: [id number] : 1985 M 39 From: Tobi Virgen MD PCP: Dr. Kati Arshad MD Status: REG CLI Study: Spine Lumbar (Routine) Date of Exam: 02/24/24 Exam# [id number] Ordering Dr: Eugenio Schmidt DO [id number] STUDY: MRI LUMBAR SPINE WITHOUT CONTRAST REASON FOR EXAM: Male, 39 years old. pain TECHNIQUE: Standardized fat and water weighted pulse sequences were obtained in the sagittal and axial planes. COMPARISON: X-ray 02/15/2024 FINDINGS: T12-L1: Mild bilobed disc protrusion produces mild spinal stenosis and mild right neural foraminal stenosis. Normal lumbar lordosis. There is no substantial scoliosis. Normal conus medullaris that terminates at the T12/L1. L1-2: Normal endplates. Normal disc height, hydration and morphology. Normal bilateral facet joints. Normal central canal and bilateral lateral recesses. Normal bilateral intervertebral neural foramina. L2-3: Disc desiccation but no disc protrusion, spinal stenosis, or neural foraminal stenosis. L3-4: Disc desiccation but no disc protrusion, spinal stenosis, or neural foraminal stenosis. L4-5: Mild bilobed disc protrusion produces mild spinal stenosis, mild left neural foraminal stenosis and moderate right neural foraminal stenosis with abutment of the right L4 nerve roots bilaterally. L5-S1: Normal endplates. Normal disc height, hydration and morphology. Normal bilateral facet joints. Normal central canal and bilateral lateral recesses. Normal bilateral intervertebral neural foramina. Normal visualized sacral ala. Normal visualized paraspinous soft tissue structures. MRI/Spine Lumbar (Routine) IMPRESSION: Multilevel degenerative changes, as described above. Electronically Signed: Tobi Virgen MD at 0:05 EDT , CC: Dr. Kati Arshad MD; Dr. Eugenio Schmidt DO Contact Lens Manufacturer: Signed Normal [facility] Lumbar Spine 2 or 3 Viewson 02-15-2024 Lumbar Spine 2 or 3 Views [facility] [address] [place] [address] Lumbar Spine 2 or 3 Views MR#: [id number] Acct: [id number] Name: RONY HE Rep #: [id number] : 1985 M 38 From: Tobi Virgen MD PCP: Dr. Kati Arshad MD Status: DEP AMB Study: Lumbar Spine 2 or 3 Views Date of Exam: Exam# [id number] Ordering Dr: Eugenio Schmidt DO -[id number] STUDY: X-RAY - LUMBAR SPINE REASON FOR EXAM: Male, 38 years old. pain TECHNIQUE: 2 view(s) of the lumbar spine were obtained. COMPARISON: 12/22/2021 FINDINGS: Normal lumbar lordosis. Mild levoscoliosis centered at L2. There is a normal alignment of the vertebrae. There is multilevel endplate spondylosis of the lumbar vertebrae. There is multi-level degenerative disc disease with multi-level disc space narrowing. Multilevel facet hypertrophy. The soft tissue structures are unremarkable. RAD/Lumbar Spine 2 or 3 Views IMPRESSION: Mild levoscoliosis with degenerative disc disease. MRI may be useful. Electronically Signed: Tobi Virgen MD at 23:57 EDT , CC: Dr. Kati Arshad MD; Dr. Eugenio Schmidt DO Contact Lens Manufacturer: Signed Normal [facility] Orthopedic Visit Reporton Orthopedic Visit Report [facility] [address] [place] [address] OFFICE VISIT Date of Service: 02/15/24 MR#: [id number] Acct: [id number] Name: RONY HE Rep #: [id number] : 1985 Provider: Dr. Eugenio birmingham DO Age/Sex: 38/M Location: [facility]MELISSA Status: Signed Intake Vital Signs 01/16/24 11:22 02/07/24 11:33 02/13/24 14:51 Height 5 ft 8 in 5 ft 8 in 5 ft 8 in Intake Visit Reasons: LUMBAR SPINE Accompanied by: Is patient in pain?: Yes Pain scale (1-10): 7 Allergies No Known Allergies Allergy (Verified 02/15/24 15:16) Medications levothyroxine 75 mcg tablet 75 mcg PO DAILY #30 tabs 01/15/24 [Rx Confirmed 02/15/24] hydrocodone-acetami nophen 5-325mg 5mg-325mg 1 tab PO Q4H PRN PRN Pain 2 days #10 TABLETS 01/16/24 [Rx Confirmed 02/15/24] hydrocortisone acetate 25 mg rectal suppository (Anusol-HC) 25 mg NM DAILY #12 ea 02/13/24 [Rx Confirmed 02/15/24] psyllium husk 3.4 gram/5.4 gram oral powder (Metamucil) 1 tbsp PO DAILY #660 grams 02/13/24 [Rx Confirmed 02/15/24] omeprazole 40 mg capsule,delayed release 40 mg PO DAILY PRN 02/15/24 [History] [facility] Medical History (Updated 02/15/24 @ 15:[address] Eugenio Schmidt, ) Acute maxillary sinusitis, unspecified Allergies Back problem Contact dermatitis COPD (chronic obstructive pulmonary disease) Diverticulitis Dysphagia Essential hypertension GERD (gastroesophageal reflux disease) History of back problems Impacted cerumen, left ear Morbid obesity Numbness and tingling Sleep apnea Tobacco dependence Surgical History History of placement of ear tubes History of selective injection of anesthetic agent around lumbar nerve root Family History Father Alcohol abuse Heart disease Grandmother Diabetes Grandmother Heart disease Diabetes Bowel disease doesn't know what kind Hypertension Other Arthritis Cervical cancer Gastrointestinal problem Social History household members: spouse and children current occupational status: employed 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 Eugenio Schmidt, DO 02/15/24 1175. Part of today???s visit was documented by Tiffany VASQUEZ , acting as scribe. RONY HE is a 38 year old M here today for Back pain. Patient states his back has been bothering him for 15 years. Patient did have a workers comp case in 2021 with his back. Patient all his back bothers him. Patient does have numbness in his legs and he has tingling in his right leg and it wraps around his thigh. Patient will lean over while standing and that relieves some of his tension in his back. Patient has gone to Physical therapy before. Patient has had injection in his back before and he will not do them again. Patient states getting up and going to bed is the worse lately. Patient has used heat and that does help. Patient is taking Ibuprofen and Aleve at work. I have not seen Rony in a couple of years. He presents today in the company of his Marya. He has been having a lot of low back pain lately. Of late is seems to be the worst when he first gets up. Is quite painful and very stiff like it was this morning. Once he starts moving around he puts his seat heater on on the way to work and it starts to loosen up and he is able to go through the workday with less pain but still significant pain. The next day the cycle starts all over again. This is the worst the back pain has been is basically in the center of his very low back. He gets some pain into the right buttocks and comes around the side of the thigh and then down the back of the thigh. The worst pain however undoubtably is in the center of the low back. It is worse to sit for a long time then noticed to stand for a long time. 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 On examination he has pain with extension perhaps more than flexion for but some degree of pain with both. He has good motor strength of all the major muscle groups of both lower extremities. He has 1+ Achilles reflexes and 2+ patellar reflexes bilaterally. He has no muscle atrophy. He has no long tra (more content not included)... Normal [facility] Internal Medicine Office Vis iton 02-12-2024 Internal Medicine Office Visit [facility] [address] [place], [place] [id number] OFFICE VISIT Date of Service: 02/13/24 MR#: [id number] Acct: [id number] Name: RONY HE Rep #: [id number] : 1985 Provider: Dr. Kati lauren MD Age/Sex: 38/M Location: [facility] Status: Signed Intake Vital Signs 02/07/24 11:33 02/13/24 14:51 Height 5 ft 8 in 5 ft 8 in Weight: 278 lb 6 oz BMI 42.3 BP 140/78 H Blood Pressure Location Lt brachial Position Sitting Respiration 16 Pulse 86 Pulse Source Monitor Temp 97.4 F L Temp Source Temporal Pulse Oximetry (%) 98 Oxygen Delivery Method room air Intake Visit Reasons: Rectal bleeding Chief Complaint: rectal bleeding Advanced Practice Professional Required: No Accompanied by: Self Is patient in pain?: No Allergies No Known Allergies Allergy (Verified 02/13/24 14:48) Medications levothyroxine 75 mcg tablet 75 mcg PO DAILY #30 tabs 01/15/24 [Rx Confirmed 02/13/24] omeprazole 40 mg capsule,delayed release 40 mg PO DAILY #30 caps 01/15/24 [Rx Confirmed 02/13/24] hydrocodone-acetami nophen 5-325mg 5mg-325mg 1 tab PO Q4H PRN PRN Pain 2 days #10 TABLETS 01/16/24 [Rx Confirmed 02/13/24] hydrocortisone acetate 25 mg rectal suppository (Anusol-HC) 25 mg NM DAILY #12 ea 02/13/24 [Rx Confirmed 02/13/24] psyllium husk 3.4 gram/5.4 gram oral powder (Metamucil) 1 tbsp PO DAILY #660 grams 02/13/24 [Rx Confirmed 02/13/24] PFSH Medical History Acute maxillary sinusitis, unspecified Allergies Back problem Contact dermatitis COPD (chronic obstructive pulmonary disease) Dysphagia Essential hypertension GERD (gastroesophageal reflux disease) History of back problems Impacted cerumen, left ear Morbid obesity Numbness and tingling Sleep apnea Tobacco dependence Surgical History History of placement of ear tubes History of selective injection of anesthetic agent around lumbar nerve root Family History Father Alcohol abuse Heart disease Grandmother Diabetes Grandmother Heart disease Diabetes Bowel disease doesn't know what kind Hypertension Other Arthritis Cervical cancer Gastrointestinal problem Social History household members: spouse and children current occupational status: employed 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 He has concerns about rectal bleeding. The patient was seen last month with complaints of lower abdominal pain. Imaging did show findings of diverticulitis and he was treated accordingly. He reports that his symptoms did resolve. The patient reports he has had intermittent problems with rectal bleeding over the last several years. He reports he has noticed it in the last few days. He reports he is having bright red blood with wiping. He denies any clots. He denies having it mixed in his stools nor any dark stools. He reports he hasn't had any recent pain with moving his bowels. He reports he started taking a stool softener a couple of weeks ago and took it for about a week. He states his bowels have been moving normally recently. He reports yesterday he did strain to go. He denies any ongoing abdominal pain from his recent diverticulitis. He reports he does get nausea in the mornings, but denies any vomiting. He has been eating and drinking normally. He reports he drinks at least 1/2 gallon of water per day. He reports he does have some fiber in his diet. He hasn't tried taking or doing anything for his symptoms. He hasn't had any problems with dizziness, lightheadedness. ROS Const Constitutional: No body ache, chills, excessive sweating, fatigue, fever(s), frequent falls, headache(s), snoring, weakness or change in appetite Eyes Eyes: No blurry vision, change in vision, eye pain or Light sensitivity ENT ENT: No abnormal hearing, ear or mastoid pain, tinnitus, nasal congestion, headache(s), neck pain or sore throat Resp Respiratory: No cough, shortness of breath, snoring or wheezing Cardio Cardiology: No chest pain at rest, chest pain with exertion, excessive sweating, dyspnea on exertion, lightheadedness, orthopnea or palpitations G (more content not included)... Normal [facility] Abdomen/Pelvis W IV Cont ONL Yon 01-16-2024 Abdomen/Pelvis W IV Cont ONLY [facility] Imaging Services [address] [place] [address] Abdomen/Pelvis W IV Cont ONLY MR#: [id number] Acct: [id number] Name: RONY HE Rep #: [id number] : 1985 M 38 From: Tadeo gill MD PCP: Dr. Kati Arshad MD Status: DEP ER Study: Abdomen/Pelvis W IV Cont ONLY Date of Exam: Exam# [id number] Ordering Dr: Isidoro Toney DO -[id number] STUDY: CT ABDOMEN AND PELVIS WITH CONTRAST REASON FOR EXAM: Male, 38 years old. Lower abdominal pain RADIATION DOSAGE (If Supplied By Facility): CTDIvol = ( 15.11 ) mGy, DLP = ( 1246.02 ) mGycm TECHNIQUE: Transaxial images were obtained from the dome of the diaphragm to the symphysis pubis without oral contrast. IV 100mL Isovue-300 was administered. Sagittal and coronal images were reconstructed. Individualized dose optimization techniques were used for this CT. COMPARISON: Comparison is made with prior study dated June 04, 2019. FINDINGS: The visualized lung bases are unremarkable. The visualized portions of the heart are within normal limits. There is decreased attenuation of the liver consistent with steatosis. Normal gallbladder and extrahepatic biliary system. Normal spleen. Normal pancreas. Normal bilateral adrenal glands. Normal right kidney. Normal left kidney. Normal visualized stomach. Normal small intestine. There is diverticulosis, with thickening of the colon wall, and pericolonic inflammation changes consistent with acute diverticulitis. The appendix is visualized and appears normal. Normal abdominal aorta. Normal inferior vena cava. Normal retroperitoneum. Normal urinary bladder. Normal abdominal wall. Normal osseous structures. CT/Abdomen/Pelvis W IV Cont ONLY IMPRESSION: Sigmoid diverticulosis with evidence of a mild degree of sigmoid diverticulitis with increased markings in the surrounding sigmoid peritoneal fat. No focal abscess is seen. Fatty infiltration of the liver. Electronically Signed: Tadeo Sim MD at 14:31 EDT , CC: Dr. Kati Arshad MD; Dr. Isidoro Toney DO Contact Lens Manufacturer: Signed Normal [facility] Absolute lymphocyte countOrd ered By: Isidoro Toney on 01-16-2024 Lymphocytes Auto (Unsp spec) [#/Vol] 2.79 10*3/uL 0.83-4.51 [facility] Automated lymphocyte count a s percentage of total leukocytesOrdered By: Isidoro Toney on 01-16-2024 Lymphocytes/100 WBC Auto (Unsp spec) 15.3 % 19-41 [facility] Basic Metabolic Profile (BMP )on 01-16-2024 BUN/CRE 12.4 RATIO Normal 10-20 [facility] Comment on above: Performed By: #### L 100.0100, L500.2500 #### [facility] [address] [place], [address] CA,Total 9.2 mg/dL Normal 8.5-10.1 [facility] Comment on above: Performed By: #### L 100.0100, L500.2500 #### [facility] [address] [place], [address] Chloride [Moles/Vol] 103 mmol/L Normal 98-107 [facility] Comment on above: Performed By: #### L 100.0100, L500.2500 #### [facility] [address] [place], [address] CO2 [Moles/Vol] 27.0 mmol/L Normal 21.0-32.0 [facility] Comment on above: Performed By: #### L 100.0100, L500.2500 #### [facility] [address] [place], [address] Creatinine [Mass/Vol] 1.05 mg/dL Normal 0.70-1.30 [facility] Comment on above: Result Comment: The validity of the calculated GFR GFRAA in patients over 70 years has not been determined. Clinical correlation is essential. Performed By: #### L 100.0100, L500.2500 #### [facility] [address] [place], [address] ECRCL 123.74 ml/min Normal [facility] Comment on above: Performed By: #### L 100.0100, L500.2500 #### [facility] [address] [place], [address] EST GFR - AA 101 mL/min Normal >60 [facility] Comment on above: Result Comment: Afri can Filipino GFR Calc Performed By: #### L 100.0100, L500.2500 #### [facility] [address] [place], [address] GAP 8 Normal 5-15 [facility] Comment on above: Performed By: #### L 100.0100, L500.2500 #### [facility] [address] [place], [address] GFR/1.73 sq M.predicted among non-blacks MDRD (S/P/Bld) [Vol rate/Area] 84 mL/min/{1.73_m2} Normal >60 [facility] Comment on above: Result Comment: Non- GFR Calc Performed By: #### L 100.0100, L500.2500 #### [facility] [address] [place], [address] Glucose [Mass/Vol] 130 mg/dL High 74-106 [facility] Comment on above: Result Comment: Fast ing Glucose result greater than or equal to 126 mg/dL suggests DIABETES MELLITUS per A.D.A. criteria. Performed By: #### L 100.0100, L500.2500 #### [facility] [address] [place], [address] Potassium [Moles/Vol] 3.6 mmol/L Normal 3.5-5.1 [facility] Comment on above: Result Comment: Slig ht Hemolysis, Result may be falsely increased. Performed By: #### L 100.0100, L500.2500 #### [facility] [address] [place], [address] Sodium [Moles/Vol] 138 mmol/L Normal 136-145 [facility] Comment on above: Performed By: #### L 100.0100, L500.2500 #### [facility] [address] [place], [address] Urea nitrogen [Mass/Vol] 13 mg/dL Normal 7-18 [facility] Comment on above: Performed By: #### L 100.0100, L500.2500 #### [facility] [address] [place], [address] Basophil percentageOrdered B y: Remus Ungur on 01-16-2024 Basophils/100 WBC (Bld) 0.9 % 0-1 [facility] Chloride [Moles/Vol] 103 mmol/L 98-107 [facility] Eosinophils/100 WBC (Bld) 1.3 % 0-5 [facility] Glucose [Mass/Vol] 130 mg/dL 74-106 [facility] Comment on above: Fasting Glucose resu lt greater than or equal to 126 mg/dL suggests DIABETES MELLITUS per A.D.A. criteria. Hemoglobin (Bld) [Mass/Vol] 15.2 g/dL 13.0-16.5 [facility] Lactate [Moles/Vol] 1.8 mmol/L 0.4-2.0 [facility] Monocytes/100 WBC (Bld) 7.6 % 0-10 [facility] Neutrophils (Bld) [#/Vol] 13.3 10*3/uL 2.0-7.7 [facility] Neutrophils/100 WBC (Bld) 72.8 % 47-70 [facility] Potassium [Moles/Vol] 3.6 mmol/L 3.5-5.1 [facility] Comment on above: Slight Hemolysis, Re sult may be falsely increased. Sodium [Moles/Vol] 138 mmol/L 136-145 [facility] WBC (Bld) [#/Vol] 18.3 10*3/uL 4.4-11.0 [facility] CBC W/Diff, Automatedon 12-28 Absolute Lymph 2.79 X10 3/uL Normal 0.83-4.51 [facility] Comment on above: Performed By: #### L 100.0100, L500.2500 #### [facility] [address] [place], [address] Absolute Neut 13.3 X10 3/uL High 2.0-7.7 [facility] Comment on above: Performed By: #### L 100.0100, L500.2500 #### [facility] [address] [place], [address] Basophils/100 WBC (Bld) 0.9 % Normal 0-1 [facility] Comment on above: Performed By: #### L 100.0100, L500.2500 #### [facility] [address] [place], [address] Eosinophils/100 WBC (Bld) 1.3 % Normal 0-5 [facility] Comment on above: Performed By: #### L 100.0100, L500.2500 #### [facility] [address] [place], [address] Erythrocyte distribution width (RBC) [Ratio] 12.9 % Normal 11.6-14.6 [facility] Comment on above: Performed By: #### L 100.0100, L500.2500 #### [facility] [address] [place], [address] Hematocrit (Bld) [Volume fraction] 47.3 % Normal 40-54 [facility] Comment on above: Performed By: #### L 100.0100, L500.2500 #### [facility] [address] [place], [address] Hemoglobin (Bld) [Mass/Vol] 15.2 g/dL Normal 13.0-16.5 [facility] Comment on above: Performed By: #### L 100.0100, L500.2500 #### [facility] [address] [place], [address] IG% 2.100 High 0.0-0.9 [facility] Comment on above: Result Comment: IG% - Immature Granulocytes (promyelocytes, myelocytes and metamyelocytes) > 1% indicates that a LEFT SHIFT is Present. Performed By: #### L 100.0100, L500.2500 #### [facility] [address] [place], [address] Lymphocytes/100 WBC (Bld) 15.3 % Low 19-41 [facility] Comment on above: Performed By: #### L 100.0100, L500.2500 #### [facility] [address] [place], [address] MCH (RBC) [Entitic mass] 27.7 pg Normal 27.0-32.0 [facility] Comment on above: Performed By: #### L 100.0100, L500.2500 #### [facility] [address] [place], [address] MCHC (RBC) [Mass/Vol] 32.1 g/dL Normal 32-36 [facility] Comment on above: Performed By: #### L 100.0100, L500.2500 #### [facility] [address] [place], [address] MCV (RBC) [Entitic vol] 86.2 fL Normal 80-94 [facility] Comment on above: Performed By: #### L 100.0100, L500.2500 #### [facility] [address] [place], [address] Monocytes/100 WBC (Bld) 7.6 % Normal 0-10 [facility] Comment on above: Performed By: #### L 100.0100, L500.2500 #### [facility] [address] [place], [address] Neutrophils/100 WBC (Bld) 72.8 % High 47-70 [facility] Comment on above: Performed By: #### L 100.0100, L500.2500 #### [facility] [address] [place], [address] Nucleated RBC (Bld) [#/Vol] 0 10*3/uL Normal 0-5 [facility] Comment on above: Performed By: #### L 100.0100, L500.2500 #### [facility] [address] [place], [address] Platelet mean volume (Bld) [Entitic vol] 11.1 fL Normal 6.2-12.0 [facility] Comment on above: Performed By: #### L 100.0100, L500.2500 #### [facility] [address] [place], [address] Platelets (Bld) [#/Vol] 222 10*3/uL Normal 150-450 [facility] Comment on above: Performed By: #### L 100.0100, L500.2500 #### [facility] [address] [place], [address] RBC (Bld) [#/Vol] 5.49 10*6/uL Normal 4.6-6.2 [facility] Comment on above: Performed By: #### L 100.0100, L500.2500 #### [facility] [address] [place], [address] RDW SD 40.2 fl Normal 35.1-43.9 [facility] Comment on above: Performed By: #### L 100.0100, L500.2500 #### [facility] [address] [place], [address] WBC (Bld) [#/Vol] 18.3 10*3/uL High 4.4-11.0 [facility] Comment on above: Performed By: #### L 100.0100, L500.2500 #### [facility] [address] [place], [address] Determination of erythrocyte mean corpuscular volume (MCV)Ordered By: Isidoro Toney on 01-16-2024 MCV (RBC) [Entitic vol] 86.2 fL 80-94 [facility] Emergency Department Summary on 01-16-2024 Emergency Department Summary [facility] Medical Records Department [address] [place] [address] Emergency Department Summary 01/16/24 MR#: [id number] Acct: [id number] Name: RONY HE Rep #: [id number] : 1985 38 From: Isidoro Toney DO PCP: Dr. Kati Arshad MD Status:DEP ER Location: ED HPI HPI - GI History of Present Illness Chief Complaint: Abd Pain Detail of Chief Complaint: Abdominal pain Informant: patient Narrative Narrative: Patient presents with abdominal pain that started 2 weeks ago. Patient states worse pain since yesterday. She saw her primary care physician and was told to be evaluated in the emergency department. Patient denies recent nausea and vomiting although she he had an episode about a week ago x 1 that resolved. He denies fevers or chills or sweats. He had some intermittent diarrhea. Denies blood in stool or black tarry stool. He is never had pain like this before. He denies any lumps or masses in the lower abdomen. Pain worse with movement. No history of kidney stones or diverticulitis. [facility] Medical History Acute maxillary sinusitis, unspecified Allergies Back problem Contact dermatitis COPD (chronic obstructive pulmonary disease) Dysphagia Essential hypertension GERD (gastroesophageal reflux disease) History of back problems Impacted cerumen, left ear Morbid obesity Numbness and tingling Sleep apnea Tobacco dependence Home Medications levothyroxine 75 mcg tablet 75 mcg PO DAILY #30 tabs 01/15/24 [Rx Last Taken Unknown] omeprazole 40 mg capsule,delayed release 40 mg PO DAILY #30 caps 01/15/24 [Rx Last Taken Unknown] ciprofloxacin HCl 500 mg tablet 500 mg PO BID #14 TABLETS 01/16/24 [Rx Last Taken Unknown] hydrocodone-acetami nophen 5-325mg 5mg-325mg 1 tab PO Q4H PRN PRN Pain 2 days #10 TABLETS 01/16/24 [Rx Last Taken Unknown] metronidazole 500 mg tablet 500 mg PO Q8H 7 days #21 tabs 01/16/24 [Rx Last Taken Unknown] Allergy/AdvReac Type Severity Reaction Status Date / Time No Known Allergies Allergy Verified 01/16/24 11:25 Family History Father Alcohol abuse Heart disease Grandmother Diabetes Grandmother Heart disease Diabetes Bowel disease doesn't know what kind Hypertension Other Arthritis Cervical cancer Gastrointestinal problem Surgical History History of placement of ear tubes History of selective injection of anesthetic agent around lumbar nerve root Social History household members: spouse and children current occupational status: employed 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 Smoking Status: Former smoker quit date: 05/30/22 pack-years: 56 Electronic Cigarette Use: with nicotine quit status: has quit before alcohol intake: current alcohol intake frequency: holidays/special occasions only substance use type: does not use caffeine: Yes what type of physical activity do you participate in: walking frequency: does not exercise do you feel safe at home: Yes ROS ROS ED Review of Systems ROS Unobtainable: other Constitutional Constitutional ED: Reports lethargy; Denies chills, fever(s), sweats or weight loss Eyes Eyes: Denies blurry vision, change in vision or diplopia ENT ENT ED: Denies rhinorrhea or sore throat Cardiovascular Cardiovascular: Denies chest pain, orthopnea or racing heartbeat Respiratory/Chest Respiratory/Chest: Denies cough, dyspnea, dyspnea on exertion, orthopnea or sputum Gastrointestinal Gastrointestinal: Reports abdominal pain; Denies diarrhea, nausea or vomiting Genitourinary Genitourinary ED: Denies dysuria, hematuria or urinary frequency Musculoskeletal Musculoskeletal: Denies arthralgias, back pain, myalgias or neck pain Integumentary Denies abscess, Abrasions or rash Neurologic Neurologic: Denies headache(s) or weakness Psychiatric Psychiatric: Denies anxiety, depression or suicidal thoughts Endocrine Endocrinology: Denies polydipsia, polyphagia or polyuria Hematologic/Lymphat ic Hematologic/Lymphat ic: Denies easy bleeding, easy bruising or lymphadenopathy Allergic/Immunologi c Allergic/Immunologi c ED: Denies mouth swelling, tongue swelling or urticaria EXAM Physical Exam Const Vital Signs: 01/16/24 11:22 01/16/24 11:22 01/16/24 11:37 Temperature 97.2 F L 97.2 F L 97.2 F L Temperature Source Temporal Temporal Temporal Pulse Rate 103 H 89 87 Respiratory Rate 16 16 16 Blood Pressure 179/93 H 179/93 H 179/83 H Blood Pressure Mean 121 121 115 Pulse Ox 98 97 97 Oxygen Delivery Method Room Air Room Air Room Air Positive well nourished and well developed Gen (more content not included)... Normal [facility] Erythrocyte distribution wid th ratioOrdered By: Isidoro Toney on 01-16-2024 Erythrocyte distribution width (RBC) [Ratio] 12.9 % 11.6-14.6 [facility] Erythrocyte distribution wid th standard deviationOrdered By: Isidoro Toney on 01-16-2024 Erythrocyte distribution width (RBC) [Entitic vol] 40.2 fL 35.1-43.9 [facility] Hematocrit Auto (Bld) [Volum e fraction]Ordered By: Isidoro Toney on 01-16-2024 Hematocrit (Bld) [Volume fraction] 47.3 % 40-54 [facility] Immature granulocytes/100 WB C Auto (Bld)Or[facility] on 01-16-2024 Immature granulocytes/100 WBC (Bld) 2.100 % 0.0-0.9 [facility] Comment on above: IG% - Immature Granu locytes (promyelocytes, myelocytes and metamyelocytes) > 1% indicates that a LEFT SHIFT is Present. Laboratory - Chemistry and C hemistry - challengeOrdered By: Isidoro Toney on 01-16-2024 CO2 [Moles/Vol] 27.0 mmol/L 21.0-32.0 [facility] Urea nitrogen/Creatinine [Mass ratio] 12.4 mg/mg 10-20 [facility] - Hematology and Cell countsOrdered By: [facility] on 01-16-2024 MCH (RBC) [Entitic mass] 27.7 pg 27.0-32.0 [facility] MCHC (RBC) [Mass/Vol] 32.1 g/dL 32-36 [facility] Nucleated RBC/100 WBC (Bld) [Ratio] 0 % 0-5 [facility] Platelet mean volume (Bld) [Entitic vol] 11.1 fL 6.2-12.0 [facility] Platelets (Bld) [#/Vol] 222 10*3/uL 150-450 [facility] Lactic Acidon 01-16-2024 Lactate [Moles/Vol] 1.8 mmol/L Normal 0.4-1.9 [facility] Comment on above: Order Comment: Y Performed By: #### L 100.0100, L500.2500 #### [facility] [place], [address] No Panel InformationOrdered By: Isidoro Toney on 01-16-2024 Estimated Creatinine Clearance Calc 123.74 ml/min [facility] Estimated GFR (MDRD) Amer 101 mL/min >60 [facility] Comment on above: GFR Calc Estimated GFR (MDRD) Non-Af Amer 84 mL/min >60 [facility] Comment on above: Non- GFR Calc RBC Auto (Bld) [#/Vol]Ordere d By: Isidoro Toney on 01-16-2024 RBC (Bld) [#/Vol] 5.49 10*6/uL 4.6-6.2 [facility] Serum or plasma calcium radha urement (mass/volume)Ordered By: Isidoro Toney on 01-16-2024 Calcium [Mass/Vol] 9.2 mg/dL 8.5-10.1 [facility] Serum or plasma creatinine m easurement (mass/volume)Ordered By: Isidoro Toney on 01-16-2024 Creatinine [Mass/Vol] 1.05 mg/dL 0.70-1.30 [facility] Comment on above: The validity of the calculated GFR & GFRAA in patients over 70 years has not been determined. Clinical correlation is essential. Serum or plasma urea nitroge n measurement (mass/volume)Ordered By: Isidoro Toney on 01-16-2024 Urea nitrogen [Mass/Vol] 13 mg/dL 7-18 [facility] Thin prep Papanicolaou smear with manual screeningOrdered By: Isidoro Toney on 01-16-2024 Thin prep Papanicolaou smear with manual screening 8 5-15 [facility] Urinalysis, Completeon 01-15 BACTERIA Normal None Seen [facility] Comment on above: Order Comment: CLEAN CATCH Result Comment: NO S PECIMEN COLLECTED. PATIENT DEPARTED ED Performed By: #### L 100.0100, L500.2500 #### [facility] [address] [place], [address] BILIRUBIN URINE Normal Negative [facility] Comment on above: Order Comment: CLEAN CATCH Result Comment: NO S PECIMEN COLLECTED. PATIENT DEPARTED ED Performed By: #### L 100.0100, L500.2500 #### [facility] [address] [place], [address] Clarity (U) Normal Clear [facility] Comment on above: Order Comment: CLEAN CATCH Result Comment: NO S PECIMEN COLLECTED. PATIENT DEPARTED ED Performed By: #### L 100.0100, L500.2500 #### [facility] [address] [place], [address] Color (U) Normal Yellow [facility] Comment on above: Order Comment: CLEAN CATCH Result Comment: NO S PECIMEN COLLECTED. PATIENT DEPARTED ED Performed By: #### L 100.0100, L500.2500 #### [facility] [address] [place], [address] EPI,SQUAMOUS Normal 0-5 [facility] Comment on above: Order Comment: CLEAN CATCH Result Comment: NO S PECIMEN COLLECTED. PATIENT DEPARTED ED Performed By: #### L 100.0100, L500.2500 #### [facility] [address] [place], [address] GLUCOSE, UR Normal Normal [facility] Comment on above: Order Comment: CLEAN CATCH Result Comment: NO S PECIMEN COLLECTED. PATIENT DEPARTED ED Performed By: #### L 100.0100, L500.2500 #### [facility] [address] [place], [address] KETONE UR Normal Negative [facility] Comment on above: Order Comment: CLEAN CATCH Result Comment: NO S PECIMEN COLLECTED. PATIENT DEPARTED ED Performed By: #### L 100.0100, L500.2500 #### [facility] [address] [place], [address] LEUK ESTERASE Normal Negative [facility] Comment on above: Order Comment: CLEAN CATCH Result Comment: NO S PECIMEN COLLECTED. PATIENT DEPARTED ED Performed By: #### L 100.0100, L500.2500 #### [facility] [address] [place], [address] Mucus Ql (Urine sed) Normal [facility] Comment on above: Order Comment: CLEAN CATCH Result Comment: NO S PECIMEN COLLECTED. PATIENT DEPARTED ED Performed By: #### L 100.0100, L500.2500 #### [facility] [address] [place], [address] Nitrite Ql (U) Normal Negative [facility] Comment on above: Order Comment: CLEAN CATCH Result Comment: NO S PECIMEN COLLECTED. PATIENT DEPARTED ED Performed By: #### L 100.0100, L500.2500 #### [facility] [address] [place], [address] OCCULT BLOOD-UR Normal Negative [facility] Comment on above: Order Comment: CLEAN CATCH Result Comment: NO S PECIMEN COLLECTED. PATIENT DEPARTED ED Performed By: #### L 100.0100, L500.2500 #### [facility] [address] [place], [address] pH UR Normal 5.0 - 8.0 [facility] Comment on above: Order Comment: CLEAN CATCH Result Comment: NO S PECIMEN COLLECTED. PATIENT DEPARTED ED Performed By: #### L 100.0100, L500.2500 #### [facility] [address] [place], [address] PROT DIPSTX Normal Negative [facility] Comment on above: Order Comment: CLEAN CATCH Result Comment: NO S PECIMEN COLLECTED. PATIENT DEPARTED ED Performed By: #### L 100.0100, L500.2500 #### [facility] [address] [place], [address] RBC Normal 0-5 [facility] Comment on above: Order Comment: CLEAN CATCH Result Comment: NO S PECIMEN COLLECTED. PATIENT DEPARTED ED Performed By: #### L 100.0100, L500.2500 #### [facility] [address] [place], [address] SP.GR. DIPSTX Normal 1.002-1.030 [facility] Comment on above: Order Comment: CLEAN CATCH Result Comment: NO S PECIMEN COLLECTED. PATIENT DEPARTED ED Performed By: #### L 100.0100, L500.2500 #### [facility] [address] [place], [address] UR Preservative Normal [facility] Comment on above: Order Comment: CLEAN CATCH Result Comment: NO S PECIMEN COLLECTED. PATIENT DEPARTED ED Performed By: #### L 100.0100, L500.2500 #### [facility] [address] [place], [address] UROBILI Normal Normal [facility] Comment on above: Order Comment: CLEAN CATCH Result Comment: NO S PECIMEN COLLECTED. PATIENT DEPARTED ED Performed By: #### L 100.0100, L500.2500 #### [facility] [address] [place], [address] WBC Normal 0-5 [facility] Comment on above: Order Comment: CLEAN CATCH Result Comment: NO S PECIMEN COLLECTED. PATIENT DEPARTED ED Performed By: #### L 100.0100, L500.2500 #### [facility] [address] [place], [address] Absolute lymphocyte countOrd ered By: Kati Arshad on 01-15-2024 Lymphocytes Auto (Unsp spec) [#/Vol] 2.84 10*3/uL 0.83-4.51 [facility] Automated lymphocyte count a s percentage of total leukocytesOrdered By: Kati Arshad on 01-15-2024 Lymphocytes/100 WBC Auto (Unsp spec) 17.0 % 19-41 [facility] Basophil percentageOrdered B y: Kati Jeancarlos on 01-15-2024 Basophils/100 WBC (Bld) 0.8 % 0-1 [facility] Bilirubin [Mass/Vol] 1.20 mg/dL 0.20-1.00 [facility] Comment on above: For patients on eltr ombopag therapy, use of Dimension [place] TBIL is not recommended. Chloride [Moles/Vol] 106 mmol/L 98-107 [facility] Eosinophils/100 WBC (Bld) 2.1 % 0-5 [facility] Glucose [Mass/Vol] 106 mg/dL 74-106 [facility] Comment on above: Fasting Glucose resu lt from 100 to 125 mg/dL suggests IMPAIRED HOMEOSTASIS per A.D.A. criteria. Hemoglobin (Bld) [Mass/Vol] 15.8 g/dL 13.0-16.5 [facility] Monocytes/100 WBC (Bld) 7.0 % 0-10 [facility] Neutrophils (Bld) [#/Vol] 12.1 10*3/uL 2.0-7.7 [facility] Neutrophils/100 WBC (Bld) 72.6 % 47-70 [facility] Potassium [Moles/Vol] 4.1 mmol/L 3.5-5.1 [facility] Protein [Mass/Vol] 7.9 g/dL 6.4-8.2 [facility] Sodium [Moles/Vol] 138 mmol/L 136-145 [facility] WBC (Bld) [#/Vol] 16.7 10*3/uL 4.4-11.0 [facility] CBC W/Diff, Automatedon 12-28 Absolute Lymph 2.84 X10 3/uL Normal 0.83-4.51 [facility] Comment on above: Performed By: #### L 100.0100, L500.2500 #### [facility] [address] [place], [address] Absolute Neut 12.1 X10 3/uL High 2.0-7.7 [facility] Comment on above: Performed By: #### L 100.0100, L500.2500 #### [facility] [address] [place], [address] Basophils/100 WBC (Bld) 0.8 % Normal 0-1 [facility] Comment on above: Performed By: #### L 100.0100, L500.2500 #### [facility] [address] [place], [address] Eosinophils/100 WBC (Bld) 2.1 % Normal 0-5 [facility] Comment on above: Performed By: #### L 100.0100, L500.2500 #### [facility] [address] [place], [address] Erythrocyte distribution width (RBC) [Ratio] 13.1 % Normal 11.6-14.6 [facility] Comment on above: Performed By: #### L 100.0100, L500.2500 #### [facility] [address] [place], [address] Hematocrit (Bld) [Volume fraction] 49.0 % Normal 40-54 [facility] Comment on above: Performed By: #### L 100.0100, L500.2500 #### [facility] [address] [place], [address] Hemoglobin (Bld) [Mass/Vol] 15.8 g/dL Normal 13.0-16.5 [facility] Comment on above: Performed By: #### L 100.0100, L500.2500 #### [facility] [address] [place], [address] IG% 0.500 Normal 0.0-0.9 [facility] Comment on above: Result Comment: IG% - Immature Granulocytes (promyelocytes, myelocytes and metamyelocytes) > 1% indicates that a LEFT SHIFT is Present. Performed By: #### L 100.0100, L500.2500 #### [facility] [address] [place], [address] Lymphocytes/100 WBC (Bld) 17.0 % Low 19-41 [facility] Comment on above: Performed By: #### L 100.0100, L500.2500 #### [facility] [address] [place] [place], [address] MCH (RBC) [Entitic mass] 28.4 pg Normal 27.0-32.0 [facility] Comment on above: Performed By: #### L 100.0100, L500.2500 #### [facility] [address] [place], [address] MCHC (RBC) [Mass/Vol] 32.2 g/dL Normal 32-36 [facility] Comment on above: Performed By: #### L 100.0100, L500.2500 #### [facility] [address] [place], [address] MCV (RBC) [Entitic vol] 88.0 fL Normal 80-94 [facility] Comment on above: Performed By: #### L 100.0100, L500.2500 #### [facility] [address] [place], [address] Monocytes/100 WBC (Bld) 7.0 % Normal 0-10 [facility] Comment on above: Performed By: #### L 100.0100, L500.2500 #### [facility] [address] [place], [address] Neutrophils/100 WBC (Bld) 72.6 % High 47-70 [facility] Comment on above: Performed By: #### L 100.0100, L500.2500 #### [facility] [address] [place], [address] Nucleated RBC (Bld) [#/Vol] 0 10*3/uL Normal 0-5 [facility] Comment on above: Performed By: #### L 100.0100, L500.2500 #### [facility] [address] [place], [address] Platelet mean volume (Bld) [Entitic vol] 10.8 fL Normal 6.2-12.0 [facility] Comment on above: Performed By: #### L 100.0100, L500.2500 #### [facility] [address] [place], [address] Platelets (Bld) [#/Vol] 233 10*3/uL Normal 150-450 [facility] Comment on above: Performed By: #### L 100.0100, L500.2500 #### [facility] [address] [place], [address] RBC (Bld) [#/Vol] 5.57 10*6/uL Normal 4.6-6.2 [facility] Comment on above: Performed By: #### L 100.0100, L500.2500 #### [facility] [address] [place], [address] RDW SD 42.3 fl Normal 35.1-43.9 [facility] Comment on above: Performed By: #### L 100.0100, L500.2500 #### [facility] [address] [place], [address] WBC (Bld) [#/Vol] 16.7 10*3/uL High 4.4-11.0 [facility] Comment on above: Performed By: #### L 100.0100, L500.2500 #### [facility] [address] [place], [address] Comprehensive Metabolic Prof [facility] 01-15-2024 Albumin [Mass/Vol] 3.8 g/dL Normal 3.2-5.0 [facility] Comment on above: Performed By: #### L 100.0100, L500.2500 #### [facility] [address] [place], [address] Albumin/Globulin [Mass ratio] 0.9 {ratio} Normal 0.9-2.4 [facility] Comment on above: Performed By: #### L 100.0100, L500.2500 #### [facility] [address] [place], [address] ALK P 71 U/L Normal 45-117 [facility] Comment on above: Performed By: #### L 100.0100, L500.2500 #### [facility] [address] [place], [address] ALT [Catalytic activity/Vol] 34 U/L Normal 16-61 [facility] Comment on above: Performed By: #### L 100.0100, L500.2500 #### [facility] [address] [place] [place], [address] AST [Catalytic activity/Vol] 21 U/L Normal 15-37 [facility] Comment on above: Performed By: #### L 100.0100, L500.2500 #### [facility] [address] [place], [address] Bilirubin [Mass/Vol] 1.20 mg/dL High 0.20-1.00 [facility] Comment on above: Result Comment: For patients on eltrombopag therapy, use of Dimension [place] TBIL is not recommended. Performed By: #### L 100.0100, L500.2500 #### [facility] [address] [place], [address] BUN/CRE 10.9 RATIO Normal 10-20 [facility] Comment on above: Performed By: #### L 100.0100, L500.2500 #### [facility] [address] [place], [address] CA,Total 9.1 mg/dL Normal 8.5-10.1 [facility] Comment on above: Performed By: #### L 100.0100, L500.2500 #### [facility] [address] [place], [address] Chloride [Moles/Vol] 106 mmol/L Normal 98-107 [facility] Comment on above: Performed By: #### L 100.0100, L500.2500 #### [facility] [address] [place], [address] CO2 [Moles/Vol] 27.0 mmol/L Normal 21.0-32.0 [facility] Comment on above: Performed By: #### L 100.0100, L500.2500 #### [facility] [address] [place], [address] Creatinine [Mass/Vol] 0.92 mg/dL Normal 0.70-1.30 [facility] Comment on above: Result Comment: The validity of the calculated GFR GFRAA in patients over 70 years has not been determined. Clinical correlation is essential. Performed By: #### L 100.0100, L500.2500 #### [facility] [address] [place], [address] EST GFR - AA 118 mL/min Normal >60 [facility] Comment on above: Result Comment: Afri can Filipino GFR Calc Performed By: #### L 100.0100, L500.2500 #### [facility] [address] [place], [address] GAP 5 Normal 5-15 [facility] Comment on above: Performed By: #### L 100.0100, L500.2500 #### [facility] [address] [place], [address] GFR/1.73 sq M.predicted among non-blacks MDRD (S/P/Bld) [Vol rate/Area] 98 mL/min/{1.73_m2} Normal >60 [facility] Comment on above: Result Comment: Non- GFR Calc Performed By: #### L 100.0100, L500.2500 #### [facility] [address] [place], [address] Globulin (S) [Mass/Vol] 4.1 g/dL Normal 2.2-4.2 [facility] Comment on above: Performed By: #### L 100.0100, L500.2500 #### [facility] [address] [place], [address] Glucose [Mass/Vol] 106 mg/dL Normal 74-106 [facility] Comment on above: Result Comment: Fast ing Glucose result from 100 to 125 mg/dL suggests IMPAIRED HOMEOSTASIS per A.D.A. criteria. Performed By: #### L 100.0100, L500.2500 #### [facility] [address] [place], [address] Potassium [Moles/Vol] 4.1 mmol/L Normal 3.5-5.1 [facility] Comment on above: Performed By: #### L 100.0100, L500.2500 #### [facility] [address] [place], [address] Sodium [Moles/Vol] 138 mmol/L Normal 136-145 [facility] Comment on above: Performed By: #### L 100.0100, L500.2500 #### [facility] [address] [place], [address] T PROT 7.9 g/dL Normal 6.4-8.2 [facility] Comment on above: Performed By: #### L 100.0100, L500.2500 #### [facility] [address] [place], [address] Urea nitrogen [Mass/Vol] 10 mg/dL Normal 7-18 [facility] Comment on above: Performed By: #### L 100.0100, L500.2500 #### [facility] [address] [place], [address] Determination of erythrocyte mean corpuscular volume (MCV)Ordered By: Kati Arshad on 01-15-2024 MCV (RBC) [Entitic vol] 88.0 fL 80-94 [facility] Erythrocyte distribution wid th ratioOrdered By: Kati Arshad on 01-15-2024 Erythrocyte distribution width (RBC) [Ratio] 13.1 % 11.6-14.6 [facility] Erythrocyte distribution wid th standard deviationOrdered By: Kati Arshad on 01-15-2024 Erythrocyte distribution width (RBC) [Entitic vol] 42.3 fL 35.1-43.9 [facility] Hematocrit Auto (Bld) [Volum e fraction]Ordered By: Kati Arshad on 01-15-2024 Hematocrit (Bld) [Volume fraction] 49.0 % 40-54 [facility] Immature granulocytes/100 WB C Auto (Bld)Ordered By: Kati Arshad on 01-15-2024 Immature granulocytes/100 WBC (Bld) 0.500 % 0.0-0.9 [facility] Comment on above: IG% - Immature Granu locytes (promyelocytes, myelocytes and metamyelocytes) > 1% indicates that a LEFT SHIFT is Present. Internal Medicine Office Vis iton 01-15-2024 Internal Medicine Office Visit [facility] [address] [place] [address] [place] [address] OFFICE VISIT Date of Service: 01/15/24 MR#: [id number] Acct: [id number] Name: RONY HE Rep #: [id number] : 1985 Provider: Dr. Kati lauren MD Age/Sex: 38/M Location: [facility] Status: Signed with Addenda ADDENDUM by Dr. Kati Arshad MD on 01/15/24 at 1459 Assessment and Plan Assessment and Plan (1) Boil of groin: Plan: On exam, patient demonstrated a small boil of his right inguinal region. There is no surrounding erythema and was quite small. He reports he gets them there recurrently and is able to manage them himself. Inquired if he wanted a referral to dermatology since it is recurrent. He declined for now. Will continue to monitor. Orders: Orders CBC W/Diff, Automated Today R10.32 - Left lower quadrant pain Comprehensive Metabolic Profil Today R10.32 - Left lower quadrant pain Thyroid Stim Hormone (TSH) Today R10.32 - Left lower quadrant pain Abdomen/Pelvis WITH Contrast Today R10.32 - Left lower quadrant pain Medications: New omeprazole 40 mg PO DAILY 30 caps 0RF 01/15/24 1459 Date Kati Arshad MD cc: * Signed Intake Vital Signs 11/20/23 15:28 01/15/24 09:28 Height 5 ft 8 in 5 ft 8 in Weight: 275 lb BMI 41.8 BP 142/86 H Blood Pressure Location Rt brachial Position Sitting Respiration 18 Pulse 75 Pulse Source Monitor Temp 97.3 F L Temp Source Temporal Pulse Oximetry (%) 99 Oxygen Delivery Method room air Intake Visit Reasons: STOMACH PAINS Chief Complaint: stomach pains Is patient in pain?: Yes (ABD pain of 6 lower left quadrant) Allergies No Known Allergies Allergy (Verified 01/15/24 09:31) Medications levothyroxine 88 mcg tablet 88 mcg PO DAILY #30 tabs 11/20/23 [Rx Confirmed 01/15/24] omeprazole 40 mg capsule,delayed release 40 mg PO DAILY #30 caps 01/15/24 [Rx Confirmed 01/15/24] Nurse's Note: pt states he is nicotine/tobacco free. pt states that about 2 wks ago he started having ABD pain, denies nausea/diarrhea. [facility] Medical History Acute maxillary sinusitis, unspecified Allergies Back problem Contact dermatitis COPD (chronic obstructive pulmonary disease) Dysphagia Essential hypertension GERD (gastroesophageal reflux disease) History of back problems Impacted cerumen, left ear Morbid obesity Numbness and tingling Sleep apnea Tobacco dependence Surgical History History of placement of ear tubes History of selective injection of anesthetic agent around lumbar nerve root Family History Father Alcohol abuse Heart disease Grandmother Diabetes Grandmother Heart disease Diabetes Bowel disease doesn't know what kind Hypertension Other Arthritis Cervical cancer Gastrointestinal problem Social History household members: spouse and children current occupational status: 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 He has concerns about lower abdominal pain. He reports that it started about 2 weeks ago. It has been constant, but waxes and wanes in severity. He reports it is in his left lower quadrant with occasional radiation into his back. He reports it feels like a pressure sensation, rating it 4/10 currently. He reports anytime he has to apply the valsalva, it seems to be worse. He reports he thought it was just gas. He took some simethicone, and while it helped with the gas, his pain persisted. He hasn't tried taking or doing anything else for his symptoms. He denies any nausea or vomiting. He does have intermittent soft stools every few days, but otherwise his bowels have been moving normally. He denies any dark or bloody stools. 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 He hasn't had any fevers. He has been eating and drinking normally. At his last office visit, he was having some generalized abdominal pain from vaping. He is no longer vaping and that pain has resolved. He denies any previous episodes of abdominal pain. He does notice agustin (more content not included)... Normal [facility] - Chemistry and C hemistry - challengeOrdered By: Kati Arshad on 01-15-2024 Albumin/Globulin [Mass ratio] 0.9 {ratio} 0.9-2.4 [facility] ALP [Catalytic activity/Vol] 71 U/L 45-117 [facility] ALT [Catalytic activity/Vol] 34 U/L 16-61 [facility] CO2 [Moles/Vol] 27.0 mmol/L 21.0-32.0 [facility] Globulin (S) [Mass/Vol] 4.1 g/dL 2.2-4.2 [facility] Urea nitrogen/Creatinine [Mass ratio] 10.9 mg/mg 10-20 [facility] - Hematology and Cell countsOrdered By: Kati Arshad on 01-15-2024 MCH (RBC) [Entitic mass] 28.4 pg 27.0-32.0 [facility] MCHC (RBC) [Mass/Vol] 32.2 g/dL 32-36 [facility] Nucleated RBC/100 WBC (Bld) [Ratio] 0 % 0-5 [facility] Platelet mean volume (Bld) [Entitic vol] 10.8 fL 6.2-12.0 [facility] Platelets (Bld) [#/Vol] 233 10*3/uL 150-450 [facility] No Panel InformationOrdered By: Kati Arshad on 01-15-2024 Estimated GFR (MDRD) Amer 118 mL/min >60 [facility] Comment on above: GFR Calc Estimated GFR (MDRD) Non-Af Amer 98 mL/min >60 [facility] Comment on above: Non- GFR Calc RBC Auto (Bld) [#/Vol]Ordere d By: Kati Arshad on 01-15-2024 RBC (Bld) [#/Vol] 5.57 10*6/uL 4.6-6.2 [facility] Serum or plasma calcium radha urement (mass/volume)Ordered By: Kati Arshad on 01-15-2024 Calcium [Mass/Vol] 9.1 mg/dL 8.5-10.1 [facility] Serum or plasma creatinine m easurement (mass/volume)Ordered By: Kati Arshad on 01-15-2024 Creatinine [Mass/Vol] 0.92 mg/dL 0.70-1.30 [facility] Comment on above: The validity of the calculated GFR & GFRAA in patients over 70 years has not been determined. Clinical correlation is essential. Serum or plasma thyroid stim ulating hormone (TSH) measurement (units/volume)Ordered By: Kati Arshad on 01-15-2024 TSH Qn 0.02 uIU/mL 0.358-3.74 [facility] Serum or plasma urea nitroge n measurement (mass/volume)Ordered By: Kati Arshad on 01-15-2024 Urea nitrogen [Mass/Vol] 10 mg/dL 7-18 [facility] Thin prep Papanicolaou smear with manual screeningOrdered By: Kati Arshad on 01-15-2024 Thin prep Papanicolaou smear with manual screening 3.8 g/dL 3.2-5.0 [facility] Thin prep Papanicolaou smear with manual screening 21 U/L 15-37 [facility] Thin prep Papanicolaou smear with manual screening 5 5-15 [facility] Thyroid Stim Hormone (TSH)on 01-15-2024 TSH 0.02 uIU/mL Low 0.358-3.74 [facility] Comment on above: Performed By: #### L 100.0100, L500.2500 #### [facility] [address] [place] [address], [id number] Serum or plasma thyroid stim ulating hormone (TSH) measurement (units/volume)Ordered By: Kati Arshad on 11-20-2023 TSH Qn 0.01 uIU/mL 0.358-3.74 [facility] Absolute lymphocyte countOrd ered By: Kati Arshad on 07-04-2023 Lymphocytes Auto (Unsp spec) [#/Vol] 3.34 10*3/uL 0.83-4.51 [facility] Basophil percentageOrdered B y: Kati Arshad on 07-04-2023 Basophils/100 WBC (Bld) 1.3 % 0-1 [facility] Bilirubin [Mass/Vol] 0.50 mg/dL 0.20-1.00 [facility] Comment on above: For patients on eltr ombopag therapy, use of Dimension [place] TBIL is not recommended. Chloride [Moles/Vol] 109 mmol/L 98-107 [facility] Eosinophils/100 WBC (Bld) 3.1 % 0-5 [facility] Glucose [Mass/Vol] 75 mg/dL 74-106 [facility] Neutrophils (Bld) [#/Vol] 8.6 10*3/uL 2.0-7.7 [facility] Neutrophils/100 WBC (Bld) 64.0 % 47-70 [facility] Potassium [Moles/Vol] 4.0 mmol/L 3.5-5.1 [facility] Protein [Mass/Vol] 8.2 g/dL 6.4-8.2 [facility] Sodium [Moles/Vol] 141 mmol/L 136-145 [facility] WBC (Bld) [#/Vol] 13.5 10*3/uL 4.4-11.0 [facility] Blood erythrocytes count (nu mber/volume)Ordered By: Kati Arshad on 07-04-2023 RBC (Bld) [#/Vol] 5.35 10*6/uL 4.6-6.2 [facility] Blood hemoglobin measurement (mass/volume)Ordered By: Kati Arshad on 07-04-2023 Hemoglobin (Bld) [Mass/Vol] 15.1 g/dL 13.0-16.5 [facility] Blood lymphocytes/100 leukoc ytesOrdered By: Kati Arshad on 07-04-2023 Lymphocytes/100 WBC (Bld) 24.7 % 19-41 [facility] Blood monocytes/100 leukocyt esOrdered By: Kati Arshad on 07-04-2023 Monocytes/100 WBC (Bld) 6.5 % 0-10 [facility] Blood platelet mean volumeOr dered By: Kati Arshad on 07-04-2023 Platelet mean volume (Bld) [Entitic vol] 10.8 fL 6.2-12.0 [facility] Determination of erythrocyte mean corpuscular volume (MCV)Ordered By: Kati Arshad on 07-04-2023 MCV (RBC) [Entitic vol] 88.0 fL 80-94 [facility] Hematocrit Auto (Bld) [Volum e fraction]Ordered By: Kati Arshad on 07-04-2023 Hematocrit (Bld) [Volume fraction] 47.1 % 40-54 [facility] - Chemistry and C hemistry - challengeOrdered By: Kati Arshad on 07-04-2023 ALP [Catalytic activity/Vol] 56 U/L 45-117 [facility] ALT [Catalytic activity/Vol] 40 U/L 16-61 [facility] CO2 [Moles/Vol] 27.0 mmol/L 21.0-32.0 [facility] Globulin (S) [Mass/Vol] 4.2 g/dL 2.2-4.2 [facility] Urea nitrogen/Creatinine [Mass ratio] 14.0 mg/mg 10-20 [facility] - Hematology and Cell countsOrdered By: Kati Arshad on 07-04-2023 Erythrocyte distribution width (RBC) [Entitic vol] 43.5 fL 35.1-43.9 [facility] Erythrocyte distribution width (RBC) [Ratio] 13.4 % 11.6-14.6 [facility] Immature granulocytes/100 WBC (Bld) 0.400 % 0.0-0.9 [facility] Comment on above: IG% - Immature Granu locytes (promyelocytes, myelocytes and metamyelocytes) > 1% indicates that a LEFT SHIFT is Present. MCH (RBC) [Entitic mass] 28.2 pg 27.0-32.0 [facility] Nucleated RBC/100 WBC (Bld) [Ratio] 0 % 0-5 [facility] MCHC Auto (RBC) [Mass/Vol]Or dered By: Kati Arshad on 07-04-2023 MCHC (RBC) [Mass/Vol] 32.1 g/dL 32-36 [facility] No Panel InformationOrdered By: Kati Arshad on 07-04-2023 Estimated GFR (MDRD) Amer 107 mL/min >60 [facility] Comment on above: GFR Calc Estimated GFR (MDRD) Non-Af Amer 89 mL/min >60 [facility] Comment on above: Non- GFR Calc Thyroid Stimulating Hormone (TSH) 8.29 uIU/mL 0.358-3.74 [facility] Platelets bldOrdered By: Juan M Arshad on 07-04-2023 Platelets (Bld) [#/Vol] 283 10*3/uL 150-450 [facility] Serum or plasma albumin radha urement (mass/volume)Ordered By: Kati Arshad on 07-04-2023 Albumin [Mass/Vol] 4.0 g/dL 3.2-5.0 [facility] Serum or plasma albumin/glob ulin mass ratioOrdered By: Kati Arshad on 07-04-2023 Albumin/Globulin [Mass ratio] 1.0 {ratio} 0.9-2.4 [facility] Serum or plasma calcium radha urement (mass/volume)Ordered By: Kati Arshad on 07-04-2023 Calcium [Mass/Vol] 9.2 mg/dL 8.5-10.1 [facility] Serum or plasma creatinine m easurement (mass/volume)Ordered By: Kati Arshad on 07-04-2023 Creatinine [Mass/Vol] 1.00 mg/dL 0.70-1.30 [facility] Comment on above: The validity of the calculated GFR & GFRAA in patients over 70 years has not been determined. Clinical correlation is essential. Serum or plasma urea nitroge n measurement (mass/volume)Ordered By: Kati Arshad on 07-04-2023 Urea nitrogen [Mass/Vol] 14 mg/dL 7-18 [facility] Thin prep Papanicolaou smear with manual screeningOrdered By: Katigreg Arshad on 07-04-2023 Thin prep Papanicolaou smear with manual screening 27 U/L 15-37 [facility] Thin prep Papanicolaou smear with manual screening 5 5-15 [facility] No Panel Informationon 01-18 Thyroid Stimulating Hormone (TSH) 4.78 uIU/mL 0.358-3.74 [facility] Work Phone: CNPMartha 03-05-2021 [facility] Telephone ([id number]) ---- RONY HE ([id number]) 1985 Date Time Provider Department 03/05/21 [facility] During your visit today, we recorded the following information about you: Bakari Farooq 03/05/2021 8:37 AM Signed Called patient back after he left a voicemail his phone is disconnected Allergies As of Date: 03/05/2021 Noted Allergy Reaction SEASONAL ALLERGIES 02/11/2016 5 - Intolerance Date Reviewed: 11/14/2020 Reviewed by: Colleen Wilson Ma - Fully Assessed Reason for Visit: Patient Update [1234] Prescriptions as of 03/05/2021 Sig: OMEPRAZOLE 40 MG CAPSULE,CLEMENCIA* 40 mg. Problem List As Of Date 03/05/2021 Noted Resolved DDD (degenerative disc disease), lumbar [M51.36]05/25/2018 Chronic low back pain with right-sided sciatica*05/25/2018 Chronic right-sided low back pain with right-si*08/07/2018 Chronic hip pain, bilateral [M25.551, M25.552, *10/08/2018 Meralgia paresthetica of right side [G57.11] 01/07/2019 Neuropathic pain [M79.2] 01/07/2019 Right knee pain [M25.561] 05/08/2019 DDD (degenerative disc disease), thoracic [M51.*05/08/2019 Acute pain of right knee [M25.561] 06/12/2019 Encounter Status:Closed by BAKARI FAROOQ on 03/05/21 [facility] It[facility] ---- RONY HE ([id number]) 1985 M Date Time Provider Department 02/25/21 [facility] your visit today, we recorded the following information about you: Eb Reilly 02/25/2021 3:26 PM Signed Received referral for GERD and gastric bypass. lvm to talk to patient. Em Allergies As of Date: 02/25/2021 Noted Allergy Reaction SEASONAL ALLERGIES 02/11/2016 5 - Intolerance Date Reviewed: 11/14/2020 Reviewed by: Colleen Wilson Ma - Fully Assessed Reason for Visit: Appointment [186] Prescriptions as of 12/14/2021 - Omeprazole 40 mg capsule 40 mg. Problem List As Of Date 02/25/2021 Noted Resolved DDD (degenerative disc disease), lumbar [M51.36]05/25/2018 Chronic low back pain with right-sided sciatica*05/25/2018 Chronic right-sided low back pain with right-si*08/07/2018 Chronic hip pain, bilateral [M25.551, M25.552, *10/08/2018 Meralgia paresthetica of right side [G57.11] 01/07/2019 Neuropathic pain [M79.2] 01/07/2019 Right knee pain [M25.561] 05/08/2019 DDD (degenerative disc disease), thoracic [M51.*05/08/2019 Acute pain of right knee [M25.561] 06/12/2019 Encounter Status:Closed by EB REILLY on 12/14/21 Normal [facility] US ABDOMEN COMPLETEon 2020 US ABDOMEN COMPLETE ORIGINAL Complete ultrasound of the abdomen HISTORY: RIGHT upper quadrant pain. COMPARISON: None Visible portions of the pancreas are normal. Visible segments of the aorta and the IVC are unremarkable as well. The liver is echogenic, most compatible with diffuse fatty infiltration. No focal liver lesion is present and there is no biliary dilatation. The common duct measures 3 mm. The gallbladder is well-distended with no stones, sludge, wall thickening or adjacent fluid. Negative sonographic Hodge's sign. RIGHT kidney 9.7 cm length, LEFT kidney 8.4 cm length. No renal stone, mass or collecting system dilatation is evident. No perinephric fluid seen. The spleen is normal in size and there is no focal spleen lesion seen. No free fluid is evident. No additional contributory finding. IMPRESSION: 1. Fatty liver. 2. No acute abnormality identified. Interpreted By: Jarad Owen MD Preliminary Report By: Jarad Owen MD Electronically Signed By: Jarad Owen MD Dictated Date: 01/01/2021 12:32:44 PM Prelim Date: 01/01/2021 12:32:44 PM Sign Date: 01/01/2021 12:34:12 PM Ordering Provider:Tavo Kinney [facility] [place] 08-15-2019 PROGRESS HNO ID: [id number] Author: Rony CoylePtDoyle Vela Service: ? Author Type: Physical Therapist Type: Progress Notes Filed: 08/15/2019 7:24 AM Note Text: 08/15/2019 [facility] PHYSICAL THERAPY DISCONTINUANCE OF CARE Plan of Care Period: Start of Care Date: 06/12/19 Last Visit Date: 07/03/2019 Therapy Program: The following is a summary of the interventions provided for this episode of care; Therapeutic exercise and Manual therapy Assessment: Based on most recent visit, patient was progressing as expected toward functional goals based on pain levels. Unable to formally assess goal achievement due to non-compliance with therapy plan of care. Reason for Discontinuation of Care: Patient has not returned to therapy or scheduled additional follow-up appointments. Rony Vela PT [place] [facility] 07-03-2019 CN[facility] OT/PT/Speech Visit (PTMDRG) ---- RONY HE ([id number]) 1985 M Date Time Provider Department 07/03/19 5:15 PM RONY VELA (PT) PTMDRG Date Time Provider Department Center 07/03/2019 5:15 PM [id number], SCOTT (P*PTMDRG [facility] Reason for Visit: Physical Therapy [503] PT Discharge [752] Reason For Visit History Recorded Visit Diagnosis:Acute pain of right knee [M25.561] Allergies As of Date: 07/03/2019 Noted Allergy Reaction SEASONAL ALLERGIES 02/11/2016 5 - Intolerance Date Reviewed: 06/04/2019 Reviewed by: Mahsa Jang - Fully Assessed Prescriptions as of 07/03/2019 Sig: CYCLOBENZAPRINE 10 MG AND IRR* 10 mg. OMEPRAZOLE 40 MG CAPSULE,CLEMENCIA* 40 mg. DEXAMETHASONE 4 MG/ML INJECTI* For iontophoresis Patient not taking: Reported on 06/04/2019 GABAPENTIN 600 MG TABLET Take 1 tablet by mouth twice * IBUPROFEN 600 MG TABLET Take 600 mg by mouth every 6 * Progress Notes: Rony Vela PT 07/03/2019 6:11 PM Signed Episode Visit Count: 4 Therapist That Will Oversee The Plan Of Care: Rony Vela Start of Care Date: 06/12/19 Onset Date: 05/27/19 Plan of Care Certification Date: 06/12/19 Patient Identified by Name and Date of : Yes REH[facility]TS [facility] PHYSICAL THERAPY TREATMENT NOTE ASSESSMENT: Pt denied any increase in sxs with performance of exercise this date. Assess patient's function and progress towards goals next visit to determine potential for discharge, continuation of skilled therapy services, or referral to another medical provider. PLAN FOR NEXT VISIT: Progress Note SUBJECTIVE: Pt states that he had some knee pain yesterday which he attributes to doing a lot of driving. Overall, pt reports decreased knee pain since starting therapy. Pain Level: 0 Pain Location: Knee - Right Description: Aching OBJECTIVE MEASURES WITH LEVEL OF FUNCTION: Gait Gait Observation: wide MELISSA, decreased speed, reciprocal pattern, decreased step length B/L, intermittent R antalgia TREATMENT: Therapeutic Exercise: 1: Nu step, L5, x 5 min 2: gastroc stretch, slant board, 3 x 30 sec 3: R/L hamstring stretch, 2 x 30 sec ea, leg on step 4: R/L, hip flexor stretch, 2 x 30 sec ea 5: single TG squat, L22, 3 x 15 ea 6: SLR, 2 x 10 7: bridge, 2 x 10 8: S/L clamshell, x 15 ea Skilled Intervention: Patient was educated in proper exercise technique and purpose for exercises. Reviewed and educated patient on additions/changes for home exercise program as above (*) Billing: [place]: Therapeutic Exercise (62037): 1:1 time: 44 minutes (3 units: 38-52 mins) Total time: 44 minutes Rony Vela PT Rony Vela PT 08/15/2019 7:24 AM Signed 08/15/2019 [facility] PHYSICAL THERAPY DISCONTINUANCE OF CARE Plan of Care Period: Start of Care Date: 06/12/19 Last Visit Date: 07/03/2019 Therapy Program: The following is a summary of the interventions provided for this episode of care; Therapeutic exercise and Manual therapy Assessment: Based on most recent visit, patient was progressing as expected toward functional goals based on pain levels. Unable to formally assess goal achievement due to non-compliance with therapy plan of care. Reason for Discontinuation of Care: Patient has not returned to therapy or scheduled additional follow-up appointments. Rony Vela PT ---- [place] PROGRESSon 07-03-2019 PROGRESS HNO ID: [id number] Author: Rony (Pt) Solange Service: ? Author Type: Physical Therapist Type: Progress Notes Filed: 07/03/2019 6:11 PM Note Text: Episode Visit Count: 4 Therapist That Will Oversee The Plan Of Care: Rony Vela Start of Care Date: 06/12/19 Onset Date: 05/27/19 Plan of Care Certification Date: 06/12/19 Patient Identified by Name and Date of : Yes REHABILITATION AND SPORTS THERAPY PHYSICAL THERAPY TREATMENT NOTE ASSESSMENT: Pt denied any increase in sxs with performance of exercise this date. Assess patient's function and progress towards goals next visit to determine potential for discharge, continuation of skilled therapy services, or referral to another medical provider. PLAN FOR NEXT VISIT: Progress Note SUBJECTIVE: Pt states that he had some knee pain yesterday which he attributes to doing a lot of driving. Overall, pt reports decreased knee pain since starting therapy. Pain Level: 0 Pain Location: Knee - Right Description: Aching OBJECTIVE MEASURES WITH LEVEL OF FUNCTION: Gait Gait Observation: wide MELISSA, decreased speed, reciprocal pattern, decreased step length B/L, intermittent R antalgia TREATMENT: Therapeutic Exercise: 1: Nu step, L5, x 5 min 2: gastroc stretch, slant board, 3 x 30 sec 3: R/L hamstring stretch, 2 x 30 sec ea, leg on step 4: R/L, hip flexor stretch, 2 x 30 sec ea 5: single TG squat, L22, 3 x 15 ea 6: SLR, 2 x 10 7: bridge, 2 x 10 8: S/L clamshell, x 15 ea Skilled Intervention: Patient was educated in proper exercise technique and purpose for exercises. Reviewed and educated patient on additions/changes for home exercise program as above (*) Billing: [place]: Therapeutic Exercise ([id number]): 1:1 time: 44 minutes (3 units: 38-52 mins) Total time: 44 minutes Rony Vela PT [place] CNTHERAPYon 06-26-2019 CNTHERAPY OT/PT/Speech Visit (PTMDRG) ---- RONY HE ([id number]) 1985 M Date Time Provider Department 06/26/19 4:30 PM CAMI HERNANDEZ ([facility]) PTMDRG Date Time Provider Department Center 06/26/2019 4:30 PM [id number], SUSAN *PTMDRG [facility] Reason for Visit: Physical Therapy [503] Visit Diagnosis:Acute pain of right knee [M25.561] Allergies As of Date: 06/26/2019 Noted Allergy Reaction SEASONAL ALLERGIES 02/11/2016 5 - Intolerance Date Reviewed: 06/04/2019 Reviewed by: Mahsa Jang - Fully Assessed Prescriptions as of 06/26/2019 Sig: CYCLOBENZAPRINE 10 MG AND IRR* 10 mg. OMEPRAZOLE 40 MG CAPSULE,CLEMENCIA* 40 mg. DEXAMETHASONE 4 MG/ML INJECTI* For iontophoresis Patient not taking: Reported on 06/04/2019 GABAPENTIN 600 MG TABLET Take 1 tablet by mouth twice * IBUPROFEN 600 MG TABLET Take 600 mg by mouth every 6 * Progress Notes: Cami Hernandez PTA 06/26/2019 7:13 PM Signed Episode Visit Count: 3 Therapist That Will Oversee The Plan Of Care: Rony Vela Start of Care Date: 06/12/19 Onset Date: 05/27/19 Plan of Care Certification Date: 06/12/19 Patient Identified by Name and Date of : Yes REHABILITATION AND SPORTS THERAPY PHYSICAL THERAPY TREATMENT NOTE ASSESSMENT: Rony He is challenged with bridging exercise. Patient is unable to perform left single leg stance for greater than 3 seconds without touching down with upper extremity support. No pain complaints noted with lower extremity and trunk stability exercises. PLAN FOR NEXT VISIT: Add mini lunge, sls with stick mobility SUBJECTIVE: Patient Reason for Visit: Patient reports I am not too bad . Patient reports that his sister suggested that his back pain may be from diverticulitis. Pt has since cut nuts and corn from diet and is feeling better. Patient reports no pain presently . No pain since last week. Pain: Pain Pain Level: 0 Post Treatment Pain Post Treatment Pain Level: 0 OBJECTIVE MEASURES WITH LEVEL OF FUNCTION: Left single leg stance : 3 seconds, 3 seconds Right single leg stance : 15 seconds TREATMENT: Therapeutic Exercise: 1: NuStep, seat 11, L5, 6 minutes, 65 spm or greater 2: gastroc stretch, 3 x 30 sec 3: R/L hamstring stretch 3 x 30 seconds 4: R/L standing hip flexor stretch 3 x 20 seconds 5: SKTC 5 x 5 seconds 6: AB with SLR x 10 , 2 sets 7: AB with bridge with 3 second hold, 5 x 2 sets 8: S/L AB with clam x 10 9: TG squat, L/R 22 degrees, 3 x 15 Skilled Intervention: Patient was educated in proper exercise technique and purpose for exercises. Skilled judgment was provided in selection of appropriate interventions. Correct performance of therapeutic exercises was facilitated with verbal and visual cuing. Billing: [place]: Therapeutic Exercise ([id number]): 1:1 time: 43 minutes (3 units: 38-52 mins) Total time: 47 minutes Cami Hernandez PTA ---- [facility] PROGRESSon 06-26-2019 PROGRESS HNO ID: [id number] Author: Cami Hernandez Service: ? Author Type: [employer]ation Supervisor Type: Progress Notes Filed: 06/26/2019 7:13 PM Note Text: Episode Visit Count: 3 Therapist That Will Oversee The Plan Of Care: Rony Vela Start of Care Date: 06/12/19 Onset Date: 05/27/19 Plan of Care Certification Date: 06/12/19 Patient Identified by Name and Date of : Yes REHABILITATION AND SPORTS THERAPY PHYSICAL THERAPY TREATMENT NOTE ASSESSMENT: Rony He is challenged with bridging exercise. Patient is unable to perform left single leg stance for greater than 3 seconds without touching down with upper extremity support. No pain complaints noted with lower extremity and trunk stability exercises. PLAN FOR NEXT VISIT: Add mini lunge, sls with stick mobility SUBJECTIVE: Patient Reason for Visit: Patient reports I am not too bad . Patient reports that his sister suggested that his back pain may be from diverticulitis. Pt has since cut nuts and corn from diet and is feeling better. Patient reports no pain presently . No pain since last week. Pain: Pain Pain Level: 0 Post Treatment Pain Post Treatment Pain Level: 0 OBJECTIVE MEASURES WITH LEVEL OF FUNCTION: Left single leg stance : 3 seconds, 3 seconds Right single leg stance : 15 seconds TREATMENT: Therapeutic Exercise: 1: NuStep, seat 11, L5, 6 minutes, 65 spm or greater 2: gastroc stretch, 3 x 30 sec 3: R/L hamstring stretch 3 x 30 seconds 4: R/L standing hip flexor stretch 3 x 20 seconds 5: SKTC 5 x 5 seconds 6: AB with SLR x 10 , 2 sets 7: AB with bridge with 3 second hold, 5 x 2 sets 8: S/L AB with clam x 10 9: TG squat, L/R 22 degrees, 3 x 15 Skilled Intervention: Patient was educated in proper exercise technique and purpose for exercises. Skilled judgment was provided in selection of appropriate interventions. Correct performance of therapeutic exercises was facilitated with verbal and visual cuing. Billing: [place]: Therapeutic Exercise ([id number]): 1:1 time: 43 minutes (3 units: 38-52 mins) Total time: 47 minutes Cami Hernandez [facility] [place] CNTHERAPYon 06-19-2019 CNTHERAPY OT/PT/Speech Visit (PTMDRG) ---- DERICKHERVERONY Rose ([id number]) 1985 M Date Time Provider Department 06/19/19 4:30 PM RONY VELA (PT) PTMDRG Date Time Provider Department Center 06/19/2019 4:30 PM [id number], SCOTT (P*PTMDRG [facility] Reason for Visit: Physical Therapy [503] Visit Diagnosis:Acute pain of right knee [M25.561] Allergies As of Date: 06/19/2019 Noted Allergy Reaction SEASONAL ALLERGIES 02/11/2016 5 - Intolerance Date Reviewed: 06/04/2019 Reviewed by: aMhsa Jang - Fully Assessed Prescriptions as of 06/19/2019 Sig: CYCLOBENZAPRINE 10 MG AND IRR* 10 mg. OMEPRAZOLE 40 MG CAPSULE,CLEMENCIA* 40 mg. DEXAMETHASONE 4 MG/ML INJECTI* For iontophoresis Patient not taking: Reported on 06/04/2019 GABAPENTIN 600 MG TABLET Take 1 tablet by mouth twice * IBUPROFEN 600 MG TABLET Take 600 mg by mouth every 6 * Progress Notes: Rony Vela PT 06/19/2019 5:41 PM Signed Episode Visit Count: 2 Therapist That Will Oversee The Plan Of Care: Rony Vela Start of Care Date: 06/12/19 Onset Date: 05/27/19 Plan of Care Certification Date: 06/12/19 Patient Identified by Name and Date of : Yes REHABILITATION AND SPORTS THERAPY PHYSICAL THERAPY TREATMENT NOTE ASSESSMENT: Pt reported decreased medial knee pain upon performance of nu step exercise. Supine exercises were modified in seated position to decrease low back pain. Pt will benefit from continued skilled therapy to progress LE strength/ROM and functional training. PLAN FOR NEXT VISIT: low level hip strengthening/activ ation SUBJECTIVE: Pt states that his L sciatic nerve screwed up after last visit, pt states that he had never had that before, sxs subsided in ~ 4 days. Pt states that he has less pain to the lateral R thigh but gets pain intermittently to R medial aspect of knee. Pain Level: 4 Pain Location: Knee - Right Description: Aching Post Treatment Pain Level: 0 OBJECTIVE MEASURES WITH LEVEL OF FUNCTION: Gait Gait Observation: wide MELISSA, decreased speed, reciprocal pattern, decreased step length B/L, intermittent R antalgia TREATMENT: Therapeutic Exercise: 1: *hamstring stretch, seated, 3 sec hold, 2 x 15 2: *SLR,review 3: *sciatic nerve flossing, review 4: nu step, x 6 min, L 5 5: TG squat, L20 3 x 15, L30 x 15 6: SLS, 2 x 30 sec ea 7: gastroc stretch, 3 x 60 sec Skilled Intervention: Patient was educated in proper exercise technique and purpose for exercises. Reviewed and educated patient on additions/changes for home exercise program as above (*) Billing: PT Services: Therapeutic Exercise ([id number]): 1:1 time: 43 minutes (3 units: 38-52 mins) Total time: 43 minutes Rony Vela PT ---- [facility] PROGRESSon 06-19-2019 PROGRESS HNO ID: [id number] Author: Rony (Pt) Solange Service: ? Author Type: Physical Therapist Type: Progress Notes Filed: 06/19/2019 5:41 PM Note Text: Episode Visit Count: 2 Therapist That Will Oversee The Plan Of Care: Rony Vela Start of Care Date: 06/12/19 Onset Date: 05/27/19 Plan of Care Certification Date: 06/12/19 Patient Identified by Name and Date of : Yes REHABILITATION AND SPORTS THERAPY PHYSICAL THERAPY TREATMENT NOTE ASSESSMENT: Pt reported decreased medial knee pain upon performance of nu step exercise. Supine exercises were modified in seated position to decrease low back pain. Pt will benefit from continued skilled therapy to progress LE strength/ROM and functional training. PLAN FOR NEXT VISIT: low level hip strengthening/activ ation SUBJECTIVE: Pt states that his L sciatic nerve screwed up after last visit, pt states that he had never had that before, sxs subsided in ~ 4 days. Pt states that he has less pain to the lateral R thigh but gets pain intermittently to R medial aspect of knee. Pain Level: 4 Pain Location: Knee - Right Description: Aching Post Treatment Pain Level: 0 OBJECTIVE MEASURES WITH LEVEL OF FUNCTION: Gait Gait Observation: wide MELISSA, decreased speed, reciprocal pattern, decreased step length B/L, intermittent R antalgia TREATMENT: Therapeutic Exercise: 1: *hamstring stretch, seated, 3 sec hold, 2 x 15 2: *SLR,review 3: *sciatic nerve flossing, review 4: nu step, x 6 min, L 5 5: TG squat, L20 3 x 15, L30 x 15 6: SLS, 2 x 30 sec ea 7: gastroc stretch, 3 x 60 sec Skilled Intervention: Patient was educated in proper exercise technique and purpose for exercises. Reviewed and educated patient on additions/changes for home exercise program as above (*) Billing: PT Services: Therapeutic Exercise ([id number]): 1:1 time: 43 minutes (3 units: 38-52 mins) Total time: 43 minutes Rony Vela PT [place] CNTHERAPYon 06-12-2019 CNTHERAPY OT/PT/Speech Visit (PTMDRG) ---- RONY HE ([id number]) 1985 M Date Time Provider Department 06/12/19 4:30 PM RONY VELA (PT) PTMDRG Date Time Provider Department Center 06/12/2019 4:30 PM [id number], SCOTT (P*PTMDRG [facility] Reason for Visit: PT Eval [747] Visit Diagnosis:Acute pain of right knee [M25.561] Allergies As of Date: 06/12/2019 Noted Allergy Reaction SEASONAL ALLERGIES 02/11/2016 5 - Intolerance Date Reviewed: 06/04/2019 Reviewed by: Mahsa Jang - Fully Assessed Prescriptions as of 06/12/2019 Sig: CYCLOBENZAPRINE 10 MG AND IRR* 10 mg. OMEPRAZOLE 40 MG CAPSULE,CLEMENCIA* 40 mg. DEXAMETHASONE 4 MG/ML INJECTI* For iontophoresis Patient not taking: Reported on 06/04/2019 GABAPENTIN 600 MG TABLET Take 1 tablet by mouth twice * IBUPROFEN 600 MG TABLET Take 600 mg by mouth every 6 * Progress Notes: Rony Vela, PT 06/12/2019 6:56 PM Signed Episode Visit Count: 1 Therapist That Will Oversee The Plan Of Care: Rony Vela Start of Care Date: 06/12/19 Onset Date: 05/27/19 Plan of Care Certification Date: 06/12/19 Patient Identified by Name and Date of : Yes REHABILITATION AND SPORTS THERAPY PHYSICAL THERAPY EVALUATION PLAN OF CARE: Assessment: Rony He presents with acute exacerbation of chronic R knee pain. Potential factors contributing to pt's sxs include decreased LE flexibility, LE stabilization deficits and dysfunctional movement patterns. As a result of pain/sxs, pt has decreased tolerance for walking, stair climbing, and climbing a ladder. Pt's function is also impaired due to chronic back pain. Based on history (chronicity, co morbidites), examination(knee, balance, mobility), presentation and clinical reasoning pt is appropriate for moderate complexity evaluation. Pt will benefit from skilled physical therapy to address impairments, dynamic LE stabilization, manual therapy techniques and functional training to decrease pain/sxs to minimize functional limitations. Prognosis: Good Good due to: current objective clinical presentation Goals for Episode of Care: creatde on 06/12/19 through 08/12/19 -Patient will improve B/L passive SLR to > 60 ? -Patient will ascend/descend stairs and/or ladder without feelings of R LE instability [place] in home exercise program. Patient will decrease pain rating by 2 points to meet minimal clinical important difference for numeric pain rating scale. -Patient will improve B/L SLS to >20 seconds Planned Interventions, Frequency, and Duration: Current Frequency: 1x/week Duration: 8 weeks Total Number of Visits Planned: 8 Planned Treatment Interventions: Therapeutic exercise;Neuromuscu lar re-education;Manual therapy;Therapeutic activities;Self-car e home management;Patient/ Family/Caregiver Education;Gait Training;Modalities Iontophoresis Patient demonstrates good understanding of plan of care and treatment. The above goals and plan of care were discussed and agreed upon by patient/family. SUBJECTIVE: Rony He is a 34 year old male seen today for acute R knee pain. Pt states that sxs started ~ 1 month ago, pt get off of a ladder and felt his R knee buckling so he avoided putting all of his weight down. Pt states that he has a chronic hx of knee pain for 10 years, pt states that he was diagnosed with burisits. Pt also notes a chronic history of low back pain and R LE numbness. Pt steates that his tolerance for upright activity is already limited due to back pain.lPt denies any current swelling in the knee. Pt notes chronic clicking and popping to her R knee. Pt notes chronic pain to all joints of his body. Patient Goals: decrease pain Functional Limitations: Functional Limitation Comments Functional Limitation Comments: walking, stairs, squatting Prior Level of Function: Independent without limitations Intake Information: Prescription present Previous Treatment: None Falls Interview: No positive findings with falls interview Aquatic Screen: No Pain: Pain Pain Level: 3(worst pain over last week: 5/10) Pain Location: Knee - Right Description: Aching Frequency: Continuous Post Treatment Pain Post Treatment Pain Level: (decreased pain, not quantfieid) OBJECTIVE MEASURES WITH LEVEL OF FUNCTION: Posture / Alignment R LE Anatomical Alignment Weight-Bearing: R Genu valgus(increased R LE ER) Knee Observations L Knee Presents with: Comments L Knee Presents with Comments: numbness to anterior R thigh R Knee Palpation Tenderness: Patellar inferior pole;Popliteal fossa L Knee Palpation Tenderness: Popliteal fossa LE Flexibility Flexibility: Quadriceps Flexibility;Hamstri ng Flexibility R Hamstring Flexibility: passive SLR 30 L Hamstring Flexibility: passive SLR 30 R Quadriceps Flexibility: PKB ~ 105 L Quadriceps Flexibility: PKB ~ 100 LE Joint Mobility R Patellar Mobility: WNL L Patellar Mobility: WNL LE Strength R Knee Extension (L3): 5/5 R Knee Flexion: 5/5 L Knee Extension (L3): 5/5 L Knee Flexion: 5/5 Gait Gait Observation: wide MELISSA, decreased speed, reciprocal pattern, decreased step length B/L Stairs: reciprocal pattern Balance Static Standing Balance: Single Leg Stance Single Leg Stance: R - 10 sec, L - 5 sec Education: Education Learning Preferences: Demonstration;[place];Performance; Printed Materials Barriers: None Learning/educationa l needs: Changes in Plan of Care;Plan of Care Education Provided: Yes, see treatment interventions for education provided Education Provided To: Patient Education Mode/Type: Demonstration;[place]a [place]/Discussion;L iterature/Printed Materials;Performan ce Response to Education/Teach Back: States/Identifies TREATMENT: Evaluation Therapeutic Exercise: 1: *hamstring stretch, 2 x 30 sec, supine with strap 2: *SLR, 2 x 15 3: *sciatic nerve flossing, 2 x 15, 3 sec hold Skilled Intervention: Patient was educated in proper exercise technique and purpose for exercises. Reviewed and educated patient on additions/changes for home exercise program as above (*) Manual Therapy: 1: myofascial decompression to lateral thigh/IT band region via cupping 2: static cupping to lateral thigh with active knee flexion/extension 3: kinisetaping to patella(applied concurrently with topical pain reliever) Skilled Intervention: Manual skills to improve joint mobility, ROM, and decrease pain. Utilized anatomy knowledge of the therapist, and assessment of patient's response to intervention. Billing: PT Services: Evaluation - Moderate Complexity ([id number]) Therapeutic Exercise ([id number]): 1:1 time: 12 minutes (1 unit) Manual Therapy ([id number]): 1:1 time: 13 minutes (1 unit: 8-22 mins) Total time: 45 minutes Rony Vela PT ---- [place] PROGRESSon 06-12-2019 PROGRESS HNO ID: [id number] Author: Rony (Pt) Solange Service: ? Author Type: Physical Therapist Type: Progress Notes Filed: 06/12/2019 6:56 PM Note Text: Episode Visit Count: 1 Therapist That Will Oversee The Plan Of Care: Rony Vela Start of Care Date: 06/12/19 Onset Date: 05/27/19 Plan of Care Certification Date: 06/12/19 Patient Identified by Name and Date of : Yes REHABILITATION AND SPORTS THERAPY PHYSICAL THERAPY EVALUATION PLAN OF CARE: Assessment: Rony He presents with acute exacerbation of chronic R knee pain. Potential factors contributing to pt's sxs include decreased LE flexibility, LE stabilization deficits and dysfunctional movement patterns. As a result of pain/sxs, pt has decreased tolerance for walking, stair climbing, and climbing a ladder. Pt's function is also impaired due to chronic back pain. Based on history (chronicity, co morbidites), examination(knee, balance, mobility), presentation and clinical reasoning pt is appropriate for moderate complexity evaluation. Pt will benefit from skilled physical therapy to address impairments, dynamic LE stabilization, manual therapy techniques and functional training to decrease pain/sxs to minimize functional limitations. Prognosis: Good Good due to: current objective clinical presentation Goals for Episode of Care: creatde on 06/12/19 through 08/12/19 -Patient will improve B/L passive SLR to > 60 ? -Patient will ascend/descend stairs and/or ladder without feelings of R LE instability [place] in home exercise program. Patient will decrease pain rating by 2 points to meet minimal clinical important difference for numeric pain rating scale. -Patient will improve B/L SLS to >20 seconds Planned Interventions, Frequency, and Duration: Current Frequency: 1x/week Duration: 8 weeks Total Number of Visits Planned: 8 Planned Treatment Interventions: Therapeutic exercise;Neuromuscu lar re-education;Manual therapy;Therapeutic activities;Self-car e home management;Patient/ Family/Caregiver Education;Gait Training;Modalities Iontophoresis Patient demonstrates good understanding of plan of care and treatment. The above goals and plan of care were discussed and agreed upon by patient/family. SUBJECTIVE: Rony He is a 34 year old male seen today for acute R knee pain. Pt states that sxs started ~ 1 month ago, pt get off of a ladder and felt his R knee buckling so he avoided putting all of his weight down. Pt states that he has a chronic hx of knee pain for 10 years, pt states that he was diagnosed with burisits. Pt also notes a chronic history of low back pain and R LE numbness. Pt steates that his tolerance for upright activity is already limited due to back pain.lPt denies any current swelling in the knee. Pt notes chronic clicking and popping to her R knee. Pt notes chronic pain to all joints of his body. Patient Goals: decrease pain Functional Limitations: Functional Limitation Comments Functional Limitation Comments: walking, stairs, squatting Prior Level of Function: Independent without limitations Intake Information: Prescription present Previous Treatment: None Falls Interview: No positive findings with falls interview Aquatic Screen: No Pain: Pain Pain Level: 3(worst pain over last week: 5/10) Pain Location: Knee - Right Description: Aching Frequency: Continuous Post Treatment Pain Post Treatment Pain Level: (decreased pain, not quantfieid) OBJECTIVE MEASURES WITH LEVEL OF FUNCTION: Posture / Alignment R LE Anatomical Alignment Weight-Bearing: R Genu valgus(increased R LE ER) Knee Observations L Knee Presents with: Comments L Knee Presents with Comments: numbness to anterior R thigh R Knee Palpation Tenderness: Patellar inferior pole;Popliteal fossa L Knee Palpation Tenderness: Popliteal fossa LE Flexibility Flexibility: Quadriceps Flexibility;Hamstri ng Flexibility R Hamstring Flexibility: passive SLR 30 L Hamstring Flexibility: passive SLR 30 R Quadriceps Flexibility: PKB ~ 105 L Quadriceps Flexibility: PKB ~ 100 LE Joint Mobility R Patellar Mobility: WNL L Patellar Mobility: WNL LE Strength R Knee Extension (L3): 5/5 R Knee Flexion: 5/5 L Knee Extension (L3): 5/5 L Knee Flexion: 5/5 Gait Gait Observation: wide MELISSA, decreased speed, reciprocal pattern, decreased step length B/L Stairs: reciprocal pattern Balance Static Standing Balance: Single Leg Stance Single Leg Stance: R - 10 sec, L - 5 sec Education: Education Learning Preferences: Demonstration;[place];Performance; Printed Materials Barriers: None Learning/educationa l needs: Changes in Plan of Care;Plan of Care Education Provided: Yes, see treatment interventions for education provided Education Provided To: Patient Education Mode/Type: Demonstration;[place]/Discussion;L iterature/Printed Materials;Performan ce Response to Education/Teach Back: States/Identifies TREATMENT: Evaluation Therapeutic Exercise: 1: *hamstring stretch, 2 x 30 sec, supine with strap 2: *SLR, 2 x 15 3: *sciatic nerve flossing, 2 x 15, 3 sec hold Skilled Intervention: Patient was educated in proper exercise technique and purpose for exercises. Reviewed and educated patient on additions/changes for home exercise program as above (*) Manual Therapy: 1: myofascial decompression to lateral thigh/IT band region via cupping 2: static cupping to lateral thigh with active knee flexion/extension 3: kinisetaping to patella(applied concurrently with topical pain reliever) Skilled Intervention: Manual skills to improve joint mobility, ROM, and decrease pain. Utilized anatomy knowledge of the therapist, and assessment of patient's response to intervention. Billing: PT Services: Evaluation - Moderate Complexity ([id number]) Therapeutic Exercise ([id number]): 1:1 time: 12 minutes (1 unit) Manual Therapy ([id number]): 1:1 time: 13 minutes (1 unit: 8-22 mins) Total time: 45 minutes Rony Vela PT [place] PROGRESSon 05-27-2019 PROGRESS HNO ID: [id number] Author: Becca CoyleCtELIAN Kincaid Service: ? Author Type: Clinical Hat Lacer Type: Progress Notes Filed: 05/27/2019 3:47 PM Note Text: NAME:Rony He DATE: May 27, 2019 CCF#: [id number] Lower Extremity X-Ray(s): Knee, AP / Lat / Tunne / Merchant Right and Wt. Bearing COMPLETED TECH ID SIGN: BECCA SAHU [place] XR KNEE 4V AP/PA BOTH+LAT/ME R RTon 05-27-2019 XR KNEE 4V AP/PA BOTH+LAT/LALO RT * * *Final Report* * * DATE OF EXAM: May 27 2019 3:46PM ERNST 5203 - XR KNEE 4V AP/PA BOTH+LAT/LALO RT / PROCEDURE REASON: M25.561-Right knee pain, unspecified chronicity * * * * Physician Interpretation * * * * Right knee radiographs HISTORY: 34 years old Clinical information: Right knee pain, unspecified chronicity RIGHT KNEE PAIN TECHNIQUE: Images: XR KNEE 4V AP/PA BOTH+LAT/LALO RT Comparison: None. RESULT: Findings: Narrowing of the medial compartment joint space. No bony fracture or dislocation identified. No joint effusion. No gross fracture or dislocation of the left knee. IMPRESSION: No acute osseous abnormality identified. Contact Lens Manufacturer: PSCB Transcribe Date/Time: May 28 2019 12:43P Dictated by : CABRERA SHER MD This examination was interpreted and the report reviewed and electronically signed by: CABRERA SHER MD on May 28 2019 12:44PM EST [id number] [place] HISTORY PHYSICALon 9 HISTORY PHYSICAL HNO ID: [id number] Author: Raji Diana Service: Pain Management Author Type: Physician Type: HANDP Filed: 03/05/2019 10:58 AM Note Text: HISTORY AND PHYSICAL EXAMINATION PATIENT NAME: Rony He DATE of SERVICE: 03/05/2019 Rony He is here for the pain mangement procedure. The patient presents with persistent pain complaints. Rony He denies any interval changes or new pain complaints or focal neurologic deficits. History reviewed. No pertinent past medical history. History reviewed. No pertinent surgical history. Social History Socioeconomic History Marital status: Spouse name: Not on file Number of children: Not on file Years of education: Not on file Highest education level: Not on file Social Needs Financial resource strain: Not on file Food insecurity - worry: Not on file Food insecurity - inability: Not on file Transportation needs - medical: Not on file Transportation needs - non-medical: Not on file Occupational History Not on file Tobacco Use Smoking status: Current Every Day Smoker Packs/day: 2.00 Years: 22.00 Pack years: 44 Smokeless tobacco: Former User Substance and Sexual Activity Alcohol use: Not on file Drug use: Not on file Sexual activity: Not on file Other Topics Concerns: Not on file Social History Narrative Not on file No family history on file. ALLERGIES Allergen Reactions - Seasonal Allergies Intolerance Current Facility-Administer ed Medications: NaCl 0.9% iv infusion 30 mL/hr INTRAVENOUS CONTINUOUS Physical Exam: Performed in conjunction with observation. The patient is alert and oriented x3. The patient is in no acute distress. Neck: Supple. The range of motion is intact. Lungs: clear CVR: RRR. Extremities: no reported edema or erythema. Examination indicates no changes Impression: Thoracic DDD Thoracic pain Plan: The informed consent has been obtained. The plan is to proceed with the procedure as planned. SIGNATURE: Raji Diana MD DATE: March 05, 2019 TIME: 10:58 AM [place] NURSING PROGon 03-05-2019 NURSING PROG HNO ID: [id number] Author: Paola (Rn) CHRIS Morales Service: ? Author Type: Registered Nurse Type: Nursing Progress Note Filed: 03/05/2019 10:26 AM Note Text: @ 1002 Pt received to ASCU, ambulatory AND steady - pleasant AND cooperative with care. @ 1025 Ready for procedure - @ bedside. [place] OPERATIVE NOon 03-05-2019 OPERATIVE NO HNO ID: [id number] Author: Raji Diana Service: Pain Management Author Type: Physician Type: Operative Report Filed: 03/05/2019 11:14 AM Note Text: PATIENT NAME: Rony He SERVICE DATE: 03/05/2019 SERVICE TIME: 11:13 AM PROCEDURE NOTE PREOPERATIVE DIAGNOSIS(ES) Thoracic DDD Thoracic Pain POSTOPERATIVE DIAGNOSIS(ES): Same OPERATION: T12-L1 intralaminar thoracic epidural steroid injection under fluoroscopy. ANESTHESIA: versed 3mg IV INDICATIONS: The patient presents for thoracic intralamnar epidural steroid injection. Since the last visit, the patient denies any new pain complaints and denies any focal neurological deficits. The plan is to proceed with thoracic intralaminar epidural steroid injection as scheduled. The risks and benefits of the procedure were discussed. Specifically, the risks of bleeding, infection, inadvertent dural puncture, spinal heaches, vasovagal reaction, epidural hematoma, partial or permanent nerve injury were covered. The potential side effects of medications used in procedures including increase in lumbar pain, headaches, facial redness or warmth (flushing), anxiety or mood swings, sleeplessness, fever, high blood sugar, brief reduction in immunity were discussed. The patient expressed understanding of potential risks and wishes to proceed with the procedure. OPERATIVE PROCEDURE: The patient was brought to the operating room. The patient was placed in the prone position with routine monitors placed. The lower back was prepped in sterile fashion. Upon AP projection under fluoroscopy, T12-L1 level was identified. Entry point was marked and anesthetized with 0.5% Lidocaine. This was followed by insertion of an 18-gauge epidural Tuohy needle, which was inserted and advanced using a loss of resistance technique. Once the epidural space was encountered, aspiration was performed which was negative for blood or CSF. This was followed by injection of Omnipaque 300, which revealed a spread along the posterior epidural space. There was no evidence of intravascular or intrathecal flow. This was then followed by a total injection of 6 mL of 0.5% Xylocaine with 40 mg of Depomedrol. The patient tolerated the procedure well. The needle was removed intact. Dry dressing was placed over the injection site. The patient was taken to the recovery room in stable condition. EBL: nil Start time: 11:07 AM End time: 11:12 AM I was present the entire time and personally performed the procedure. SIGNATURE: Raji Diana MD DATE: March 05, 2019 TIME: 11:13 AM [place] PT EDon 03-05-2019 PT ED HNO ID: [id number] Author: Kelly Morales) CHRIS Lima Service: Nursing Author Type: Registered Nurse Type: Patient Education Filed: 03/05/2019 11:23 AM Note Text: POST OP LEARNING RESPONSE INSTRUCTION PROVIDED TO: Patient METHOD OF INSTRUCTION: Written instruction - handouts Verbal instruction PATIENT / FAMILY RESPONSE: Verbalizes understanding of: INFECTION MANAGEMENT-Signs and symptoms of an infection and importance of contacting the physician PAIN MANAGEMENT-Effectiv e strategies to manage pain in addition to pain medication PHYSICAL RESTRICTIONS-Physic al restrictions and recommendations after discharge from the hospital POST-OPERATIVE INSTRUCTIONS-Correc t actions to take to reduce postoperative complications PATIENT SAFETY PRINCIPLES SYMPTOM MANAGEMENT-Correct actions to take to manage symptoms associated with his/her disease/illness WORSENING CONDITION-Signs and symptoms of a worsening condition that warrant a call to the physician WOUND CARE-Correct procedure to perform wound care FOLLOW-UP PLAN: Patient instructed to call with any further issues Contact information given. SUPPLEMENTAL MATERIAL: None REFERRAL (RECOMMENDATION): None Electronically Signed By: Kelly Lima RN In Department: [facility] SURGERY [place] PT ED HNO ID: [id number] Author: Paola Morales) CHRIS Morales Service: ? Author Type: Registered Nurse Type: Patient Education Filed: 03/05/2019 10:27 AM Note Text: PROCEDURE/SURGERY: right thoracic pain injuection READINESS TO LEARN COGNITIVE ABILITY: Alert and oriented MOTIVATION TO LEARN: Eager FAMILY SUPPORT: High - Very involved in pt care PATIENT LEARNS BEST BY: Verbal Instruction FACTORS AFFECTING LEARNING: None PHYSICAL LIMITATIONS AFFECTING LEARNING: None Electronically Signed By: Paola Morales RN In Department: [facility] SURGERY [place] XR FLUOROSCOPYon 03-05-2019 XR FLUOROSCOPY * * *Final Report* * * DATE OF EXAM: Mar 05 2019 11:16AM [facility] 5513 - XR FLUOROSCOPY / PROCEDURE REASON: pain * * * * Physician Interpretation * * * * TECHNIQUE: XR FLUOROSCOPY COMPARISON: No prior study for comparison. TECHNIQUE: 3 limited fluoroscopic images from an epidural injection CLINICAL INDICATION: pain back pain Fluoroscopic Radiation Summary: Plane A, Air Kerma: 7.6 mGy Dose Area Product (DAP): 803.3 mGy*cmS2 Fluoro time: 0:10 min:sec IMAGE NUMBER: 3 RESULT: Needle is directed at the T12-L1 level. Contrast is seen. IMPRESSION: 1. As above. Contact Lens Manufacturer: ERICH Transcribe Date/Time: Mar 05 2019 12:08P Dictated by : CABRERA SHER MD This examination was interpreted and the report reviewed and electronically signed by: CABRERA SHER MD on Mar 05 2019 12:08PM EST [id number] [facility] HOSP 02-22-2019 HOSP Patient:Rony He MRN: Height:5' 8(1.727 m) Weight:299 lb (135.626 kg) Outpatient Medications as of 03/05/19: gabapentin (NEURONTIN) 600 mg tablet gabapentin (NEURONTIN) 300 mg capsule ibuprofen (MOTRIN) 600 mg tablet cyclobenzaprine (FLEXERIL) 5 mg tablet Admission/Clinic Administered Medications as of 03/05/19: NaCl 0.9% iv infusion Problem List: DDD (degenerative disc disease), lumbar [M51.36] Chronic low back pain with right-sided sciatica [M54.41, G89.29] Chronic right-sided low back pain with right-sided sciatica [M54.41, G89.29] Chronic hip pain, bilateral [M25.551, M25.552, G89.29] Meralgia paresthetica of right side [G57.11] Neuropathic pain [M79.2] Allergies: Seasonal Allergies Date Verified: 03/05/19 Lab Values No results within the last 30 days for the following basenames: K,HCT Progress Notes ([facility]): Raji Diana MD 02/22/2019 12:15 PM Signed [place] [facility] NOTE DATE: February 22, 2019 Chief Complaint: chronic lower back and right lower extremity SUBJECTIVE: Mr. He presents to the [facility] ([facility]) office for a follow up appointment regarding chronic lower back and right lower extremity pain. He states that since the last visit symptoms have been worsening. The pain is located in the Back and Right leg area and radiates down the posterior leg, down the posterolateral leg and down the anterior leg. The pain is described as numbness and throbbing and is rated as 5 on a scale of 0-10. The patient Reports numbness and leg pain. Symptoms interfere with physical activity, work, walking, household cleaning, reaching for shelves, lifting and social activities. The pain is exacerbated by standing, forward flexion, lifting, getting up from sitting and walking. The pain is mitigated by sitting, lying down and medications. He is currently receiving medications through the [facility]. He is not having difficulty with his [facility] medications. The medications are effective and partially effective. The patient states the last dose of . Prescription NSAIDs Neurontin/gabapenti n flexeril was taken at last night February 21 2019. REVIEW OF SYSTEMS: Constitutional: (-) Fever (-) Night Sweats (-) Weight Gain (-) Weight Loss (-) Fatigue Cardiovascular: (-) Chest Pain (-) Palpitations (-) Lightheadedness (-) Swelling of Ankles (-) Hx Heart Surgery Respiratory: (-) Shortness of Breath (-) Cough (-) Wheezing (-) Snoring Gastrointestinal: (-) Incontinence (-) Abdominal Pain (-) Diarrhea (-) Constipation (-) Nausea/Vomiting (+) Heart Burn Endocrine: (-) Thyroid Disorder (-) Diabetes Hematologic: (-) Prolonged Bleeding (+) Easy Bruising Genitourinary: (-) Incontinence (-) Frequency (-) Urinary Urgency Skin: (-) Rashes (-) Itching (-) Other Lesions Neurologic: (-) Headache (-) Double Vision (-) Confusion (-) Paralysis Psychiatric: (-) Depression (-) Anxiety (-) Delusions (-) Hallucinations (-) Personal History of Alcohol or Substance Abuse (+) Family History of Alcohol or Substance Abuse No past medical history on file. No past surgical history on file. ALLERGIES Allergen Reactions - Seasonal Allergies Intolerance Current Outpatient Medications: gabapentin (NEURONTIN) 300 mg capsule Take 1 capsule by mouth three times daily for 30 days. ibuprofen (MOTRIN) 600 mg tablet Take 600 mg by mouth every 6 hours as needed. cyclobenzaprine (FLEXERIL) 5 mg tablet Take 5 mg by mouth three times daily as needed. No current facility-administer ed medications for this visit. I have reviewed the nurses notes and I am aware of the family/social history. Since the last evaluation the medical history has not changed. PHYSICAL EXAMINATION: Vitals: Pulse 89 Ht 5' 8 (1.73m) Wt 299 lb 3.2 oz (135.7kg) SpO2 96% BMI 45.50 kg/(m2). Performed in conjunction with observation. The patient is alert and oriented x3. The patient is in no acute distress. Station and Gait: antalgic Lungs: normal respiratory rate and rhythm. Cardiovascular: regular rate. Neck: Supple. The range of motion is intact. Back: Range of motion of the trunk was generally intact. Spine: Tenderness in the T12-L1 and lumbar sacral junction, right side Extremities: no reported edema or erythema. Motor: Exhibits full strength in all four extremities. ASSESSMENT: Patient reports lower back pain that radiates into the right anterior thigh with numbness. He also has pain running down the right lateral/posterior aspect of the right lower extremity She reports with standing and walking he has more back pain than leg pain He had a repeat right L4-5 transforaminal injection 4?2?19 and reports 20% improvement He is taking gabapentin 900 mg at bedtime and Flexeril 5 mg 3 times a day as needed Discussed again the importance of daily exercising, stretching and walking. Recommend formal physical therapy Encounter Diagnosis ICD-10-CM 1. Meralgia paresthetica of right side G57.11 2. Neuropathic pain M79.2 3. Chronic right-sided low back pain with right-sided sciatica M54.41 G89.29 4. DDD (degenerative disc disease), lumbar M51.36 PDMP website checked and validated. All prescriptions have been APPROPRIATELY filled. No suspicious activity was identified. 02/22/2019 by Miley Dsouza RN Narcotic Agreement reviewed and signed?: N/A on February 22, 2019 The pain panel was N/A PLAN: Prior available imaging studies were reviewed. Findings were discussed. Injection history was reviewed. Medication use and compliance were reviewed. 1. Continue medication management through the Pain Management Center 2. Increasing gabapentin from 900 mg at bedtime to 600 mg BID Signed Prescriptions Disp Refills gabapentin (NEURONTIN) 600 mg tablet 60 tablet 0 Sig: Take 1 tablet by mouth twice daily for 30 days. 3. Interventional procedure options discussed. Ordered and scheduled T12-L1 paramedian TESI 4. Ordered consult to PT For lower thoracic and lumbar pain. Recommend strength and conditioning of the core 5) F/U in 3 months The treatment plan was discussed with the patient during the office visit and they verbalized an understanding of it. Minoo Clements APRN.WRITING MANAGER Attending Note I have personally performed a face to face assessment of the patient and have reviewed the PA/HAT LACER note. My draper findings include: History is reviewed and is as above. Exam is consistent with above. Assessment/Plan are as outlined and with all questions reviewed and discussed. Other additions or changes: None Raji Diana MD cc: Dr. Lainez primary care provider on file. cc: SELF Phone: N/A Fax: Results of consultation to be transmitted via electronic medical record for those providers who practice within [facility] or with access to [employer] via MD Connect, or via letter. Previous Version Progress Notes ([facility]): Miley Dsouza RN 02/18/2019 1:23 PM Signed This RN called patient and voicemail was left instructing patient that this RN would like to ask additional questions. Patient did call back but this RN was not at her desk. This RN called patient back and spoke with patient's significant other. She states the patient had no relief and now has a bruise on his back that she did not notice until recently. Patient's significant other even stating patient states pain has worsened since injection. Patient's significant other informed that psychiatric secretary from office will be calling to help assist with setting and appointment with Dr. Diana. Sabrina Roper Pss 02/18/2019 2:31 PM Signed Patient scheduled for 02/22/19. [facility] HISTORY PHYSICALon HISTORY PHYSICAL HNO ID: [id number] Author: Raji Diana Service: Pain Management Author Type: Physician Type: HANDP Filed: 01/29/2019 10:47 AM Note Text: HISTORY AND PHYSICAL EXAMINATION PATIENT NAME: Rony He DATE of SERVICE: 01/29/2019 Rony He is here for the pain mangement procedure. The patient presents with persistent pain complaints. Rony He denies any interval changes or new pain complaints or focal neurologic deficits. No past medical history on file. No past surgical history on file. Social History Socioeconomic History Marital status: Spouse name: Not on file Number of children: Not on file Years of education: Not on file Highest education level: Not on file Social Needs Financial resource strain: Not on file Food insecurity - worry: Not on file Food insecurity - inability: Not on file Transportation needs - medical: Not on file Transportation needs - non-medical: Not on file Occupational History Not on file Tobacco Use Smoking status: Current Every Day Smoker Packs/day: 2.00 Years: 22.00 Pack years: 44 Smokeless tobacco: Former User Substance and Sexual Activity Alcohol use: Not on file Drug use: Not on file Sexual activity: Not on file Other Topics Concerns: Not on file Social History Narrative Not on file No family history on file. ALLERGIES Allergen Reactions - Seasonal Allergies Intolerance Current Facility-Administer ed Medications: NaCl 0.9% iv infusion 30 mL/hr INTRAVENOUS CONTINUOUS Physical Exam: Performed in conjunction with observation. The patient is alert and oriented x3. The patient is in no acute distress. Neck: Supple. The range of motion is intact. Lungs: clear CVR: RRR. Extremities: no reported edema or erythema. Examination indicates no changes Impression: Lumbar disc displacement Lumbar radiculopathy Plan: The informed consent has been obtained. The plan is to proceed with the procedure as planned. SIGNATURE: Raji Diana MD DATE: January 29, 2019 TIME: 10:47 AM [place] OPERATIVE NOon 01-29-2019 OPERATIVE NO HNO ID: [id number] Author: Raji Diana Service: Pain Management Author Type: Physician Type: Operative Report Filed: 01/29/2019 11:04 AM Note Text: PATIENT NAME: Rony He SERVICE DATE: 01/29/2019 PROCEDURE NOTE PREOPERATIVE DIAGNOSIS(ES) Lumbar radiculopathy Lumbar disc displacement Lumbar canal stenosis without neurogenic claudication Lumbar DDD POSTOPERATIVE DIAGNOSIS(ES): Same OPERATION: ??Right L4-5?lumbar transforaminal epidural steroid injection under fluoroscopy. ? ANESTHESIA: versed 3mg IV ? INDICATIONS: ?The patient presents for lumbar transforaminal epidural steroid injection. ?Since the last visit, the patient denies any new pain complaints and denies any focal neurological deficits. ?As discussed and outlined in the office and confirmed today, the plan is to proceed with lumbar transforaminal epidural steroid injection. The risks and benefits of the procedure were discussed. ?Specifically, the risks of bleeding, infection, inadvertent dural puncture, spinal heaches, vasovagal reaction, epidural hematoma, partial or permanent nerve injury were covered. ?The potential side effects of medications used in procedures including increase in lumbar pain, headaches, facial redness or warmth (flushing), ?anxiety or mood swings, sleeplessness, fever, high blood sugar, ?brief reduction in immunity were discussed. ?The patient expressed understanding of potential risks and wishes to proceed with the procedure. ? OPERATIVE PROCEDURE: The patient was brought to the operating room. The patient was placed in the prone position with routine monitors placed. The lower back was prepped in sterile fashion. Upon AP projection under fluoroscopy, ?L4-5?level was identified. The fluoroscopy was rotated in oblique projection to identify the neuroforamen. ?Entry point was marked and anesthetized with 0.25% Marcaine. This was followed by insertion of a 5 inch spinal needle, which was inserted and advanced towards the 12 o' clock of the L4-5?neuroforamen. Once the Needle tip contacted the inferior lateral aspect of the pedicle, aspiration was performed which was negative for blood or CSF. This was followed by injection of Omnipaque 300, which revealed a spread through the neuroforamen into the anterior epidural space. There was no evidence of intravascular or intrathecal flow. This was then followed by a total injection of 3 mL of 0.25% Marcaine with 40 mg of Depomedrol. The patient tolerated the procedure well. The needle was removed intact. Dry dressing was placed over the injection site. The patient was taken to the recovery room in stable condition. EBL: nil Start time: 10:58 AM End time: 11:03 AM I was present the entire time and personally performed the procedure. SIGNATURE: Raji Diana MD DATE: January 29, 2019 TIME: 11:04 AM [place] PT EDon 01-29-2019 PT ED HNO ID: [id number] Author: Dian Morales) CHRIS Sherman Service: Nursing Author Type: Registered Nurse Type: Patient Education Filed: 01/29/2019 11:35 AM Note Text: POST OP LEARNING RESPONSE INSTRUCTION PROVIDED TO: Patient METHOD OF INSTRUCTION: Individual instruction PATIENT / FAMILY RESPONSE: Verbalizes understanding of: POST-PROCEDURE INSTRUCTIONS-Correc t actions to take to reduce post procedure complications FOLLOW-UP PLAN: Complete - No need for follow-up SUPPLEMENTAL MATERIAL: None REFERRAL (RECOMMENDATION): None lect a patient education template:[id number]} Electronically Signed By: Dian Sherman RN In Department: [facility] SURGERY [place] PT ED HNO ID: [id number] Author: Haroon (Rn) CHRIS Roblero Service: Nursing Author Type: Registered Nurse Type: Patient Education Filed: 01/29/2019 10:23 AM Note Text: PRE OP LEARNING ASSESSMENT PROCEDURE/SURGERY: PAIN MANAGEMENT: pain block READINESS TO LEARN COGNITIVE ABILITY: Alert and oriented MOTIVATION TO LEARN: Eager FAMILY SUPPORT: High - Very involved in pt care PATIENT LEARNS BEST BY: Individual Instruction Verbal Instruction FACTORS AFFECTING LEARNING: None PHYSICAL LIMITATIONS AFFECTING LEARNING: None Electronically Signed By: Haroon Roblero RN In Department: [facility] XR FLUOROSCOPYon 01-29-2019 XR FLUOROSCOPY * * *Final Report* * * DATE OF EXAM: Jan 29 2019 11:06AM [facility] [id number] - XR FLUOROSCOPY / PROCEDURE REASON: pain * * * * Physician Interpretation * * * * INDICATION: pain TECHNIQUE: Fluoroscopy with 2 views of the lower lumbar spine Fluoroscopic Radiation Summary: Plane A, Air Kerma: 13.2 mGy Dose Area Product (DAP): 1323.7 mGy*cmS2 Fluoro time: 0:18 min:sec FINDINGS/ IMPRESSION: A needle with injected contrast is seen in the right L4-5 foramen. Please refer to the performing LIP's report. Contact Lens Manufacturer: PSCB Transcribe Date/Time: Jan 29 2019 11:10A Dictated by : RAS TREVINO MD This examination was interpreted and the report reviewed and electronically signed by: RAS TREVINO MD on Jan 29 2019 11:11AM EST [id number] [place] HOSPon 01-07-2019 HOSP Patient:Rony He MRN: Height:5' 8(1.727 m) Weight:300 lb 8 oz (136.306 kg) Outpatient Medications as of 4/2/19: gabapentin (NEURONTIN) 300 mg capsule pregabalin (LYRICA) 50 mg capsule ibuprofen (MOTRIN) 600 mg tablet cyclobenzaprine (FLEXERIL) 5 mg tablet Admission/Clinic Administered Medications as of 01/29/19: NaCl 0.9% iv infusion Problem List: DDD (degenerative disc disease), lumbar [M51.36] Chronic low back pain with right-sided sciatica [M54.41, G89.29] Chronic right-sided low back pain with right-sided sciatica [M54.41, G89.29] Chronic hip pain, bilateral [M25.551, M25.552, G89.29] Meralgia paresthetica of right side [G57.11] Neuropathic pain [M79.2] Allergies: Seasonal Allergies Date Verified: 01/29/19 Lab Values No results within the last 30 days for the following basenames: K,HCT Progress Notes ([facility]): Minoo Clements APRN.WRITING MANAGER 01/07/2019 12:20 PM Signed SUBJECTIVE: Rony He presents to [facility] Management Department for a followup appointment. Since the last visit, Rony He states the pain has been legs are better, back is worse. Current pain intensity is 6 on a scale of 0-10. Pain located in Back and Right leg area and radiates down the posterolateral leg. Pain described as aching, numbness, pressure, radiating, shooting, stabbing, stiff, tight band and tingling The patient Reports morning stiffness and leg weakness. Symptoms interfere with work, sleeping and lifting. Pain is exacerbated by standing and walking. Pain is mitigated by sitting and medications. The patient is overall improved with the injections by 25%. The medications are partially effective. The patient states the last dose of . Neurontin/gabapenti n was taken this morning. REVIEW OF SYSTEMS: Constitutional: (-) Fever (-) Night Sweats (+) Weight Gain (-) Weight Loss (-) Fatigue Cardiovascular: (-) Chest Pain (-) Palpitations (-) Lightheadedness (-) Swelling of Ankles (-) Hx Heart Surgery Respiratory: (+) Shortness of Breath (+) Cough (+) Wheezing (+) Snoring Gastrointestinal: (-) Incontinence (-) Abdominal Pain (-) Diarrhea (-) Constipation (-) Nausea/Vomiting (+) Heart Burn Endocrine: (-) Thyroid Disorder (-) Diabetes Hematologic: (-) Prolonged Bleeding (-) Easy Bruising Genitourinary: (-) Incontinence (+) Frequency (-) Urinary Urgency Skin: (-) Rashes (-) Itching (-) Other Lesions Neurologic: (-) Headache (-) Double Vision (-) Confusion (-) Paralysis Psychiatric: (-) Depression (-) Anxiety (-) Delusions (-) Hallucinations (-) Personal History of Alcohol or Substance Abuse (+) Family History of Alcohol or Substance Abuse OBJECTIVE: Pulse 70 Wt 300 lb 8 oz (136.3kg) SpO2 96% PHYSICAL EXAMINATION: General appearance: Well appearing, in no acute distress, alert Skin: Skin color, texture, turgor normal, no rashes or lesions Neck: No pain to palpation over the cervical paraspinous muscles. No pain with neck flexion, extension, or lateral flexion Cardiovascular: Regular rate Lungs: Normal respiratory rate and rhythm Abdomen: Abdomen soft and non-tender. Back: Intact range of motion with pain reproduction. Spine: Reports Tenderness on palpation: Lumbar/Pelvic, right paravertebrals Extremities: No deformities, edema, or skin discoloration. Good capillary refill. Musculoskeletal: Joint pain denies Neuro: No loss of sensation is noted. Station and Gait: Normal stance, normal gait. Motor: Exhibits full strength in all four extremities. Trigger points: none. ASSESSMENT: Assessment : Patient reports lower back pain that radiates down the right posterior lower extremity to the knee He had a right L4?5 transforaminal injection on 11?8?18 and reports 25% improvement. He would like to repeat Currently taking gabapentin 100 mg 3 times a day and reports this has not been effective. Discussed increasing to gabapentin 300 mg 3 times a day Discussed the importance of daily exercising, stretching and walking. He reports that he is going to be getting his mom's treadmill to start walking more Encounter Diagnosis ICD-10-CM 1. DDD (degenerative disc disease), lumbar M51.36 INJ TRANSFORAMINAL EPID ANES/STER LS SINGL 2. Chronic right-sided low back pain with right-sided sciatica M54.41 INJ TRANSFORAMINAL EPID ANES/STER LS SINGL G89.29 3. Meralgia paresthetica of right side G57.11 4. Neuropathic pain M79.2 PDMP website checked and validated. All prescriptions have been APPROPRIATELY filled. No suspicious activity was identified. 01/07/2019 by Laura Johnson MA Narcotic Agreement reviewed and signed?: N/A on January 07, 2019 The pain panel was N/A Discussion: A discussion was entertained regarding multicomponent back pain source. Discussed conservative options and focus on improvement of function. Discussed the rationale behind interventional approach and how it can facilitate improvement of pain but also diagnostic information that procedures provide. [facility] use of any opioid pain medication is discouraged in chronic benign pain. PLAN: Injection history was reviewed. Medication use and compliance were reviewed. 1. Continue medication management through the Pain Management Center 2. Increasing gabapentin from 100 mg tid to 300 mg tid. Patient will call in x1 month to report effectiveness Signed Prescriptions Disp Refills gabapentin (NEURONTIN) 300 mg capsule 90 capsule 0 Sig: Take 1 capsule by mouth three times daily for 30 days. 3. Interventional procedure options discussed. Ordered and scheduled right L4 5 transforaminal injection 4. Encouraged regular home exercise program to include daily exercising, stretching and walking 5) F/U in 3 months This note was partially generated using Accredible voice recognition system. The above plan and management options were discussed at length with patient. Patient is in agreement with the above and verbalized understanding. Minoo Clements APRN, WRITING MANAGER January 07, 2019 Previous Version Normal [facility] HISTORY PHYSICALon HISTORY PHYSICAL HNO ID: [id number] Author: Raji Diana Service: Pain Management Author Type: Physician Type: HANDP Filed: 09/06/2018 12:22 PM Note Text: HISTORY AND PHYSICAL EXAMINATION PATIENT NAME: Rony He DATE of SERVICE: 09/06/2018 Rony He is here for the pain mangement procedure. The patient presents with persistent pain complaints. Rony He denies any interval changes or new pain complaints or focal neurologic deficits. No past medical history on file. No past surgical history on file. Social History Marital status: Spouse name: Years of education: Number of children: Social History Main Topics Smoking status: Current Every Day Smoker Packs/day: 2.00 Years: 22.00 Smokeless tobacco: Former User No family history on file. ALLERGIES Allergen Reactions - Seasonal Allergies Intolerance Current Facility-Administer ed Medications: 0.9% NaCl 2-10 mL 2-10 mL INTRAVENOUS q 12 H Physical Exam: Performed in conjunction with observation. The patient is alert and oriented x3. The patient is in no acute distress. Neck: Supple. The range of motion is intact. Lungs: clear CVR: RRR. Extremities: no reported edema or erythema. Examination indicates no changes Impression: Lumbar radiculopathy Lumbar disc displacement Plan: The informed consent has been obtained. The plan is to proceed with the procedure as planned. SIGNATURE: Raji Diana MD DATE: September 06, 2018 TIME: 12:22 PM [place] OPERATIVE NOon 09-06-2018 OPERATIVE NO HNO ID: [id number] Author: Raji Diana Service: Pain Management Author Type: Physician Type: Operative Report Filed: 09/06/2018 12:36 PM Note Text: PATIENT NAME: Rony He SERVICE DATE: 09/06/2018 PROCEDURE NOTE PREOPERATIVE DIAGNOSIS(ES) Lumbar radiculopathy Lumbar disc displacement Lumbar canal stenosis without neurogenic claudication Lumbar DDD POSTOPERATIVE DIAGNOSIS(ES): Same OPERATION: Right L4-5 lumbar transforaminal epidural steroid injection under fluoroscopy. ? ANESTHESIA: versed 3mg IV ? INDICATIONS: The patient presents for lumbar transforaminal epidural steroid injection. Since the last visit, the patient denies any new pain complaints and denies any focal neurological deficits. As discussed and outlined in the office and confirmed today, the plan is to proceed with lumbar transforaminal epidural steroid injection. The risks and benefits of the procedure were discussed. Specifically, the risks of bleeding, infection, inadvertent dural puncture, spinal heaches, vasovagal reaction, epidural hematoma, partial or permanent nerve injury were covered. The potential side effects of medications used in procedures including increase in lumbar pain, headaches, facial redness or warmth (flushing), anxiety or mood swings, sleeplessness, fever, high blood sugar, brief reduction in immunity were discussed. The patient expressed understanding of potential risks and wishes to proceed with the procedure. ? OPERATIVE PROCEDURE: The patient was brought to the operating room. The patient was placed in the prone position with routine monitors placed. The lower back was prepped in sterile fashion. Upon AP projection under fluoroscopy, L4-5 level was identified. The fluoroscopy was rotated in oblique projection to identify the neuroforamen. Entry point was marked and anesthetized with 0.25% Marcaine. This was followed by insertion of a 5 inch spinal needle, which was inserted and advanced towards the 12 o' clock of the L4-5 neuroforamen. Once the Needle tip contacted the inferior lateral aspect of the pedicle, aspiration was performed which was negative for blood or CSF. This was followed by injection of Omnipaque 300, which revealed a spread through the neuroforamen into the anterior epidural space. There was no evidence of intravascular or intrathecal flow. This was then followed by a total injection of 3 mL of 0.25% Marcaine with 40 mg of Depomedrol. The patient tolerated the procedure well. The needle was removed intact. Dry dressing was placed over the injection site. The patient was taken to the recovery room in stable condition. EBL: nil Start time: 12:30 PM End time: 12:35 PM I was present the entire time and personally performed the procedure. SIGNATURE: Raji Diana MD DATE: September 06, 2018 TIME: 12:35 PM [place] XR FLUOROSCOPYon 09-06-2018 XR FLUOROSCOPY * * *Final Report* * * DATE OF EXAM: Sep 06 2018 12:40PM MDR [id number] - XR FLUOROSCOPY / PROCEDURE REASON: pain * * * * Physician Interpretation * * * * INDICATION: Pain management TECHNIQUE: 2 submitted fluoroscopic spot images Fluoroscopic Radiation Summary: Plane A, Air Kerma: 9.8 mGy Plane B, Air Kerma: 0.0 mGy Dose Area Product (DAP): 1307.7 mGy*cmS2 Fluoro time: 0:13 min:sec FINDINGS/ IMPRESSION: 2 submitted fluoroscopic spot images demonstrate a needle directed at the labeled right lower lumbar spine. 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: [employer] Transcribe Date/Time: Sep 06 2018 12:42P Dictated by : LORENA LOPEZ MD This examination was interpreted and the report reviewed and electronically signed by: LORENA LOPEZ MD on Sep 06 2018 12:43PM EST [id number] ACN [place] HOSPon 09-04-2018 HOSP Patient:Rony He MRN: Height:5' 7.992(1.727 m) Weight:279 lb 15.8 oz (127 kg) Outpatient Medications as of 09/06/18: cyclobenzaprine (FLEXERIL) 10 mg tablet ibuprofen (MOTRIN) 600 mg tablet Admission/Clinic Administered Medications as of 09/06/18: 0.9% NaCl 2-10 mL Problem List: DDD (degenerative disc disease), lumbar [M51.36] Chronic low back pain with right-sided sciatica [M54.41, G89.29] Chronic right-sided low back pain with right-sided sciatica [M54.41, G89.29] Allergies: Seasonal Allergies Date Verified: 09/06/18 Lab Values No results within the last 30 days for the following basenames: K,HCT Progress Notes ([facility]): Dian Toussaint 09/04/2018 3:56 PM Signed Filed for pre authorization with proper clinicals Patient was approved for CPT 65733 one day between - 09/03/18-10/29/18 Approval: [id number] Progress Notes ([facility]): Cici Treviño 08/31/2018 2:52 PM Signed Marya servin Spouse calling in regards to his surgery/injection being cancelled d/t insurance denial for patient. Marya would like to know what would be the next step of care for patient. Please call patients at [phone]. Ej Toussaint 09/03/2018 9:49 AM Signed Spoke with and informed her that the office has contacted the authorization department and have requested the denial letter. Once the letter is received by the office we will start the appeal process. Dian Toussaint 09/03/2018 1:24 PM Signed Patient must come in and sign consent for office to file appeal. 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 [place] Office Visit: [facility] Follow upon 08-21-2017 Fall risk assessment No Invalid Interpretation Code [facility] Work Phone: Protein mass conc T Invalid Interpretation Code [facility] Work Phone: Protein mass conc Done Invalid Interpretation Code [facility] Work Phone: Tobacco smoking status NHIS Never Invalid Interpretation Code [facility] Work Phone: Tobacco smoking status NHIS Current every day smoker Invalid Interpretation Code [facility] Work Phone: Vital Signs Date Time Vital Sign Value Performing Clinician Facility 02-13-2024 14:51-0400 Body height 172.72 cm METHODS STUDY ANALYST-C Wen Zazuetas [facility] Work Phone: [facility] 02-13-2024 14:51-0400 Body mass index (BMI) [Ratio] 42.3 kg/m2 METHODS STUDY ANALYST-C Wen Stanley [facility] Work Phone: [facility] 02-13-2024 14:51-0400 Body temperature 97.4 [degF] METHODS STUDY ANALYST-C Wen Stanley [facility] Work Phone: [facility] 02-13-2024 14:51-0400 Body weight 126.26 kg METHODS STUDY ANALYST-C Wen Stanley [facility] Work Phone: [facility] 02-13-2024 14:51-0400 Diastolic blood pressure 78 mm[Hg] METHODS STUDY ANALYST-C Wen Stanley [facility] Work Phone: [facility] 02-13-2024 14:51-0400 Heart rate 86 /min METHODS STUDY ANALYST-C Wen Zazuetas [facility] Work Phone: [facility] 02-13-2024 14:51-0400 Respiratory rate 16 /min METHODS STUDY ANALYST-C Wen Stanley [facility] Work Phone: [facility] 02-13-2024 14:51-0400 SaO2% (BldA) [Mass fraction] 98 % METHODS STUDY ANALYST-C Wen Stanley [facility] Work Phone: [facility] 02-13-2024 14:51-0400 Systolic blood pressure 140 mm[Hg] METHODS STUDY ANALYST-C Wen Stanley [facility] Work Phone: [facility] 01-16-2024 13:14-0400 Body temperature 97.5 [degF] METHODS STUDY ANALYST-C Wen Stanley [facility] Work Phone: [facility] 01-16-2024 13:14-0400 Diastolic blood pressure 72 mm[Hg] METHODS STUDY ANALYST-C Wen Stanley [facility] Work Phone: [facility] 01-16-2024 13:14-0400 Heart rate 60 /min METHODS STUDY ANALYST-C Wen Stanley [facility] Work Phone: [facility] 01-16-2024 13:14-0400 Respiratory rate 18 /min METHODS STUDY ANALYST-C Wen Stanley [facility] Work Phone: [facility] 01-16-2024 13:14-0400 SaO2% (BldA) [Mass fraction] 98 % METHODS STUDY ANALYST-C Wen Zazuetas [facility] Work Phone: [facility] 01-16-2024 13:14-0400 Systolic blood pressure 130 mm[Hg] METHODS STUDY ANALYST-C Wenrosa isela Zazuetas [facility] Work Phone: [facility] 01-16-2024 11:22-0400 Body height 172.72 cm METHODS STUDY ANALYST-C Wenrosa isela Zazuetas [facility] Work Phone: [facility] 01-16-2024 11:22-0400 Body mass index (BMI) [Ratio] 42.5 kg/m2 METHODS STUDY ANALYST-C Wen Zazuetas [facility] Work Phone: [facility] 01-16-2024 11:22-0400 Body weight 126.68 kg METHODS STUDY ANALYST-C Wen Stanley [facility] Work Phone: [facility] 01-15-2024 09:28-0400 Body mass index (BMI) [Ratio] 41.8 kg/m2 METHODS STUDY ANALYST-C Wen Stanley [facility] Work Phone: [facility] 01-15-2024 09:28-0400 Body temperature 97.3 [degF] METHODS STUDY ANALYST-C Wen Stanley [facility] Work Phone: [facility] 01-15-2024 09:28-0400 Body weight 124.73 kg METHODS STUDY ANALYST-C Wen Stanley [facility] Work Phone: [facility] 01-15-2024 09:28-0400 Diastolic blood pressure 86 mm[Hg] METHODS STUDY ANALYST-C Wen Stanley [facility] Work Phone: [facility] 01-15-2024 09:28-0400 Heart rate 75 /min METHODS STUDY ANALYST-C Wen Stanley [facility] Work Phone: [facility] 01-15-2024 09:28-0400 Respiratory rate 18 /min METHODS STUDY ANALYST-C Wen Stanley [facility] Work Phone: [facility] 01-15-2024 09:28-0400 SaO2% (BldA) [Mass fraction] 99 % METHODS STUDY ANALYST-C Wen Stanley [facility] Work Phone: [facility] 01-15-2024 09:28-0400 Systolic blood pressure 142 mm[Hg] METHODS STUDY ANALYST-C Wen Stanley [facility] Work Phone: [facility] 11-20-2023 15:28-0500 Body height 172.72 cm METHODS STUDY ANALYST-C Wen Stanley [facility] Work Phone: [facility] 11-20-2023 15:28-0500 Body mass index (BMI) [Ratio] 41.6 kg/m2 METHODS STUDY ANALYST-C Wen Stanley [facility] Work Phone: [facility] 11-20-2023 15:28-0500 Body temperature 97.3 [degF] METHODS STUDY ANALYST-C Wen Stanley [facility] Work Phone: [facility] 11-20-2023 15:28-0500 Body weight 124.34 kg METHODS STUDY ANALYST-C Wen Stanley [facility] Work Phone: [facility] 11-20-2023 15:28-0500 Diastolic blood pressure 76 mm[Hg] METHODS STUDY ANALYST-C Wen Stanley [facility] Work Phone: [facility] 11-20-2023 15:28-0500 Heart rate 90 /min METHODS STUDY ANALYST-C Wen Stanley [facility] Work Phone: [facility] 11-20-2023 15:28-0500 Respiratory rate 16 /min METHODS STUDY ANALYST-C Wen Zazuetas [facility] Work Phone: [facility] 11-20-2023 15:28-0500 SaO2% (BldA) [Mass fraction] 98 % METHODS STUDY ANALYST-C Wen Zazuetas [facility] Work Phone: [facility] 11-20-2023 15:28-0500 Systolic blood pressure 122 mm[Hg] METHODS STUDY ANALYST-C Wen Zazuetas [facility] Work Phone: [facility] 07-04-2023 15:51-0400 Diastolic blood pressure 100 mm[Hg] METHODS STUDY ANALYST-C Wenrosa isela Zazuetas [facility] Work Phone: [facility] 07-04-2023 15:51-0400 Systolic blood pressure 144 mm[Hg] METHODS STUDY ANALYST-C Wen Zazuetas [facility] Work Phone: [facility] 07-04-2023 14:56-0400 Body height 172.72 cm METHODS STUDY ANALYST-C Wen Zazuetas [facility] Work Phone: [facility] 07-04-2023 14:56-0400 Body mass index (BMI) [Ratio] 42.3 kg/m2 METHODS STUDY ANALYST-C Wen Zazuetas [facility] Work Phone: [facility] 07-04-2023 14:56-0400 Body temperature 96.3 [degF] METHODS STUDY ANALYST-C Wen Zazuetas [facility] Work Phone: [facility] 07-04-2023 14:56-0400 Body weight 126.32 kg METHODS STUDY ANALYST-C Wen Zazuetas [facility] Work Phone: [facility] 07-04-2023 14:56-0400 Heart rate 94 /min METHODS STUDY ANALYST-C Wen Zazuetas [facility] Work Phone: [facility] 07-04-2023 14:56-0400 Respiratory rate 18 /min METHODS STUDY ANALYST-C Wen Zazuetas [facility] Work Phone: [facility] 07-04-2023 14:56-0400 SaO2% (BldA) [Mass fraction] 98 % METHODS STUDY ANALYST-C Wen Stanley [facility] Work Phone: [facility] 12-14-2021 08:40-0500 Body height 172.72 cm METHODS STUDY ANALYST-C Wen Stanley Work Phone: [facility] Work Phone: 12-14-2021 08:11-0500 Body mass index (BMI) [Ratio] 44.8 kg/m2 METHODS STUDY ANALYST-C Wen Stanley Work Phone: [facility] Work Phone: 12-14-2021 08:11-0500 Body temperature 97.9 [degF] METHODS STUDY ANALYST-C Wen Stanley Work Phone: [facility] Work Phone: 12-14-2021 08:11-0500 Body weight 133.8 kg METHODS STUDY ANALYST-C Wen Stanley Work Phone: [facility] Work Phone: 12-14-2021 08:11-0500 Diastolic blood pressure 90 mm[Hg] METHODS STUDY ANALYST-C Wen Stanley Work Phone: [facility] Work Phone: 12-14-2021 08:11-0500 Heart rate 106 /min METHODS STUDY ANALYST-C Wen Stanley Work Phone: [facility] Work Phone: 12-14-2021 08:11-0500 Respiratory rate 16 /min METHODS STUDY ANALYST-C Wen Stanley Work Phone: [facility] Work Phone: 12-14-2021 08:11-0500 SaO2% (BldA) [Mass fraction] 98 % METHODS STUDY ANALYST-C Wen Stanley Work Phone: [facility] Work Phone: 12-14-2021 08:11-0500 Systolic blood pressure 128 mm[Hg] METHODS STUDY ANALYST-C Wen Stanley Work Phone: [facility] Work Phone: 08-21-2017 14:42-0400 BMI (Body Mass Index) 40.59 kg/m2 Mracin Belcher MD [facility] Work Phone: 08-21-2017 14:42-0400 Body Temperature 98.2 [degF] Marcin Belcher MD [facility] Work Phone: 08-21-2017 14:42-0400 BP Diastolic 81 mm[Hg] Marcin Belcher MD [facility] Work Phone: 08-21-2017 14:42-0400 BP Systolic 123 mm[Hg] Marcin Belcher MD [facility] Work Phone: 08-21-2017 14:42-0400 Height 172.72 cm Marcin Belcher MD [facility] Work Phone: 08-21-2017 14:42-0400 Pulse (Heart Rate) 73 /min Maricn Belcher MD [facility] Work Phone: 08-21-2017 14:42-0400 Respiratory Rate 18 /min Marcin Belcher MD [facility] Work Phone: 08-21-2017 14:42-0400 Weight 121.11 kg Marcin Belcher MD [facility] Work Phone: Encounters Encounter Date Encounter Type Care Provider Facility Start: 12-04-2024 Encounter for other preprocedural examination Juan Fuller [facility] Start: 12-04-2024 End: 12-04-2024 ambulatory Kati Jeancarlos Facility:[facility] Start: 11-06-2024 End: 11-06-2024 ambulatory Kati Jeancarlos Facility:[facility] Start: 10-24-2024 End: 10-24-2024 ambulatory Kati Jeancarlos Facility:[facility] Start: 10-17-2024 End: 10-21-2024 Evaluation and management of inpatient Kati Jeancarlos Facility:[facility] Start: 10-17-2024 ambulatory Kati Jeancarlos Facility :[facility] Start: 09-11-2024 End: 09-11-2024 ambulatory Kati Belden Facility:[facility] Start: 09-05-2024 End: 09-05-2024 ambulatory Jarad Mendez Facility:[facility] Start: 09-05-2024 End: 09-08-2024 Evaluation and management of inpatient Kati Belden Facility:[facility] Start: 09-05-2024 ambulatory Juni Carey Facility :[facility] Start: 06-06-2024 End: 06-06-2024 ambulatory Courtney Gleason Facility:[facility] Start: 05-20-2024 End: 05-20-2024 ambulatory Courtney Gleason Facility:[facility] Start: 05-20-2024 End: 05-20-2024 ambulatory Courtney Anno Facility:[facility] Start: 03-29-2024 End: 03-29-2024 ambulatory Kati Belden Facility:[facility] Start: 02-29-2024 End: 02-29-2024 ambulatory Kati Jeancarlos Facility:[facility] Start: 02-28-2024 End: 02-28-2024 ambulatory Kati Jeancarlos Facility:[facility] Start: 02-24-2024 End: 02-24-2024 ambulatory METHODS STUDY ANALYST-C Wen Stanley [facility] Work Phone: [facility] Work Phone: Start: 02-24-2024 End: 02-24-2024 Patient encounter procedure METHODS STUDY ANALYST-C eWn Stanley [facility] Work Phone: [facility] Work Phone: Start: 02-24-2024 End: 02-24-2024 ambulatory Eugenio Schmidt Facility:[facility] Start: 02-15-2024 End: 02-15-2024 Patient encounter procedure METHODS STUDY ANALYST-C Wen Stanley [facility] Work Phone: [facility] Work Phone: Start: 02-15-2024 End: 02-15-2024 ambulatory Eugenio Schmidt Facility:[facility] Start: 02-13-2024 End: 02-13-2024 Patient encounter procedure METHODS STUDY ANALYST-C Wen Stanley [facility] Work Phone: [facility] Work Phone: Start: 02-13-2024 End: 02-13-2024 ambulatory Kati Belden Facility:[facility] Start: 01-16-2024 End: 01-16-2024 Emergency department patient visit METHODS STUDY ANALYST-C Wen Stanley [facility] Work Phone: [facility] Work Phone: Start: 01-15-2024 End: 01-15-2024 Patient encounter procedure METHODS STUDY ANALYST-C Wenrosa isela Zazuetas [facility] Work Phone: [facility] Work Phone: Start: 01-15-2024 End: 01-15-2024 ambulatory METHODS STUDY ANALYST-C Wen Stanley VSC Work Phone: [facility] Work Phone: Start: 01-15-2024 End: 01-15-2024 ambulatory Kati Belden Facility:[facility] Start: 11-20-2023 End: 11-20-2023 ambulatory METHODS STUDY ANALYST-C Wenrosa isela Zazuetas VSC Work Phone: [facility] Work Phone: Start: 11-20-2023 End: 11-20-2023 Patient encounter procedure METHODS STUDY ANALYST-C Wenrosa isela Zazuetas VSC Work Phone: [facility] Work Phone: Start: 07-04-2023 End: 07-04-2023 ambulatory METHODS STUDY ANALYST-C Wen Stanlye VSC Work Phone: [facility] Work Phone: Start: 07-04-2023 End: 07-04-2023 Patient encounter procedure METHODS STUDY ANALYST-C Wen Stanley VSC Work Phone: [facility] Start: 07-04-2023 End: 07-04-2023 Patient encounter procedure METHODS STUDY ANALYST-C Wen Stanley VSC Work Phone: [facility] Work Phone: Start: 01-18-2022 End: 01-18-2022 Patient encounter procedure METHODS STUDY ANALYST-C Wen Overtonlins Work Phone: [facility] Start: 12-22-2021 End: 12-22-2021 Patient encounter procedure METHODS STUDY ANALYST-C Wenrosa isela OvertonStanley Work Phone: [facility] Start: 12-14-2021 End: 12-14-2021 Patient encounter procedure METHODS STUDY ANALYST-C Wenrosa isela OvertonStanley Work Phone: [facility] Start: 10-06-2021 Non-patient / Non-visit METHODS STUDY ANALYST-C Renate Stanley Work Phone: [facility] Start: 10-06-2021 Patient encounter procedure METHODS STUDY ANALYST-C Wenrosa isela OvertonStanley Work Phone: [facility] Procedures Date Procedure Procedure Detail Performing Clinician Start: 02-24-2024 MRI of lumbar spine METHODS STUDY ANALYST- C Wenrosa isela OvertonStanley [facility] Work Phone: Start: 02-15-2024 X-ray of lumbar spin e, two or three views METHODS STUDY ANALYST-C Wenrosa isela OvertonStanley [facility] Work Phone: Start: 01-16-2024 Computed tomography of abdomen and pelvis with intravenous contrast METHODS STUDY ANALYST-C Wenrosa isela OvertonStanley [facility] Work Phone: Start: 12-22-2021 X-ray of lumbar spin e, two or three views METHODS STUDY ANALYST-C Wen Stanley Work Phone: Plan of Treatment Date Care Activity Detail Author Start: 02-13-2024 Patient referral [facility] Work Phone: Start: 01-16-2024 [facility] Start: 01-16-2024 Computed tomography of abdomen and pelvis with intravenous contrast Abdomen/Pelvis W IV Cont ONLY [facility] Start: 03-19-2024 CT Abdomen and Pelvis W contrast IV [facility] Start: 12-14-2021 Patient referral [facility] Work Phone: Bilirubin measuremen t, urine [facility] CT Abdomen and Pelvi s W contrast IV [facility] Hemoglobin [Presence ] in Urine [facility] Measurement of keton es in urine using dipstick [facility] Microscopic urinalysis [facility] Patient Education ED Diverticulitis [facility] Work Phone: Patient referral [facility] Work Phone: pH of Urine [facility] Specific gravity of Urine [facility] Tobacco use cessatio n education [facility] Urinalysis, blood, qualitative [facility] Urine dipstick for glucose [facility] Urine dipstick for leukocyte esterase [facility] Urine dipstick for nitrite [facility] Urine dipstick for protein [facility] Urine examination [facility] Urine microscopy: epithelial cells [facility] Urine Microscopy: wh ite cells [facility] Urobilinogen [Presen ce] in Urine [facility] Work Phone: Immunizations Immunization Date Immunization Notes Care Provider Georgette mahajan 08-18-2011 hepatitis B vaccine, pediatric or pediatric/adolescent dosage PRASHANT Stanley [facility] Work Phone: [facility] Payers Date Payer Category Payer Private Health Insurance [id number] 2024 Private Health Insurance [id number] 2024 Self-pay [id number] 2023 Unknown [id number] 2015 Unknown SELF PAY INSURANCE [id number] 2015 Unknown [employer] [id number] Unknown [id number] Unknown SELF INS [facility] CARMENT [id number] Unknown [id number] 2.16.840.1.355349.3.579.2.462 Unknown [id number] 2.16.840.1.792626.3.579.2.462 Unknown [id number] 2.16.840.1.308368.3.579.2.462 Unknown [id number] 2.16.840.1.075539.3.579.2.462 Unknown [id number] 2.16.840.1.488761.3.579.2.462 Unknown [id number] 2.16.840.1.894135.3.579.2.462 Unknown [id number] 2.16840.1.636637.3.579.2.462 Unknown [id number] 2.16.840.1.021508.3.579.2.462 Unknown [id number] 2.16.840.1.395105.3.579.2.462 Unknown [id number] 2.16.840.1.864353.3.579.2.462 Unknown [id number] 2.16.840.1.055197.3.579.2.462 Unknown [id number] 2.16.840.1.338948.3.579.2.462 Unknown [id number] 2.16.840.1.747396.3.579.2.462 Unknown [id number] 2.16.840.1.894955.3.579.2.462 Unknown [id number] 2.16.840.1.556663.3.579.2.462 Unknown [id number] 2.16.840.1.656465.3.579.2.462 Unknown [id number] 2.16.840.1.075973.3.579.2.462 Unknown [id number] 2.16.840.1.807148.3.579.2.462 Unknown [id number] 2.16.840.1.741080.3.579.2.462 Unknown [id number] 2.16.840.1.087813.3.579.2.462 Unknown [id number] 2.16.840.1.129237.3.579.2.462 Unknown [id number] 2.16.840.1.877605.3.579.2.462 Unknown [id number] 2.16.840.1.812993.3.579.2.462 Unknown [id number] 2.16.840.1.369086.3.579.2.462 Unknown [id number] 2.16.840.1.377688.3.579.2.462 Unknown [id number] 2.16.840.1.655102.3.579.2.462 Unknown [id number] 2.16.840.1.357415.3.579.2.462 Unknown [id number] 2.16.840.1.746708.3.579.2.462 Unknown [id number] 2.16.840.1.448959.3.579.2.462 Unknown [id number] 2.16.840.1.304866.3.579.2.462 Social History Date Type Detail Facility Start: 12-22-2021 End: 02-12-2024 Tobacco smoking status NHIS Unknown if ever smoked [facility] Start: 1985 Sex Assigned At Male [facility] Discharge summary note 10-21-2024 Note Date & Type Note Facility 10-21-2024 Note [facility] Medical Records Department [address] [place] [address] Discharge Summary 10/21/24 0825 MR#: [id number] Acct: [id number] Name: RONY HE Rep #: [id number] : 1985 39 From: Audra ORTIZ PA-C PCP: Dr. Kati Arshad MD Status:ADM IN Location: [facility] [place] [id number] Providers Date of Admission: 10/17/24 Primary Care Physician: Dr. Kati Arshad MD Reason For Visit: ERAS, Laparoscopic, Sigmoid Colectomy Diagnosis Discharge Diagnosis (1) Leukocytosis: Status: Acute Code(s): D72.829 - Elevated white blood cell count, unspecified Qualifiers: Leukocytosis type: unspecified Qualified Code(s): D72.829 - Elevated white blood cell count, unspecified (2) Acute diverticulitis: Status: Inactive Code(s): K57.92 - Diverticulitis of intestine, part unspecified, without perforation or abscess without bleeding Medications at Discharge Home Medications Diltiazem 2% / Lidocaine 5% ointment (compound) #1 ea 03/29/24 levothyroxine 75 mcg tablet 75 mcg PO DAILY THYROID #30 tabs 05/20/24 omeprazole 40 mg capsule,delayed release 40 mg PO DAILY PRN PRN GERD #90 caps 05/20/24 acetaminophen 500 mg tablet 1,000 mg (2 x 500 mg) PO Q6 #0 tabs 10/21/24 oxycodone 5 mg tablet 5 mg PO Q6H PRN pain 3 days #10 tabs 10/21/24 Hospital Course Operations - (Laparoscopic converted to open sigmoid colectomy with anastomosis) Summary of Care Provided Minutes Spent on Discharge: 30 Hospital Course: Patient presented for an elective colectomy for diverticulitis. Dr. Fuller performed a Laparoscopic converted to open sigmoid colectomy with anastomosis on 10/17/[address] Fuller. Patient had an uneventful hospitalization. Upon discharge, patient denies nausea, vomiting, fever. He is passing flatus and having small bowel movements. His pain is well controlled. Weight / BMI Weight Weight: 272 lb 11.389 oz Body Mass Index (BMI) 41.4 ABG / Lab / Microbiology Data 10/21/24 07:29 10/21/24 07:29 Laboratory: Laboratory Results - last 24 hr 10/21/24 07:29: WBC 12.1 H, RBC 5.24, Hgb 14.6, Hct 45.1, MCV 86.1, MCH 27.9, MCHC 32.4, RDW Std Deviation 42.0, RDW Coeff of Addy 13.3, Plt Count 247, MPV 10.8, Immature Gran % (Auto) 0.600, Neut % (Auto) 69.1, Lymph % (Auto) 19.5, [place] % (Auto) 6.5, Eos % (Auto) 3.0, Baso % (Auto) 1.3 H, Absolute Neuts (auto) 8.3 H, Absolute Lymphs (auto) 2.36, Nucleated RBC % 0, Sodium 137, Potassium 3.6, Chloride 106, Carbon Dioxide 26.0, Anion Gap 6, BUN 10, Creatinine 0.82, Estim Creat Clear Calc 154.85, Est GFR (MDRD) Af Amer 135, Est GFR (MDRD) Non-Af 111, BUN/Creatinine Ratio 12.2, Glucose 101, Calcium 9.1 D/C Instructions Discharge Diet: - (Transitional diet) Discharge Activity: May Not Drive (3-5 days or while taking narcotic pain medication) and May Shower Lifting Restrictions: No lifting greater than 15 pounds for 6 weeks Call your doctor if your incision/area has: Continuous Slow Oozing, Sudden Increased Bleeding, Increased Pain/ Swelling, Increased Redness, Foul Smelling Discharge and Swelling at the incision site Call your doctor if you observe: Fever of 101 or Higher Suture Line Care: Avoid Pulling/Pushing and Avoid Pinching/Bending Cleanse incision/area with: Soap Water DC O2, CPAP, BIPAP Needs Home O2 Discharge instructions: No DC home with Oxygen: No Please Follow Up With: Juan Fuller MD When: Follow-up with Dr. Fuller on 10/24 900 or contact our office at [phone] to reschedule Meaningful Use Info Meaningful Use Meaningful Use Diagnoses (Choose all that apply): None applicable Ischemic Stroke Statin Dosing Therapy Reference: STATIN DOSE THERAPY REFERENCE: * Patients > 75 years receive moderate or high dose statin therapy. * Patients 75 years or YOUNGER should receive HIGH intensity statin dose unless contraindicated. You will be required to document reason for non-treatment if statin daily dose does not meet guidelines. HIGH DOSE STATIN THERAPY DAILY Atorvastatin > than or = to 40 mg Rosuvastatin > than or = to 20 mg Amlodipine + Atorvastatin > than or = to 2.5/40 mg Ezetimibe + Simvastatin 10/80 mg Simvastatin 80mg Discharge Plan Admission Admit Date/Time: 10/17/24 05:20 Primary Reason for Your Visit: s/p sigmoid colectomy Attending Provider: Juan Fuller Primary Care Provider: Kati Arshad Instructions Additional Instructions / Restrictions: Colectomy Diet ??? Start light with soups and soft bland foods. Refer to your transitional diet instruction sheet Activity ??? You may drive in 5-7 days but not while taking narcotic pain medication. ??? I encourage walking. You may go up steps, one at a time. ??? Do not swim or use hot tubs for 2 weeks. Lifting ??? You may lift up to 10 pounds for th (more content not included)... [facility] Clinical Note 10-17-2024 Note Date & Type Note Facility 10-17-2024 Note [facility] Medical Records Department [address] [place] [address] History Physical Exam 10/17/24 0642 MR#: [id number] Acct: [id number] Name: RONY HE Rep #: [id number] : 1985 39 From: Juan Fuller MD PCP: Dr. Kati Arshad MD Status:ADM IN Location: [place] [address] History and Physical Date of Admission: 10/17/24 Intake Vital Signs 09/07/2415:25 09/11/2414:57 Height 5 ft 8 in 5 ft 8 in Weight: 278 lb BMI 42.3 BP 128/84 H Blood Pressure Location Rt brachial Position Sitting Respiration 17 Pulse 77 Pulse Source Monitor Pulse Oximetry (%) 98 Oxygen Delivery Method room air Intake Visit Reasons: DIVERTICULITIS, H FU Chief Complaint: diverticulitis Is patient in pain?: No Allergies No Known Allergies Allergy (Verified 09/11/24 14:58) Medications ???Medication ???Instructions ???Recorded ???Confirmed ???Type Diltiazem 2% / Lidocaine 5% #1 ea 03/29/24 09/11/24 Rx ointment (compound) levothyroxine 75 mcg tablet 75 mcg PO DAILY #30 tabs 05/20/24 09/11/24 Rx omeprazole 40 mg capsule,delayed 40 mg PO DAILY PRN PRN GERD #90 05/20/24 09/11/24 Rx release caps ciprofloxacin HCl 500 mg tablet 500 mg PO Q12H 7 days #14 tabs 09/08/24 09/11/24 Rx (Cipro) metronidazole 375 mg capsule 375 mg PO Q12H 7 days #14 caps 09/08/24 09/11/24 Rx (Flagyl) oxycodone-acetaminophen 5 mg-325 1 tab PO Q8H PRN pain 3 days #5 09/08/24 09/11/24 Rx mg tablet (Percocet) tabs metronidazole 500 mg tablet 500 mg PO .COMPLEX #6 tabs 09/12/24 09/12/24 Rx neomycin 500 mg tablet 500 mg PO .COMPLEX pre-op 09/12/24 09/12/24 Rx antibiotics #6 tabs PFSH Medical History Loss of hearing Wears glasses Marijuana use Alcohol use Thyroid disease Restless legs DDD (degenerative disc disease), lumbar Former smoker CPAP (continuous positive airway pressure) dependence Shortness of breath on exertion History of pain when walking Cardiology follow-up encounter History of stress test Pain Diverticulitis Back problem Allergies Impacted cerumen, left ear Acute maxillary sinusitis, unspecified COPD (chronic obstructive pulmonary disease) Tobacco dependence Essential hypertension Contact dermatitis Morbid obesity Sleep apnea GERD (gastroesophageal reflux disease) Dysphagia Numbness and tingling History of back problems Surgical History History of selective injection of anesthetic agent around lumbar nerve root History of placement of ear tubes Family History (Updated 09/11/24 @ 14:55 by Kori Goldsmith) Father Alcohol abuse Heart diseaseGrandmother DiabetesGrandmother Heart disease Diabetes Bowel disease doesn't know what kind HypertensionMother Arthritis DiabetesOther Cervical cancer Gastrointestinal problem Social History household members: spouse and children current occupational status: employed 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 The patient recently had a colonoscopy a few months ago. The patient has sigmoid diverticulitis that keeps recurring. He was recently hospitalized with microperforation. He currently is feeling better. ROS General General: No weight change, appetite, fatigue, colon cancer, breast cancer or weakness HEENT HEENT: No difficulty swallowing, eye injury, eye surgery, swollen glands or hoarseness Endo Endocrine: Yes thyroid disease; No diabetes mellitus, thyroid cancer, Hair loss, heat intolerance or cold intolerance Skin Skin: No rash or changing moles Musc Musculoskeletal: Yes back problems; No arthritis, rheumatoid arthritis, gout or joint pain Cardio Cardiovascular: No murmur, pacemaker, heart disease, atrial fibrillation, high blood pressure, heart attack, heart stent, palpitations, shortness of breat with exertion or chest pain Psych Psychiatric: No depression, anxiety or hearing voices Resp Respiratory: No shortness of breath, Yes sleep apnea, No cough, Yes COPD, No asthma, No emphysema and No wheezing Gastro Gastrointestinal: No abdominal pain, Yes nausea or vomiting, No diarrhea, No constipation, No blood in stool, Yes acid reflux, Yes hemorrhoids, No ulcers, N (more content not included)... [facility] Discharge summary note 09-08-2024 Note Date & Type Note Facility 09-08-2024 Note [facility] Medical Records Department [address] [place] [id number] Discharge Summary 09/08/24 1058 MR#: [id number] Acct: [id number] Name: RONY HE Rep #: [id number] : 1985 39 From: Juni Carey MD PCP: Dr. Kati Arshad MD Status:ADM IN Location: [facility] [id number] Providers Date of Admission: 09/05/24 Date of Discharge: 09/08/24 Primary Care Physician: Dr. Kati Arshad MD Reason For Visit: DIVERTICULITIS WITH PERFORATION Diagnosis Discharge Diagnosis (1) Abscess of intestine: Status: Acute Code(s): K63.0 - Abscess of intestine (2) Diverticulitis of colon with perforation: Status: Acute Code(s): K57.20 - Diverticulitis of large intestine with perforation and abscess without bleeding Plan: The patient is a 39-year-old male with acute sigmoid diverticulitis with microperforation. He clinically is improving with antibiotics. White count has decreased to 14.6 today. Patient tolerated clear liquid diet. He is not interested in diet advancement but we could certainly reconsider diet advancement tomorrow Medications at Discharge Home Medications Diltiazem 2% / Lidocaine 5% ointment (compound) #1 ea 03/29/24 levothyroxine 75 mcg tablet 75 mcg PO DAILY #30 tabs 05/20/24 omeprazole 40 mg capsule,delayed release 40 mg PO DAILY PRN PRN GERD #90 caps 05/20/24 ciprofloxacin HCl 500 mg tablet (Cipro) 500 mg PO Q12H 7 days #14 tabs 09/08/24 metronidazole 375 mg capsule (Flagyl) 375 mg PO Q12H 7 days #14 caps 09/08/24 oxycodone-acetaminophen 5 mg-325 mg tablet (Percocet) 1 tab PO Q8H PRN pain 3 days #5 tabs 09/08/24 Hospital Course Operations None Summary of Care Provided Minutes Spent on Discharge: 15 Hospital Course: The patient is a 39-year-old male with a history of recurring episodes of sigmoid diverticulitis. He was admitted for he had another episode of diverticulitis. He initially was placed n.p.o. and was administered IV antibiotics. His white count has steadily decreased and clinically he is improved as well. Today states that he really has no significant pain. He has tolerated diet advancement. He is hopeful that he can be discharged later today. Plan is for him to follow-up with Dr Fuller in the office in the near future to discuss sigmoid colectomy Physical Exam Narrative He is alert and oriented x 3. He is in no acute distress. Abdomen is obese, soft nontender nondistended. Weight / BMI Weight Weight: 279 lb 1.683 oz Body Mass Index (BMI) 42.4 ABG / Lab / Microbiology Data 09/08/24 09:43 09/07/24 05:34 Laboratory: Laboratory Results - last 24 hr 09/08/24 09:43: WBC 10.4, RBC 5.17, Hgb 14.6, Hct 45.2, MCV 87.4, MCH 28.2, MCHC 32.3, RDW Std Deviation 40.9, RDW Coeff of Addy 12.8, Plt Count 222, MPV 10.9, Immature Gran % (Auto) 0.600, Neut % (Auto) 75.7 H, Lymph % (Auto) 15.6 L, [place] % (Auto) 5.5, Eos % (Auto) 1.8, Baso % (Auto) 0.8, A bsolute Neuts (auto) 7.8 H, Absolute Lymphs (auto) 1.62, Nucleated RBC % 0 D/C Instructions Discharge Diet: Light diet - advance as tolerated and - (Low fiber diet) Discharge Activity: Return to Normal Activity Call your doctor if you observe: Fever of 101 or Higher and - (Any significant increase in abdominal pain) Additional Instructions: Follow-up with Dr. Fuller in 1 to 2 weeks. Continue oral antibiotics that are prescribed Please Follow Up With: Juan Fuller MD When: 1 to 2 weeks Meaningful Use Info Meaningful Use Meaningful Use Diagnoses (Choose all that apply): None applicable Ischemic Stroke Statin Dosing Therapy Reference: STATIN DOSE THERAPY REFERENCE: * Patients > 75 years receive moderate or high dose statin therapy. * Patients 75 years or YOUNGER should receive HIGH intensity statin dose unless contraindicated. You will be required to document reason for non-treatment if statin daily dose does not meet guidelines. HIGH DOSE STATIN THERAPY DAILY Atorvastatin > than or = to 40 mg Rosuvastatin > than or = to 20 mg Amlodipine + Atorvastatin > than or = to 2.5/40 mg Ezetimibe + Simvastatin 10/80 mg Simvastatin 80mg Discharge Plan Admission Admit Date/Time: 09/05/24 01:04 Primary Reason for Your Visit: Diverticulitis Attending Provider: Juan Fuller Primary Care Provider: Kati Arshad Discharge Orders/Prescriptions Prescriptions: New metronidazole [Flagyl] 375 mg capsule 375 mg PO Q12H 7 Days Qty: 14 0RF ciprofloxacin HCl [Cipro] 500 mg tablet 500 mg PO Q12H 7 Days Qty: 14 0RF oxycodone-acetaminophen [Percocet] 5-325 mg tablet 1 tab PO Q8H PRN (Reason: pain) 3 Days Qty: 5 0RF Continued omeprazole 40 mg capsule,delayed release(DR/EC) 40 mg PO DAILY PRN PRN (Reason: GERD) Qty: 90 0RF levothyroxine 75 mcg tablet 75 mcg PO DAILY Qty: 30 5RF (DME) Diltiazem 2% / Lidocaine 5% o (more content not included)... [facility] Clinical Note 03-29-2024 Note Date & Type Note Facility 03-29-2024 Note [facility] Medical Records Department [address] [place] [address] History Physical Exam 03/29/24 0636 MR#: [id number] Acct: [id number] Name: RONY HE Rep #: [id number] : 1985 39 From: Juan Fuller MD PCP: Dr. Kati Arshad MD Status:[facility] Location: [place] [address] History and Physical Date of Admission: 03/29/24 Intake Vital Signs 02/12/2414:51 02/28/2415:08 Height 5 ft 8 in 5 ft 8 in Weight: 278 lb 6 oz 274 lb BMI 42.3 41.6 BP 140/78 H 128/84 H Blood Pressure Location Lt brachial Rt brachial Position Sitting Sitting Respiration 16 18 Pulse 86 73 Pulse Source Monitor Monitor Temp 97.4 F L 97.3 F L Temp Source Temporal Temporal Pulse Oximetry (%) 98 99 Oxygen Delivery Method room air room air Intake Visit Reasons: BLEDDING FROM RECTAL AREA Chief Complaint: bleeding from rectal area Is patient in pain?: No Allergies No Known Allergies Allergy (Verified 02/29/24 15:10) Medications levothyroxine 75 mcg tablet 75 mcg PO DAILY #30 tabs 01/15/24 [Rx Confirmed 02/29/24] psyllium husk 3.4 gram/5.4 gram oral powder (Metamucil) 1 tbsp PO DAILY #660 grams 02/13/24 [Rx Confirmed 02/29/24] omeprazole 40 mg capsule,delayed release 40 mg PO DAILY PRN 02/15/24 [History Confirmed 02/29/24] [facility] Medical History (Updated 02/29/24 @ 15:[address] Juan Fuller MD) Acute maxillary sinusitis, unspecified Allergies Back problem Contact dermatitis COPD (chronic obstructive pulmonary disease) Diverticulitis Dysphagia Essential hypertension GERD (gastroesophageal reflux disease) History of back problems Impacted cerumen, left ear Morbid obesity Numbness and tingling Sleep apnea Tobacco dependence Surgical History History of placement of ear tubes History of selective injection of anesthetic agent around lumbar nerve root Family History Father Alcohol abuse Heart diseaseGrandmother DiabetesGrandmother Heart disease Diabetes Bowel disease doesn't know what kind HypertensionOther Arthritis Cervical cancer Gastrointestinal problem Social History household members: spouse and children current occupational status: employed 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 The patient had rectal bleeding 2 weeks ago. He has intermittent rectal bleeding for the last few years but is bright red. He reports no pain with defecation. He has not been having any abdominal pain at this time. ROS General General: No weight change, appetite, fatigue, colon cancer, breast cancer or weakness HEENT HEENT: No difficulty swallowing, eye injury, eye surgery, swollen glands or hoarseness Endo Endocrine: Yes thyroid disease; No diabetes mellitus, thyroid cancer, Hair loss, heat intolerance or cold intolerance Skin Skin: No rash or changing moles Musc Musculoskeletal: Yes back problems; No arthritis, rheumatoid arthritis, gout or joint pain Cardio Cardiovascular: No murmur, pacemaker, heart disease, atrial fibrillation, high blood pressure, heart attack, heart stent, palpitations, shortness of breat with exertion or chest pain Psych Psychiatric: No depression, anxiety or hearing voices Resp Respiratory: No shortness of breath, Yes sleep apnea, No cough, Yes COPD, No asthma, No emphysema and No wheezing Gastro Gastrointestinal: No abdominal pain, Yes nausea or vomiting, No diarrhea, No constipation, No blood in stool, Yes acid reflux, Yes hemorrhoids, No ulcers, No gallbladder problem and No black,tarry stools [place] Hematologic: No blood thinners, No blood disorders, No bleeding, No anemia and No blood clots Neuro Neurologic: No numbness, No tingling and No weakness Exam Const General: cooperative Orientation: alert and oriented x3 HENMT Head: normal to inspection Neck Neck: normal visual inspection and full ROM Chest Chest palpation inspection: normal inspection of the chest Resp Effort Inspection: normal respiratory effort Auscultation: clear to auscultation bilaterally Cardio Rate: regular rate Rhythm: regular rhythm GI Inspection: non-distended Palpation: soft and nontender Skin Gene (more content not included)... [facility] Evaluation note Note Date & Type Note Facility Evaluation note Diagnosis Onset Date Numbness and tingling resolv ed Low back pain acute Meralgia paresthetica of right side acute [facility] Work Phone: Evaluation note Note Date & Type Note Facility Evaluation note Diagnosis Onset Date Essential hypertension chron ic GERD (gastroesophageal reflux disease) chronic Sleep apnea chronic Immunization declined noneac tive Establishing care with erik keith, encounter for noneactive Chronic midline low back mario n without sciatica noneactive [facility] Work Phone: Evaluation note Note Date & Type Note Facility Evaluation note Diagnosis Onset Date Essential hypertension chron ic Sleep apnea chronic Acquired hypothyroidism none active Difficulty concentrating non eactive Generalized abdominal pain n oneactive Electronic cigarette use non eactive Numbness and tingling in both hands noneactive Chronic midline low back mario n without sciatica noneactive [facility] Work Phone: Evaluation note Note Date & Type Note Facility Evaluation note Diagnosis Onset Date Essential hypertension chron ic Sleep apnea chronic Acquired hypothyroidism none active Difficulty concentrating non eactive Generalized abdominal pain n oneactive Electronic cigarette use non eactive Numbness and tingling in both hands noneactive Chronic midline low back mario n without sciatica noneactive LLQ abdominal pain noneactiv e Boil of groin noneactive [facility] Work Phone: Evaluation note Note Date & Type Note Facility Evaluation note Diagnosis Onset Date Essential hypertension chron ic Sleep apnea chronic Acquired hypothyroidism none active Difficulty concentrating non eactive Generalized abdominal pain n oneactive Electronic cigarette use non eactive Numbness and tingling in both hands noneactive Chronic midline low back mario n without sciatica noneactive LLQ abdominal pain noneactiv e Boil of groin noneactive History of diverticulitis no neactive Rectal bleeding noneactive HNP (herniated nucleus pulposus), lumbar acute [facility] Work Phone: Summary Purpose Family History No Family History Records Found Relationship Condition Age at Onset Recorded Date/T shakir father Alcohol abuse Unknown Relationship Condition Age at Onset Recorded Date/T shakir Not Specified Gastrointestinal problem Unknown Malignant neoplasm of cervix Unknown Arthritis Unknown father Alcohol abuse Unknown Cardiac disease Unknown grandmother Diabetes mellitus Unknown grandmother Cardiac disease Unknown Diabetes mellitus Unknown Disorder of intestine Unknown Hypertension Unknown Advance Directives No Advanced Directives Records Found Advance Directive Response Recorded Date/ Time Living Will No December 14 10:40am Power of Buggy Man No December 14, 2021 10:40am Advance Directive Response Recorded Date/ Time Living Will No December 14 9:40am Power of Buggy Man No December 14, 2021 9:40am Advance Directive Response Recorded Date/ Time Living Will No January 16, 2024 11:35am Power of Buggy Man No January 15 11:35am Advance Directive Response Recorded Date/ Time Living Will No February 07, 2024 11:33am Power of Buggy Man No February 06 11:33am Chief Complaint and Reason for Visit Chief Complaint CHEST PAIN R LEG PAIN LUMBER SPINE xray Reason for Visit Numbness and tinglin g Low back pain Meralgia paresthetica of right side Chief Complaint METHODS STUDY 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 EST CARE PPW SENT Reason for Visit Essential hypertensi on GERD (gastroesophageal reflux disease) Sleep apnea Immunization declined Establishing care with new doctor, encounter for Chronic midline low back pain without sciatica Chief Complaint 4 M FU Reason for Visit Essential hypertensi on Sleep apnea Acquired hypothyroidism Difficulty concentrating Generalized abdominal pain Electronic cigarette use Numbness and tingling in both hands Chronic midline low back pain without sciatica Chief Complaint 4 M FU STOMACH PAINS LOWER ABD PAIN Reason for Visit Essential hypertensi on Sleep apnea Acquired hypothyroidism Difficulty concentrating Generalized abdominal pain Electronic cigarette use Numbness and tingling in both hands Chronic midline low back pain without sciatica LLQ abdominal pain Boil of groin Chief Complaint 4 M FU STOMACH PAINS LOWER ABD PAIN Rectal bleeding LUMBAR SPINE Room 3 INTERVERTEBRAL DISC DISPLACEMENT LUMBAR REGION Reason for Visit Essential hypertensi on Sleep apnea Acquired hypothyroidism Difficulty concentrating Generalized abdominal pain Electronic cigarette use Numbness and tingling in both hands Chronic midline low back pain without sciatica LLQ abdominal pain Boil of groin History of diverticulitis Rectal bleeding HNP (herniated nucleus pulposus), lumbar Additional Source Comments (unrecognized sect ion and content) No Status Records FoundNo Status Records FoundNo Status Records FoundNo Status Records FoundNo Status Records Found INFORMATION SOURCE (unrecogn ized section and content) DATE CREATED AUTHOR 08/15/2019 [facility] DATE CREATED AUTHOR AUTHOR'S ORGANIZ ATION 01/03/2021 [facility] DATE CREATED AUTHOR AUTHOR'S ORGANIZ ATION 03/07/2021 [facility] DATE CREATED AUTHOR AUTHOR'S ORGANIZ ATION 12/15/2021 [facility] DATE CREATED AUTHOR AUTHOR'S ORGANIZ ATION 12/06/2024 [facility] Goals (unrecognized section and content) Goals may be documented in a n alternate sectionGoals may be documented in an alternate sectionGoals may be documented in an alternate sectionGoals may be documented in an alternate sectionGoals may be documented in an alternate sectionGoals may be documented in an alternate section Care Teams (unrecognized sec tion and content) Team Status: Active Member Role Status Dates Neha Lagunas METHODS STUDY ANALYST, METHODS STUDY ANALYST-C Family Provider Active Wen JONES, METHODS STUDY ANALYST-C Primary Care Provider Active Team Status: Inactive Member Role Status Dates Wen JONES, METHODS STUDY ANALYST-C Primary Care Provider, [facility] Active Dr. Kati Arshad MD Attending Provider Active Team Status: Inactive Member Role Status Dates Wen JONES, METHODS STUDY ANALYST-C Primary Care Provider Active Dr. Kati Arshad MD Attending Provider Active Team Status: Active Member Role Status Dates Neha Lagunas NP, METHODS STUDY ANALYST-C Family Provider Active Dr. Kati Arshad MD Primary Care Provider Active Team Status: Inactive Member Role Status Dates Dr. Kati Arshad MD Primary Care Provider, [facility] Provider Active Team Status: Inactive Member Role Status Dates Dr. Kati Arshad MD Primary Care Pro vider, Attending Provider, Referring Provider Active Team Status: Active Member Role Status Dates Dr. Kati Arshad MD Primary Care Pro vider, Attending Provider, Referring Provider Active Team Status: Inactive Member Role Status Dates Dr. Kati Arshad MD Primary Care Provider Active Dr. Isidoro Toney DO Emergency Provider Active Team Status: Inactive Member Role Status Dates Dr. Kati Arshad MD Primary Care Provider, Referri ng Provider Active Dr. Eugenio Schmidt DO Attending Provider Active Team Status: Inactive Member Role Status Dates Dr. Kati Arshad MD Primary Care Provider Active Dr. Naren Jovel MD Attending Provider Active Team Status: Inactive Member Role Status Dates Dr. Kati Arshad MD Primary Care Provider Active Dr. Isidoro Toney DO Attending Provider, Emergency Pro vider Active Team Status: Inactive Member Role Status Dates Dr. Kati Arshad MD Primary Care Provider Active Dr. Eugenio Schmidt DO Attending Provider, Referring P nancy Active FOR RECORDS PERTAINING TO PATIENTS WHO ARE [...] BE BASED ON THE PRIMARY CLINICAL RECORDS. [facility] [employer] provides no warranty or guarantee of the accuracy or completeness of information in this document.
--- NOTE | 2025-06-21 08:09 | RAD_ITS ---
PROCEDURE: FOOT MIN 3 VIEWS 06/21/2025 REASON FOR EXAM: PAIN TECHNIQUE: FOOT MIN 3 VIEWS Laterality: Left COMPARISON: None. RAD/Foot min 3 Views IMPRESSION: Moderate posterior and inferior calcaneal spurring is seen. Normal contour of the Achilles tendon is seen in the lateral view. No ankle joint effusion is evident. No significant arthritic process is otherwise noted. No fracture, dislocation, or other significant osseous or joint space abnormali ty is seen. Reading Location: [place] [id number]
== END | disposition home or self-care (01) ==
LOC: RAD 08:05
PROVIDERS: PCP Internal Medicine; Referring Provider Nurse Practitioner Family; Visit Provider Nurse Practitioner Family
DX: M79.672 Pain in left foot (principal)
CPT/HCPCS: 73630

== ENCOUNTER → 2025-06-28 | Outpatient (CLI) | payer OTHER, SELFPAY ==
--- OUTSIDE RECORDS SUMMARY | 2025-06-28 09:34 | XMS RPT_ITS | CCD ---
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 Naren Jovel Attending Provider Stanley, HUMAN RESOURCE INTERN-C Wen Referring Provider DIANA Davis Attending Provider [phone] Dr. Eugenio Schmidt Attending Provider [phone] Dr. Eugenio Schmidt Referring Provider Stanley VSC, HUMAN RESOURCE INTERN-C Wen Primary Care Provider [phone] Stanley VSC, HUMAN RESOURCE INTERN-C Wen Referring Provider Dr. Kati Arshad Attending Provider Stanley VSC, HUMAN RESOURCE INTERN-C Wen Primary Care Provider Stanley VSC, HUMAN RESOURCE INTERN-C Wen Referring Provider Dr. Kati Arshad Attending Provider Stanley VSC, HUMAN RESOURCE INTERN-C Wen Primary Care Provider [phone] Stanley VSC, HUMAN RESOURCE INTERN-C Wen Referring Provider Dr. Kati Arshad Attending Provider [phone] Dr. Kati Arshad Primary Care Provider Dr. Kati Arshad Referring Provider Dr. Eugenio Schmidt Attending Provider [phone] Naren Jovel Attending Provider Calabretta, Juan Admitting Unavailable Calabretta, Juan Attending Unavailable Bitely, Kati Primary Care Unavailable Jeancarlos, Kati Referring Unavailable Bitely, Kati Primary Care Unavailable Calabretta, Juan Attending Unavailable Bitely, Kati Primary Care Unavailable Calabretta, Juna Consulting Unavailable Calabretta, Juan Referring Unavailable Audra Victoria Attending Unavailable Calabretta, Juan Admitting Unavailable Calabretta, Juan Attending Unavailable Juni Carey Attending Unavailable Calabretta, Juan Consulting Unavailable Bitely, Kati Primary Care Unavailable Calabretta, Juan Admitting Unavailable Bitely, Kati Primary Care Unavailable Calabretta, Juan Attending Unavailable Calabretta, Juan Attending Unavailable Jarad Mendez Referring Unavailable Jarad Mendez Attending Unavailable Jeancarlos, Kati Primary Care Unavailable WanJuni campbell Attending Unavailable Bitely, Kati Primary Care Unavailable Jeancarlos, Kati Referring Unavailable Bitely, Kati Attending Unavailable Jeancarlos, Kati Primary Care Unavailable Bitely, Kati Referring Unavailable Calabretta, Juan Attending Unavailable Jeancarlos, Kati Primary Care Unavailable Jeancarlos, Kati Referring Unavailable Calabretta, Juan Attending Unavailable Calabretta, Juan Referring Unavailable Calabretta, Juan Admitting Unavailable Calabretta, Juan Attending Unavailable Jeancarlos, Kati Primary Care Unavailable Jeancarlos, Kati Primary Care Unavailable Caity Ruano Referring Unavailable Caity Ruano Attending Unavailable Jeancarlos, Kati Primary Care Unavailable Caity Ruano Referring Unavailable Caity Ruano Attending Unavailable Dr. Kati Arshad MD Primary Care Provider [phone] Bindu HUMAN RESOURCE INTERN-Caity Santillan Attending Provider [phone] Bindu HUMAN RESOURCE INTERNCaity Cagle Referring Provider Medications Current Medications Medication Drug Class(es) Dates Sig (Normalized) Sig (Original) acetaminophen 500 mg oral tablet (1 source) Start: 10-21-2024 take 2 tablets by mouth every six hours Acetaminophen 500 mg Tablet Active 1000 mg PO EVERY 6 HOURS 0 0 October 21, 2024 1:00am Albuterol Sulfate (7 sources) beta2-Adrenergic Agonist Start: 09-22-2021 Albuterol Sulfate Active 2 INH INHALATION EVERY 6 HOURS September 22, 2021 2:09pm Start: 09-22-2021 End: 07-04-2023 Albuterol Sulfate 90 mcg/act uation HFA aerosol inhaler Discontinued 2 NMA INHALATION EVERY 6 HOURS as needed September 22, 2021 1:00am July 04, 2023 3:00pm Start: 09-22-2021 End: 07-04-2023 Albuterol Sulfate Discontinu ed 2 INH INHALATION EVERY 6 HOURS September 22, 2021 1:00am July 04, 2023 3:00pm Diltiazem 2% / Lidocaine 5% Ointment (Compound) ointment (1 source) Start: 03-29-2024 Diltiazem 2% / Lidocaine 5% Ointment (Compound) ointment Active 0 .Route 1 0 March 29, 2024 12:00am Apply to rectum twice daily levothyroxine sodium 0.075 mg oral tablet (20 sources) l-Thyroxi ne Start: 01-15-2024 End: 02-19-2025 take 1 tablet by mouth once daily Levothyroxine 75 mcg tablet Active 75 ug PO DAILY 30 February 19, 2025 9:52am THYROID Start: 11-20-2023 End: 01-15-2024 take 1 tablet by mouth once daily Levothyroxine 88 mcg tablet Discontinued 88 ug PO DAILY 30 November 20, 2023 8:03pm January 15, 2024 1:33pm Start: 07-06-2023 End: 11-20-2023 take 1 tablet by mouth once daily Levothyroxine (Synthroid) 100 mcg tablet Discontinued 100 ug PO DAILY 30 August 24, 2023 9:46am November 20, 2023 8:03pm omeprazole 40 mg delayed release oral capsule (14 sources) Proton Pump Inhibitor Start: 01-15-2024 End: 05-20-2024 take 1 capsule by mouth once daily as needed for gastroesophageal reflux disease Omeprazole 40 mg capsule,delayed release(DR/EC) Active 40 mg PO DAILY NEEDED as needed for GERD 90 0 May 20, 2024 3:59pm Start: 04-15-2019 End: 07-04-2023 take 1 capsule by mouth once daily Omeprazole 40 MG capsule,delayed release(DR/EC) Discontinued 40 mg PO DAILY April 15, 2019 12:00am July 04, 2023 3:00pm Completed/Discontinued Medications Medication Drug Class(es) Dates Sig (Normalized) Sig (Original) acetaminophen 325 mg / HYDROcodone bitartrate 5 mg oral tablet (4 sources) Opioid Agonist Start: 01-16-2024 End: 02-29-2024 Hydrocodone-Acetamino phen 5-325 mg tablet Discontinued 1 {tbl} PO EVERY 4 HOURS NEEDED as needed for Pain 10 2 0 January 16, 2024 February 29, 2024 3:10pm Acute diverticulitis of intestine Start: 01-16-2024 take 1 tablet by martine th every four hours as needed Hydrocodone-Acetaminophen Active 1 TABLE T PO EVERY 4 HOURS NEEDED 10 2 January 16, 2024 acetaminophen 325 mg / oxyCODONE hydrochloride 5 mg oral tablet (1 source) Opioid Agonist Start: 09-08-2024 End: 10-04-2024 Oxycodone-Acetaminophen (Percocet) 5-325 mg tablet Discontinued 1 {tbl} PO Q8H as needed for pain 5 3 0 September 08, 2024 October 04, 2024 12:11pm Diverticulitis of colon with perforation Diverticulitis of large intestine with perforation and abscess without bleeding amoxicillin 500 mg oral capsule (6 sources) Penicillin-class Antibacterial Start: 12-12-2022 End: 12-22-2022 take 1 capsule by mouth three times daily Amoxicillin 500 mg capsule Discontinued 500 mg PO THREE TIMES A DAY 30 10 0 December 12, 2022 1:00am December 21, 2022 1:00am December 22, 2022 1:04am 120 actuat budesonide 0.16 mg/actuat / formoterol fumarate 0.0045 mg/actuat metered dose inhaler (7 sources) Corticosteroid, beta2-Adrenergic Agonist Start: 09-22-2021 End: 07-04-2023 Budesonide-Formoterol 160-4.5 mcg/actuation HFA aerosol inhaler Discontinued 2 NMA INHALATION TWICE A DAY September 22, 2021 1:00am July 04, 2023 3:00pm Start: 09-22-2021 End: 07-04-2023 take 1 puff(s) by inhalation twice daily Budesonide-Formoterol Discontinued 2 PUFF INHALATION TWICE A DAY September 22, 2021 1:00am July 04, 2023 3:00pm chlorhexidine gluconate 40 mg/ml medicated liquid soap (7 sources) Start: 05-04-2021 End: 12-22-2021 Chlorhexidine Gluconate (Hibiclens) 4 % Liquid Discontinued 1 NMA TOPICAL DAILY May 04, 2021 12:00am December 22, 2021 3:49pm ciprofloxacin 500 mg oral tablet (5 sources) Quinolone Antimicrobial Start: 09-08-2024 End: 10-04-2024 take 1 tablet by mouth every twelve hours Ciprofloxacin Hcl (Cipro) 500 mg tablet Discontinued 500 mg PO Q12H 14 7 0 September 08, 2024 1:00am October 04, 2024 12:10pm Start: 01-16-2024 End: 02-13-2024 take 1 tablet by mouth twice daily Ciprofloxacin Hcl 500 mg tablet Discontinued 500 mg PO TWICE A DAY 14 0 January 16, 2024 12:00am February 13, 2024 2:50pm cyclobenzaprine hydrochloride 10 mg oral tablet (20 sources) Muscle Relaxant Start: 05-23-2022 End: 05-28-2022 take 1 tablet by mouth three times daily as needed for muscle spasms Cyclobenzaprine 10 mg tablet Discontinued 10 mg PO THREE TIMES A DAY as needed for muscle spasm 20 5 0 May 23, 2022 12:00am May 27, 2022 12:00am May 28, 2022 12:05am Start: 01-05-2022 End: 07-04-2023 take 1 tablet by mouth three times daily as needed for muscle spasms Cyclobenzaprine 5 mg tablet Discontinued 5 mg PO THREE TIMES A DAY as needed for muscle spasm 42 0 January 05, 2022 1:00am July 04, 2023 3:01pm Lumbar radicular syndrome Radiculopathy, lumbar region Start: 04-15-2019 End: 02-22-2021 take 1 tablet by mouth twice daily Cyclobenzaprine 10 MG tablet Discontinued 10 mg PO TWICE A DAY April 15, 2019 12:00am February 22, 2021 10:14am gabapentin 600 mg oral tablet (7 sources) Anti-epileptic Agent Start: 04-15-2019 End: 02-22-2021 take 1 tablet by mouth twice daily Gabapentin 600 MG tablet Discontinued 600 mg PO TWICE A DAY April 15, 2019 12:00am February 22, 2021 10:14am Hydrocortisone Acetate (Anusol-Hc) 25 mg suppository (2 sources) Start: 02-13-2024 End: 02-29-2024 Hydrocortisone Acetate (Anusol-Hc) 25 mg suppository Discontinued 25 mg RC DAILY February 13, 2024 12:00am February 29, 2024 3:10pm Start: 02-13-2024 Hydrocortisone Acetate (Anusol-Hc) 25 mg suppository Active 25 MG RC DAILY February 13, 2024 12:00am lisinopril 20 mg oral tablet (14 sources) Angiotensin Converting Enzyme Inhibitor Start: 09-22-2021 End: 07-04-2023 take 1 tablet by mouth once daily Lisinopril 20 mg tablet Discontinued 20 mg PO DAILY September 22, 2021 1:00am July 04, 2023 3:00pm Start: 05-04-2021 End: 09-22-2021 take 1 tablet by mouth once daily Lisinopril 5 mg Tablet Discontinued 5 mg PO DAILY May 04, 2021 12:00am September 22, 2021 2:08pm methylPREDNISolone 4 mg oral tablet (12 sources) Corticosteroid Start: 12-05-2022 End: 07-04-2023 take 1 tablet by mouth once Methylprednisolone (Medrol (Kenneth)) 4 mg tablets,dose pack Discontinued 0 PO per package directions December 05, 2022 1:00am July 04, 2023 3:00pm PO PER PKG DIR Start: 05-23-2022 End: 05-29-2022 take 1 tablet by mouth once Methylprednisolone (Medrol (Kenneth)) 4 mg tablets,dose pack Discontinued 4 mg PO per package directions 21 6 May 23, 2022 12:00am May 28, 2022 12:00am May 29, 2022 12:04am metroNIDAZOLE 500 mg oral tablet (6 sources) Nitroimidazole Antimicrobial Start: 09-12-2024 End: 10-04-2024 Metronidazole 500 mg tablet Discontinued 500 mg PO .COMPLEX 6 September 12, 2024 1:00am October 04, 2024 12:11pm 500 mg PO Take 2 (two) tablets at 1300, 1500, 2300 Start: 09-08-2024 End: 10-04-2024 take 1 capsule by mouth every twelve hours Metronidazole (Flagyl) 375 mg capsule Discontinued 375 mg PO Q12H 14 7 0 September 08, 2024 1:00am October 04, 2024 12:11pm Start: 01-16-2024 End: 02-13-2024 take 1 tablet by mouth every eight hours Metronidazole 500 mg tablet Discontinued 500 mg PO Q8H 21 7 0 January 16, 2024 12:00am February 13, 2024 2:51pm neomycin sulfate 500 mg oral tablet (1 source) Aminoglycoside Antibacterial Start: 09-12-2024 End: 10-21-2024 Neomycin 500 mg tablet Discontinued 500 mg PO .COMPLEX 6 0 September 12, 2024 1:00am October 21, 2024 4:37pm pre-op antibiotics Take two (2) 500 mg tablets PO at 1300, 1500, 2300 oxyCODONE hydrochloride 5 mg oral tablet (1 source) Opioid Agonist Start: 10-21-2024 End: 11-06-2024 take 1 tablet by mouth every six hours as needed for pain Oxycodone 5 mg tablet Discontinued 5 mg PO EVERY 6 HOURS as needed for pain 10 3 0 October 21, 2024 November 06, 2024 10:23am Leukocytosis Acute diverticulitis of intestine Elevated white blood cell count, unspecified predniSONE 20 mg oral tablet (7 sources) Start: 05-04-2021 End: 09-22-2021 take 1 tablet by mouth twice daily Prednisone 20 mg tablet Discontinued 20 mg PO TWICE A DAY 14 0 May 04, 2021 12:00am September 22, 2021 2:09pm psyllium 3400 mg powder for oral suspension (3 sources) Start: 02-13-2024 End: 09-05-2024 Psyllium Husk (Metamucil) 3.4 gram/5.4 gram powder Discontinued 1 tbsp PO DAILY NEEDED as needed for constipation March 28, 2024 12:00am September 05, 2024 1:54am mix into at least 8 oz of water or juice before administering Start: 02-13-2024 Psyllium Husk (Metamucil) 3.4 gram/5.4 gram powder Active 1 tbsp PO DAILY 660 February 13, 2024 12:00am mix into at least 8 oz of water or juice before administering Varenicline (7 sources) Partial Cholinergic Nicotinic Agonist Start: 04-15-2019 End: 02-22-2021 take 40 mg by mouth once daily Varenicline Discontinued 40 MG PO DAILY April 15, 2019 9:45pm February 22, 2021 10:15am Start: 04-15-2019 End: 02-22-2021 take 1 tablet by mouth once daily Varenicline Tartrate 1 EACH tablets,dose pack Discontinued 40 mg PO DAILY April 15, 2019 12:00am February 22, 2021 10:15am Start: 04-15-2019 End: [...] tablet by mouth once Varenicline (Chantix Starting ) 0.5 mg (11)- 1 mg (42) tablets,dose pack Discontinued 0 PO per package directions November 20, 2023 1:00am January 15, 2024 9:31am PO PER PKG DIR Start: 11-20-2023 take 1 tablet by mouth once Va renicline (Chantix Starting ) 0.5 mg (11)- 1 mg (42) tablets,dose pack Active 0 PO per package directions November 20, 2023 12:00am PO PER PKG DIR Varenicline Tartrate (Chantix Starting ) 0.5 mg (11)- 1 mg (42) tablets,dose pack (1 source) Start: 11-20-2023 End: 01-15-2024 take 1 tablet by mouth once Varenicline Tartrate (Chantix Starting Box) 0.5 mg (11)- 1 mg (42) tablets,dose pack Discontinued 0 PO per package directions 53 0 November 20, 2023 1:00am January 15, 2024 9:31am PO PER PKG DIR Problems Active Problems Problem Classification Problem Date Documented Da te Episodic/Chronic Administrative/social admission (1 source) Persons encountering health services in other specified circumstances; Translations: [Other reasons for seeking consultation] 07-04-2023 Episodic Allergic reactions (13 sources) Contact dermatitis; Translations: [Unspecified contact dermatitis, unspecified cause] 07-04-2023 Episodic Cardiac dysrhythmias (7 sources) Intermittent palpitations; Translations: [Palpitations] 07-04-2023 Episodic Diseases of white blood cells (2 sources) Elevated white blood cell count, unspecified; Translations: [Leukocytosis] Onset: 4 10-29-2024 Chronic Diverticulosis and diverticulitis (9 sources) Diverticulitis of intestine; Translations: [Diverticulitis of intestine, part unspecified, without perforation or abscess without bleeding] Onset: 4 01-16-2024 Chronic Esophageal disorders (9 sources) Gastroesophageal reflux disease; Translations: [Gastro-esophageal reflux disease without esophagitis] Onset: 7 08-21-2017 Chronic Comment on above: PRN PRILOSEC/SELDOM USE Essential hypertension (12 sources) Essential hypertension; Translations: [Essential (primary) hypertension] 09-09-2021 Chronic Comment on above: NO MED FOR 1 YR Gastrointestinal hemorrhage (2 sources) Hemorrhage of anus and rectum; Translations: [Hemorrhage of rectum and anus] 02-13-2024 Episodic Nonspecific chest pain (7 sources) Atypical chest pain; Translations: [Other chest pain] 07-04-2023 Episodic Osteoarthritis (1 source) Arthritis; Translations: [Unspecified osteoarthritis, unspecified site] Onset: 7 08-21-2017 Chronic Other connective tissue disease (1 source) Pain in left foot; Translations: [Pain in left foot] Onset: 5 Episodic Other connective tissue disease (1 source) H/O: back problem; Translations: [Personal history of other diseases of the musculoskeletal system and connective tissue] 09-09-2021 Episodic Other ear and sense organ disorders (7 sources) Past history of procedure; Translations: [Myringotomy tube(s) status] 09-09-2021 Chronic Other ear and sense organ disorders (6 sources) Impacted cerumen; Translations: [Impacted cerumen, left ear] 06-29-2023 Episodic Other gastrointestinal disorders (7 sources) Dysphagia; Translations: [Dysphagia, unspecified] 09-09-2021 Episodic Other gastrointestinal disorders (1 source) Personal history of other diseases of the digestive system; Translations: [Personal history of unspecified digestive disease] 02-13-2024 Episodic Other nervous system disorders (7 sources) Meralgia paresthetica; Translations: [Meralgia paresthetica, right lower limb] 12-22-2021 Chronic Other nervous system disorders (1 source) Meralgia paresthetica, right lower limb; Translations: [Meralgia paresthetica] Chronic Other nervous system disorders (4 sources) Attention and concentration deficit; Translations: [Attention or concentration deficit] 11-20-2023 Chronic Other nervous system disorders (7 sources) Numbness and tingling sensation of skin; Translations: [Anesthesia of skin] 09-09-2021 Episodic Other nervous system disorders (5 sources) Anesthesia of skin; Translations: [Disturbance of skin sensation] Episodic Other nutritional; endocrine; and metabolic disorders (7 sources) Morbid obesity; Translations: [Morbid (severe) obesity due to excess calories] 02-24-2021 Chronic Other nutritional; endocrine; and metabolic disorders (1 source) Obesity; Translations: [Obesity, unspecified] 05-20-2024 Chronic Other screening for suspected conditions (not mental disorders or infectious disease) (2 sources) Encounter for screening for lipoid disorders; Translations: [Encounter for screening for diabetes mellitus] Onset: Episodic Other upper respiratory infections (12 sources) Acute maxillary sinusitis; Translations: [Acute maxillary sinusitis, unspecified] 06-29-2023 Episodic Peritonitis and intestinal abscess (2 sources) Abscess of intestine; Translations: [Abscess of intestine] Onset: 4 09-13-2024 Episodic Residual codes; unclassified (8 sources) Sleep apnea; Translations: [Sleep apnea, unspecified] Onset: 7 08-21-2017 Chronic Residual codes; unclassified (5 sources) Sleep apnea, unspecified; Translations: [Unspecified sleep apnea] 07-04-2023 Chronic Residual codes; unclassified (7 sources) History of selective lumbar nerve block; [...] [Herniation of intervertebral disc of lumbar spine] 02-15-2024 Chronic Spondylosis; intervertebral disc disorders; other back problems (20 sources) Low back pain; Translations: [Low back pain] Episodic Sprains and strains (13 sources) Low back strain; Translations: [Strain of muscle, fascia and tendon of lower back, sequela] 06-29-2023 Episodic Substance-related disorders (7 sources) Tobacco dependence syndrome; Translations: [Nicotine dependence, unspecified, uncomplicated] 09-09-2021 Chronic Thyroid disorders (5 sources) Hypothyroidism, unspecified; Translations: [Unspecified acquired hypothyroidism] Onset: 11-20-2023 Chronic Thyroid disorders (1 source) Disorder of thyroid gland; Translations: [Disorder of thyroid, unspecified] 05-20-2024 Episodic Comment on above: ON MED Past or Other Problems Problem Classification Problem Date Documented Da te Episodic/Chronic Abdominal pain (8 sources) Generalized abdominal pain; Translations: [Abdominal pain, generalized] Onset: 12-04-2024 11-20-2023 Episodic Other bone disease and musculoskeletal deformities (1 source) Costal chondritis; Translations: [Chondrocostal junction syndrome [Tietze]] Onset: 08-21-2017 08-22-2017 Episodic Other lower respiratory disease (1 source) Dyspnea; Translations: [Shortness of breath] Onset: 08-21-2017 08-21-2017 Episodic Unclassified (6 sources) H/O: back problem; Translations: [History of back problems] 09-09-2021 Results Test Name Value Interpretation Reference Range Facility Foot min 3 Viewson Foot min 3 Views [facility] Imaging Services [address] [place] [address] Foot min 3 Views MR#: [id number] Acct: [id number] Name: RONY HE Rep #: [id number] : 1985 M 40 From: [facility] [place] PCP: Dr. Kati Arshad MD Status: REG CLI Study: Foot min 3 Views Date of Exam: 06/21/25 Exam# [id number] Ordering Dr: Caity Ruano PROCEDURE: FOOT MIN 3 VIEWS 06/21/2025 REASON FOR EXAM: PAIN TECHNIQUE: FOOT MIN 3 VIEWS Laterality: Left COMPARISON: None. RAD/Foot min 3 Views IMPRESSION: Moderate posterior and inferior calcaneal spurring is seen. Normal contour of the Achilles tendon is seen in the lateral view. No ankle joint effusion is evident. No significant arthritic process is otherwise noted. No fracture, dislocation, or other significant osseous or joint space abnormality is seen. Reading Location: [place] [address] CC: PRASHANT Ruano; Dr. Kati Arshad MD [employer]: Signed Normal [facility] Internal Medicine Office Vis iton 12-03-2024 Internal Medicine Office Visit [facility] [place] [address] OFFICE VISIT Date of Service: 12/04/24 MR#: [id number] Acct: [id number] Name: RONY HE Rep #: [id number] : 1985 Provider: Dr. Kati lauren MD Age/Sex: 39/M Location: [facility] Status: Signed Intake Vital Signs 05/20/24 15:31 [...] Reasons: 6 m fu Chief Complaint: fu Learning And Development Administrator Required: No Accompanied by: Self Is patient [...] has a (more content not included)... Normal [facility] Surgery Visit Reporton 11-06 Surgery Visit Report [facility] [address] [place] [address]. [address] [place] [address] OFFICE VISIT Date of Service: 11/06/24 MR#: [id number] Acct: [id number] Name: RONY HE Rep #: [id number] : 1985 Provider: Dr. Juan henson MD Age/Sex: 39/M Location: [facility] Status: Signed Intake Vital Signs 10/18/24 12:12 Height 5 ft 8 in Intake Visit Reasons: COLECTOMY 10-17 Chief Complaint: colectomy Learning And Development Administrator Required: No Is patient in pain?: No [...] Global Post Op Diagnoses Acute diverticulitis K57.92 [facility] Medical History Pre-op testing History of [...] activity on 12/06 Juan Fuller MD Pager: [facility] [address] [place] [phone] Office: 11/06/24 0945 Date Juan Fuller MD [facility] Signature: Date (if applicable) CC: Normal [facility] Surgery Visit Reporton 10-24 Surgery Visit Report [facility] [address] [address] OFFICE VISIT Date of Service: 10/24/24 MR#: [id number] Acct: [id number] Name: RONY HE Rep #: [id number] : 1985 Provider: Dr. Juan henson MD Age/Sex: 39/M Location: [facility] Status: Signed Intake Vital Signs 09/11/24 14:57 10/18/24 12:12 Height 5 ft 8 in 5 ft 8 in Intake Visit Reasons: COLECTOMY 10-17 Chief Complaint: colectomy Learning And Development Administrator Required: No Is patient in pain?: Yes [...] no complaints Objective Details: Incisions healing well. Evangeline removed. 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 Juan Fuller MD Pager: [facility] [address] [place] [address], [place] [address] Office: 11/06/24 0332 Date Juan Fuller MD [facility] Signature: Date (if applicable) CC: Normal [facility] Basic Metabolic Profile (BMP )on 10-21-2024 BUN/CRE 12.2 RATIO Normal - [facility] Comment on above: Performed By: #### L [id number], L501.5200 #### [facility] [address] [place], [address] CA,Total 9.1 mg/dL Normal 8.5-10.1 [facility] Comment on above: Performed By: #### L [id number], L501.5200 #### [facility] [address] [place], [address] Chloride [Moles/Vol] 106 mmol/L Normal 98-107 [facility] Comment on above: Performed By: #### L [id number], L501.5200 #### [facility] [address] [place], [address] CO2 [Moles/Vol] 26.0 mmol/L Normal 21.0-32.0 [facility] Comment on above: Performed By: #### L [id number], L501.5200 #### [facility] [address] [place], [address] Creatinine [Mass/Vol] 0.82 mg/dL Normal 0.70-1.30 [facility] Comment on above: Result Comment: The validity of the calculated GFR GFRAA in patients over 70 years has not been determined. Clinical correlation is essential. Performed By: #### L 501.9520, L501.5200 #### [facility] [address] [place], [address] ECRCL 154.85 ml/min Normal [facility] Comment on above: Performed By: #### L 501.9520, L501.5200 #### [facility] [address] [place], [address] EST GFR - AA 135 mL/min Normal >60 [facility] Comment on above: Result Comment: Afri can Lao GFR Calc Performed By: #### L 501.9520, L501.5200 #### [facility] [address] [place], [address] GAP 6 Normal 5-15 [facility] Comment on above: Performed By: #### L 501.9520, L501.5200 #### [facility] [address] [place], [address] GFR/1.73 sq M.predicted among non-blacks MDRD (S/P/Bld) [Vol rate/Area] 111 mL/min/{1.73_m2} Normal >60 [facility] Comment on above: Result Comment: Non- GFR Calc Performed By: #### L 501.9520, L501.5200 #### [facility] [address] [place], [address] Glucose [Mass/Vol] 101 mg/dL Normal 74-106 [facility] Comment on above: Result Comment: Fast ing Glucose result from 100 to 125 mg/dL suggests IMPAIRED HOMEOSTASIS per A.D.A. criteria. Performed By: #### L 501.9520, L501.5200 #### [facility] [address] [place], [address] Potassium [Moles/Vol] 3.6 mmol/L Normal 3.5-5.1 [facility] Comment on above: Performed By: #### L 501.9520, L501.5200 #### [facility] [address] [place], [address] Sodium [Moles/Vol] 137 mmol/L Normal 136-145 [facility] Comment on above: Performed By: #### L 501.9520, L501.5200 #### [facility] [address] [place], [address] Urea nitrogen [Mass/Vol] 10 mg/dL Normal 7-18 [facility] Comment on above: Performed By: #### L 501.9520, L501.5200 #### [facility] [address] [place], [address] CBC W/Diff, Automatedon 12-2 -2023 Absolute Lymph 2.36 X10 3/uL Normal 0.83-4.51 [facility] Comment on above: Performed By: #### L 501.9520, L501.5200 #### [facility] [address] [place], [address] Absolute Neut 8.3 X10 3/uL High 2.0-7.7 [facility] Comment on above: Performed By: #### L 501.9520, L501.5200 #### [facility] [address] [place], [address] Basophils/100 WBC (Bld) 1.3 % High 0-1 [facility] Comment on above: Performed By: #### L 501.9520, L501.5200 #### [facility] [address] [place], [address] Eosinophils/100 WBC (Bld) 3.0 % Normal 0-5 [facility] Comment on above: Performed By: #### L 501.9520, L501.5200 #### [facility] [address] [place], [address] Erythrocyte distribution width (RBC) [Ratio] 13.3 % Normal 11.6-14.6 [facility] Comment on above: Performed By: #### L 501.9520, L501.5200 #### [facility] [address] [place], [address] Hematocrit (Bld) [Volume fraction] 45.1 % Normal 40-54 [facility] Comment on above: Performed By: #### L 501.9520, L501.5200 #### [facility] [address] [place], [address] Hemoglobin (Bld) [Mass/Vol] 14.6 g/dL Normal 13.0-16.5 [facility] Comment on above: Performed By: #### L 501.9520, L501.5200 #### [facility] [address] [place], [address] IG% 0.600 Normal 0.0-0.9 [facility] Comment on above: Result Comment: IG% - Immature Granulocytes (promyelocytes, myelocytes and metamyelocytes) > 1% indicates that a LEFT SHIFT is Present. Performed By: #### L 501.9520, L501.5200 #### [facility] [address] [place], [address] Lymphocytes/100 WBC (Bld) 19.5 % Normal 19-41 [facility] Comment on above: Performed By: #### L 501.95, L501.5200 #### [facility] [address] [place], [address] MCH (RBC) [Entitic mass] 27.9 pg Normal 27.0-32.0 [facility] Comment on above: Performed By: #### L 501.9520, L501.5200 #### [facility] [address] [place], [address] MCHC (RBC) [Mass/Vol] 32.4 g/dL Normal 32-36 [facility] Comment on above: Performed By: #### L 501.9520, L501.5200 #### [facility] [address] [place], [address] MCV (RBC) [Entitic vol] 86.1 fL Normal 80-94 [facility] Comment on above: Performed By: #### L 501.9520, L501.5200 #### [facility] [address] [place], [address] Monocytes/100 WBC (Bld) 6.5 % Normal 0-10 [facility] Comment on above: Performed By: #### L 501.9520, L501.5200 #### [facility] [address] [place], [address] Neutrophils/100 WBC (Bld) 69.1 % Normal 47-70 [facility] Comment on above: Performed By: #### L 501.9520, L501.5200 #### [facility] [address] [place], [address] Nucleated RBC (Bld) [#/Vol] 0 10*3/uL Normal 0-5 [facility] Comment on above: Performed By: #### L 501.9520, L501.5200 #### [facility] [address] [place], [address] Platelet mean volume (Bld) [Entitic vol] 10.8 fL Normal 6.2-12.0 [facility] Comment on above: Performed By: #### L 501.9520, L501.5200 #### [facility] [address] [place], [address] Platelets (Bld) [#/Vol] 247 10*3/uL Normal 150-450 [facility] Comment on above: Performed By: #### L 501.9520, L501.5200 #### [facility] [address] [place], [address] RBC (Bld) [#/Vol] 5.24 10*6/uL Normal 4.6-6.2 [facility] Comment on above: Performed By: #### L 501.9520, L501.5200 #### [facility] [address] [place], [address] RDW SD 42.0 fl Normal 35.1-43.9 [facility] Comment on above: Performed By: #### L 501.9520, L501.5200 #### [facility] [address] [place], [address] WBC (Bld) [#/Vol] 12.1 10*3/uL High 4.4-11.0 [facility] Comment on above: Performed By: #### L 501.9520, L501.5200 #### [facility] [address] [place], [address] Basic Metabolic Profile (BMP )on 10-18-2024 BUN/CRE 11.5 RATIO Normal 08-18 [facility] Comment on above: Performed By: #### L 501.080 #### [facility] [address] [place], [address] CA,Total 8.6 mg/dL Normal 8.5-10.1 [facility] Comment on above: Performed By: #### L 501.080 #### [facility] [address] [place], [address] Chloride [Moles/Vol] 109 mmol/L High 98-107 [facility] Comment on above: Performed By: #### L 501.080 #### [facility] [address] [place], [address] CO2 [Moles/Vol] 23.0 mmol/L Normal 21.0-32.0 [facility] Comment on above: Performed By: #### L 501.080 #### [facility] [address] [place], [address] Creatinine [Mass/Vol] 0.87 mg/dL Normal 0.70-1.30 [facility] Comment on above: Result Comment: The validity of the calculated GFR GFRAA in patients over 70 years has not been determined. Clinical correlation is essential. Performed By: #### L 501.080 #### [facility] [address] [place], [address] ECRCL 145.95 ml/min Normal [facility] Comment on above: Performed By: #### L 501.080 #### [facility] [address] [place], [address] EST GFR - AA 125 mL/min Normal >60 [facility] Comment on above: Result Comment: Afri can Lao GFR Calc Performed By: #### L 501.080 #### [facility] [address] [place], [address] GAP 5 Normal 5-15 [facility] Comment on above: Performed By: #### L 501.080 #### [facility] [address] [place], [address] GFR/1.73 sq M.predicted among non-blacks MDRD (S/P/Bld) [Vol rate/Area] 103 mL/min/{1.73_m2} Normal >60 [facility] Comment on above: Result Comment: Non- GFR Calc Performed By: #### L 501.080 #### [facility] [address] [place], [address] Glucose [Mass/Vol] 111 mg/dL High 74-106 [facility] Comment on above: Result Comment: Fast ing Glucose result from 100 to 125 mg/dL suggests IMPAIRED HOMEOSTASIS per A.D.A. criteria. Performed By: #### L 501.080 #### [facility] [address] [place], [address] Potassium [Moles/Vol] 4.1 mmol/L Normal 3.5-5.1 [facility] Comment on above: Performed By: #### L 501.080 #### [facility] [address] [place], [address] Sodium [Moles/Vol] 137 mmol/L Normal 136-145 [facility] Comment on above: Performed By: #### L 501.080 #### [facility] [address] [place], [address] Urea nitrogen [Mass/Vol] 10 mg/dL Normal 7-18 [facility] Comment on above: Performed By: #### L 501.080 #### [facility] [address] [place], [address] CBC-Complete Blood Cnt No Di ffon 10-18-2024 Erythrocyte distribution width (RBC) [Ratio] 13.8 % Normal 11.6-14.6 [facility] Comment on above: Performed By: #### L 501.080 #### [facility] [address] [place], [address] Hematocrit (Bld) [Volume fraction] 42.5 % Normal 40-54 [facility] Comment on above: Performed By: #### L 501.080 #### [facility] [address] [place], [address] Hemoglobin (Bld) [Mass/Vol] 13.7 g/dL Normal 13.0-16.5 [facility] Comment on above: Performed By: #### L 501.080 #### [facility] [address] [place], [address] MCH (RBC) [Entitic mass] 28.1 pg Normal 27.0-32.0 [facility] Comment on above: Performed By: #### L 501.080 #### [facility] [address] [place], [address] MCHC (RBC) [Mass/Vol] 32.2 g/dL Normal 32-36 [facility] Comment on above: Performed By: #### L 501.080 #### [facility] [address] [place], [address] MCV (RBC) [Entitic vol] 87.3 fL Normal 80-94 [facility] Comment on above: Performed By: #### L 501.080 #### [facility] [address] [place], [address] Platelet mean volume (Bld) [Entitic vol] 10.4 fL Normal 6.2-12.0 [facility] Comment on above: Performed By: #### L 501.080 #### [facility] [address] [place], [address] Platelets (Bld) [#/Vol] 228 10*3/uL Normal 150-450 [facility] Comment on above: Performed By: #### L 501.080 #### [facility] [address] [place], [address] RBC (Bld) [#/Vol] 4.87 10*6/uL Normal 4.6-6.2 [facility] Comment on above: Performed By: #### L 501.080 #### [facility] [address] [place], [address] RDW SD 43.9 fl Normal 35.1-43.9 [facility] Comment on above: Performed By: #### L 501.080 #### [facility] [address] [place], [address] WBC (Bld) [#/Vol] 20.9 10*3/uL High 4.4-11.0 [facility] Comment on above: Performed By: #### L 501.080 #### [facility] [address] [place], [address] MR/LIOCFZRL7dy 10-18-2024 MR/POSTOPAN2 [facility] Medical Records Department [address] [place] [address] Anesthesia Postop Eval II 10/18/24 0733 MR#: [id number] Acct: [id number] Name: RONY HE Rep #: [id number] : 1985 39 From: Awais Lawson MD PCP: Dr. Kati Arshad MD Status:ADM IN Y Race: C Location: [place]3 [id number] Anesthesia Postop Eval I Sum Postop Eval Completion status Anesthesia document: Postop Eval 1 completed: Yes Anesthesia Postop Eval I Summary Anesthesia Postop Eval I Summary: Anesthesia Postop Eval I: Assessment Summary Airway patent Yes 10/17/24 10:43 [employer]NAGER.JBLOU Spontaneous unlabored Yes 10/17/24 10:43 [employer] MANAGER.JBLOU respirations Mental status Awake,Calm 10/17/24 10:43 [employer]NAGER.JBLOU nausea No 10/17/24 10:43 [employer] DEVELOPMENT MANAGER.JBLOU Vomiting No 10/17/24 10:43 [employer] DEVELOPMENT MANAGER.JBLOU Anesthesia Postop Eval I: Fluid Summary Crystalloid volume administer 2,000 10/17/24 10:43 [employer] DEVELOPMENT MANAGER.JBLOU (ml) Colloids volume administered ( ml) Blood Product volume administered (ml) Total IV fluid infused 2,000 10/17/24 10:43 [employer] DEVELOPMENT MANAGER.JBLOU Anesthesia Postop Eval I: Summary Notes Anesthesia Complication No 10/17/24 10:43 [employer]ELOPMENT MANAGER.JBLOU Anesthesia Complication Comment: Post-operative progress note Anesthesia: Postop Eval II Evaluation Mental status: Awake Pain Level: 3 nausea: No Vomiting: No 10/18/24 0733 Date Awais Real Signature: Date CC: Signed Normal [facility] Bedside Glucoseon 10-17-2024 FINGERSTICK GLU 133 mg/dL High 74-106 [facility] Comment on above: Result Comment: FAUZIA CORREA OF PATIENT CARE PER NURSING PROTOCOL Performed By: #### L 501.080 #### [facility] [address] [facility] [address] [address] [place], [address] MR/POSTOP.ANEon 10-17-2024 MR/POSTOP.[facility] Medical Records Department [address] [place] [address] Anesthesia Postop Eval I 10/17/24 1043 MR#: [id number] Acct: [id number] Name: RONY HE Rep #: [id number] : 1985 39 From: Singh Evans CRNA PCP: Dr. Kati Arshad MD Status:ADM IN Y Race: C Location: [place] [address] Anesthesia: Postop Eval I Current Vital Signs [...] completed: Yes 10/17/24 1043 Date Singh Evans [employer]ELOPMENT MANAGER Cosigner Signature: Date CC: Signed Normal [facility] Operative Reporton 4 Operative Report [facility] Medical Records Department [address] [place] [address] Operative Report 10/17/24 1019 MR#: [id number] Acct: [id number] Name: RONY HE Rep #: [id number] : 1985 39 From: Juan Fuller MD PCP: Dr. Kati Arshad MD Status:ADM IN Location: [place] [address] Operative Report (Standard) Operative Information Date of Procedure: 10/17/24 Pre-Operative Diagnosis: Recurrent sigmoid diverticulitis Post-Operative Diagnosis: Same Surgery/Procedure Performed: Laparoscopic converted to open sigmoid colectomy with anastomosis portfolio lead: Yes Prompt Care Rn: Mari Tabor Tasks completed by assisted living nursing director: Opening, Closing and Retracting Type of Anesthesia: [...] was performed using 0 Prolene. Next my nurse's assistant went down and the well-lubricated sizers [...] MD; Dr. Juan Fuller MD Signed Normal [facility] Surgery Specimen Level IIIon 10-17-2024 Surgery Specimen Level III Patient Age/Sex Location Account Attending Physician RONY HE 39/M [place] [id number] Dr. Juan Fuller MD Specimen: [id number] Received: 10/17/24 Status: BETSEY Dugan Num: [id number] Spec Type: COLON Subm Dr: Dr. Juan [...] More dictation will follow after additional fixation. . 10/17/2024 A few ruptured diverticula are identified. Section of pericolonic adipose tissue reveal no obviously enlarged lymph nodes. Beater Lead sections are submitted in six cassettes as follows: 1- resection margins, 2-5- diverticula (cassettes 4 5 contain the possible ruptured diverticula), 6- pericolonic adipose tissue. . 10/18/2024 B. Received in fixative is one container labeled with the patient's name and designated Proximal sigmoid donuts. The specimen consists of a donut shaped piece of colonic tissue measuring 2.0 x 1.5 x 1.5cm. Multiple sutures area noted. Beater Lead sections are submitted in one cassette. . 10/18/2024 C. Received in fixative is one container labeled with the patient's name and designated Distal sigmoid donuts. The specimen consists of a piece of donut shaped of colonic tissue measuring 2.5 x 2.0 x 1.0cm. Multiple susu are noted. Beater Lead sections are submitted in one cassette. Bam 10/18/2024 TC:5 [facility]:[id number] Patient Age/Sex Location Account Attending Physician RONY HE/M MS3 [id number] Dr. Juan Fuller MD Signed (signatur e on file) Dr. Titi Sanchez MD 10/21/24 1313 Normal [facility] Comment on above: Performed By: #### L 501.9520, L501.5200 #### [facility] [address] [place], [place], [address] Magnesiumon 10-04-2024 Magnesium [Mass/Vol] 2.1 mg/dL Normal 1.6-2.6 [facility] Comment on above: Performed By: #### L 501.9520, L501.5200 #### [facility] [address] [place], [place], [address] Thyroid Stim Hormone (TSH)on 10-04-2024 TSH 1.410 uIU/mL Normal 0.358-3.740 [facility] Comment on above: Performed By: #### L 501.9520, L501.5200 #### [facility] [address] [place], [place], [address] Surgery Visit Reporton 09-11 Surgery Visit Report [facility] [address] [place] [address]. [address] [place] [address] OFFICE VISIT Date of Service: 09/11/24 MR#: [id number] Acct: [id number] Name: RONY HE Rep #: [id number] : 1985 Provider: Dr. 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 Normal [facility] CBC W/Diff, Automatedon 11- 0-2023 Absolute Lymph 1.62 X10 3/uL Normal 0.83-4.51 [facility] Comment on above: Performed By: #### L 501.9520, L501.5200 #### [facility] [address] [place], [address] Absolute Neut 7.8 X10 3/uL High 2.0-7.7 [facility] Comment on above: Performed By: #### L 501.9520, L501.5200 #### [facility] [address] [place], [address] Basophils/100 WBC (Bld) 0.8 % Normal 0-1 [facility] Comment on above: Performed By: #### L 501.9520, L501.5200 #### [facility] [address] [place], [address] Eosinophils/100 WBC (Bld) 1.8 % Normal 0-5 [facility] Comment on above: Performed By: #### L 501.9520, L501.5200 #### [facility] [address] [place], [address] Erythrocyte distribution width (RBC) [Ratio] 12.8 % Normal 11.6-14.6 [facility] Comment on above: Performed By: #### L 501.9520, L501.5200 #### [facility] [address] [place], [address] Hematocrit (Bld) [Volume fraction] 45.2 % Normal 40-54 [facility] Comment on above: Performed By: #### L 501.9520, L501.5200 #### [facility] [address] [place], [address] Hemoglobin (Bld) [Mass/Vol] 14.6 g/dL Normal 13.0-16.5 [facility] Comment on above: Performed By: #### L 501.9520, L501.5200 #### [facility] [address] [place], [address] IG% 0.600 Normal 0.0-0.9 [facility] Comment on above: Result Comment: IG% - Immature Granulocytes (promyelocytes, myelocytes and metamyelocytes) > 1% indicates that a LEFT SHIFT is Present. Performed By: #### L 501.9520, L501.5200 #### [facility] [address] [place], [address] Lymphocytes/100 WBC (Bld) 15.6 % Low 19-41 [facility] Comment on above: Performed By: #### L 501.9520, L501.5200 #### [facility] [address] [place], [address] MCH (RBC) [Entitic mass] 28.2 pg Normal 27.0-32.0 [facility] Comment on above: Performed By: #### L 501.9520, L501.5200 #### [facility] [address] [place], [address] MCHC (RBC) [Mass/Vol] 32.3 g/dL Normal 32-36 [facility] Comment on above: Performed By: #### L 501.9520, L501.5200 #### [facility] [address] [place], [address] MCV (RBC) [Entitic vol] 87.4 fL Normal 80-94 [facility] Comment on above: Performed By: #### L 501.9520, L501.5200 #### [facility] [address] [place], [address] Monocytes/100 WBC (Bld) 5.5 % Normal 0-10 [facility] Comment on above: Performed By: #### L 501.9520, L501.5200 #### [facility] [address] [place], [address] Neutrophils/100 WBC (Bld) 75.7 % High 47-70 [facility] Comment on above: Performed By: #### L 501.9520, L501.5200 #### [facility] [address] [place], [address] Nucleated RBC (Bld) [#/Vol] 0 10*3/uL Normal 0-5 [facility] Comment on above: Performed By: #### L 501.9520, L501.5200 #### [facility] [address] [place], [address] Platelet mean volume (Bld) [Entitic vol] 10.9 fL Normal 6.2-12.0 [facility] Comment on above: Performed By: #### L 501.9520, L501.5200 #### [facility] [address] [place], [address] Platelets (Bld) [#/Vol] 222 10*3/uL Normal 150-450 [facility] Comment on above: Performed By: #### L 501.9520, L501.5200 #### [facility] [address] [place], [address] RBC (Bld) [#/Vol] 5.17 10*6/uL Normal 4.6-6.2 [facility] Comment on above: Performed By: #### L 501.9520, L501.5200 #### [facility] [address] [place], [address] RDW SD 40.9 fl Normal 35.1-43.9 [facility] Comment on above: Performed By: #### L 501.9520, L501.5200 #### [facility] [address] [place], [address] WBC (Bld) [#/Vol] 10.4 10*3/uL Normal 4.4-11.0 [facility] Comment on above: Performed By: #### L 501.9520, L501.5200 #### [facility] [address] [place], [address] Basic Metabolic Profile (BMP )on 09-07-2024 BUN/CRE 10.6 RATIO Normal 10-20 [facility] Comment on above: Performed By: #### L 100.0100, L500.2500 #### [facility] [address] [place], [address] CA,Total 8.6 mg/dL Normal 8.5-10.1 [facility] Comment on above: Performed By: #### L 100.0100, L500.2500 #### [facility] [address] [place], [address] Chloride [Moles/Vol] 105 mmol/L Normal 98-107 [facility] Comment on above: Performed By: #### L 100.0100, L500.2500 #### [facility] [address] [place], [address] CO2 [Moles/Vol] 26.0 mmol/L Normal 21.0-32.0 [facility] Comment on above: Performed By: #### L 100.0100, L500.2500 #### [facility] [address] [place], [address] Creatinine [Mass/Vol] 0.85 mg/dL Normal 0.70-1.30 [facility] Comment on above: Result Comment: The validity of the calculated GFR GFRAA in patients over 70 years has not been determined. Clinical correlation is essential. Performed By: #### L 100.0100, L500.2500 #### [facility] [address] [place], [address] ECRCL 151.30 ml/min Normal [facility] Comment on above: Performed By: #### L 100.0100, L500.2500 #### [facility] [address] [place], [address] EST GFR - AA 128 mL/min Normal >60 [facility] Comment on above: Result Comment: Afri can Lao GFR Calc Performed By: #### L 100.0100, L500.2500 #### [facility] [address] [place], [address] GAP 4 Low 5-15 [facility] Comment on above: Performed By: #### L 100.0100, L500.2500 #### [facility] [address] [place], [address] GFR/1.73 sq M.predicted among non-blacks MDRD (S/P/Bld) [Vol rate/Area] 106 mL/min/{1.73_m2} Normal >60 [facility] Comment on above: Result Comment: Non- GFR Calc Performed By: #### L 100.0100, L500.2500 #### [facility] [address] [place], [address] Glucose [Mass/Vol] 98 mg/dL Normal 74-106 [facility] Comment on above: Performed By: #### L 100.0100, L500.2500 #### [facility] [address] [place], [address] Potassium [Moles/Vol] 4.1 mmol/L Normal 3.5-5.1 [facility] Comment on above: Result Comment: Slig ht Hemolysis, Result may be falsely increased. Performed By: #### L 100.0100, L500.2500 #### [facility] [address] [place], [address] Sodium [Moles/Vol] 136 mmol/L Normal 136-145 [facility] Comment on above: Performed By: #### L 100.0100, L500.2500 #### [facility] [address] [place], [address] Urea nitrogen [Mass/Vol] 9 mg/dL Normal 7-18 [facility] Comment on above: Performed By: #### L 100.0100, L500.2500 #### [facility] [address] [place], [address] CBC W/Diff, Automatedon 11-0 9-2023 Absolute Lymph 1.20 X10 3/uL Normal 0.83-4.51 [facility] Comment on above: Performed By: #### L 100.0100, L500.2500 #### [facility] [address] [place], [address] Absolute Neut 12.0 X10 3/uL High 2.0-7.7 [facility] Comment on above: Performed By: #### L 100.0100, L500.2500 #### [facility] [address] [place], [address] Basophils/100 WBC (Bld) 0.6 % Normal 0-1 [facility] Comment on above: Performed By: #### L 100.0100, L500.2500 #### [facility] [address] [place], [address] Eosinophils/100 WBC (Bld) 0.9 % Normal 0-5 [facility] Comment on above: Performed By: #### L 100.0100, L500.2500 #### [facility] [address] [place], [address] Erythrocyte distribution width (RBC) [Ratio] 12.9 % Normal 11.6-14.6 [facility] Comment on above: Performed By: #### L 100.0100, L500.2500 #### [facility] [address] [place], [address] Hematocrit (Bld) [Volume fraction] 43.0 % Normal 40-54 [facility] Comment on above: Performed By: #### L 100.0100, L500.2500 #### [facility] [address] [place], [address] Hemoglobin (Bld) [Mass/Vol] 13.5 g/dL Normal 13.0-16.5 [facility] Comment on above: Performed By: #### L 100.0100, L500.2500 #### [facility] [address] [place], [address] IG% 0.500 Normal 0.0-0.9 [facility] Comment on above: Result Comment: IG% - Immature Granulocytes (promyelocytes, myelocytes and metamyelocytes) > 1% indicates that a LEFT SHIFT is Present. Performed By: #### L 100.0100, L500.2500 #### [facility] [address] [place], [address] Lymphocytes/100 WBC (Bld) 8.2 % Low 19-41 [facility] Comment on above: Performed By: #### L 100.0100, L500.2500 #### [facility] [address] [place], [address] MCH (RBC) [Entitic mass] 27.8 pg Normal 27.0-32.0 [facility] Comment on above: Performed By: #### L 100.0100, L500.2500 #### [facility] [address] [place], [address] MCHC (RBC) [Mass/Vol] 31.4 g/dL Low 32-36 [facility] Comment on above: Performed By: #### L 100.0100, L500.2500 #### [facility] [address] [place], [address] MCV (RBC) [Entitic vol] 88.5 fL Normal 80-94 [facility] Comment on above: Performed By: #### L 100.0100, L500.2500 #### [facility] [address] [place], [address] Monocytes/100 WBC (Bld) 7.7 % Normal 0-10 [facility] Comment on above: Performed By: #### L 100.0100, L500.2500 #### [facility] [address] [place], [address] Neutrophils/100 WBC (Bld) 82.1 % High 47-70 [facility] Comment on above: Performed By: #### L 100.0100, L500.2500 #### [facility] [address] [place], [address] Nucleated RBC (Bld) [#/Vol] 0 10*3/uL Normal 0-5 [facility] Comment on above: Performed By: #### L 100.0100, L500.2500 #### [facility] [address] [place], [address] Platelet mean volume (Bld) [Entitic vol] 11.3 fL Normal 6.2-12.0 [facility] Comment on above: Performed By: #### L 100.0100, L500.2500 #### [facility] [address] [place], [address] Platelets (Bld) [#/Vol] 192 10*3/uL Normal 150-450 [facility] Comment on above: Performed By: #### L 100.0100, L500.2500 #### [facility] [address] [place], [address] RBC (Bld) [#/Vol] 4.86 10*6/uL Normal 4.6-6.2 [facility] Comment on above: Performed By: #### L 100.0100, L500.2500 #### [facility] [address] [place], [address] RDW SD 42.0 fl Normal 35.1-43.9 [facility] Comment on above: Performed By: #### L 100.0100, L500.2500 #### [facility] [address] [place], [address] WBC (Bld) [#/Vol] 14.6 10*3/uL High 4.4-11.0 [facility] Comment on above: Performed By: #### L 100.0100, L500.2500 #### [facility] [address] [place], [address] Basic Metabolic Profile (BMP )on 09-06-2024 BUN/CRE 14.5 RATIO Normal 10-20 [facility] Comment on above: Performed By: #### L 100.0100, L500.2500 #### [facility] [address] [place], [address] CA,Total 8.4 mg/dL Low 8.5-10.1 [facility] Comment on above: Performed By: #### L 100.0100, L500.2500 #### [facility] [address] [place], [address] Chloride [Moles/Vol] 107 mmol/L Normal 98-107 [facility] Comment on above: Performed By: #### L 100.0100, L500.2500 #### [facility] [address] [place], [address] CO2 [Moles/Vol] 20.0 mmol/L Low 21.0-32.0 [facility] Comment on above: Performed By: #### L 100.0100, L500.2500 #### [facility] [address] [place], [address] Creatinine [Mass/Vol] 0.76 mg/dL Normal 0.70-1.30 [facility] Comment on above: Result Comment: The validity of the calculated GFR GFRAA in patients over 70 years has not been determined. Clinical correlation is essential. Performed By: #### L 100.0100, L500.2500 #### [facility] [address] [place], [address] ECRCL 169.22 ml/min Normal [facility] Comment on above: Performed By: #### L 100.0100, L500.2500 #### [facility] [address] [place], [address] EST GFR - AA 146 mL/min Normal >60 [facility] Comment on above: Result Comment: Afri can Lao GFR Calc Performed By: #### L 100.0100, L500.2500 #### [facility] [address] [place], [address] GAP 8 Normal 5-15 [facility] Comment on above: Performed By: #### L 100.0100, L500.2500 #### [facility] [address] [place], [address] GFR/1.73 sq M.predicted among non-blacks MDRD (S/P/Bld) [Vol rate/Area] 121 mL/min/{1.73_m2} Normal >60 [facility] Comment on above: Result Comment: Non- GFR Calc Performed By: #### L 100.0100, L500.2500 #### [facility] [address] [place], [address] Glucose [Mass/Vol] 97 mg/dL Normal 74-106 [facility] Comment on above: Performed By: #### L 100.0100, L500.2500 #### [facility] [address] [place], [address] Potassium [Moles/Vol] 3.7 mmol/L Normal 3.5-5.1 [facility] Comment on above: Performed By: #### L 100.0100, L500.2500 #### [facility] [address] [place], [address] Sodium [Moles/Vol] 135 mmol/L Low 136-145 [facility] Comment on above: Performed By: #### L 100.0100, L500.2500 #### [facility] [address] [place], [address] Urea nitrogen [Mass/Vol] 11 mg/dL Normal 7-18 [facility] Comment on above: Performed By: #### L 100.0100, L500.2500 #### [facility] [address] [place], [address] CBC W/Diff, Automatedon 11-0 8-4 Absolute Lymph 1.07 X10 3/uL Normal 0.83-4.51 [facility] Comment on above: Performed By: #### L 100.0100, L500.2500 #### [facility] [address] [place], [address] Absolute Neut 15.4 X10 3/uL High 2.0-7.7 [facility] Comment on above: Performed By: #### L 100.0100, L500.2500 #### [facility] [address] [place], [address] Basophils/100 WBC (Bld) 0.5 % Normal 0-1 [facility] Comment on above: Performed By: #### L 100.0100, L500.2500 #### [facility] [address] [place], [address] Eosinophils/100 WBC (Bld) 0.2 % Normal 0-5 [facility] Comment on above: Performed By: #### L 100.0100, L500.2500 #### [facility] [address] [place], [address] Erythrocyte distribution width (RBC) [Ratio] 13.0 % Normal 11.6-14.6 [facility] Comment on above: Performed By: #### L 100.0100, L500.2500 #### [facility] [address] [place], [address] Hematocrit (Bld) [Volume fraction] 43.7 % Normal 40-54 [facility] Comment on above: Performed By: #### L 100.0100, L500.2500 #### [facility] [address] [place], [address] Hemoglobin (Bld) [Mass/Vol] 13.7 g/dL Normal 13.0-16.5 [facility] Comment on above: Performed By: #### L 100.0100, L500.2500 #### [facility] [address] [place], [address] IG% 0.700 Normal 0.0-0.9 [facility] Comment on above: Result Comment: IG% - Immature Granulocytes (promyelocytes, myelocytes and metamyelocytes) > 1% indicates that a LEFT SHIFT is Present. Performed By: #### L 100.0100, L500.2500 #### [facility] [address] [place], [address] Lymphocytes/100 WBC (Bld) 6.0 % Low 19-41 [facility] Comment on above: Performed By: #### L 100.0100, L500.2500 #### [facility] [address] [place], [address] MCH (RBC) [Entitic mass] 27.6 pg Normal 27.0-32.0 [facility] Comment on above: Performed By: #### L 100.0100, L500.2500 #### [facility] [address] [place], [address] MCHC (RBC) [Mass/Vol] 31.4 g/dL Low 32-36 [facility] Comment on above: Performed By: #### L 100.0100, L500.2500 #### [facility] [address] [place], [address] MCV (RBC) [Entitic vol] 88.1 fL Normal 80-94 [facility] Comment on above: Performed By: #### L 100.0100, L500.2500 #### [facility] [address] [place], [address] Monocytes/100 WBC (Bld) 5.7 % Normal 0-10 [facility] Comment on above: Performed By: #### L 100.0100, L500.2500 #### [facility] [address] [place], [address] Neutrophils/100 WBC (Bld) 86.9 % High 47-70 [facility] Comment on above: Performed By: #### L 100.0100, L500.2500 #### [facility] [address] [place], [address] Nucleated RBC (Bld) [#/Vol] 0 10*3/uL Normal 0-5 [facility] Comment on above: Performed By: #### L 100.0100, L500.2500 #### [facility] [address] [place], [address] Platelet mean volume (Bld) [Entitic vol] 10.5 fL Normal 6.2-12.0 [facility] Comment on above: Performed By: #### L 100.0100, L500.2500 #### [facility] [address] [place], [address] Platelets (Bld) [#/Vol] 191 10*3/uL Normal 150-450 [facility] Comment on above: Performed By: #### L 100.0100, L500.2500 #### [facility] [address] [place], [address] RBC (Bld) [#/Vol] 4.96 10*6/uL Normal 4.6-6.2 [facility] Comment on above: Performed By: #### L 100.0100, L500.2500 #### [facility] [address] [place], [address] RDW SD 41.7 fl Normal 35.1-43.9 [facility] Comment on above: Performed By: #### L 100.0100, L500.2500 #### [facility] [address] [place], [address] WBC (Bld) [#/Vol] 17.7 10*3/uL High 4.4-11.0 [facility] Comment on above: Performed By: #### L 100.0100, L500.2500 #### [facility] [address] [place], [address] 12 Lead EKGon 09-05-2024 12 Lead EKG [facility] [address] [place] [address] 12 Lead EKG 09/05/24 0544 MR#: [id number] Acct: [id number] Name: RONY HE Rep #: [id number] : 1985 39 From: Jarad Mendez MD Attending Dr: Dr. Juan uFller MD Status: ADM IN Ordering Dr: Awais aLwson MD Date: 09/05/24 Location: [facility] Sex: M C Admitted: 09/05/24 Test Reason [...] change was found Confirmed by Jarad Mendez ([id number]), school photograph editor AUDRA COLEMAN ([id number]) on 09/05/2024 10:03:11 AM Referred By: Confirmed By: Jarad Mendez 09/05/24 1003 Date Jarad Mendez MD CC: Dr. Kati Arshad MD; Dr. Juan Fuller MD; Dr. Awais Lawson MD Signed Normal [facility] Basic Metabolic Profile (BMP )on 09-05-2024 BUN/CRE 16.9 RATIO Normal 10-20 [facility] Comment on above: Performed By: #### L 500.2500, L100.0100 #### [facility] [address] [place], [address] CA,Total 8.1 mg/dL Low 8.5-10.1 [facility] Comment on above: Performed By: #### L 500.2500, L100.0100 #### [facility] [address] [place], [address] Chloride [Moles/Vol] 108 mmol/L High 98-107 [facility] Comment on above: Performed By: #### L 500.2500, L100.0100 #### [facility] [address] [place], [address] CO2 [Moles/Vol] 27.0 mmol/L Normal 21.0-32.0 [facility] Comment on above: Performed By: #### L 500.2500, L100.0100 #### [facility] [address] [place], [address] Creatinine [Mass/Vol] 0.89 mg/dL Normal 0.70-1.30 [facility] Comment on above: Result Comment: The validity of the calculated GFR GFRAA in patients over 70 years has not been determined. Clinical correlation is essential. Performed By: #### L 500.2500, L100.0100 #### [facility] [address] [place], [address] ECRCL 144.50 ml/min Normal [facility] Comment on above: Performed By: #### L 500.2500, L100.0100 #### [facility] [address] [place], [address] EST GFR - AA 122 mL/min Normal >60 [facility] Comment on above: Result Comment: Afri can Lao GFR Calc Performed By: #### L 500.2500, L100.0100 #### [facility] [address] [place], [address] GAP 3 Low 5-15 [facility] Comment on above: Performed By: #### L 500.2500, L100.0100 #### [facility] [address] [place], [address] GFR/1.73 sq M.predicted among non-blacks MDRD (S/P/Bld) [Vol rate/Area] 101 mL/min/{1.73_m2} Normal >60 [facility] Comment on above: Result Comment: Non- GFR Calc Performed By: #### L 500.2500, L100.0100 #### [facility] [address] [place], [address] Glucose [Mass/Vol] 110 mg/dL High 74-106 [facility] Comment on above: Result Comment: Fast ing Glucose result from 100 to 125 mg/dL suggests IMPAIRED HOMEOSTASIS per A.D.A. criteria. Performed By: #### L 500.2500, L100.0100 #### [facility] [address] [place], [address] Potassium [Moles/Vol] 4.0 mmol/L Normal 3.5-5.1 [facility] Comment on above: Performed By: #### L 500.2500, L100.0100 #### [facility] [address] [place], [address] Sodium [Moles/Vol] 138 mmol/L Normal 136-145 [facility] Comment on above: Performed By: #### L 500.2500, L100.0100 #### [facility] [address] [place], [address] Urea nitrogen [Mass/Vol] 15 mg/dL Normal 7-18 [facility] Comment on above: Performed By: #### L 500.2500, L100.0100 #### [facility] [address] [place], [address] CBC W/Diff, Automatedon 11-0 7-2024 Absolute Lymph 2.08 X10 3/uL Normal 0.83-4.51 [facility] Comment on above: Performed By: #### L 500.2500, L100.0100 #### [facility] [address] [place], [address] Absolute Neut 19.2 X10 3/uL High 2.0-7.7 [facility] Comment on above: Performed By: #### L 500.2500, L100.0100 #### [facility] [address] [place], [address] Basophils/100 WBC (Bld) 0.5 % Normal 0-1 [facility] Comment on above: Performed By: #### L 500.2500, L100.0100 #### [facility] [address] [place], [address] Eosinophils/100 WBC (Bld) 0.3 % Normal 0-5 [facility] Comment on above: Performed By: #### L 500.2500, L100.0100 #### [facility] [address] [place], [address] Erythrocyte distribution width (RBC) [Ratio] 13.3 % Normal 11.6-14.6 [facility] Comment on above: Performed By: #### L 500.2500, L100.0100 #### [facility] [address] [place], [address] Hematocrit (Bld) [Volume fraction] 42.8 % Normal 40-54 [facility] Comment on above: Performed By: #### L 500.2500, L100.0100 #### [facility] [address] [place], [address] Hemoglobin (Bld) [Mass/Vol] 13.8 g/dL Normal 13.0-16.5 [facility] Comment on above: Performed By: #### L 500.2500, L100.0100 #### [facility] [address] [place], [address] IG% 1.100 High 0.0-0.9 [facility] Comment on above: Result Comment: IG% - Immature Granulocytes (promyelocytes, myelocytes and metamyelocytes) > 1% indicates that a LEFT SHIFT is Present. Performed By: #### L 500.2500, L100.0100 #### [facility] [address] [place], [address] Lymphocytes/100 WBC (Bld) 9.1 % Low 19-41 [facility] Comment on above: Performed By: #### L 500.2500, L100.0100 #### [facility] [address] [place], [address] MCH (RBC) [Entitic mass] 28.5 pg Normal 27.0-32.0 [facility] Comment on above: Performed By: #### L 500.2500, L100.0100 #### [facility] [address] [place], [address] MCHC (RBC) [Mass/Vol] 32.2 g/dL Normal 32-36 [facility] Comment on above: Performed By: #### L 500.2500, L100.0100 #### [facility] [address] [place], [address] MCV (RBC) [Entitic vol] 88.4 fL Normal 80-94 [facility] Comment on above: Performed By: #### L 500.2500, L100.0100 #### [facility] [address] [place], [address] Monocytes/100 WBC (Bld) 4.7 % Normal 0-10 [facility] Comment on above: Performed By: #### L 500.2500, L100.0100 #### [facility] [address] [place], [address] Neutrophils/100 WBC (Bld) 84.3 % High 47-70 [facility] Comment on above: Performed By: #### L 500.2500, L100.0100 #### [facility] [address] [place], [address] Nucleated RBC (Bld) [#/Vol] 0 10*3/uL Normal 0-5 [facility] Comment on above: Performed By: #### L 500.2500, L100.0100 #### [facility] [address] [place], [address] Platelet mean volume (Bld) [Entitic vol] 11.0 fL Normal 6.2-12.0 [facility] Comment on above: Performed By: #### L 500.2500, L100.0100 #### [facility] [address] [place], [address] Platelets (Bld) [#/Vol] 218 10*3/uL Normal 150-450 [facility] Comment on above: Performed By: #### L 500.2500, L100.0100 #### [facility] [address] [place], [address] RBC (Bld) [#/Vol] 4.84 10*6/uL Normal 4.6-6.2 [facility] Comment on above: Performed By: #### L 500.2500, L100.0100 #### [facility] [address] [place], [address] RDW SD 42.9 fl Normal 35.1-43.9 [facility] Comment on above: Performed By: #### L 500.2500, L100.0100 #### [facility] [address] [place], [address] WBC (Bld) [#/Vol] 22.7 10*3/uL High 4.4-11.0 [facility] Comment on above: Performed By: #### L 500.2500, L100.0100 #### [facility] [address] [place], [address] H AND P Exam - Surgicalon H&P Exam - Surgical [facility] Medical Records Department [address] [place] [address] H P Exam - Surgical 09/05/24 0058 MR#: [id number] Acct: [id number] Name: RONY HE Rep #: [id number] : 1985 39 From: Juan Fuller MD PCP: Dr. Kati Arshad MD Status:REG ER Location: ED HPI - General HPI [...] several days. He denies nausea or vomiting. [facility] Medical History Loss of hearing Wears [...] Deviation 42.0, (more content not included)... Normal [facility] Abdomen/Pelvis W IV Cont ONL Yon 09-04-2024 Abdomen/Pelvis W IV Cont ONLY [facility] Imaging Services [address] [place] [address] Abdomen/Pelvis W IV Cont ONLY MR#: [id number] Acct: [id number] Name: RONY HE Rep #: [id number] : 1985 M 39 From: Lawrence moeller DO PCP: Dr. Kati Arshad MD Status: REG ER Study: Abdomen/Pelvis W IV Cont ONLY Date of Exam: Exam# [id number] Ordering Dr: Brian Vaughan DO ADDENDUM by Dr. Lawrence Constantino DO on 09/04/24 at 2352 [id number] EXAM: CT ABDOMEN AND PELVIS WITH [...] Signed: Lawrence Constantino DO at 23:52 EST , 09/05/24 0004 Date cc: Dr. Kati Arshad MD; Brian Vaughan DO * Signed We are attempting to reach an attending provider to discuss findings. An addendum with communication details will be sent when the communication is complete. [id number] EXAM: CT ABDOMEN AND PELVIS WITH [...] solid mass. (more content not included)... Normal [facility] CBC W/Diff, Automatedon 11-0 Absolute Lymph 1.09 X10 3/uL Normal 0.83-4.51 [facility] Comment on above: Performed By: #### L 501.9520, L501.5200 #### [facility] [address] [place], [address] Absolute Neut 19.3 X10 3/uL High 2.0-7.7 [facility] Comment on above: Performed By: #### L 501.9520, L501.5200 #### [facility] [address] [place], [address] Basophils/100 WBC (Bld) 0.5 % Normal 0-1 [facility] Comment on above: Performed By: #### L 501.9520, L501.5200 #### [facility] [address] [place], [address] Eosinophils/100 WBC (Bld) 0.3 % Normal 0-5 [facility] Comment on above: Performed By: #### L 501.9520, L501.5200 #### [facility] [address] [place], [address] Erythrocyte distribution width (RBC) [Ratio] 13.1 % Normal 11.6-14.6 [facility] Comment on above: Performed By: #### L 501.9520, L501.5200 #### [facility] [address] [place], [address] Hematocrit (Bld) [Volume fraction] 47.1 % Normal 40-54 [facility] Comment on above: Performed By: #### L 501.9520, L501.5200 #### [facility] [address] [place], [address] Hemoglobin (Bld) [Mass/Vol] 14.8 g/dL Normal 13.0-16.5 [facility] Comment on above: Performed By: #### L 501.9520, L501.5200 #### [facility] [address] [place], [address] IG% 0.500 Normal 0.0-0.9 [facility] Comment on above: Result Comment: IG% - Immature Granulocytes (promyelocytes, myelocytes and metamyelocytes) > 1% indicates that a LEFT SHIFT is Present. Performed By: #### L 501.9520, L501.5200 #### [facility] [address] [place], [address] Lymphocytes/100 WBC (Bld) 5.1 % Low 19-41 [facility] Comment on above: Performed By: #### L 501.9520, L501.5200 #### [facility] [address] [place], [address] MCH (RBC) [Entitic mass] 27.7 pg Normal 27.0-32.0 [facility] Comment on above: Performed By: #### L 501.9520, L501.5200 #### [facility] [address] [place], [address] MCHC (RBC) [Mass/Vol] 31.4 g/dL Low 32-36 [facility] Comment on above: Performed By: #### L 501.9520, L501.5200 #### [facility] [address] [place], [address] MCV (RBC) [Entitic vol] 88.0 fL Normal 80-94 [facility] Comment on above: Performed By: #### L 501.9520, L501.5200 #### [facility] [address] [place], [address] Monocytes/100 WBC (Bld) 3.6 % Normal 0-10 [facility] Comment on above: Performed By: #### L 501.9520, L501.5200 #### [facility] [address] [place], [address] Neutrophils/100 WBC (Bld) 90.0 % High 47-70 [facility] Comment on above: Performed By: #### L 501.9520, L501.5200 #### [facility] [address] [place], [address] Nucleated RBC (Bld) [#/Vol] 0 10*3/uL Normal 0-5 [facility] Comment on above: Performed By: #### L 501.9520, L501.5200 #### [facility] [address] [place], [address] Platelet mean volume (Bld) [Entitic vol] 10.4 fL Normal 6.2-12.0 [facility] Comment on above: Performed By: #### L 501.9519, L501.5200 #### [facility] [address] [place], [address] Platelets (Bld) [#/Vol] 225 10*3/uL Normal 150-450 [facility] Comment on above: Performed By: #### L 501.9519, L501.5200 #### [facility] [address] [place], [address] RBC (Bld) [#/Vol] 5.35 10*6/uL Normal 4.6-6.2 [facility] Comment on above: Performed By: #### L 501.9519, L501.5200 #### [facility] [address] [place], [address] RDW SD 42.0 fl Normal 35.1-43.9 [facility] Comment on above: Performed By: #### L 501.9519, L501.5200 #### [facility] [address] [place], [address] WBC (Bld) [#/Vol] 21.4 10*3/uL High 4.4-11.0 [facility] Comment on above: Performed By: #### L 501.9520, L501.5200 #### [facility] [address] [place], [address] Comprehensive Metabolic Prof ilon 09-04-2024 Albumin [Mass/Vol] 3.8 g/dL Normal 3.2-5.0 [facility] Comment on above: Performed By: #### L 501.9520, L501.5200 #### [facility] [address] [place], [address] Albumin/Globulin [Mass ratio] 1.1 {ratio} Normal 0.9-2.4 [facility] Comment on above: Performed By: #### L 501.9520, L501.5200 #### [facility] [address] [place], [address] ALK P 59 U/L Normal 45-117 [facility] Comment on above: Performed By: #### L 501.9520, L501.5200 #### [facility] [address] [place], [address] ALT [Catalytic activity/Vol] 28 U/L Normal 16-61 [facility] Comment on above: Performed By: #### L 501.9520, L501.5200 #### [facility] [address] [place], [address] AST [Catalytic activity/Vol] 17 U/L Normal 15-37 [facility] Comment on above: Performed By: #### L 501.9520, L501.5200 #### [facility] [address] [place], [address] Bilirubin [Mass/Vol] 1.60 mg/dL High 0.20-1.00 [facility] Comment on above: Result Comment: For patients on eltrombopag therapy, use of Dimension [place] TBIL is not recommended. Performed By: #### L 501.9520, L501.5200 #### [facility] [address] [place], [address] BUN/CRE 20.4 RATIO High 10-20 [facility] Comment on above: Performed By: #### L 501.9520, L501.5200 #### [facility] [address] [place], [address] CA,Total 8.8 mg/dL Normal 8.5-10.1 [facility] Comment on above: Performed By: #### L 501.9520, L501.5200 #### [facility] [address] [place], [address] Chloride [Moles/Vol] 108 mmol/L High 98-107 [facility] Comment on above: Performed By: #### L 501.9520, L501.5200 #### [facility] [address] [place], [address] CO2 [Moles/Vol] 24.0 mmol/L Normal 21.0-32.0 [facility] Comment on above: Performed By: #### L 501.9520, L501.5200 #### [facility] [address] [place], [address] Creatinine [Mass/Vol] 0.93 mg/dL Normal 0.70-1.30 [facility] Comment on above: Result Comment: The validity of the calculated GFR GFRAA in patients over 70 years has not been determined. Clinical correlation is essential. Performed By: #### L 501.9520, L501.5200 #### [facility] [address] [place], [address] ECRCL 138.23 ml/min Normal [facility] Comment on above: Performed By: #### L 501.9520, L501.5200 #### [facility] [address] [place], [address] EST GFR - AA 116 mL/min Normal >60 [facility] Comment on above: Result Comment: Afri can Lao GFR Calc Performed By: #### L 501.9520, L501.5200 #### [facility] [address] [place], [address] GAP 5 Normal 5-15 [facility] Comment on above: Performed By: #### L 501.9520, L501.5200 #### [facility] [address] [place], [address] GFR/1.73 sq M.predicted among non-blacks MDRD (S/P/Bld) [Vol rate/Area] 96 mL/min/{1.73_m2} Normal >60 [facility] Comment on above: Result Comment: Non- GFR Calc Performed By: #### L 501.9520, L501.5200 #### [facility] [address] [place], [address] Globulin (S) [Mass/Vol] 3.5 g/dL Normal 2.2-4.2 [facility] Comment on above: Performed By: #### L 501.9520, L501.5200 #### [facility] [address] [place], [address] Glucose [Mass/Vol] 125 mg/dL High 74-106 [facility] Comment on above: Result Comment: Fast ing Glucose result from 100 to 125 mg/dL suggests IMPAIRED HOMEOSTASIS per A.D.A. criteria. Performed By: #### L 501.9520, L501.5200 #### [facility] [address] [place], [address] Potassium [Moles/Vol] 4.1 mmol/L Normal 3.5-5.1 [facility] Comment on above: Performed By: #### L 501.9520, L501.5200 #### [facility] [address] [place], [address] Sodium [Moles/Vol] 137 mmol/L Normal 136-145 [facility] Comment on above: Performed By: #### L 501.9520, L501.5200 #### [facility] [address] [place], [address] T PROT 7.3 g/dL Normal 6.4-8.2 [facility] Comment on above: Performed By: #### L 501.9520, L501.5200 #### [facility] [address] [place], [address] Urea nitrogen [Mass/Vol] 19 mg/dL High 7-18 [facility] Comment on above: Performed By: #### L 501.9520, L501.5200 #### [facility] [address] [place], [address] Emergency Department Summary on 09-04-2024 Emergency Department Summary [facility] Medical Records Department [address] [place] [address] Emergency Department Summary 09/04/24 MR#: [id number] Acct: [id number] Name: RONY HE Rep #: [id number] : 1985 39 From: Brian Vaughan DO PCP: Dr. Kati Arshad MD Status:ADM IN Location: [place] [address] HPI History of Present Illness Chief Complaint: [...] bouts of diverticulitis he presents for evaluation. [facility] Medical History Loss of hearing Wears glasses [...] current occupational status: employed current occupation: [employer] at [employer] facility Smoking Status: Former [...] General Eye (more content not included)... Normal [facility] Lactic Acidon 09-04-2024 Lactate [Moles/Vol] 1.1 mmol/L Normal 0.4-1.9 [facility] Comment on above: Order Comment: Y Performed By: #### L 501.9520, L501.5200 #### [facility] [address] [place], [place], [address] Lipaseon 09-04-2024 Lipase [Catalytic activity/Vol] 39 U/L Normal 13-75 [facility] Comment on above: Result Comment: Raj reid note: LIPASE revised reference range effective 23. New Lipase methodology. Expected to produce lower values than the previous assay method. NEW Reference Range: 13 - 75 U/L Performed By: #### L 501.9520, L501.5200 #### [facility] [address] [place], [place], [address] Urinalysis, Completeon 09-04 BACTERIA RARE Normal None Seen [facility] Comment on above: Order Comment: EVELYN CTOR TO SPECIFY Performed By: #### L 400.0001 #### [facility] [address] [place], [address] EPI,SQUAMOUS 0-5 SEEN Normal 0-5 [facility] Comment on above: Order Comment: EVELYN CTOR TO SPECIFY Performed By: #### L 400.0001 #### [facility] [address] [place], [address] RBC 0-5 SEEN Normal 0-5 [facility] Comment on above: Order Comment: EVELYN CTOR TO SPECIFY Performed By: #### L 400.0001 #### [facility] [address] [place], [address] WBC 0-5 SEEN Normal 0-5 [facility] Comment on above: Order Comment: EVELYN CTOR TO SPECIFY Performed By: #### L 400.0001 #### [facility] [address] [place], [address] Mucus Ql (Urine sed) 0 SEEN Normal [facility] Comment on above: Order Comment: COLLE CTOR TO SPECIFY Performed By: #### L 400.0001 #### [facility] [address] [place], [address] Absolute lymphocyte countOrd ered By: Isidoro Toney on 01-16-2024 Lymphocytes Auto (Unsp spec) [#/Vol] 2.79 10*3/uL 0.83-4.51 [facility] Automated lymphocyte count a s percentage of total leukocytesOrdered By: Remus Dawna on 01-16-2024 Lymphocytes/100 WBC Auto (Unsp spec) 15.3 % 19-41 [facility] Basophil percentageOrdered B y: Remus Dawna on 01-16-2024 Basophils/100 WBC (Bld) 0.9 % 0-1 [facility] Chloride [Moles/Vol] 103 mmol/L 98-107 [facility] Eosinophils/100 WBC (Bld) 1.3 % 0-5 [facility] Glucose [Mass/Vol] 130 mg/dL 74-106 [facility] Comment on above: Fasting Glucose resu lt greater than or equal to 126 mg/dL suggests DIABETES MELLITUS per A.D.A. criteria. Hemoglobin (Bld) [Mass/Vol] 15.2 g/dL 13.0-16.5 [facility] Lactate [Moles/Vol] 1.8 mmol/L 0.4-2.0 [facility] Monocytes/100 WBC (Bld) 7.6 % 0-10 [facility] Neutrophils (Bld) [#/Vol] 13.3 10*3/uL 2.0-7.7 [facility] Neutrophils/100 WBC (Bld) 72.8 % 47-70 [facility] Potassium [Moles/Vol] 3.6 mmol/L 3.5-5.1 [facility] Comment on above: Slight Hemolysis, Re sult may be falsely increased. Sodium [Moles/Vol] 138 mmol/L 136-145 [facility] WBC (Bld) [#/Vol] 18.3 10*3/uL 4.4-11.0 [facility] Determination of erythrocyte mean corpuscular volume (MCV)Ordered By: Isidoro Toney on 01-16-2024 MCV (RBC) [Entitic vol] 86.2 fL 80-94 [facility] Erythrocyte distribution wid th ratioOrdered By: Isidoro Toney on 01-16-2024 Erythrocyte distribution width (RBC) [Ratio] 12.9 % 11.6-14.6 [facility] Erythrocyte distribution wid th standard deviationOrdered By: Isidoro Toney on 01-16-2024 Erythrocyte distribution width (RBC) [Entitic vol] 40.2 fL 35.1-43.9 [facility] Hematocrit Auto (Bld) [Volum e fraction]Ordered By: [facility] Toney on 01-16-2024 Hematocrit (Bld) [Volume fraction] 47.3 % 40-54 [facility] Immature granulocytes/100 WB C Auto (Bld)Ordered By: Isidoro Toney on 01-16-2024 Immature granulocytes/100 WBC (Bld) 2.100 % 0.0-0.9 [facility] Comment on above: IG% - Immature Granu locytes (promyelocytes, myelocytes and metamyelocytes) > 1% indicates that a LEFT SHIFT is Present. Laboratory - Chemistry and C hemistry - challengeOrdered By: Isidoro Toney on 01-16-2024 CO2 [Moles/Vol] 27.0 mmol/L 21.0-32.0 [facility] Urea nitrogen/Creatinine [Mass ratio] 12.4 mg/mg 10-20 [facility] - Hematology and Cell countsOrdered By: Isidoro Toney on 01-16-2024 MCH (RBC) [Entitic mass] 27.7 pg 27.0-32.0 [facility] MCHC (RBC) [Mass/Vol] 32.1 g/dL 32-36 [facility] Nucleated RBC/100 WBC (Bld) [Ratio] 0 % 0-5 [facility] Platelet mean volume (Bld) [Entitic vol] 11.1 fL 6.2-12.0 [facility] Platelets (Bld) [#/Vol] 222 10*3/uL 150-450 [facility] No Panel InformationOrdered By: Isidoro Toney on 01-16-2024 Estimated Creatinine Clearance Calc 123.74 ml/min [facility] Estimated GFR (MDRD) Amer 101 mL/min >60 [facility] Comment on above: GFR Calc Estimated GFR (MDRD) Non-Af Amer 84 mL/min >60 [facility] Comment on above: Non- GFR Calc RBC Auto (Bld) [#/Vol]Ordere d By: Isidoro Toney on 01-16-2024 RBC (Bld) [#/Vol] 5.49 10*6/uL 4.6-6.2 [facility] Serum or plasma calcium radha urement (mass/volume)Ordered By: Isidoro Toney on 01-16-2024 Calcium [Mass/Vol] 9.2 mg/dL 8.5-10.1 [facility] Serum or plasma creatinine m easurement (mass/volume)Ordered By: [facility] Toney on 01-16-2024 Creatinine [Mass/Vol] 1.05 mg/dL 0.70-1.30 [facility] Comment on above: The validity of the calculated GFR & GFRAA in patients over 70 years has not been determined. Clinical correlation is essential. Serum or plasma urea nitroge n measurement (mass/volume)Ordered By: Isidoro Toney on 01-16-2024 Urea nitrogen [Mass/Vol] 13 mg/dL 7-18 [facility] Thin prep Papanicolaou smear with manual screeningOrdered By: Isidoro Toney on 01-16-2024 Thin prep Papanicolaou smear with manual screening 8 5-15 [facility] Absolute lymphocyte countOrd ered By: Kati Arshad on 01-15-2024 Lymphocytes Auto (Unsp spec) [#/Vol] 2.84 10*3/uL 0.83-4.51 [facility] Automated lymphocyte count a s percentage of total leukocytesOrdered By: Kati Arshad on 01-15-2024 Lymphocytes/100 WBC Auto (Unsp spec) 17.0 % 19-41 [facility] Basophil percentageOrdered B y: Kati Arshad on 01-15-2024 Basophils/100 WBC (Bld) 0.8 % 0-1 [facility] Bilirubin [Mass/Vol] 1.20 mg/dL 0.20-1.00 [facility] Comment on above: For patients on eltr ombopag therapy, use of Dim[place] TBIL is not recommended. Chloride [Moles/Vol] 106 mmol/L 98-107 [facility] Eosinophils/100 WBC (Bld) 2.1 % 0-5 [facility] Glucose [Mass/Vol] 106 mg/dL 74-106 [facility] Comment on above: Fasting Glucose resu lt from 100 to 125 mg/dL suggests IMPAIRED HOMEOSTASIS per A.D.A. criteria. Hemoglobin (Bld) [Mass/Vol] 15.8 g/dL 13.0-16.5 [facility] Monocytes/100 WBC (Bld) 7.0 % 0-10 [facility] Neutrophils (Bld) [#/Vol] 12.1 10*3/uL 2.0-7.7 [facility] Neutrophils/100 WBC (Bld) 72.6 % 47-70 [facility] Potassium [Moles/Vol] 4.1 mmol/L 3.5-5.1 [facility] Protein [Mass/Vol] 7.9 g/dL 6.4-8.2 [facility] Sodium [Moles/Vol] 138 mmol/L 136-145 [facility] WBC (Bld) [#/Vol] 16.7 10*3/uL 4.4-11.0 [facility] Determination of erythrocyte mean corpuscular volume (MCV)Ordered By: Kati Arshad on 01-15-2024 MCV (RBC) [Entitic vol] 88.0 fL 80-94 [facility] Erythrocyte distribution wid th ratioOrdered By: Katifranko Arshad on 01-15-2024 Erythrocyte distribution width (RBC) [Ratio] 13.1 % 11.6-14.6 [facility] Erythrocyte distribution wid th standard deviationOrdered By: Katigreg Arshad on 01-15-2024 Erythrocyte distribution width (RBC) [Entitic vol] 42.3 fL 35.1-43.9 [facility] Hematocrit Auto (Bld) [Volum e fraction]Ordered By: Kati Arshad on 01-15-2024 Hematocrit (Bld) [Volume fraction] 49.0 % 40-54 [facility] Immature granulocytes/100 WB C Auto (Bld)Ordered By: Katigreg Arshad on 01-15-2024 Immature granulocytes/100 WBC (Bld) 0.500 % 0.0-0.9 [facility] Comment on above: IG% - Immature Granu locytes (promyelocytes, myelocytes and metamyelocytes) > 1% indicates that a LEFT SHIFT is Present. Laboratory - Chemistry and C hemistry - challengeOrdered By: Kati Arshad on 01-15-2024 Albumin/Globulin [Mass ratio] 0.9 {ratio} 0.9-2.4 [facility] ALP [Catalytic activity/Vol] 71 U/L 45-117 [facility] ALT [Catalytic activity/Vol] 34 U/L 16-61 [facility] CO2 [Moles/Vol] 27.0 mmol/L 21.0-32.0 [facility] Globulin (S) [Mass/Vol] 4.1 g/dL 2.2-4.2 [facility] Urea nitrogen/Creatinine [Mass ratio] 10.9 mg/mg 10-20 [facility] Laboratory - Hematology and Cell countsOrdered By: Kati Arshad on 01-15-2024 MCH (RBC) [Entitic mass] 28.4 pg 27.0-32.0 [facility] MCHC (RBC) [Mass/Vol] 32.2 g/dL 32-36 [facility] Nucleated RBC/100 WBC (Bld) [Ratio] 0 % 0-5 [facility] Platelet mean volume (Bld) [Entitic vol] 10.8 fL 6.2-12.0 [facility] Platelets (Bld) [#/Vol] 233 10*3/uL 150-450 [facility] No Panel InformationOrdered By: Kati Arshad on 01-15-2024 Estimated GFR (MDRD) Amer 118 mL/min >60 [facility] Comment on above: GFR Calc Estimated GFR (MDRD) Non-Af Amer 98 mL/min >60 [facility] Comment on above: Non- GFR Calc RBC Auto (Bld) [#/Vol]Ordere d By: Kati Arshad on 01-15-2024 RBC (Bld) [#/Vol] 5.57 10*6/uL 4.6-6.2 [facility] Serum or plasma calcium radha urement (mass/volume)Ordered By: Kati Arshad on 01-15-2024 Calcium [Mass/Vol] 9.1 mg/dL 8.5-10.1 [facility] Serum or plasma creatinine m easurement (mass/volume)Ordered By: Kati Arshad on 01-15-2024 Creatinine [Mass/Vol] 0.92 mg/dL 0.70-1.30 [facility] Comment on above: The validity of the calculated GFR & GFRAA in patients over 70 years has not been determined. Clinical correlation is essential. Serum or plasma thyroid stim ulating hormone (TSH) measurement (units/volume)Ordered By: Kati Arshad on 01-15-2024 TSH Qn 0.02 uIU/mL 0.358-3.74 [facility] Serum or plasma urea nitroge n measurement (mass/volume)Ordered By: Kati Arshad on 01-15-2024 Urea nitrogen [Mass/Vol] 10 mg/dL 7-18 [facility] Thin prep Papanicolaou smear with manual screeningOrdered By: Kati Arshad on 01-15-2024 Thin prep Papanicolaou smear with manual screening 3.8 g/dL 3.2-5.0 [facility] Thin prep Papanicolaou smear with manual screening 21 U/L 15-37 [facility] Thin prep Papanicolaou smear with manual screening 5 5-15 [facility] Serum or plasma thyroid stim ulating hormone (TSH) measurement (units/volume)Ordered By: Kati Arshad on 11-20-2023 TSH Qn 0.01 uIU/mL 0.358-3.74 [facility] Absolute lymphocyte countOrd ered By: Kati Arshad on 07-04-2023 Lymphocytes Auto (Unsp spec) [#/Vol] 3.34 10*3/uL 0.83-4.51 [facility] Basophil percentageOrdered B y: Kati Arshad on 07-04-2023 Basophils/100 WBC (Bld) 1.3 % 0-1 [facility] Bilirubin [Mass/Vol] 0.50 mg/dL 0.20-1.00 [facility] Comment on above: For patients on eltr ombopag therapy, use of [place] TBIL is not recommended. Chloride [Moles/Vol] 109 mmol/L 98-107 [facility] Eosinophils/100 WBC (Bld) 3.1 % 0-5 [facility] Glucose [Mass/Vol] 75 mg/dL 74-106 [facility] Neutrophils (Bld) [#/Vol] 8.6 10*3/uL 2.0-7.7 [facility] Neutrophils/100 WBC (Bld) 64.0 % 47-70 [facility] Potassium [Moles/Vol] 4.0 mmol/L 3.5-5.1 [facility] Protein [Mass/Vol] 8.2 g/dL 6.4-8.2 [facility] Sodium [Moles/Vol] 141 mmol/L 136-145 [facility] WBC (Bld) [#/Vol] 13.5 10*3/uL 4.4-11.0 [facility] Blood erythrocytes count (nu mber/volume)Ordered By: Kati Arshad on 07-04-2023 RBC (Bld) [#/Vol] 5.35 10*6/uL 4.6-6.2 [facility] Blood hemoglobin measurement (mass/volume)Ordered By: Kati Arshad on 07-04-2023 Hemoglobin (Bld) [Mass/Vol] 15.1 g/dL 13.0-16.5 [facility] Blood lymphocytes/100 leukoc ytesOrdered By: Kati Arshad on 07-04-2023 Lymphocytes/100 WBC (Bld) 24.7 % 19-41 [facility] Blood monocytes/100 leukocyt esOrdered By: Kati Arshad on 07-04-2023 Monocytes/100 WBC (Bld) 6.5 % 0-10 [facility] Blood platelet mean volumeOr dered By: Kati Arshad on 07-04-2023 Platelet mean volume (Bld) [Entitic vol] 10.8 fL 6.2-12.0 [facility] Determination of erythrocyte mean corpuscular volume (MCV)Ordered By: Kati Arshad on 07-04-2023 MCV (RBC) [Entitic vol] 88.0 fL 80-94 [facility] Hematocrit Auto (Bld) [Volum e fraction]Ordered By: Kati Arshad on 07-04-2023 Hematocrit (Bld) [Volume fraction] 47.1 % 40-54 [facility] Laboratory - Chemistry and C hemistry - challengeOrdered By: Kati Arshad on 07-04-2023 ALP [Catalytic activity/Vol] 56 U/L 45-117 [facility] ALT [Catalytic activity/Vol] 40 U/L 16-61 [facility] CO2 [Moles/Vol] 27.0 mmol/L 21.0-32.0 [facility] Globulin (S) [Mass/Vol] 4.2 g/dL 2.2-4.2 [facility] Urea nitrogen/Creatinine [Mass ratio] 14.0 mg/mg 10-20 [facility] Laboratory - Hematology and Cell countsOrdered By: Kati Arshad on 07-04-2023 Erythrocyte distribution width (RBC) [Entitic vol] 43.5 fL 35.1-43.9 [facility] Erythrocyte distribution width (RBC) [Ratio] 13.4 % 11.6-14.6 [facility] Immature granulocytes/100 WBC (Bld) 0.400 % 0.0-0.9 [facility] Comment on above: IG% - Immature Granu locytes (promyelocytes, myelocytes and metamyelocytes) > 1% indicates that a LEFT SHIFT is Present. MCH (RBC) [Entitic mass] 28.2 pg 27.0-32.0 [facility] Nucleated RBC/100 WBC (Bld) [Ratio] 0 % 0-5 [facility] MCHC Auto (RBC) [Mass/Vol]Or dered By: Kati Arshad on 07-04-2023 MCHC (RBC) [Mass/Vol] 32.1 g/dL 32-36 [facility] No Panel InformationOrdered By: Kati Arshad on 07-04-2023 Estimated GFR (MDRD) Amer 107 mL/min >60 [facility] Comment on above: GFR Calc Estimated GFR (MDRD) Non-Af Amer 89 mL/min >60 [facility] Comment on above: Non- GFR Calc Thyroid Stimulating Hormone (TSH) 8.29 uIU/mL 0.358-3.74 [facility] Platelets bldOrdered By: Juan M Arshad on 07-04-2023 Platelets (Bld) [#/Vol] 283 10*3/uL 150-450 [facility] Serum or plasma albumin radha urement (mass/volume)Ordered By: Kati Arshad on 07-04-2023 Albumin [Mass/Vol] 4.0 g/dL 3.2-5.0 [facility] Serum or plasma albumin/glob ulin mass ratioOrdered By: Kati Arshad on 07-04-2023 Albumin/Globulin [Mass ratio] 1.0 {ratio} 0.9-2.4 [facility] Serum or plasma calcium radha urement (mass/volume)Ordered By: Kati Arshad on 07-04-2023 Calcium [Mass/Vol] 9.2 mg/dL 8.5-10.1 [facility] Serum or plasma creatinine m easurement (mass/volume)Ordered By: Kati Arshad on 07-04-2023 Creatinine [Mass/Vol] 1.00 mg/dL 0.70-1.30 [facility] Comment on above: The validity of the calculated GFR & GFRAA in patients over 70 years has not been determined. Clinical correlation is essential. Serum or plasma urea nitroge n measurement (mass/volume)Ordered By: Kati Arshad on 07-04-2023 Urea nitrogen [Mass/Vol] 14 mg/dL 7-18 [facility] Thin prep Papanicolaou smear with manual screeningOrdered By: Kati Arshad on 07-04-2023 Thin prep Papanicolaou smear with manual screening 27 U/L 15 [facility] Thin prep Papanicolaou smear with manual screening 5 5- [facility] No Panel Informationon 01-18 Thyroid Stimulating Hormone (TSH) 4.78 uIU/mL 0.358-3.74 [facility] Work Phone: CNPNon 03-05-[address] [facility] Telephone ([id number]) ---- RONY HE ([id number]) 1985 Date Time Provider Department 03/05/21 [facility] During your visit today, we recorded the [...] Encounter Status:Closed by BAKARI FAROOQ on 03/05/21 [facility] ---- RONY HE ([id number]) 1985 Date Time Provider Department 02/25/21 [facility] During your visit today, we recorded the following information about you: Eb Reilly 02/25/2021 3:26 PM Signed Received referral for GERD and gastric bypass. m to talk to patient. Em Allergies As [...] Status:Closed by EB REILLY on 12/14/[address] [facility] US ABDOMEN COMPLETEon 2020 US ABDOMEN COMPLETE [...] PM Sign Date: 01/01/2021 12:34:12 PM Ordering Provider:Phy Referring [facility] ([place] 08-15-2019 PROGRESS HNO ID: [id number] Author: Rony Vela Service: ? Author Type: Physical Therapist Type: Progress Notes Filed: 08/15/2019 7:24 AM Note Text: 08/15/2019 [facility]ER[facility] PHYSICAL THERAPY DISCONTINUANCE [...] scheduled additional follow-up appointments. Rony Vela PT [facility] CNTHERAPYon 07-03-2019 CNTHERAPY OT/PT/Speech Visit (PTMDRG) ---- RONY HE ([id number]) 1985 M Date Time Provider Department 07/03/19 5:15 PM RONY VELA (PT) PTMDRG Date Time Provider Department [place] 07/03/2019 5:15 PM [id number], SCOTT (P*PTMDRG [facility] Reason for Visit: Physical Therapy [...] as above (*) Billing: Coral: Therapeutic Exercise (67157): 1:1 time: 44 minutes (3 units: 38-52 mins) Total time: 44 minutes PEPPER Oates PT 08/15/2019 7:24 AM Signed 08/15/2019 [facility] REHABIL[facility] SPORTS THERAPY PHYSICAL THERAPY DISCONTINUANCE [...] additional follow-up appointments. Rony Vela PT ---- [facility] PROGRESSon 07-03-2019 PROGRESS HNO ID: [id number] Author: Rony (Pt) Solange Service: ? Author [...] home exercise program as above (*) Billing: Delta: Therapeutic Exercise (18591): 1:1 time: 44 minutes (3 units: 38-52 mins) Total time: 44 minutes Rony Vela PT [facility] CNTHERAPYon 06-26-2019 CNTHERAPY OT/PT/Speech Visit (PTMDRG) ---- RONY HE ([id number]) 1985 M Date Time Provider Department 06/26/19 4:30 PM CAMI HERNANDEZ (BLIND HANGER) PTMDRG Date Time Provider Department Center 06/26/2019 4:30 PM [id number], SUSAN *PTMDRG [facility] Reason for Visit: Physical Therapy [...] stability exercises. PLAN FOR NEXT VISIT: Add horacio garcia with stick mobility SUBJECTIVE: Patient Reason for [...] facilitated with verbal and visual cuing. Billing: Coral: Therapeutic Exercise (46299): 1:1 time: 43 minutes (3 units: 38-52 mins) Total time: 47 minutes Cami Hernandez PTA ---- Normal [facility] PROGRESSon 06-26-2019 PROGRESS HNO ID: [id number] Author: Cami Hernandez Service: ? Author Type: Imaging Nurse Type: Progress Notes Filed: 06/26/2019 7:13 PM [...] stability exercises. PLAN FOR NEXT VISIT: Add horacio garcia with stick mobility SUBJECTIVE: Patient Reason for [...] facilitated with verbal and visual cuing. Billing: Delta: Therapeutic Exercise (16518): 1:1 time: 43 minutes (3 units: 38-52 mins) Total time: 47 minutes Cami Hernandez [facility] CNTHERAPYon 06-19-2019 CNTHERAPY OT/PT/Speech Visit (PTMDRG) ---- RONY HE ([id number]) 1985 M Date Time Provider Department 06/19/19 4:30 PM RONY VELA (PT) PTMDRG Date Time Provider Department Center 06/19/2019 4:30 PM [id number], SCOTT (P*PTMDRG [facility] Reason for Visit: Physical Therapy [...] 6 * Progress Notes: Rony Vela, PT 06/19/2019 5:41 PM Signed Episode Visit [...] above (*) Billing: PT Services: Therapeutic Exercise (78631): 1:1 time: 43 minutes (3 units: 38-52 mins) Total time: 43 minutes Rony Vela PT ---- Normal [facility] PROGRESSon 06-19-2019 PROGRESS HNO ID: [id number] Author: Rony (Pt) Solange Service: ? Author [...] above (*) Billing: PT Services: Therapeutic Exercise (65931): 1:1 time: 43 minutes (3 units: 38-52 mins) Total time: 43 minutes Rony Vela PT [facility] CNTHERAPYon 06-12-2019 CNTHERAPY OT/PT/Speech Visit (PTMDRG) ---- RONY HE ([id number]) 1985 M Date Time Provider Department 06/12/19 4:30 PM RONY VELA (PT) PTMDRG Date Time Provider Department Center 06/12/2019 4:30 PM [id number], SCOTT (P*PTMDRG [facility] Reason for Visit: PT Eval [...] 6 * Progress Notes: Rony Vela PT 06/12/2019 6:56 PM Signed Episode Visit [...] ladder without feelings of R LE instability [place] in home exercise program. Patient will decrease [...] Pain Level: 3(worst pain over last week: 03/08) Pain Location: Knee - Right Description: Aching [...] Billing: PT Services: Evaluation - Moderate Complexity (62371) Therapeutic Exercise (33179): 1:1 time: 12 minutes (1 unit) Manual Therapy (16463): 1:1 time: 13 minutes (1 unit: 8-22 mins) Total time: 45 minutes Rony Vela PT ---- Normal [facility] PROGRESSon 06-12-2019 PROGRESS HNO ID: [id number] Author: Rony (Pt) Solange Service: ? Author [...] ladder without feelings of R LE instability [place] in home exercise program. Patient will decrease [...] Billing: PT Services: Evaluation - Moderate Complexity (37190) Therapeutic Exercise (54038): 1:1 time: 12 minutes (1 unit) Manual Therapy (04011): 1:1 time: 13 minutes (1 unit: 8-22 mins) Total time: 45 minutes Rony Vela PT [facility] PROGRESSon 05-27-2019 PROGRESS HNO ID: [id number] Author: ELIAN Cortez (Ct) Service: ? Author Type: Clinical Rug Cutter Helper Type: Progress Notes Filed: 05/27/2019 3:47 PM Note Text: NAME:Rony He DATE: May 27, 2019 CCF#: [id number] Lower Extremity X-Ray(s): Knee, AP / Lat / Tunne / Merchant Right and Wt. Bearing COMPLETED TECH ID SIGN: GIRMA SAHU [facility] XR KNEE 4V AP/PA BOTH+LAT/ME R RTon [...] knee. IMPRESSION: No acute osseous abnormality identified. Sed High School Teacher: PSCB Transcribe Date/Time: May 28 2019 12:43P Dictated by : CABRERA SHER MD This examination was interpreted and the report reviewed and electronically signed by: CABRERA SHER MD on May 28 2019 12:44PM EST [id number] [facility] HISTORY PHYSICALon 9 HISTORY PHYSICAL HNO ID: [id number] Author: Raji Diana Service: Pain Management Author Type: Physician Type: HANDP Filed: 03/05/2019 10:58 AM Note Text: HISTORY AND PHYSICAL EXAMINATION PATIENT NAME: Rony He DATE of SERVICE: 03/05/2019 Rony eH is here for the pain mangement procedure. [...] DATE: March 05, 2019 TIME: 10:[address] [facility] NURSING PROGon 03-05-2019 NURSING PROG HNO ID: [id number] Author: Paola (Rn) CHRIS Morales Service: ? Author Type: Registered Nurse Type: Nursing Progress Note Filed: 03/05/2019 10:26 AM Note Text: @ 1002 Pt received to ASCU, ambulatory AND steady - pleasant AND cooperative with care. @ 1025 Ready for procedure - @ bedside. [facility] OPERATIVE NOon 03-05-2019 OPERATIVE NO HNO ID: [id number] Author: Raji Diana Service: Pain Management Author [...] and personally performed the procedure. SIGNATURE: Raji iDana MD DATE: March 05, 2019 TIME: 11:[address] [facility] PT EDon 03-05-2019 PT ED HNO ID: [id number] Author: Kelly (Rn) CHRIS Lima Service: Nursing Author Type: Registered [...] Signed By: Kelly Lima RN In Department: [facility] PT ED HNO ID: [id number] Author: Paola (Rn) CHRIS Morales Service: ? [...] Signed By: Paola Morales RN In Department: [facility] XR FLUOROSCOPYon 03-05-2019 XR FLUOROSCOPY * * *Final Report* * * DATE OF EXAM: Mar 05 2019 11:16AM [facility] [id number] - XR FLUOROSCOPY / PROCEDURE REASON: [...] Contrast is seen. IMPRESSION: 1. As above. Sed High School Teacher: PSCB Transcribe Date/Time: Mar 05 2019 12:08P Dictated by : CABRERA SHER MD This examination was interpreted and the report reviewed and electronically signed by: CABRERA SHER MD on Mar 05 2019 12:08PM EST [id number] [facility] HOSPon 02-22-2019 HOSP Patient:Rony He MRN: Height:5' 8(1.727 [...] the following basenames: K,HCT Progress Notes ([facility]): Raji Diana MD 02/22/2019 12:15 PM Signed [place] [facility] NOTE DATE: February 22, 2019 Chief Complaint: chronic lower back and right lower extremity SUBJECTIVE: Mr. He presents to the [facility] Management Center ([facility]) office for a follow up appointment regarding [...] He is currently receiving medications through the [facility]. He is not having difficulty with his PMC medications. The medications are effective and partially [...] they verbalized an understanding of it. Minoo M Clements, REAL ESTATE MANAGER.FAMILY SUPPORT SPECIALIST Attending Note I have personally performed a face to face assessment of the patient and have reviewed the PA/TELEGRAPH DISPATCHER note. My draper findings include: History is [...] record for those providers who practice within [facility] or with access to [employer] via MD Connect, or via letter. Previous Version Progress Notes ([facility]): Miley Dsouza RN 02/18/2019 1:23 [...] since injection. Patient's significant other informed that philosophy and religion instructor from office will be calling to help assist with setting and appointment with Dr. Diana. Sabrina Roper Pss 02/18/2019 2:31 PM Signed Patient scheduled for 02/22/19. Normal [facility] HISTORY PHYSICALon 9 HISTORY PHYSICAL HNO ID: [id number] Author: Raji Diana Service: Pain Management Author [...] DATE: January 29, 2019 TIME: 10:[address] [facility] OPERATIVE NOon 01-29-2019 OPERATIVE NO HNO ID: [id number] Author: Raji Diana Service: Pain Management Author [...] DATE: January 29, 2019 TIME: 11:[address] [facility] PT EDon 01-29-2019 PT ED HNO ID: [id number] Author: Dian Sherman RN Service: Nursing Author Type: Registered Nurse Type: [...] REFERRAL (RECOMMENDATION): None lect a patient education template:[id number]} Electronically Signed By: Dian Sherman RN In Department: [facility] PT ED HNO ID: [id number] Author: Haroon Roblero RN Service: Nursing Author Type: Registered Nurse Type: [...] Signed By: Haroon Roblero RN In Department: [facility] XR FLUOROSCOPYon 01-29-2019 XR FLUOROSCOPY * [...] Please refer to the performing LIP's report. [employer] Teacher: PSCYola Transcribe Date/Time: Jan 29 2019 11:10A Dictated by : RAS TREVINO MD This examination was interpreted and the report reviewed and electronically signed by: RAS TREVINO MD on Jan 29 2019 11:11AM EST [id number] ACN [facility] HOSPon 01-07-2019 HOSP Patient:Rony He MRN: Height:5' 8(1.727 m) Weight:300 lb 8 oz (136.306 kg) Outpatient Medications as of 01/29/19: gabapentin (NEURONTIN) 300 mg capsule pregabalin (LYRICA) [...] the following basenames: K,HCT Progress Notes ([facility]): Minoo Clements APRN.FAMILY SUPPORT SPECIALIST 01/07/2019 12:20 PM Signed SUBJECTIVE: Rony He presents to [facility] Department for a followup appointment. [...] had a right L4?5 transforaminal injection on ?18 and reports 25% improvement. He would like [...] No suspicious activity was identified. 01/07/2019 by aLura Johsnon MA Narcotic Agreement reviewed and signed?: N/A on January 07, 2019 The pain panel was N/A Discussion: A discussion was entertained regarding multicomponent back pain source. Discussed conservative options and focus on improvement of function. Discussed the rationale behind interventional approach and how it can facilitate improvement of pain but also diagnostic information that procedures provide. [facility] use of any opioid pain medication is [...] months This note was partially generated using [employer] voice recognition system. The above plan and management options were discussed at length with patient. Patient is in agreement with the above and verbalized understanding. Minoo Clements APRN, FAMILY SUPPORT SPECIALIST January 07, 2019 Previous Version Normal [facility] HISTORY PHYSICALon 8 HISTORY PHYSICAL HNO ID: [id number] Author: Raji Diana Service: Pain Management Author [...] DATE: September 06, 2018 TIME: 12:[address] [facility] OPERATIVE NOon 09-06-2018 OPERATIVE NO HNO ID: [id number] Author: Raji Diana Service: Pain Management Author [...] DATE: September 06, 2018 TIME: 12:[address] [facility] XR FLUOROSCOPYon 09-06-2018 XR FLUOROSCOPY * * *Final Report* * * DATE OF EXAM: Sep 06 2018 12:40PM [facility] 5513 - XR FLUOROSCOPY / PROCEDURE REASON: [...] Refer to the procedure note for details [employer] Teacher: PSCB Transcribe Date/Time: Sep 06 2018 12:42P Dictated by : LORENA LOPEZ MD This examination was interpreted and the report reviewed and electronically signed by: LORENA LOPEZ MD on Sep 06 2018 12:43PM EST [id number] ACN [facility] HOSPon 09-04-2018 HOSP Patient:Rony He MRN: Height:5' [...] for the following basenames: K,HCT Progress Notes ([facility]): Dian Rowlandsukhdev 09/04/2018 3:56 PM Signed Filed for pre authorization with proper clinicals Patient was approved for CPT 50276 one day between - 09/03/18-10/29/18 Approval: [id number] Progress Notes ([facility]): Cici Treviño 08/31/2018 2:52 PM Signed Marya patients Spouse calling in regards to his surgery/injection being cancelled d/t insurance denial for patient. Marya would like to know what would be the next step of care for patient. Please call patients at [phone]. Ej martinez Dian Rowlandsukhdev 09/03/2018 9:49 AM Signed Spoke with and informed her that the office has contacted the authorization department and have requested the denial letter. Once the letter is received by the office we will start the appeal process. Dian Lalaascencion 09/03/2018 1:24 PM Signed Patient must come in and sign consent for office to file appeal. Called and LVM for patient regarding this and consent is at front end ui developer. [facility] Office Visit: [facility] ER Follow upon 08-21-2017 Fall risk assessment No Invalid Interpretation Code [facility] Work Phone: Protein mass conc T Invalid Interpretation Code [facility] Work Phone: Protein mass conc Done Invalid Interpretation Code [facility] Work Phone: Tobacco smoking status MAIS Never Invalid Interpretation Code [facility] Work Phone: Tobacco smoking status NHIS Current every day smoker Invalid Interpretation Code [facility] Work Phone: Vital Signs Date Time Vital Sign Value Performing Clinician Facility 02-13-2024 14:51-0400 Body height 172.72 cm [employer]AN [employer] INTERN-C Wen Stanley [facility] Work Phone: [facility] 02-13-2024 14:51-0400 Body mass index (BMI) [Ratio] 42.3 kg/m2 [employer] INTERN[employer]C Wen Stanley [facility] Work Phone: [facility] 02-13-2024 14:51-0400 Body temperature 97.4 [degF] HUMAN RESOURCE INTERN-C Wen Stanley [facility] Work Phone: [facility] 02-13-2024 14:51-0400 Body weight 126.26 kg H[employer] RESOURCE INTERN[employer]C Wen Stanley [facility] Work Phone: [facility] 02-13-2024 14:51-0400 Diastolic blood pressure 78 mm[Hg] H[employer] RESOURCE INTERN[employer]C Wen Stanley [facility] Work Phone: [facility] 02-13-2024 14:51-0400 Heart rate 86 /min [employer]OURCE INTERN[employer]C Wen Stanley [facility] Work Phone: [facility] 02-13-2024 14:51-0400 Respiratory rate 16 /min [employer] INTERN[employer]C Wen Stanley [facility] Work Phone: [facility] 02-13-2024 14:51-0400 SaO2% (BldA) [Mass fraction] 98 % [employer]OURCE INTERN[employer]C Wen Stanley [facility] Work Phone: [facility] 02-13-2024 14:51-0400 Systolic blood pressure 140 mm[Hg] HUM[employer] RESOURCE INTERN-C Wen Stanley [facility] Work Phone: [facility] 01-16-2024 13:14-0400 Body temperature 97.5 [degF] H[employer]OURCE INTERN[employer]C Wen Stanley [facility] Work Phone: [facility] 01-16-2024 13:14-0400 Diastolic blood pressure 72 mm[Hg] H[employer] RESOURCE INTERN[employer]C Wen Stanley [facility] Work Phone: [facility] 01-16-2024 13:14-0400 Heart rate 60 /min H[employer]OURCE INTERN[employer]C Wen Stanley [facility] Work Phone: [facility] 01-16-2024 13:14-0400 Respiratory rate 18 /min H[employer] RESOURCE INTERN[employer]C Wen Stanley [facility] Work Phone: [facility] 01-16-2024 13:14-0400 SaO2% (BldA) [Mass fraction] 98 % [employer]OURCE INTERN[employer]C Wen Stanley [facility] Work Phone: [facility] 01-16-2024 13:14-0400 Systolic blood pressure 130 mm[Hg] HUMAN RESOURCE INTERN-C Wne Stanley [facility] Work Phone: [facility] 01-16-2024 11:22-0400 Body height 172.72 cm H[employer] RESOURCE INTERN[employer]C Wen Stanley [facility] Work Phone: [facility] 01-16-2024 11:22-0400 Body mass index (BMI) [Ratio] 42.5 kg/m2 [employer] INTERN[employer]C Wen Stanley [facility] Work Phone: [facility] 01-16-2024 11:22-0400 Body weight 126.68 kg [employer] INTERN[employer]C Wen Stanley [facility] Work Phone: [facility] 01-15-2024 09:28-0400 Body mass index (BMI) [Ratio] 41.8 kg/m2 [employer] INTERN[employer]C Wen Stanley [facility] Work Phone: [facility] 01-15-2024 09:28-0400 Body temperature 97.3 [degF] HUM[employer] RESOURCE INTERN[employer]C Wen Stanley [facility] Work Phone: [facility] 01-15-2024 09:28-0400 Body weight 124.73 kg [employer]OURCE INTERN[employer]C Wen Stanley [facility] Work Phone: [facility] 01-15-2024 09:28-0400 Diastolic blood pressure 86 mm[Hg] H[employer] RESOURCE INTERN-C Wen Stanley [facility] Work Phone: [facility] 01-15-2024 09:28-0400 Heart rate 75 /min [employer]OURCE INTERN[employer]C Wen Stanley [facility] Work Phone: [facility] 01-15-2024 09:28-0400 Respiratory rate 18 /min [employer]OURCE INTERN[employer]C Wen Stanley [facility] Work Phone: [facility] 01-15-2024 09:28-0400 SaO2% (BldA) [Mass fraction] 99 % [employer] INTERN[employer]C Wen Stanley [facility] Work Phone: [facility] 01-15-2024 09:28-0400 Systolic blood pressure 142 mm[Hg] HUM[employer] RESOURCE INTERN-C Wen Stanley [facility] Work Phone: [facility] 11-20-2023 15:28-0500 Body height 172.72 cm HUMAN RESOURCE INTERN[employer]C Wen Stanley [facility] Work Phone: [facility] 11-20-2023 15:28-0500 Body mass index (BMI) [Ratio] 41.6 kg/m2 [employer] INTERN[employer]C Wen Stanley [facility] Work Phone: [facility] 11-20-2023 15:28-0500 Body temperature 97.3 [degF] HUM[employer] RESOURCE INTERN-C Wen Stanley [facility] Work Phone: [facility] 11-20-2023 15:28-0500 Body weight 124.34 kg HUM[employer] RESOURCE INTERN-C Wen Stanley [facility] Work Phone: [facility] 11-20-2023 15:28-0500 Diastolic blood pressure 76 mm[Hg] HUM[employer] RESOURCE INTERN-C Wen Stanley [facility] Work Phone: [facility] 11-20-2023 15:28-0500 Heart rate 90 /min H[employer]OURCE INTERN-C Wen Stanley [facility] Work Phone: [facility] 11-20-2023 15:28-0500 Respiratory rate 16 /min HUM[employer] RESOURCE INTERN-C Wen Stanley [facility] Work Phone: [facility] 11-20-2023 15:28-0500 SaO2% (BldA) [Mass fraction] 98 % [employer]OURCE INTERN-C Wen Stanley [facility] Work Phone: [facility] 11-20-2023 15:28-0500 Systolic blood pressure 122 mm[Hg] HUM[employer] RESOURCE INTERN-C Wen Stanley [facility] Work Phone: [facility] 07-04-2023 15:51-0400 Diastolic blood pressure 100 mm[Hg] HUM[employer] RESOURCE INTERN-C Wen Stanley [facility] Work Phone: [facility] 07-04-2023 15:51-0400 Systolic blood pressure 144 mm[Hg] HUM[employer] RESOURCE INTERN-C Wen Stanley [facility] Work Phone: [facility] 07-04-2023 14:56-0400 Body height 172.72 cm HUMAN RESOURCE INTERN-C Wen Stanley [facility] Work Phone: [facility] 07-04-2023 14:56-0400 Body mass index (BMI) [Ratio] 42.3 kg/m2 [employer]OURCE INTERN[employer]C Wen Stanley [facility] Work Phone: [facility] 07-04-2023 14:56-0400 Body temperature 96.3 [degF] HUMAN RESOURCE INTERN-C Wen Stanley [facility] Work Phone: [facility] 07-04-2023 14:56-0400 Body weight 126.32 kg HUM[employer]OURCE INTERN-C Wen Stanley [facility] Work Phone: [facility] 07-04-2023 14:56-0400 Heart rate 94 /min H[employer]OURCE INTERN[employer]C Wen Stanley [facility] Work Phone: [facility] 07-04-2023 14:56-0400 Respiratory rate 18 /min [employer]OURCE INTERN[employer]C Wen Stanley [facility] Work Phone: [facility] 07-04-2023 14:56-0400 SaO2% (BldA) [Mass fraction] 98 % HUM[employer]OURCE INTERN-C Wen Stanley [facility] Work Phone: [facility] 12-14-2021 08:40-0500 Body height 172.72 cm HUMAN RESOURCE INTERN-C Wen Stanley Work Phone: [facility] Work Phone: 12-14-2021 08:11-0500 Body mass index (BMI) [Ratio] 44.8 kg/m2 HUM[employer]OURCE INTERN-C Wen Stanley Work Phone: [facility] Work Phone: 12-14-2021 08:11-0500 Body temperature 97.9 [degF] HUMAN RESOURCE INTERN-C Wen Stanley Work Phone: [facility] Work Phone: 12-14-2021 08:11-0500 Body weight 133.8 kg HUMAN RESOURCE INTERN-C Wen Stanley Work Phone: [facility] Work Phone: 12-14-2021 08:11-0500 Diastolic blood pressure 90 mm[Hg] HUMAN RESOURCE INTERN-C Wen Stanley Work Phone: [facility] Work Phone: 12-14-2021 08:11-0500 Heart rate 106 /min H[employer]OURCE INTERN-C Wen Stanley Work Phone: [facility] Work Phone: 12-14-2021 08:11-0500 Respiratory rate 16 /min H[employer]AN RESOURCE INTERN-C Wen Stanley Work Phone: [facility] Work Phone: 12-14-2021 08:11-0500 SaO2% (BldA) [Mass fraction] 98 % H[employer]OURCE INTERN-C Wen Stanley Work Phone: [facility] Work Phone: 12-14-2021 08:11-0500 Systolic blood pressure 128 mm[Hg] HUM[employer] RESOURCE INTERN-C Wen Stanley Work Phone: [facility] Work Phone: 08-21-2017 14:42-0400 BMI (Body Mass Index) 40.59 kg/m2 Marcin Belcher MD [facility] Work Phone: 08-21-2017 14:42-0400 Body Temperature 98.2 [degF] Marcin Belcher MD [facility] Work Phone: 08-21-2017 14:42-0400 BP Diastolic 81 mm[Hg] Marcin Belcher MD [facility] Work Phone: 08-21-2017 14:42-0400 BP Systolic 123 mm[Hg] Marcin Belcher MD [facility] Work Phone: 08-21-2017 14:42-0400 Height 172.72 cm Marcin Belcher MD [facility] Work Phone: 08-21-2017 14:42-0400 Pulse (Heart Rate) 73 /min Marcin Belcher MD [facility] Work Phone: 08-21-2017 14:42-0400 Respiratory Rate 18 /min Marcin Belcher MD [facility] Work Phone: 08-21-2017 14:42-0400 Weight 121.11 kg Marcin Belcher MD [facility] Work Phone: Encounters Encounter Date Encounter Type Care Provider Facility Start: 06-25-2025 ambulatory Kati Jeancarlos Facility :[facility] Start: 06-21-2025 End: 06-21-2025 Patient encounter procedure Caity Bindu HUMAN RESOURCE INTERN-C -Radiology [facility] Work Phone: Start: 06-21-2025 End: 06-21-2025 ambulatory Kati Jeancarlos Facility:[facility] Start: 12-04-2024 Encounter for other preprocedural examination Juan Fuller [facility] Start: 12-04-2024 End: 12-04-2024 ambulatory Kati Bitely Facility:[facility] Start: 11-06-2024 End: 11-06-2024 ambulatory Kati Bitely Facility:[facility] Start: 10-24-2024 End: 10-24-2024 ambulatory Kati Bitely Facility:[facility] Start: 10-17-2024 End: 10-21-2024 Evaluation and management of inpatient Juan Fuller Facility:[facility] Start: 10-17-2024 ambulatory Kati Bitely Facility :[facility] Start: 09-11-2024 End: 09-11-2024 ambulatory Kati Bitely Facility:[facility] Start: 09-05-2024 End: 09-05-2024 ambulatory Jarad Mendez Facility:[facility] Start: 09-05-2024 End: 09-08-2024 Evaluation and management of inpatient Juan Fuller Facility:[facility] Start: 09-05-2024 ambulatory Juni Carey Facility :[facility] Start: 02-24-2024 End: 02-24-2024 ambulatory HUMAN RESOURCE INTERN-C Wen Stanley [facility] Work Phone: [facility] Work Phone: Start: 02-24-2024 End: 02-24-2024 Patient encounter procedure HUMAN RESOURCE INTERN-C Wen Stanley [facility] Work Phone: [facility] Work Phone: Start: 02-15-2024 End: 02-15-2024 Patient encounter procedure HUMAN RESOURCE INTERN-C Wen Stanley [facility] Work Phone: [facility] Work Phone: Start: 02-13-2024 End: 02-13-2024 Patient encounter procedure HUMAN RESOURCE INTERN-C Wen Stanley [facility] Work Phone: [facility] Work Phone: Start: 01-16-2024 End: 01-16-2024 Emergency department patient visit HUMAN RESOURCE INTERN-C Wen Stanley [facility] Work Phone: [facility]-Emergency Department Work Phone: Start: 01-15-2024 End: 01-15-2024 ambulatory HUMAN RESOURCE INTERN-C Wen Tsanley [facility] Work Phone: [facility] Work Phone: Start: 01-15-2024 End: 01-15-2024 Patient encounter procedure HUMAN RESOURCE INTERN-C Wen Stanley [facility] Work Phone: [facility] Work Phone: Start: 11-20-2023 End: 11-20-2023 ambulatory HUMAN RESOURCE INTERN-C Wen Stanley [facility] Work Phone: [facility] Work Phone: Start: 11-20-2023 End: 11-20-2023 Patient encounter procedure HUMAN RESOURCE INTERN-C Wen Stanley [facility] Work Phone: [facility] Work Phone: Start: 07-04-2023 End: 07-04-2023 ambulatory HUMAN RESOURCE INTERN-C Wen Stanley [facility] Work Phone: [facility] Work Phone: Start: 07-04-2023 End: 07-04-2023 Patient encounter procedure HUMAN RESOURCE INTERN-C Wen Stanley [facility] Work Phone: [facility]-Laboratory, [facility] Start: 07-04-2023 End: 07-04-2023 Patient encounter procedure HUMAN RESOURCE INTERN-C Wen Stanley [facility] Work Phone: [facility] Work Phone: Start: 01-18-2022 End: 01-18-2022 Patient encounter procedure HUMAN RESOURCE INTERN-C Wen Stanley Work Phone: [facility]-Laboratory Start: 12-22-2021 End: 12-22-2021 Patient encounter procedure HUMAN RESOURCE INTERN-C Wen Stanley Work Phone: [facility] Start: 12-14-2021 End: 12-14-2021 Patient encounter procedure HUMAN RESOURCE INTERN-C Wen Stanley Work Phone: [facility] Start: 10-06-2021 Non-patient / Non-visit HUMAN RESOURCE INTERN-C L floresita Stanley Work Phone: [facility] Start: 10-06-2021 Patient encounter procedure HUMAN RESOURCE INTERN-C Wen Zazuetas Work Phone: [facility]-Cardiovascula r Services Procedures Date Procedure Procedure Detail Performing Clinician Start: 06-21-2025 X-ray of foot, three or more views Dr. Kati Arshad MD Work Phone: Start: 02-24-2024 MRI of lumbar spine H[employer]OURCE INTERN- C Wen Stanley [facility] Work Phone: Start: 02-15-2024 X-ray of lumbar spin e, two or three views HUMAN RESOURCE INTERN-C Wen Stanley [facility] Work Phone: Start: 01-16-2024 Computed tomography of abdomen and pelvis with intravenous contrast H[employer]OURCE INTERN-C Wen Stanley [facility] Work Phone: Start: 12-22-2021 X-ray of lumbar spin e, two or three views H[employer]OURCE INTERN-C Wen Stanley Work Phone: Plan of Treatment Date Care Activity Detail Author Start: 02-13-2024 Patient referral [facility] Work Phone: Start: 01-16-2024 [facility] Start: 01-16-2024 Computed tomography of abdomen and pelvis with intravenous contrast Abdomen/Pelvis W IV Cont ONLY [facility] Start: 01-16-2024 CT Abdomen and Pelvis W contrast IV [facility] Start: 12-14-2021 Patient referral [facility] Work Phone: Bilirubin measuremen t, urine [facility] CT Abdomen and Pelvi s W contrast IV [facility] Hemoglobin [Presence ] in Urine [facility] Measurement of keton es in urine using dipstick [facility] Microscopic urinalysis [facility] Patient Education ED Diverticulitis [facility] Work Phone: Patient referral [facility] Work Phone: pH of Urine [facility] Specific gravity of Urine [facility] Tobacco use cessatio n education [facility] Urinalysis, blood, qualitative [facility] Urine dipstick for glucose [facility] Urine dipstick for leukocyte esterase [facility] Urine dipstick for nitrite [facility] Urine dipstick for protein [facility] Urine examination [facility] Urine microscopy: epithelial cells [facility] Urine Microscopy: wh ite cells [facility] Urobilinogen [Presen ce] in Urine [facility] Work Phone: Immunizations Immunization Date Immunization Notes Care Provider Georgette mahajan 08-18-2011 hepatitis B vaccine, pediatric or pediatric/adolescent dosage [employer] INTERN-C Wen Stanley [facility] Work Phone: [facility] Payers Date Payer Category Payer Unknown [id number] 2024 Private Health Insurance [id number] 2024 Self-pay [id number] 2015 Unknown SELF PAY INSURANCE [id number] 2015 Unknown [employer] [id number] Private Health Insurance [employer] [id number] Unknown [id number] Unknown SELF INS [facility] [id number] Unknown [id number] Unknown [id number] Unknown [id number] [id number] Unknown [id number] [id number] Unknown [id number] [id number] Unknown [id number] [id number] Unknown [id number] 2.840.1.911138.3.579.2.462 Unknown [id number] 2.840.1.646022.3.579.2.462 Unknown [id number] 2.16.840.1.141368.3.579.2.462 Unknown [id number] 2.16.840.1.676900.3.579.2.462 Unknown [id number] 2.16.840.1.206267.3.579.2.462 Unknown [id number] 2.16.840.1.763254.3.579.2.462 Unknown [id number] 2.16.840.1.955258.3.579.2.462 Unknown [id number] 2.16.840.1.363098.3.579.2.462 Unknown [id number] 2.16.840.1.456697.3.579.2.462 Unknown [id number] 2.16.840.1.465107.3.579.2.462 Unknown [id number] 2.16.840.1.084107.3.579.2.462 Unknown [id number] [id number] Social History Date Type Detail Facility Start: 12-22-2021 End: 02-12-2024 Tobacco smoking status [facility] Unknown if ever smoked [facility] Start: 1985 Sex Assigned At Male [facility] Start: 12-04-2024 Tobacco smoking stat us MAIS Ex-smoker (finding) [facility] Medical Equipment Procedure Code Equipment Code Equipment Origin al Text Equipment Identifier Dates Laparoscopic-assisted sigmoidectomy Surgical staple loading unit, cutting ()[id number] FDA Start: 10-17-2024 Laparoscopic-assisted sigmoidectomy Surgical staple loading unit, cutting ()[id number] FDA Start: 10-17-2024 Laparoscopic-assisted sigmoidectomy Intraluminal circular stapler, single-use ()[id number] FDA Start: 10-17-2024 Laparoscopic-assisted sigmoidectomy Surgical staple loading unit, non-cutting [id number] FDA Start: 10-17-2024 Clinical Notes 09-08-2024 to 06-23-2025 Note Date & Type Note Facility 06-23-2025 Radiology Diagnostic study note [facility] Imaging Services [address] [place] [address] Foot min 3 Views MR#: [id number] Acct: [id number] Name: RONY HE Rep #: [id number] : 1985 M 40 From: Del Flores MD PCP: Dr. Kati Arshad MD Status: REG CLI Study:Foot min 3 Views Date of Exam: Exam# [id number] Ordering Dr: Caity Ruano PROCEDURE: FOOT MIN 3 VIEWS 06/21/2025 REASON FOR EXAM: PAIN TECHNIQUE: FOOT MIN 3 VIEWS Laterality: Left COMPARISON: None. RAD/Foot min 3 Views IMPRESSION: Moderate posterior and inferior calcaneal spurring is seen. Normal contour of the Achilles tendon is seen in the lateral view. No ankle joint effusion is evident. No significant arthritic process is otherwise noted. No fracture, dislocation, or other significant osseous or joint space abnormality is seen. Reading Location: [place] [address] CC: PRASHANT Ruano; Dr. Kati Arshad MD ~ [employer]: Signed [facility] 10-21-2024 Note [facility] Records Department [address] [place] [address] Discharge Summary 10/21/24824 MR#: [id number] Acct: [id number] Name: RONY HE Rep #: [id number] : 1985 39 From: Audra CONTRERASC PCP: Dr. Kati Arshad MD Status:ADM IN Location: [place] [address]-1 Providers Date of Admission: 10/17/24 Primary Care [...] % (Auto) 69.1, Lymph % (Auto) 19.5, Mckenzie % (Auto) 6.5, Eos % (Auto) 3.0, [...] When: Follow-up with Dr. Fuller on 10/24 0900 or contact our office at [phone] to reschedule Meaningful Use Info Meaningful Use [...] pounds for th (more content not included)... [facility] 10-17-2024 Note [facility] Records Department [address] [place] [address] History Physical Exam 10/17/24 0642 MR#: [id number] Acct: [id number] Name: RONY HE Rep #: [id number] : 1985 39 From: Juan Fuller MD PCP: Dr. Kati Arshad MD Status:ADM IN Location: [place] [address] History and Physical Date of Admission: 10/17/24 Intake Vital Signs 09/07/2415:25 09/11/2414:57 Height 5 ft 8 in 5 ft 8 in Weight: 278 lb BMI 42.3 BP 128/84 H Blood Pressure Location Rt brachial Position Sitting Respiration 17 Pulse 77 Pulse Source Monitor Pulse Oximetry (%) 98 Oxygen Delivery Method room air Intake Visit Reasons: DIVERTICULITIS, [facility] FU Chief Complaint: diverticulitis Is patient [...] No ulcers, N (more content not included)... [facility] 09-08-2024 Note [facility] Records Department [address] [place] [address] Discharge Summary 09/08/24 1058 MR#: [id number] Acct: [id number] Name: RONY HE Rep #: [id number] : 1985 39 From: Juni Carey MD PCP: Dr. Kati Arshad MD Status:ADM IN [facility] Prov[facility] Date of Admission: 09/05/24 Date of [...] 75.7 H, Lymph % (Auto) 15.6 L, Mckenzie % (Auto) 5.5, Eos % (Auto) 1.8, [...] Lidocaine 5% o (more content not included)... [facility] Evaluation note Diagnosis Onset Date Numbness and tingling resolv ed Low back pain acute Meralgia paresthetica of right side acute [facility] Work Phone: Evaluation note* Diagnosis Onset Date Resolution Status Essential hypertension chron ic GERD (gastroesophageal reflux disease) chronic Sleep apnea chronic Immunization declined noneac tive Establishing care with new doctor, encounter for noneactive Chronic midline low back pain without sciatica noneactive [facility] Work Phone: Evaluation note* Diagnosis Onset Date Resolution Status Essential hypertension chron ic Sleep apnea chronic Acquired hypothyroidism none active Difficulty concentrating non eactive Generalized abdominal pain n oneactive Electronic cigarette use non eactive Numbness and tingling in both hands noneactive Chronic midline low back pain without sciatica noneactive [facility] Work Phone: Evaluation note* Diagnosis Onset Date Resolution Status Essential hypertension chron ic Sleep apnea chronic Acquired hypothyroidism none active Difficulty concentrating non eactive Generalized abdominal pain n oneactive Electronic cigarette use non eactive Numbness and tingling in both hands noneactive Chronic midline low back pain without sciatica noneactive LLQ abdominal pain noneactiv e Boil of groin noneactive [facility] Work Phone: Evaluation note* Diagnosis Onset Date Resolution Status Essential hypertension chron ic Sleep apnea chronic Acquired hypothyroidism none active Difficulty concentrating non eactive Generalized abdominal pain n oneactive Electronic cigarette use non eactive Numbness and tingling in both hands noneactive Chronic midline low back pain without sciatica noneactive LLQ abdominal pain noneactiv e Boil of groin noneactive History of diverticulitis no neactive Rectal bleeding noneactive HNP (herniated nucleus pulposus), lumbar acute [facility] Work Phone: Evaluation noteNo assessment information available [facility] Work Phone: Reason for referral (narrative)No reason for referral information availableWParkview [facility] Work Phone: Summary Purpose Family History Relationship Condition Age at Onset Recorded Date/T shakir father Alcohol abuse Unknown Relationship Condition Age at Onset Recorded Date/T shakir Not Specified Gastrointestinal problem Unknown Malignant neoplasm of cervix Unknown Arthritis Unknown father Alcohol abuse Unknown Cardiac disease Unknown grandmother Diabetes mellitus Unknown grandmother Cardiac disease Unknown Diabetes mellitus Unknown Disorder of intestine Unknown Hypertension Unknown Relationship Condition Age at Onset Recorded Date/T shakir Not Specified Gastrointestinal problem Unknown Malignant neoplasm of cervix Unknown father Alcohol abuse Unknown Cardiac disease Unknown grandmother Diabetes mellitus Unknown grandmother Cardiac disease Unknown Diabetes mellitus Unknown Disorder of intestine Unknown Hypertension Unknown mother Arthritis Unknown Advance Directives Advance Directive Response Recorded Date/ Time Living Will No December 14, 10:40am Power of Assistant Community Manager No December 14, 2021 10:40am Advance Directive Response Recorded Date/ Time Living Will No December 14 9:40am Power of Assistant Community Manager No December 14, 2021 9:40am Advance Directive Response Recorded Date/ Time Living Will No January 16, 2024 11:35am Power of Assistant Community Manager No January 15 11:35am Advance Directive Response Recorded Date/ Time Living Will No February 07, 2024 11:33am Power of Assistant Community Manager No February 06 11:33am Chief Complaint and Reason for Visit Chief Complaint CHEST PAIN R LEG PAIN LUMBER SPINE xray Reason for Visit Numbness and tinglin g Low back pain Meralgia paresthetica of right side Chief Complaint HUMAN RESOURCE INTERN EST CARE PPW SENT Reason for Visit [...] Rectal bleeding HNP (herniated nucleus pulposus), lumbar Chief Complaint Admit Date FOOT June 21, 2025 8: 03am Additional Source Comments (unrecognized sect ion and content) No Status Records FoundNo Status Records FoundNo Status Records FoundNo Status Records FoundNo Status Records Found INFORMATION SOURCE (unrecogn ized section and content) DATE CREATED AUTHOR 08/15/2019 [facility] DATE CREATED AUTHOR AUTHOR'S ORGANIZ ATION 01/03/2021 [facility] ([place] DATE CREATED AUTHOR AUTHOR'S ORGANIZ ATION 03/07/2021 [facility] DATE CREATED AUTHOR AUTHOR'S ORGANIZ ATION 12/15/2021 [facility] DATE CREATED AUTHOR AUTHOR'S ORGANIZ ATION 06/27/2025 [facility] Goals (unrecognized section and content) Goals may [...] Active Member Role Status Dates Neha Lagunas HUMAN RESOURCE INTERN, HUMAN RESOURCE INTERN-C Family Provider Active Wen Stanley VSC, HUMAN RESOURCE INTERN-C Primary Care Provider Active Team Status: Inactive Member Role Status Dates Wen CHASEC, HUMAN RESOURCE INTERN-C [facility] Provider, [facility] Active Dr. Kati Arshad MD Attending Provider Active Team Status: Inactive Member Role Status Dates Wen CHASEC, HUMAN RESOURCE INTERN-C Primary Care Provider Active Dr. Kati Arshad MD Attending Provider Active Team Status: Active Member Role Status Dates Neha Lagunas HUMAN RESOURCE INTERN, HUMAN RESOURCE INTERN-C Family Provider Active Dr. Kati Arshad MD Primary Care Provider Active Team Status: Inactive Member Role Status Dates Dr. Kati Arshad MD Primary Care Provider, Attendi Provider Active Team Status: Inactive Member Role [...] Eugenio Schmidt DO Attending Provider, Referring P rovider Active Team Status: Active Member Role/Relationship Status Dates Dr. Kati Arshad MD Primary Care Provider Active Team Status: Inactive Member Role/Relationship Status Dates Dr. Kati Arshad MD Primary Care Provider Active Start: June 21, 2025 End: June 21, 2025 PRASHANT Austin Attending Provider Active Start: June 21, 2025 End: June 21, 2025 PRASHANT Austin Referring Provider Active Start: June 21, 2025 End: June 21, 2025 FOR RECORDS PERTAINING TO PATIENTS WHO ARE [...] BE BASED ON THE PRIMARY CLINICAL RECORDS. [employer] provides no warranty or guarantee of the accuracy or completeness of information in this document.
[2025-06-28 10:26] LABS: AST(SGOT) 26 U/L (<=37); Alanine Aminotransfer ALT/SGPT 28 U/L (<=46); Albumin, Serum 4.3 g/dL (3.5-5.0); Alkaline Phosphatase 52 U/L (40-129); Anion Gap 10 (5-15); BUN 15 mg/dL (4-19); BUN/Creat Ratio 17.6 RATIO (10-20); Calcium,Total 9.1 mg/dL (7.6-11.0); Carbon Dioxide 20.7 mmol/L (21.0-32.0); Chloride 104 mmol/L (98-108); Globulin 3.1 g/dL (2.2-4.2); Glucose 106 mg/dL (70-99); Potassium 4.4 mmol/L (3.3-5.1)
[2025-06-28 10:51] LABS: Cholesterol 162 mg/dL (<=200); Low Density Lipoprotein Calc. 100 mg/dL; Triglycerides 48 mg/dL; Very Low Density Lipoprotein 10 mg/dL (5-40); cholesterol:hdl ratio screen 3.11
== END | disposition home or self-care (01) ==
PROVIDERS: PCP Internal Medicine; Referring Provider Nurse Practitioner Family; Visit Provider Nurse Practitioner Family
DX: Z13.1 Encounter for screening for diabetes mellitus (principal); Z13.220 Encounter for screening for lipoid disorders; E03.9 Hypothyroidism, unspecified
CPT/HCPCS: 36415; 80053; 80061; 83036; 84439; 84443